=== PATIENT | female | born 1950 | race Hispanic/Latino ===

== ENCOUNTER 2019-05-07 14:29 | Emergency (ER) | payer OTHER ==
--- OUTSIDE RECORDS SUMMARY | 2019-05-07 14:31 | XMS REPORT ---
:1950 Author Organization eClinicalWorks Care Team Providers Name Role Phone Reardon, Na Provider Role Unavailable Allergies, Adverse Reactions, Alerts Substance Reaction Event Type Metformin HCl Info Not Available Drug Allergy Janumet Info Not Available Drug Allergy Bactrim DS Info Not Available Drug Allergy Problems Problem Type Condition Code Onset Dates Condition Status Problem Diabetes mellitus type 2, E11.9 Active uncontrolled, without complications Problem Mixed hyperlipidemia E78.2 Active Problem HTN (hypertension), benign I10 Active Problem Elevated blood pressure reading I10 Active with diagnosis of hypertension Assessment Mixed hyperlipidemia E78.2 Active Problem Right foot pain M79.671 Active Assessment Cervicalgia M54.2 Active Assessment Gastroesophageal reflux disease K21.9 Active without esophagitis Problem Obesity, Class III, BMI 40-49.9 E66.01 Active (morbid obesity) Problem Poison shraddha L23.7 Active Problem Pollen allergies J30.1 Active Problem Adult general medical exam Z00.00 Active Problem Obesity (BMI 30-39.9) E66.9 Active Assessment HTN (hypertension), benign I10 Active Assessment Diabetic neuropathy, painful E11.40 Active Assessment Controlled type 2 diabetes mellitus E11.41 Active with diabetic mononeuropathy, without long-term current use of insulin Problem Diabetic neuropathy, painful E11.40 Active Problem Psoriasis L40.9 Active Problem Controlled type 2 diabetes mellitus E11.41 Active with diabetic mononeuropathy, without long-term current use of insulin Problem GERD (gastroesophageal reflux K21.9 Active disease) Assessment Obesity (BMI 30-39.9) E66.9 Active Problem Gastroesophageal reflux disease K21.9 Active without esophagitis Problem Diarrhea R19.7 Active Medications Medication Code Code Instructions Start End Status Dosage System Date Date Gabapentin NDC 66800960025 100 MG Orally Inactive 1 capsule Three times a day Lisinopril NDC 83796222428 10 MG Orally Oct 21, Active 1 tablet Once a day 2018 Lidex NDC 0 0.05 % Active not defined Externally Claritin NDC 25345944279 10 MG Orally Active 1 tablet Once a day Clobetasol [facility] 05015436224 0.05 % Active 1 application Propionate Externally to affected Twice a day area Tizanidine HCl [facility] 05754214794 2 MG Oct 21Oct Active 1 tab every 2019 26, 12 hours prn 2019 pain muscle spasm Medrol [facility] 53229430465 4 MG Orally Active as directed daily with food Creon [facility] 69378164150 48130 UNIT Active 1 capsule Orally three times a day Nexium [facility] 19105007537 40 MG Orally Active 1 capsule Once a day Pioglitazone [facility] 73924224549 30 MG Orally Active 1 tablet HCl Once a day Zestoretic [facility] 56498901231 20-25 MG Active 1 tablet Orally Once a day Crestor [facility] 64467043390 40 MG Orally Active 1 tablet Once a day GlipiZIDE ER ND 13384527219 5 MG Orally Oct 21, Active 1 tablet Once a day 2018uvia [facility] 39280967313 100 MG Orally Active 1 tablet Once a day Metformin HCl [facility] 48104304285 500 MG Orally Active 1 tablet with Once a day meals Lyrica [facility] 07565283869 50 MG Orally Active 1 capsule Twice a day Crestor [facility] 46802526072 40 MG Orally January Active 1 tablet Once a day 2017 Flonase [facility] 12724770397 50 MCG/ACT Active 2 spray in Nasally Once a each nostril day xiga [facility] 07163877738 10 MG Orally April Active 1 tablet Once a day 2018 Omeprazole [facility] 33682290656 40 MG Orally Active 1 capsule Once a day Cetirizine HCl [facility] 05859898982 10 MG Orally Active 1 tablet Once a day Results No Known Results Summary Purpose eClinicalWorks Submission
--- OUTSIDE RECORDS SUMMARY | 2019-05-07 14:31 | XMS REPORT ---
:1950 Author Organization eClinicalWorks Care Team Providers Name Role Phone Reardon, Na Provider Role Unavailable Allergies, Adverse Reactions, Alerts Substance Reaction Event Type Metformin HCl Info Not Available Drug Allergy Janumet Info Not Available Drug Allergy Bactrim DS Info Not Available Drug Allergy Problems Problem Type Condition Code Onset Dates Condition Status Problem Diarrhea R19.7 Active Problem GERD (gastroesophageal reflux K21.9 Active disease) Problem Psoriasis L40.9 Active Problem Elevated blood pressure reading with I10 Active diagnosis of hypertension Problem Poison shraddha L23.7 Active Problem Obesity, Class III, BMI 40-49.9 E66.01 Active (morbid obesity) Problem HTN (hypertension), benign I10 Active Problem Diabetes mellitus type 2, E11.9 Active uncontrolled, without complications Problem Pollen allergies J30.1 Active Problem Mixed hyperlipidemia E78.2 Active Assessment Obesity, Class III, BMI 40-49.9 E66.01 Active (morbid obesity) Assessment Elevated blood pressure reading with I10 Active diagnosis of hypertension Problem Controlled type 2 diabetes mellitus E11.41 Active with diabetic mononeuropathy, without long-term current use of insulin Assessment Vaginal candidiasis B37.3 Active Problem Gastroesophageal reflux disease K21.9 Active without esophagitis Assessment Acute lower urinary tract infection N39.0 Active Problem Diabetic neuropathy, painful E11.40 Active Medications Medication Code Code Instructions Start End Status Dosage System Date Date Nexium ND 14181677538 40 MG Orally April 15, Active 1 capsule Once a day 2017 Macrobid [facility] 80880893595 100 MG Orally May 20May Active 1 capsule every 12 hrs 2017 17, with food 2017 Creon ND 77804731825 90240 UNIT Active 1 capsule Orally three times a day Pioglitazone ND 45480401663 30 MG Orally Active 1 tablet HCl Once a day Medrol [facility] 77189309563 4 MG Orally Active as directed daily with food Januvia ND 35156700441 100 MG Orally Active 1 tablet Once a day Farxiga ND 10010190077 10 MG Orally Raymond Active 1 tablet Once a day 2018 Claritin [facility] 92370399341 10 MG Orally Active 1 tablet Once a day Metformin HCl ND 39148545376 500 MG Orally Active 1 tablet with Twice a day meals Zestoretic [facility] 47594034149 20-25 MG Orally Active 1 tablet Once a day Crestor [facility] 13725147951 40 MG Orally January Active 1 tablet Once a day 2017 Cetirizine HCl [facility] 40205680267 10 MG Orally Active 1 tablet Once a day Gabapentin [facility] 34336716600 100 MG Orally Active 1 capsule Three times a day Diflucan [facility] 17291781650 150 MG Orally May 20May Active 1 tablet now and repeat 2018 09, other in one 2018 week Flonase [facility] 78334327036 50 MCG/ACT Active 2 spray in Nasally Once a each nostril day Crestor [facility] 55588314139 40 MG Orally April 15, Active 1 tablet Once a day 2017 Lidex NDC 0 0.05 % Active not defined Externally Clobetasol [facility] 11371316797 0.05 % Active 1 application Propionate Externally to affected Twice a day area Omeprazole [facility] 54685924571 40 MG Orally Active 1 capsule Once a day Results No Known Results Summary Purpose eClinicalWorks Submission
--- OUTSIDE RECORDS SUMMARY | 2019-05-07 14:31 | XMS REPORT ---
:1950 Author Organization eClinicalWorks Care Team Providers Name Role Phone Reardon, Na Provider Role Unavailable Allergies, Adverse Reactions, Alerts Substance Reaction Event Type Metformin HCl Info Not Available Drug Allergy Janumet Info Not Available Drug Allergy Bactrim DS Info Not Available Drug Allergy Problems Problem Type Condition Code Onset Dates Condition Status Assessment Obesity (BMI 30-39.9) E66.9 Active Assessment Type 2 diabetes mellitus with E11.22 Active diabetic chronic kidney disease Problem HTN (hypertension), benign I10 Active Assessment Chronic kidney disease, stage III N18.3 Active (moderate) Problem Mixed hyperlipidemia E78.2 Active Assessment Gastroesophageal reflux disease K21.9 Active without esophagitis Problem Poison shraddha L23.7 Active Problem Obesity (BMI 30-39.9) E66.9 Active Problem Pollen allergies J30.1 Active Problem Type 2 diabetes mellitus with E11.22 Active diabetic chronic kidney disease Problem Chronic kidney disease, stage III N18.3 Active (moderate) Assessment Controlled type 2 diabetes mellitus E11.41 Active with diabetic mononeuropathy, without long-term current use of insulin Assessment Diabetic neuropathy, painful E11.40 Active Problem Psoriasis of scalp L40.9 Active Assessment Mixed hyperlipidemia E78.2 Active Problem Adult general medical exam Z00.00 Active Problem Right foot pain M79.671 Active Problem Elevated blood pressure reading I10 Active with diagnosis of hypertension Problem Obesity, Class III, BMI 40-49.9 E66.01 Active (morbid obesity) Problem Controlled type 2 diabetes mellitus E11.41 Active with diabetic mononeuropathy, without long-term current use of insulin Problem GERD (gastroesophageal reflux K21.9 Active disease) Assessment HTN (hypertension), benign I10 Active Problem Diarrhea R19.7 Active Problem Diabetes mellitus type 2, E11.9 Active uncontrolled, without complications Problem Gastroesophageal reflux disease K21.9 Active without esophagitis Problem Diabetic neuropathy, painful E11.40 Active Medications Medication Code Code Instructions Start End Status Dosage System Date Date Metformin HCl [facility] 78363232451 500 MG Orally Active 1 tablet with Once a day meals Gabapentin ND 17765166084 100 MG Orally Inactive 1 capsule Three times a day Pioglitazone ND 50129753486 30 MG Orally Active 1 tablet HCl Once a day Farxiga ND 68693903329 10 MG Orally Active 1 tablet Once a day Flonase ND 28420774252 50 MCG/ACT Active 2 spray in Nasally Once a each nostril day Claritin ND 97682666032 10 MG Orally Active 1 tablet Once a day Lyrica ND 76598292702 50 MG Orally Inactive 1 capsule Twice a day Medrol [facility] 14779090177 4 MG Orally Active as directed daily with food GlipiZIDE ER ND 66976048437 10 MG Orally Active 1 tablet with Once a day breakfast Crestor [facility] 15727886036 40 MG Orally Allegra Active 1 tablet Once a day 2017 Cetirizine HCl ND 07321745051 10 MG Orally Active 1 tablet Once a day Omeprazole ND 47568631253 40 MG Orally Active 1 capsule Once a day Creon [facility] 77699478662 23762 UNIT Active 1 capsule Orally three times a day Lisinopril [facility] 84874246641 20 MG Orally Active 1 tablet Once a day Zestoretic [facility] 22931185764 20-25 MG Active 1 tablet Orally Once a day Clobetasol ND 69617084019 0.05 % Active 1 application Propionate Externally to affected Twice a day area Crestor [facility] 50645395994 40 MG Orally Active 1 tablet Once a day Lidex ND 0 0.05 % Active not defined Externally Januvia ND 98559929944 100 MG Orally Active 1 tablet Once a day Nexium ND 83810420163 40 MG Orally Active 1 capsule Once a day Results No Known Results Summary Purpose eClinicalWorks Submission
--- OUTSIDE RECORDS SUMMARY | 2019-05-07 14:31 | XMS REPORT ---
:1950 Author Organization eClinicalWorks Care Team Providers Name Role Phone Reardon, Na Provider Role Unavailable Allergies, Adverse Reactions, Alerts Substance Reaction Event Type Metformin HCl Info Not Available Drug Allergy Janumet Info Not Available Drug Allergy Bactrim DS Info Not Available Drug Allergy Problems Problem Type Condition Code Onset Dates Condition Status Problem HTN (hypertension), benign I10 Active Problem Poison shraddha L23.7 Active Problem Mixed hyperlipidemia E78.2 Active Problem Elevated blood pressure reading I10 Active with diagnosis of hypertension Assessment Muscle cramps R25.2 Active Problem Obesity, Class III, BMI 40-49.9 E66.01 Active (morbid obesity) Assessment Diabetes mellitus type 2, E11.9 Active uncontrolled, without complications Assessment HTN (hypertension), benign I10 Active Problem Psoriasis of scalp L40.9 Active Problem Right foot pain M79.671 Active Problem Pollen allergies J30.1 Active Problem Adult general medical exam Z00.00 Active Problem Obesity (BMI 30-39.9) E66.9 Active Assessment Encounter for general adult medical Z00.01 Active examination with abnormal findings Assessment Cervicalgia M54.2 Active Assessment Psoriasis of scalp L40.9 Active Problem Gastroesophageal reflux disease K21.9 Active without esophagitis Problem Diabetic neuropathy, painful E11.40 Active Problem Controlled type 2 diabetes mellitus E11.41 Active with diabetic mononeuropathy, without long-term current use of insulin Problem Diarrhea R19.7 Active Assessment Encounter for screening mammogram Z12.31 Active for breast cancer Problem GERD (gastroesophageal reflux K21.9 Active disease) Problem Diabetes mellitus type 2, E11.9 Active uncontrolled, without complications Medications Medication Code Code Instructions Start End Status Dosage System Date Date Clobetasol [facility] 01436804629 0.05 % Active 1 application Propionate Externally to affected Twice a day area Omeprazole ND 80021544171 40 MG Orally Active 1 capsule Once a day Cetirizine HCl ND 14361826325 10 MG Orally Active 1 tablet Once a day Crestor ND 69437603504 40 MG Orally January Active 1 tablet Once a day 2017 Pioglitazone ND 89675663972 30 MG Orally Active 1 tablet HCl Once a day Lisinopril ND 75982431924 10 MG Orally Oct 21, Active 1 tablet Once a day 2018 Claritin ND 44103771858 10 MG Orally Active 1 tablet Once a day GlipiZIDE ER ND 90685417161 5 MG Orally Oct 21, Active 1 tablet Once a day 2018 Medrol ND 59859759286 4 MG Orally Active as directed daily with food Januvia [facility] 69017626565 100 MG Orally Active 1 tablet Once a day Tizanidine HCl ND 81027939403 2 MG Dec 07December Active 1 TAB EVERY 2018 29, 12 HOURS PRN 2019 PAIN / muscle spasm Metformin HCl [facility] 65449423359 500 MG Orally Active 1 tablet with Once a day meals Zestoretic [facility] 47615031551 20-25 MG Orally Active 1 tablet Once a day Creon [facility] 08100387143 75915 UNIT Active 1 capsule Orally three times a day Lidex NDC 0 0.05 % Active not defined Externally Nexium ND 94489875238 40 MG Orally Active 1 capsule Once a day Farxiga [facility] 35301800690 10 MG Orally April Active 1 tablet Once a day 2018 Flonase [facility] 31728609271 50 MCG/ACT Active 2 spray in Nasally Once a each nostril day Lyrica [facility] 45394901762 50 MG Orally Active 1 capsule Twice a day Crestor [facility] 93835852663 40 MG Orally Active 1 tablet Once a day Results No Known Results Summary Purpose eClinicalWorks Submission
--- OUTSIDE RECORDS SUMMARY | 2019-05-07 14:31 | XMS REPORT ---
:1950 Author Organization eClinicalWorks Care Team Providers Name Role Phone Reardon, Na Provider Role Unavailable Allergies No Known Allergies Problems Problem Type Condition Code Onset Dates Condition Status Problem GERD (gastroesophageal reflux K21.9 Active disease) Problem HTN (hypertension), benign I10 Active Problem Diabetes mellitus type 2, E11.9 Active uncontrolled, without complications Problem Elevated blood pressure reading I10 Active with diagnosis of hypertension Problem Adult general medical exam Z00.00 Active Problem Obesity, Class III, BMI 40-49.9 E66.01 Active (morbid obesity) Problem Poison shraddha L23.7 Active Problem Mixed hyperlipidemia E78.2 Active Problem Right foot pain M79.671 Active Problem Pollen allergies J30.1 Active Problem Gastroesophageal reflux disease K21.9 Active without esophagitis Problem Diabetic neuropathy, painful E11.40 Active Problem Diarrhea R19.7 Active Problem Controlled type 2 diabetes mellitus E11.41 Active with diabetic mononeuropathy, without long-term current use of insulin Problem Psoriasis L40.9 Active Medications No Known Medications Results No Known Results Summary Purpose eClinicalWorks Submission
--- OUTSIDE RECORDS SUMMARY | 2019-05-07 14:32 | XMS REPORT ---
:1950 Author Organization eClinicalWorks Care Team Providers Name Role Phone Reardon, Vanda Provider Role Unavailable Allergies, Adverse Reactions, Alerts Substance Reaction Event Type Metformin HCl Info Not Available Drug Allergy Janumet Info Not Available Drug Allergy Janumet Info Not Available Drug Allergy Bactrim DS Info Not Available Drug Allergy Bactrim DS [...] disease, stage III N18.3 Active (moderate) Assessment HTN (hypertension), benign I10 Active Assessment Diabetic neuropathy, painful E11.40 Active Problem [...] GERD (gastroesophageal reflux K21.9 Active disease) Assessment Controlled type 2 diabetes mellitus E11.41 Active with diabetic mononeuropathy, without long-term current use of insulin Problem Diarrhea R19.7 Active Problem Diabetes mellitus type 2, E11.9 Active uncontrolled, without complications Problem Gastroesophageal reflux disease K21.9 Active without esophagitis Problem Diabetic neuropathy, painful E11.40 Active Medications Medication Code Code Instructions Start End Status Dosage System Date Date Creon [facility] 07495059538 99059 UNIT Active 1 capsule Orally three times a day Zestoretic [facility] 90730334243 20-25 MG Active 1 tablet Orally Once a day Claritin ND 19987768312 10 MG Orally Active 1 tablet Once a day Crestor [facility] 98612036267 40 MG Orally Active 1 tablet Once a day Lyrica ND 90240579821 50 MG Orally Inactive 1 capsule Twice a day Metformin HCl ND 25845208790 500 MG Orally Active 1 tablet with Once a day meals Nitrofurantoin ND 87702215080 100 mg Orally February 24, Active 1 capsule Macrocrystal BID 2018 Lidex ND 0 0.05 % Active not defined Externally Crestor ND 51202164574 40 MG Orally Allegra Active 1 tablet Once a day 2017 Pioglitazone HCl ND 30867906942 30 MG Orally Active 1 tablet Once a day Gabapentin ND 98782139958 100 MG Orally Active 1 capsule Once a day at bedtime GlipiZIDE ER ND 80144341043 10 MG Orally Active 1 tablet with Once a day breakfast Januvia ND 34684651844 100 MG Orally Active 1 tablet Once a day Diflucan ND 19595402186 150 MG Orally February 24, Active 1 tablet daily 2018 Nexium ND 66049302213 40 MG Orally Active 1 capsule Once a day Clobetasol ND 90542035195 0.05 % Active 1 application Propionate Externally to affected Twice a day area Omeprazole ND 17847336804 40 MG Orally Active 1 capsule Once a day Cetirizine HCl ND 85344119217 10 MG Orally Active 1 tablet Once a day Farxiga ND 80458336024 10 MG Orally Active 1 tablet Once a day Lisinopril ND 01421382150 20 MG Orally Active 1 tablet Once a day Medrol ND 61902819502 4 MG Orally Active as directed daily with food Flonase ND 44781270178 50 MCG/ACT Active 2 spray in Nasally Once a each nostril day Results No Known Results Summary Purpose eClinicalWorks Submission
--- OUTSIDE RECORDS SUMMARY | 2019-05-07 14:32 | XMS REPORT ---
:1950 Author Organization eClinicalWorks Care Team Providers Name Role Phone Jeri Amador Provider Role Unavailable Allergies No Known Allergies Problems Problem Type Condition Code Onset Dates Condition Status Problem Poison shraddha L23.7 Active Problem Obesity (BMI 30-39.9) E66.9 Active Problem Pollen allergies J30.1 Active Problem Type 2 diabetes mellitus with E11.22 Active diabetic chronic kidney disease Problem Chronic kidney disease, stage III N18.3 Active (moderate) Problem Psoriasis of scalp L40.9 Active Problem Adult general medical exam Z00.00 Active Problem Right foot pain M79.671 Active Problem Elevated blood pressure reading I10 Active with diagnosis of hypertension Problem Obesity, Class III, BMI 40-49.9 E66.01 Active (morbid obesity) Problem Controlled type 2 diabetes mellitus E11.41 Active with diabetic mononeuropathy, without long-term current use of insulin Problem GERD (gastroesophageal reflux K21.9 Active disease) Problem Diarrhea R19.7 Active Problem Diabetes mellitus type 2, E11.9 Active uncontrolled, without complications Problem Gastroesophageal reflux disease K21.9 Active without esophagitis Problem HTN (hypertension), benign I10 Active Problem Diabetic neuropathy, painful E11.40 Active Problem Mixed hyperlipidemia E78.2 Active Medications No Known Medications Results No Known Results Summary Purpose eClinicalWorks Submission
--- OUTSIDE RECORDS SUMMARY | 2019-05-07 14:32 | XMS REPORT ---
:1950 Author Organization eClinicalWorks Care Team Providers Name Role Jeri Jordan Provider Role Unavailable Allergies, Adverse Reactions, Alerts [...] with E11.22 Active diabetic chronic kidney disease Assessment Hematuria, unspecified R31.9 Active Problem Chronic kidney disease, stage III N18.3 Active (moderate) Assessment Vaginal itching N89.8 Active Problem Psoriasis of scalp L40.9 Active [...] GERD (gastroesophageal reflux K21.9 Active disease) Assessment Urinary tract infection, site not N39.0 Active specified Problem Diarrhea R19.7 Active Problem Diabetes mellitus type 2, E11.9 Active uncontrolled, without complications Problem Gastroesophageal reflux disease K21.9 Active without esophagitis Problem HTN (hypertension), benign I10 Active Problem Diabetic neuropathy, painful E11.40 Active Problem Mixed hyperlipidemia E78.2 Active Medications Medication Code Code Instructions Start End Status Dosage System Date Date Nitrofurantoin NDC 61472980877 100 mg Orally February 24, Active 1 capsule Macrocrystal BID 2018 Lidex NDC 0 0.05 % Active not defined Externally Omeprazole NDC 45731035614 40 MG Orally Active 1 capsule Once a day Cetirizine HCl NDC 59541079765 10 MG Orally Active 1 tablet Once a day Januvia ND 37947786060 100 MG Orally Active 1 tablet Once a day Flonase ND 02087378268 50 MCG/ACT Active 2 spray in Nasally Once a each nostril day Diflucan [facility] 04153555474 150 MG Orally February 24, Active 1 tablet daily 2018 Nexium ND 60632679914 40 MG Orally Active 1 capsule Once a day Clobetasol [facility] 49973622120 0.05 % Active 1 application Propionate Externally to affected Twice a day area Pioglitazone HCl [facility] 26492263308 30 MG Orally Active 1 tablet Once a day GlipiZIDE ER [facility] 44471241149 10 MG Orally Active 1 tablet with Once a day breakfast Zestoretic [facility] 97669213223 20-25 MG Active 1 tablet Orally Once a day Crestor [facility] 38336622759 40 MG Orally Active 1 tablet Once a day Creon [facility] 35883436219 79282 UNIT Active 1 capsule Orally three times a day Claritin [facility] 51680574000 10 MG Orally Active 1 tablet Once a day Lisinopril [facility] 13123190618 20 MG Orally Active 1 tablet Once a day Farxiga [facility] 43532456341 10 MG Orally Active 1 tablet Once a day Crestor [facility] 43325995528 40 MG Orally Allegra Active 1 tablet Once a day 2017 Medrol [facility] 10291665312 4 MG Orally Active as directed daily with food Metformin HCl [facility] 84221876586 500 MG Orally Active 1 tablet with Once a day meals Results Name Result Date Reference Range Unit Abnormality Flag URINALYSIS AUTO W/O SCOPE (38640) ----KACI 3+ [id number] ----NIT Negative [id number] ----PROTEIN 1+ [id number] ----pH 7.0 20190224 ----GLUCOSE 2+ [id number] ----KETONES Negative [id number] ----SPECIFIC GRAVITY 1.015 20190224 ----BLO 1+ [id number] Summary Purpose eClinicalWorks Submission
[2019-05-07] MEDS ORDERED: HYDROCODONE/APAP 5/325 MG TAB ONE (15:33)
--- NOTE | 2019-05-07 16:34 | RAD REPORT ---
EXAM DESCRIPTION: RAD - Knee Left 3 View - 05/07/2019 3:16 pm CLINICAL HISTORY: Persistent knee pain following injury 1 week earlier COMPARISON: None. FINDINGS: No fracture, dislocation or periosteal reaction.Minimal joint effusion is seen. Medial com partment is narrowed with prominent medial compartment marginal spurring. Patella femoral joint space narrowing present with mild patella marginal spurring. There is spurring at the quadriceps tendon at tachment and patella tendon origin. No significant soft tissue finding. No pathologic bone process. IMPRESSION: Moderate severity knee joint degenerative change as detailed. No acute finding. Clinical concerns for internal derangement or occult bony injury could be further assessed with MR im aging.
--- NOTE | 2019-05-07 16:35 | RAD REPORT ---
EXAM DESCRIPTION: RAD - Tib Fib Left - 05/07/2019 3:16 pm CLINICAL HISTORY: Persistent leg pain following injury 1 week earlier COMPARISON: None. FINDINGS: No fracture is identified. There is no dislocation or periosteal reaction noted. No acute bone finding. Knee joint degenerative changes are detailed in separate report. Minimal degenerative c hange at the ankle joint. No suspicious soft tissue finding. IMPRESSION: Negative left tibia & fibula examination for acute finding.
--- NOTE | 2019-05-07 16:43 | EDPHYS ---
Physician Documentation [facility] Name: Kelly Cai Age: 68 yrs Sex: Female : 1950 Arrival Date: 05/07/2019 Time: 14:31 Bed 24 Private MD: ED Physician Valerio Momin HPI: 05/07 14:44 This 68 yrs old Female presents to ER via Ambulatory with complaints of Knee jmm Pain. 14:44 The patient presents with an injury, pain, that is acute. Onset: The symptoms/episode jmm began/occurred acutely, 1 week(s) ago. Modifying factors: The symptoms are alleviated by nothing. the symptoms are aggravated by movement, weight bearing. Associated signs and symptoms: Pertinent negatives fever, numbness. This is a 68 year old female with a history of dm, hlp, htn that presents to the ED with complaints of left knee pain after a fall 1 week ago. Patient fell directly on the knee. Patient denies other injury. . Historical: - Allergies: 14:34 Metformin HCl; sv 14:34 sitagliptin phosphate; sv 14:34 Sulfa (Sulfonamide Antibiotics); sv 14:34 sulfamethoxazole-trimethoprim; sv 14:34 TRIMETHOPRIM; sv - PMHx: 14:34 Diabetes - NIDDM; Hyperlipidemia; Hypertension; sv - PSHx: 14:34 None; sv - Immunization history:: Adult Immunizations up to date. - Social history:: Smoking status: Patient/guardian denies using tobacco. - Ebola Screening: : No symptoms or risks identified at this time. ROS: 14:44 Constitutional: Negative for fever, chills, and weight loss, Cardiovascular: Negative jmm for chest pain, palpitations, and edema, Respiratory: Negative for shortness of breath, cough, wheezing, and pleuritic chest pain. 14:44 MS/extremity: Positive for injury or acute deformity, pain. 14:44 All other systems are negative. Exam: 14:44 Head/Face: atraumatic. Eyes: EOMI, no conjunctival erythema appreciated ENT: Moist jmm Mucus Membranes Neck: Trachea midline, Supple Chest/axilla: Normal chest wall appearance and motion. Cardiovascular: Regular rate and rhythm. No edema appreciated Respiratory: Normal respirations, no respiratory distress appreciated Abdomen/GI: Non distended, soft Back: Normal ROM Skin: General appearance color normal 14:44 Constitutional: The patient appears in no acute distress, alert, awake. 14:44 Musculoskeletal/extremity: ROM: intact in all extremities, left anterior knee is TTP, FROM is appreciated, compartments are soft, NVI. 14:44 Skin: Appearance: Color: normal in color. 14:44 Neuro: Orientation: is normal, Mentation: is normal, Memory: is normal. 14:44 Psych: Behavior/mood is pleasant, cooperative. Vital Signs: 14:34 BP 166 / 89; Pulse 76; Resp 16; Temp 97.7; Pulse Ox 98% ; Weight 95.25 kg; Height 5 ft. sv 5 in. (165.10 cm); 14:34 Body Mass Index 34.95 (95.25 kg, 165.10 cm) sv MDM: 14:44 Patient medically screened. [facility] 16:42 Data reviewed: vital signs, nurses notes. Counseling: I had a detailed discussion with beatriz the patient and/or guardian regarding: the historical points, exam findings, and any diagnostic results supporting the discharge/admit diagnosis, radiology results, the need for outpatient follow up, to return to the emergency department if symptoms worsen or persist or if there are any questions or concerns that arise at home. 16:56 ED course: Extremity is NVI, Patient advised to follow up with ortho. Patient beatriz understood and agrees with the plan of care. . 05/07 14:58 Order name: Knee Left 3 View XRAY; Complete Time: 16:42 [facility] 05/07 14:58 Order name: Tib Fib Left XRAY; Complete Time: 16:42 [facility] 05/07 16:24 Order name: Knee Immobilizer; Complete Time: 16:44 [facility] Administered Medications: 15:18 Drug: [place] 5 mg-325 mg 1 tabs Route: PO; la1 16:52 Follow up: Response: No adverse reaction; Pain is decreased la1 Disposition: 05/08 07:18 Co-signature as Attending Physician, Valerio Momin MD I agree with the assessment and [facility] plan of care. Disposition: 05/07/19 16:43 Discharged to Home. Impression: Internal derangement of knee. - Condition is Stable. - Discharge Instructions: Knee Pain. - Prescriptions for Ultracet 37.5- 325 mg Oral Tablet - take 1 tablet by ORAL route every 6 hours - for up to 5 days; do not exceed 8 tablets per day.; 12 tablet. - Medication Reconciliation Form, Thank You Letter, Antibiotic Education, Prescription Opioid Use form. - Follow up: Private Physician; When: 2 - 3 days; Reason: Recheck today's complaints, Continuance of care, Re-evaluation by your physician. Signatures: Dispatcher [employer] Kaci Crawley RN RN sv Anderson, Corey, MD MD cha Mickail, Joel, PA PA jmm Attema, Lee, RN RN la1 Corrections: (The following items were deleted from the chart) 05/07 16:53 16:43 05/07/2019 16:43 Discharged to Home. Impression: Internal derangement of knee. la1 Condition is Stable. Forms are Medication Reconciliation Form, Thank You Letter, Antibiotic Education, Prescription Opioid Use. Follow up: Private Physician; When: 2 - 3 days; Reason: Recheck today's complaints, Continuance of care, Re-evaluation by your physician. beatriz
--- NOTE | 2019-05-07 16:43 | ER ---
Nurse's Notes [facility] Name: Kelly Cai Age: 68 yrs Sex: Female : 1950 Arrival Date: 05/07/2019 Time: 14:31 Bed 24 Private MD: Diagnosis: Internal derangement of knee Presentation: 05/07 14:33 Presenting complaint: Patient states: left knee injury 1 week ago and is having pain. sv Transition of care: patient was not received from another setting of care. Onset of symptoms was April 30, 2019. Risk Assessment: Do you want to hurt yourself or someone else? Patient reports no desire to harm self or others. Initial Sepsis Screen: Does the patient meet any 2 criteria? No. Patient's initial sepsis screen is negative. Does the patient have a suspected source of infection? No. Patient's initial sepsis screen is negative. Care prior to arrival: None. 14:33 Method Of Arrival: Ambulatory sv 14:33 Acuity: BALA 4 sv Historical: - Allergies: 14:34 Metformin HCl; sv 14:34 sitagliptin phosphate; sv 14:34 Sulfa (Sulfonamide Antibiotics); sv 14:34 sulfamethoxazole-trimethoprim; sv 14:34 TRIMETHOPRIM; sv - PMHx: 14:34 Diabetes - NIDDM; Hyperlipidemia; Hypertension; sv - PSHx: 14:34 None; sv - Immunization history:: Adult Immunizations up to date. - Social history:: Smoking status: Patient/guardian denies using tobacco. - Ebola Screening: : No symptoms or risks identified at this time. Screenin:19 Abuse screen: Denies threats or abuse. Nutritional screening: No deficits noted. la1 Tuberculosis screening: No symptoms or risk factors identified. Fall Risk None identified. Assessment: 15:18 General: Appears in no apparent distress. Behavior is calm, cooperative. Pain: la1 Complains of pain in left knee. Neuro: Level of Consciousness is awake, alert, obeys commands. Cardiovascular: Patient's skin is warm and dry. Respiratory: Airway is patent Respiratory effort is even, unlabored. GI: No signs and/or symptoms were reported involving the gastrointestinal system. : No signs and/or symptoms were reported regarding the genitourinary system. Vital Signs: 14:34 BP 166 / 89; Pulse 76; Resp 16; Temp 97.7; Pulse Ox 98% ; Weight 95.25 kg; Height 5 ft. sv 5 in. (165.10 cm); 14:34 Body Mass Index 34.95 (95.25 kg, 165.10 cm) sv ED Course: 14:31 Patient arrived in ED. as 14:34 Triage completed. sv 14:34 Arm band placed on. sv 14:41 Trever Can PA is PHCP. [facility] 14:41 Valerio Momin MD is Attending Physician. [facility] 14:44 Woody Rubio, RN is Primary Nurse. la1 15:18 Knee Left 3 View XRAY In Process Unspecified. EDMS 15:19 Tib Fib Left XRAY In Process Unspecified. EDMS 15:19 Call light in reach. la1 16:44 Knee immobilizer applied on left knee. jp3 16:52 No provider procedures requiring assistance completed. Patient did not have IV access la1 during this emergency room visit. Administered Medications: 15:18 Drug: [place] 5 mg-325 mg 1 tabs Route: PO; la1 16:52 Follow up: Response: No adverse reaction; Pain is decreased la1 Outcome: 16:43 Discharge ordered by MD. [facility] 16:52 Discharged to home ambulatory. la1 16:52 Condition: stable 16:52 Discharge instructions given to patient, Instructed on discharge instructions, follow up and referral plans. medication usage, Demonstrated understanding of instructions, follow-up care, medications, Prescriptions given X 1. 16:53 Patient left the ED. la1 Signatures: Dispatcher [employer] Kaci Crawley RN RN Trever Can PA PA jmm Martinez, Amelia as Woody Rubio RN RN la1 Colt Xiao jp3
== END 2019-05-07 16:53 | disposition home or self-care (01) ==
LOC: ER 14:29
DX: M23.92 Unspecified internal derangement of left knee (principal); W19.XXXA Unspecified fall, initial encounter; I10 Essential (primary) hypertension; E11.9 Type 2 diabetes mellitus without complications; Z88.2 Allergy status to sulfonamides; Z88.8 Allergy status to other drugs, medicaments and biological substances
CPT/HCPCS: 99284

== ENCOUNTER 2019-11-30 16:35 | Emergency (ER) | payer OTHER ==
--- OUTSIDE RECORDS SUMMARY | 2019-11-30 16:42 | XMS REPORT ---
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 Active Problem Type 2 diabetes mellitus with E11.22 Active diabetic chronic kidney disease Problem Other chronic pain G89.29 Active Problem Obesity, Class III, BMI 40-49.9 E66.01 Active (morbid obesity) Problem Adult general medical exam Z00.00 Active Problem Chronic kidney disease, stage III N18.3 Active (moderate) Problem Elevated blood pressure reading I10 Active with diagnosis of hypertension Problem Gastroesophageal reflux disease K21.9 Active without esophagitis Problem Diabetic neuropathy, painful E11.40 Active Problem Controlled type 2 diabetes mellitus E11.41 Active with diabetic mononeuropathy, without long-term current use of insulin Problem Diabetes mellitus type 2, E11.9 Active uncontrolled, without complications Problem HTN (hypertension), benign I10 Active Problem GERD (gastroesophageal reflux K21.9 Active disease) Problem Mixed hyperlipidemia E78.2 Active Problem Diarrhea R19.7 Active Problem Pollen allergies J30.1 Active Medications No Known Medications Results No Known Results Summary Purpose eClinicalWorks Submission
--- OUTSIDE RECORDS SUMMARY | 2019-11-30 16:42 | XMS REPORT ---
[...] Assessment Obesity (BMI 30-39.9) E66.9 Active Assessment Needs flu shot Z23 Active Assessment Abscess of vagina N76.0 Active Assessment Urinary tract infection without N39.0 Active hematuria, site unspecified Assessment Chronic kidney disease, stage III N18.3 Active (moderate) Problem HTN (hypertension), benign I10 Active Assessment Type 2 diabetes mellitus with E11.22 Active diabetic chronic kidney disease Problem Mixed hyperlipidemia E78.2 Active Assessment Gastroesophageal [...] End Status Dosage System Date Date Nitrofurantoin [facility] 51654767756 100 mg Orally February 24, Active 1 capsule Macrocrystal BID 2018 Crestor [facility] 97955791866 40 MG Orally Active 1 tablet Once a day Clindamycin HCl ND 07360219724 300 MG Orally Aug 18Aug Active 1 capsules every 8 hrs 2018 GlipiZIDE ER ND 07295514567 10 MG Orally Active 1 tablet with Once a day breakfast Claritin [facility] 36335219683 10 MG Orally Active 1 tablet Once a day Lyrica ND 28973656762 50 MG Orally Inactive 1 capsule Twice a day Gabapentin ND 47438031581 100 MG Orally Active 1 capsule Once a day at bedtime Diflucan ND 45642747822 150 MG Orally February 24, Active 1 tablet daily 2018 Farxiga [facility] 50870576521 10 MG Orally Active 1 tablet Once a day Cetirizine HCl [facility] 10610858473 10 MG Orally Active 1 tablet Once a day Lidex ND 0 0.05 % Active not defined Externally Lisinopril ND 10914773539 20 MG Orally Active 1 tablet Once a day Medrol [facility] 00424672073 4 MG Orally Active as directed daily with food Clobetasol [facility] 58538211394 0.05 % Active 1 application Propionate Externally to affected Twice a day area Omeprazole ND 87624936491 40 MG Orally Active 1 capsule Once a day Pioglitazone HCl [facility] 78247757013 30 MG Orally Active 1 tablet Once a day Metformin HCl [facility] 32496619487 500 MG Orally Active 1 tablet with Once a day meals Crestor [facility] 26529492933 40 MG Orally Allegra Active 1 tablet Once a day 2017 Flonase [facility] 29530213949 50 MCG/ACT Active 2 spray in Nasally Once a each nostril day Januvia ND 19367680372 100 MG Orally Active 1 tablet Once a day Nexium ND 04615132577 40 MG Orally Active 1 capsule Once a day Creon [facility] 06208388949 42479 UNIT Active 1 capsule Orally three times a day Zestoretic [facility] 37505113342 20-25 MG Active 1 tablet Orally Once a day Results Name Result Date Reference Range Unit Abnormality Flag URINALYSIS AUTO W/O SCOPE (01148) ----KACI 1+ [id number] ----NIT neg [id number] ----PROTEIN neg [id number] ----pH 6.0 [id number] ----GLUCOSE 2+ [id number] ----KETONES neg [id number] ----SPECIFIC GRAVITY 1.010 [id number] ----BLO neg [id number] CULTURE, URINE, ROUTINE ----CULTURE, URINE, ROUTINE SEE NOTE [id number] Immunizations Vaccine Administration Date FluAD Aug 18, 2019 Summary Purpose eClinicalWorks Submission
--- OUTSIDE RECORDS SUMMARY | 2019-11-30 16:42 | XMS REPORT ---
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 chronic kidney disease Assessment Diabetic neuropathy, painful E11.40 Active Problem Chronic kidney disease, stage III N18.3 Active (moderate) Assessment Controlled type 2 diabetes mellitus E11.41 Active with diabetic mononeuropathy, without long-term current use of insulin Assessment HTN (hypertension), benign I10 Active Problem [...] GERD (gastroesophageal reflux K21.9 Active disease) Assessment Mixed hyperlipidemia E78.2 Active Problem Diarrhea R19.7 Active Problem Diabetes mellitus type 2, E11.9 Active uncontrolled, without complications Problem Gastroesophageal reflux disease K21.9 Active without esophagitis Problem HTN (hypertension), benign I10 Active Problem Diabetic neuropathy, painful E11.40 Active Problem Mixed hyperlipidemia E78.2 Active Medications Medication Code Code Instructions Start End Status Dosage System Date Date Metformin HCl [facility] 65576263296 500 MG Orally Active 1 tablet Once a day with meals Zestoretic [facility] 19824015212 20-25 MG Orally Active 1 tablet Once a day Lisinopril ND 67246713687 20 MG Orally Active 1 tablet Once a day Pioglitazone ND 44728986031 30 MG Orally Active 1 tablet HCl Once a day Farxiga ND 94975715876 10 MG Orally Active 1 tablet Once a day Crestor ND 99334987565 40 MG Orally Active 1 tablet Once a day Gabapentin NDC 37270448176 100 MG Orally Active 1 capsule Once a day at bedtime GlipiZIDE ER [facility] 98937374773 10 MG Orally Active 1 tablet Once a day with breakfast Januvia [facility] 61229107281 100 MG Orally Active 1 tablet Once a day Results No Known Results Summary Purpose eClinicalWorks Submission
--- OUTSIDE RECORDS SUMMARY | 2019-11-30 16:42 | XMS REPORT ---
[...] E11.22 Active diabetic chronic kidney disease Assessment HTN (hypertension), benign I10 Active Problem Chronic kidney disease, stage III N18.3 Active (moderate) Assessment Mixed hyperlipidemia E78.2 Active Problem Psoriasis of scalp L40.9 Active [...]
--- OUTSIDE RECORDS SUMMARY | 2019-11-30 16:42 | XMS REPORT ---
[...] E11.22 Active diabetic chronic kidney disease Assessment Bilateral lower extremity edema R60.0 Active Problem Chronic kidney disease, stage III N18.3 Active (moderate) Assessment Hypokalemia E87.6 Active Assessment History of traveler's diarrhea Z86.19 Active Problem Psoriasis of scalp L40.9 Active [...] Start End Status Dosage System Date Date Crestor [facility] 77345279005 40 MG Orally January Active 1 tablet Once a day 2017 Lisinopril ND 12392851465 20 MG Orally Active 1 tablet Once a day Nitrofurantoin ND 97931209987 100 mg Orally February 24, Active 1 capsule Macrocrystal BID [address] [facility] 89161375022 10 MG Orally Active 1 tablet Once a day GlipiZIDE ER ND 41089665063 10 MG Orally Active 1 tablet with Once a day breakfast Cetirizine HCl ND 30927340696 10 MG Orally Active 1 tablet Once a day Medrol ND 44701614947 4 MG Orally Active as directed daily with food Omeprazole ND 38274747345 40 MG Orally Active 1 capsule Once a day Diflucan ND 89510875426 150 MG Orally February 24, Active 1 tablet daily 2018 Clobetasol ND 16718895564 0.05 % Active 1 application Propionate Externally to affected Twice a day area Metformin HCl ND 30262245256 500 MG Orally Active 1 tablet with Once a day meals Creon [facility] 54576155787 94034 UNIT Active 1 capsule Orally three times a day Flonase [facility] 69245013871 50 MCG/ACT Active 2 spray in Nasally Once a each nostril day Claritin [facility] 59492168638 10 MG Orally Active 1 tablet Once a day Crestor [facility] 52835152713 40 MG Orally Active 1 tablet Once a day Gabapentin ND 39252841807 100 MG Orally Active 1 capsule Once a day at bedtime Nexium ND 04149397682 40 MG Orally Active 1 capsule Once a day Klor-Con M20 [facility] [address]-11 20 MEQ orally Active 1 tablet twice a day Lidex ND 0 0.05 % Active not defined Externally Pioglitazone HCl [facility] 18845429309 30 MG Orally Active 1 tablet Once a day Zestoretic [facility] 77127970055 20-25 MG Active 1 tablet Orally Once a day Januvia [facility] 83367753779 100 MG Orally Active 1 tablet Once a day Cipro [facility] 66496214087 500 MG Orally Active 1 tablet every 12 hrs Results No Known Results Summary Purpose eClinicalWorks Submission
--- OUTSIDE RECORDS SUMMARY | 2019-11-30 16:42 | XMS REPORT ---
:1950 [facility] [address] [place] [address] Care Team Providers Name Role Phone Unavailable Unavailable Unavailable Payers Payer Name Policy Type Policy Number Effective Date Expiration Date Problems This patient has no known problems. Allergies, Adverse Reactions, Alerts Allergy Allergy Status Severity Reaction(s) Onset Inactive Treating Comments Name Type Date Date Clinician No Known DA Active U 2019-10 Allergies 00:00:0 0 Medications This patient has no known medications. Results Test Description Test Time Test Comments Text Results Atomic Results Result Comments POTASSIUM 2019-10-15 12:26:00 Test Item Value Reference Range Comments POTASSIUM (test code=K) 3.6 mmol/L 3.5-5.1 COMPREHENSIVE METABOLIC [id number] 06:36:00 Test Item Value Reference Range Comments SODIUM (test code=NA) 143 mmol/L 136-145 POTASSIUM (test code=K) 2.8 mmol/L 3.5-5.1 CHLORIDE (test code=CL) 106 mmol/L 98-107 CARBON DIOXIDE (test code=CO2) 24 mmol/L 21-32 GLUCOSE (test code=GLU) 157 mg/dL 70-100 BLOOD UREA NITROGEN (test 22 mg/dL 7-18 code=BUN) GLOMERULAR FILTRATION RATE 58.87 >=60 Reporting units: (test code=GFR) mL/min/1.73m\S\2 (Modified MDRD formula)REFERENCE RANGE: > or=60 ml/min/1.73M2IF PATIENT IS -CROATIAN, MULTIPLY REPORTED RESULT BY1.21. CREATININE (test code=CREAT) 0.94 mg/dl 0.55-1.02 TOTAL PROTEIN (test code=PROT) 7.5 g/dl 6.4-8.2 ALBUMIN (test code=ALB) 3.6 g/dl 3.4-5.0 CALCIUM (test code=CA) 8.7 mg/dL 8.5-10.1 BILIRUBIN TOTAL (test 0.3 mg/dL 0.2-1.0 code=BILT) SGOT/AST (test code=AST) 16 U/L 15-37 SGPT/ALT (test code=ALT) 19 U/L 12-78 ALKALINE PHOSPHATASE TOTAL 100 U/L 45-117 (test code=ALKP) [id number] 06:36:00 Test Item Value Reference Range Comments LIPASE (test code=LIP) 255 U/L 73-393 [id number] 06:36:00 Test Item Value Reference Range Comments MAGNESIUM (test code=MAG) 1.8 mg/dL 1.8-2.4 - US ABDOMEN [id number] 04:55:00 FAX: Yohannes Martinez MD [place]: St: REG Name: BANSALTONYA Sheridan FSED : 1950 Age/S: 69/F [address] Unit#: [id number] [place]: [place] [address] Phys: Yohannes Martinez MD Acct: [id number] Dis Date: Status: REG ER PHONE #: Exam Date: 10/15/2019 1575 FAX #: Reason: epig pain EXAMS: CPT CODE : [id number] US ABDOMEN LTD 66003 DICTATION LOCATION: H48 HISTORY: Female, 69 years of age with epigastric pain EXAM: ULTRASOUND OF THE RIGHT UPPER QUADRANT COMPARISON: None TECHNIQUE: Real-time grayscale 2-D imaging, Doppler spectral analysis, and Doppler color flow imaging were performed with the variable megahertz curved array transducer transabdominally. STATEMENT: Exam quality is acceptable. FINDINGS: PANCREAS: Head and body within normal limits. Tail obscured by bowel gas. GALLBLADDER: Gallbladder is mildly distended with small stone in the lumen. No gallbladder wall thickening or pericholecystic fluid. COMMON BILE DUCT: 6.0 mm, upper limits normal caliber.No obvious intraluminal filling defect. LIVER: Normal in echogenicity. No focal mass orenlargement. Portal vein is patent with appropriate hepatopedal flow. RIGHT KIDNEY: Right kidney is unremarkable except for a couple of cysts measuring up to 4.9 cm diameter in lower pole. OTHER: There is no ascites. IMPRESSION: 1. Distended gallbladder with cholelithiasis. 2. CBD is upper limits normal caliber. at 0455 Reported and signed by: EDMOND Santos CC: Yohannes Martinez MD Technologist: Sergio Milton RDMS Trnscrd Date/Time/By: 10/15/2019 (0455) : By: Jey Orig Print D/T: S: 10/15/2019 (0458) PAGE 1 Signed ReportCOMPREHENSIVE METABOLIC [id number] 04:53:00 Test Item Value Reference Range Comments SODIUM (test code=NA) 143 mmol/L 136-145 POTASSIUM (test code=K) 2.8 mmol/L 3.5-5.1 CHLORIDE (test code=CL) 106 mmol/L 98-107 CARBON DIOXIDE (test code=CO2) 24 mmol/L 21-32 GLUCOSE (test code=GLU) 157 mg/dL 70-100 BLOOD UREA NITROGEN (test 22 mg/dL 7-18 code=BUN) GLOMERULAR FILTRATION RATE 58.87 >=60 Reporting units: (test code=GFR) mL/min/1.73m\S\2 (Modified MDRD formula)REFERENCE RANGE: > or=60 ml/min/1.73M2IF PATIENT IS -CROATIAN, MULTIPLY REPORTED RESULT BY1.21. CREATININE (test code=CREAT) 0.94 mg/dl 0.55-1.02 TOTAL PROTEIN (test code=PROT) 7.5 g/dl 6.4-8.2 ALBUMIN (test code=ALB) 3.6 g/dl 3.4-5.0 CALCIUM (test code=CA) 8.7 mg/dL 8.5-10.1 BILIRUBIN TOTAL (test 0.3 mg/dL 0.2-1.0 code=BILT) SGOT/AST (test code=AST) 16 U/L 15-37 SGPT/ALT (test code=ALT) 19 U/L 12-78 ALKALINE PHOSPHATASE TOTAL 100 U/L 45-117 (test code=ALKP) [id number] 04:53:00 Test Item Value Reference Range Comments LIPASE (test code=LIP) 255 U/L 73-393 URINALYSIS W REFLEX [id number] 04:46:00 Test Item Value Reference Range Comments UA COLOR (test code=COLU) YELLOW YELLOW UA APPEARANCE (test code=APPU) CLEAR CLEAR UA GLUCOSE DIPSTICK (test code=DGLUU) 500 mg/dl NORMAL UA BILIRUBIN DIPSTICK (test code=BILU) SMALL mg/dl NEGATIVE UA KETONE DIPSTICK (test code=KETU) 15 mg/dl NEGATIVE UA SPECIFIC GRAVITY (test code=SGU) 1.025 1.001-1.035 UA BLOOD DIPSTICK (test code=RAKEL) NEGATIVE /UL NEGATIVE UA PH DIPSTICK (test code=SIVAN) 5.5 4.6-8.0 UA PROTEIN DIPSTICK (test code=PROU) 30 mg/dl NEGATIVE UA UROBILINIOGEN DIPSTICK (test code=URO) 0.2 mg/dl NORMAL UA NITRITE DIPSTICK (test code=LOLY) NEGATIVE NEGATIVE UA LEUKOCYTE ESTERASE DIPSTICK (test NEGATIVE /UL NEGATIVE code=LEUU) UA COMMENT (test code=COMU) CLN CATCH UA MICROSCOPIC NEEDED? (test code=UAMICRO) Y=DO UA MICRO UA ICTOTEST FOR [id number] 04:46:00 Test Item Value Reference Range Comments UA ICTOTEST FOR BILIRUBIN (test code=ICTOU) NEGATIVE NEGATIVE UA [id number] 04:46:00 Test Item Value Reference Range Comments UA WBC (test code=WBCU) 3-5 #/hpf 0-5 UA RBC (test code=RBCU) 0-2 #/hpf 0-5 UA EPITHELIAL CELLS (test code=EPIU) 2+ /hpf NEG,FEW UA BACTERIA (test code=BACU) 2+ /hpf NEGATIVE UA HYALINE CAST (test code=HYALU) 3-5 #/lpf 0-2 UA MUCUS (test code=MUCU) 1+ /hpf NEG,FEW URINALYSIS W REFLEX [id number] 04:42:00 Test Item Value Reference Range Comments UA COLOR (test code=COLU) YELLOW YELLOW UA APPEARANCE (test code=APPU) CLEAR CLEAR UA GLUCOSE DIPSTICK (test code=DGLUU) 500 mg/dl NORMAL UA BILIRUBIN DIPSTICK (test code=BILU) SMALL mg/dl NEGATIVE UA KETONE DIPSTICK (test code=KETU) 15 mg/dl NEGATIVE UA SPECIFIC GRAVITY (test code=SGU) 1.025 1.001-1.035 UA BLOOD DIPSTICK (test code=RAKEL) NEGATIVE /UL NEGATIVE UA PH DIPSTICK (test code=SIVAN) 5.5 4.6-8.0 UA PROTEIN DIPSTICK (test code=PROU) 30 mg/dl NEGATIVE UA UROBILINIOGEN DIPSTICK (test code=URO) 0.2 mg/dl NORMAL UA NITRITE DIPSTICK (test code=LOLY) NEGATIVE NEGATIVE UA LEUKOCYTE ESTERASE DIPSTICK (test NEGATIVE /UL NEGATIVE code=LEUU) UA COMMENT (test code=COMU) CLN CATCH UA MICROSCOPIC NEEDED? (test code=UAMICRO) Y=DO UA MICRO UA ICTOTEST FOR [id number] 04:42:00 Test Item Value Reference Range Comments UA ICTOTEST FOR BILIRUBIN (test code=ICTOU) NEGATIVE NEGATIVE URINALYSIS W REFLEX [id number] 04:42:00 Test Item Value Reference Range Comments UA COLOR (test code=COLU) YELLOW YELLOW UA APPEARANCE (test code=APPU) CLEAR CLEAR UA GLUCOSE DIPSTICK (test code=DGLUU) 500 mg/dl NORMAL UA BILIRUBIN DIPSTICK (test code=BILU) SMALL mg/dl NEGATIVE UA KETONE DIPSTICK (test code=KETU) 15 mg/dl NEGATIVE UA SPECIFIC GRAVITY (test code=SGU) 1.025 1.001-1.035 UA BLOOD DIPSTICK (test code=RAKEL) NEGATIVE /UL NEGATIVE UA PH DIPSTICK (test code=SIVAN) 5.5 4.6-8.0 UA PROTEIN DIPSTICK (test code=PROU) 30 mg/dl NEGATIVE UA UROBILINIOGEN DIPSTICK (test code=URO) 0.2 mg/dl NORMAL UA NITRITE DIPSTICK (test code=LOLY) NEGATIVE NEGATIVE UA LEUKOCYTE ESTERASE DIPSTICK (test NEGATIVE /UL NEGATIVE code=LEUU) UA COMMENT (test code=COMU) CLN CATCH UA MICROSCOPIC NEEDED? (test code=UAMICRO) Y=DO UA MICRO UA ICTOTEST FOR [id number] 04:42:00 Test Item Value Reference Range Comments UA ICTOTEST FOR BILIRUBIN (test code=ICTOU) NEGATIVE NEGATIVE CBC W/AUTO [id number] 04:39:00 Test Item Value Reference Range Comments WHITE BLOOD CELL (test code=WBC) 10.4 X10(3) 4.5-11.0 RED BLOOD CELL (test code=RBC) 4.44 X10(6) 4.2-5.4 HEMOGLOBIN (test code=HGB) 13.1 g/dL 12.5-16.0 HEMATOCRIT (test code=HCT) 39.9 % 37.0-47.0 MEAN CELL VOLUME (test code=MCV) 89.9 fL 78-100 MEAN CELL HGB (test code=MCH) 29.5 pg 26.0-34.0 MEAN CELL HGB CONCETRATION (test code=MCHC) 32.8 g/dl 30.0-37.0 RED CELL DISTRIBUTION WIDTH (test code=RDW) 13.4 % 11.5-14.5 PLATELET COUNT (test code=PLT) 265 X10(3) 150-350 MEAN PLATELET VOLUME (test code=MPV) 9.7 fl 8.7-11.4 NEUTROPHIL % (test code=NT%) 66.4 % 36.0-66.0 IMMATURE GRANULOCYTE % (test code=IG%) 0.2 % 0.0-2.0 LYMPHOCYTE % (test code=LY%) 25.2 % 16-50 MONOCYTE % (test code=MO%) 6.6 % 0.0-13.0 EOSINOPHIL % (test code=EO%) 1.3 % 0.0-4.5 BASOPHIL % (test code=BA%) 0.3 % 0.0-1.5 NEUTROPHIL # (test code=NT#) 6.9 X10(3) 1.7-7.7 IMMATURE GRANULOCYTE # (test code=IG#) 0.02 X10(3)uL 0.00-0.03 LYMPHOCYTE # (test code=LY#) 2.6 X10(3) 1.0-4.8 MONOCYTE # (test code=MO#) 0.7 X10(3) 0.0-0.89 EOSINOPHIL # (test code=EO#) 0.1 X10(3) 0.0-0.6 BASOPHIL # (test code=BA#) 0.0 X10(3) 0.0-0.2 RBC MORPHOLOGY REQUIRED (test code=RBCM) NO NORMAL LACTIC [id number] 04:36:00 Test Item Value Reference Range Comments LACTIC ACID (test code=LACT) 1.4 mmol/l 0.4-2.0
[2019-11-30] MEDS ORDERED: HYDROCODONE/APAP 5/325 MG TAB ONE (17:20)
--- NOTE | 2019-11-30 18:08 | RAD REPORT ---
EXAM DESCRIPTION: US - Extremity Venous Uni Ltd - 11/30/2019 6:03 pm CLINICAL HISTORY: PAIN Leg swelling and edema. COMPARISON: No comparisons FINDINGS: Right lower extremity venous system was interrogated with Doppler technique. Normal flow, compressibility and augmentation was noted. There is no DVT present. IMPRESSION: No evidence of right lower extremity deep venous thrombosis.
--- NOTE | 2019-11-30 18:31 | ER ---
Nurse's Notes [facility] Name: Kelly Cai Age: 69 yrs Sex: Female : 1950 Arrival Date: 11/30/2019 Time: 16:39 Bed 15 Private MD: Vanda Reardon Diagnosis: Pain in right knee Presentation: 11/30 16:51 Presenting complaint: Patient states: i am having pain in my RIGHT knee and it has been tw2 for 2 weeks. Transition of care: patient was not received from another setting of care. Onset of symptoms was November 30, 2019. Risk Assessment: Do you want to hurt yourself or someone else? Patient reports no desire to harm self or others. Initial Sepsis Screen: Does the patient meet any 2 criteria? No. Patient's initial sepsis screen is negative. Does the patient have a suspected source of infection? No. Patient's initial sepsis screen is negative. Care prior to arrival: None. 16:51 Method Of Arrival: Ambulatory tw2 16:51 Acuity: BALA 4 tw2 16:52 Presenting complaint: Patient states: it hurts more when i go to stand up. tw2 Triage Assessment: 16:53 General: Appears in no apparent distress. obese, Behavior is calm, cooperative, tw2 appropriate for age. Pain: Complains of pain in right knee. Historical: - Allergies: 16:54 TRIMETHOPRIM; tw2 16:54 sulfamethoxazole-trimethoprim; tw2 16:54 Sulfa (Sulfonamide Antibiotics); tw2 16:54 sitagliptin phosphate; tw2 16:54 Metformin HCl; tw2 - Home Meds: 16:54 lovastatin 10 mg Oral tab 1 tab 2 times per day [Active]; tw2 lisinopril-hydrochlorothiazide 20-25 mg Oral tab 1 tab once daily for Hypertension [Active]; Crestor 10 mg Oral tab 1 tab once daily [Active]; - PMHx: 16:54 Hypertension; Hyperlipidemia; Diabetes - NIDDM; tw2 - PSHx: 16:54 None; tw2 - Immunization history:: Adult Immunizations. - Coronavirus screen:: The patient has NOT traveled to [place] in the past 14 days. - Social history:: Smoking status: . - Ebola Screening: : Patient denies travel to an Ebola-affected area in the 21 days before illness onset. Screenin:53 Abuse screen: Denies threats or abuse. Denies injuries from another. Nutritional bp screening: No deficits noted. Tuberculosis screening: No symptoms or risk factors identified. Fall Risk None identified. Assessment: 16:53 General: SEE TRIAGE NOTE. bp 17:52 Reassessment: U/S AT B/S. bp 18:45 Reassessment: PT D/C HOME AMBULATORY WITH FAMILY, DX WITH R KNEE PAIN. bp Vital Signs: 16:52 BP 179 / 72; Pulse 68; Resp 17; Temp 97.2(TE); Pulse Ox 100% on R/A; Weight 101.15 kg; tw2 Height 5 ft. 6 in. (167.64 cm); Pain 8/10; 18:25 BP 164 / 64; Pulse 66; Resp 18; Temp 97.5; Pulse Ox 99% ; bp 16:52 Body Mass Index 35.99 (101.15 kg, 167.64 cm) tw2 ED Course: 16:39 Patient arrived in ED. rg4 16:39 Vanda Reardon MD is Private Physician. rg4 16:52 Triage completed. tw2 16:53 Arm band placed on. tw2 16:53 Patient has correct armband on for positive identification. Bed in low position. Call bp light in reach. Side rails up X2. Adult w/ patient. 16:59 [facility] Rud[facility]C [facility] snw 16:59 Neri Felix MD is Attending Physician. snw 17:10 Nick Regalado, MANUEL is Primary Nurse. bp 18:07 US Extremity Venous Unilateral Ltd In Process Unspecified. EDMS 18:10 Charan wrap to right knee. dh3 18:26 Vanda Reardon MD is Referral Physician. snw 18:45 No provider procedures requiring assistance completed. Patient did not have IV access bp during this emergency room visit. Administered Medications: 17:35 Drug: [place] 5 mg-325 mg 1 tabs Route: PO; bp 18:47 Follow up: Response: Pain is decreased bp Outcome: 18:26 Discharge ordered by . snw 18:45 Discharged to home ambulatory, with family. bp 18:45 Condition: stable 18:45 Discharge instructions given to patient, Instructed on discharge instructions, follow up and referral plans. medication usage, Demonstrated understanding of instructions, follow-up care, medications, Prescriptions given X 1. 18:47 Patient left the ED. bp Signatures: Dispatcher [employer] EDMS Robyn Rudolph, TOP ICER-C TOP ICER-Csnw Chloe Agosto, RN RN 2 Claire Beasley 4 Cinda Gillette 3 Nick Regalado RN RN bp
--- NOTE | 2019-11-30 18:31 | EDPHYS ---
Physician Documentation [facility] Name: Kelly Cai Age: 69 yrs Sex: Female : 1950 Arrival Date: 11/30/2019 Time: 16:39 Bed 15 Private MD: Vanda Reardon ED Physician Neri Felix HPI: 11/30 21:13 This 69 yrs old Female presents to ER via Ambulatory with complaints of Knee snw Pain, Leg Pain. 21:13 The patient presents with pain, that is acute. The complaints affect the posterior snw aspect of right knee and right knee. Context: The problem was sustained at an unknown site, resulted from an unknown cause, the patient can partially bear weight, the patient is able to ambulate, Problem is a result from a previous injury: No. Onset: The symptoms/episode began/occurred acutely, and became persistent. Associated signs and symptoms: The patient has no apparent associated signs or symptoms. Severity of symptoms: At their worst the symptoms were moderate. It is unknown whether or not the patient has had similar symptoms in the past. It is unknown whether or not the patient has recently seen a physician. pulses present, no discoloration, no trauma, circumferential tenderness. Historical: - Allergies: 16:54 TRIMETHOPRIM; tw2 16:54 sulfamethoxazole-trimethoprim; tw2 16:54 Sulfa (Sulfonamide Antibiotics); tw2 16:54 sitagliptin phosphate; tw2 16:54 Metformin HCl; tw2 - Home Meds: 16:54 lovastatin 10 mg Oral tab 1 tab 2 times per day [Active]; tw2 lisinopril-hydrochlorothiazide 20-25 mg Oral tab 1 tab once daily for Hypertension [Active]; Crestor 10 mg Oral tab 1 tab once daily [Active]; - PMHx: 16:54 Hypertension; Hyperlipidemia; Diabetes - NIDDM; tw2 - PSHx: 16:54 None; tw2 - Immunization history:: Adult Immunizations. - Coronavirus screen:: The patient has NOT traveled to [place] in the past 14 days. - Social history:: Smoking status: . - Ebola Screening: : Patient denies travel to an Ebola-affected area in the 21 days before illness onset. ROS: 21:12 Constitutional: Negative for fever, chills, and weight loss, Eyes: Negative for injury, snw pain, redness, and discharge, ENT: Negative for injury, pain, and discharge, Neck: Negative for injury, pain, and swelling, Cardiovascular: Negative for chest pain, palpitations, and edema, Respiratory: Negative for shortness of breath, cough, wheezing, and pleuritic chest pain, Abdomen/GI: Negative for abdominal pain, nausea, vomiting, diarrhea, and constipation, Back: Negative for injury and pain, : Negative for injury, bleeding, discharge, and swelling, Skin: Negative for injury, rash, and discoloration, Neuro: Negative for headache, weakness, numbness, tingling, and seizure, Psych: Negative for depression, anxiety, suicide ideation, homicidal ideation, and hallucinations. 21:12 MS/extremity: Positive for pain, of the right knee, denies trauma. Exam: 21:11 Constitutional: This is a well developed, well nourished patient who is awake, alert, snw and in no acute distress. Head/Face: Normocephalic, atraumatic. Eyes: Pupils equal round and reactive to light, extra-ocular motions intact. Lids and lashes normal. Conjunctiva and sclera are non-icteric and not injected. Cornea within normal limits. Periorbital areas with no swelling, redness, or edema. ENT: Nares patent. No nasal discharge, no septal abnormalities noted. Tympanic membranes are normal and external auditory canals are clear. Oropharynx with no redness, swelling, or masses, exudates, or evidence of obstruction, uvula midline. Mucous membranes moist. Neck: Trachea midline, no thyromegaly or masses palpated, and no cervical lymphadenopathy. Supple, full range of motion without nuchal rigidity, or vertebral point tenderness. No Meningismus. Chest/axilla: Normal chest wall appearance and motion. Nontender with no deformity. No lesions are appreciated. Cardiovascular: Regular rate and rhythm with a normal S1 and S2. No gallops, murmurs, or rubs. Normal PMI, no JVD. No pulse deficits. Respiratory: Lungs have equal breath sounds bilaterally, clear to auscultation and percussion. No rales, rhonchi or wheezes noted. No increased work of breathing, no retractions or nasal flaring. Abdomen/GI: Soft, non-tender, with normal bowel sounds. No distension or tympany. No guarding or rebound. No evidence of tenderness throughout. Back: No spinal tenderness. No costovertebral tenderness. Full range of motion. Skin: Warm, dry with normal turgor. Normal color with no rashes, no lesions, and no evidence of cellulitis. Neuro: Awake and alert, GCS 15, oriented to person, place, time, and situation. Cranial nerves II-XII grossly intact. Motor strength 5/5 in all extremities. Sensory grossly intact. Cerebellar exam normal. Normal gait. Psych: Awake, alert, with orientation to person, place and time. Behavior, mood, and affect are within normal limits. 21:11 Musculoskeletal/extremity: Extremities: grossly normal except: noted in the right knee: decreased ROM, tenderness. Vital Signs: 16:52 BP 179 / 72; Pulse 68; Resp 17; Temp 97.2(TE); Pulse Ox 100% on R/A; Weight 101.15 kg; tw2 Height 5 ft. 6 in. (167.64 cm); Pain 8/10; 18:25 BP 164 / 64; Pulse 66; Resp 18; Temp 97.5; Pulse Ox 99% ; bp 16:52 Body Mass Index 35.99 (101.15 kg, 167.64 cm) tw2 MDM: 16:59 Patient medically screened. snw 21:12 Data reviewed: vital signs, nurses notes. Data interpreted: Pulse oximetry: on room air snw is 99 %. Interpretation: normal. Counseling: I had a detailed discussion with the patient and/or guardian regarding: the historical points, exam findings, and any diagnostic results supporting the discharge/admit diagnosis, radiology results, the need for outpatient follow up, to return to the emergency department if symptoms worsen or persist or if there are any questions or concerns that arise at home. Special discussion: I have referred the patient to see his PCP for further evaluation of high blood pressure. Based on the history and exam findings, there is no indication for further emergent testing or inpatient evaluation. I discussed with the patient/guardian the need to see the orthopedic surgeon for further evaluation of the symptoms. I discussed with the patient/guardian the need to see the primary care provider for further evaluation of the symptoms. 11/30 17:05 Order name: US Extremity Venous Unilateral Ltd snw 11/30 18:00 Order name: Charan wrap-joint: Right Knee; Complete Time: 18:11 snw Administered Medications: 17:35 Drug: [place] 5 mg-325 mg 1 tabs Route: PO; bp 18:47 Follow up: Response: Pain is decreased bp Disposition: 12/01 07:08 I agree with the assessment and plan of care. kdr Disposition: 11/30/19 18:26 Discharged to Home. Impression: Pain in right knee. - Condition is Stable. - Discharge Instructions: Joint Pain, How to Use a Knee Brace, Musculoskeletal Pain, Knee Pain, Cryotherapy, Agit-aj-Pben, Heat Therapy. - Prescriptions for orphenadrine citrate 100 mg Oral Tablet Sustained Release - take 1 tablet by ORAL route 2 times per day As needed; 20 tablet. - Medication Reconciliation Form, Thank You Letter, Antibiotic Education, Prescription Opioid Use form. - Follow up: Vanda Reardon MD; When: 2 - 3 days; Reason: Recheck today's complaints, Continuance of care, Re-evaluation by your physician. Follow up: Emergency Department; When: As needed; Reason: Worsening of condition. Signatures: Dispatcher [employer] EDMS Neri Felix MD MD [facility] Robyn Rudolph, PROFESSOR OF PUBLIC ADMINISTRATION-C PROFESSOR OF PUBLIC ADMINISTRATION-Csnw Chloe Agosto, MANUEL RN tw2 Nick Regalado, RN RN bp Corrections: (The following items were deleted from the chart) 11/30 18:47 18:26 11/30/2019 18:26 Discharged to Home. Impression: Pain in right knee. Condition is bp Stable. Forms are Medication Reconciliation Form, Thank You Letter, Antibiotic Education, Prescription Opioid Use. Follow up: Vanda Reardon; When: 2 - 3 days; Reason: Recheck today's complaints, Continuance of care, Re-evaluation by your physician. Follow up: Emergency Department; When: As needed; Reason: Worsening of condition. snw
[2019-11-30 18:58] VITALS: BP 164/64; TEMP 97.5; O2SAT 99
== END 2019-11-30 18:47 | disposition home or self-care (01) ==
LOC: ER 16:35
DX: M25.561 Pain in right knee (principal); I10 Essential (primary) hypertension; E11.9 Type 2 diabetes mellitus without complications; E78.5 Hyperlipidemia, unspecified; Z88.2 Allergy status to sulfonamides; Z88.8 Allergy status to other drugs, medicaments and biological substances
CPT/HCPCS: 93971; 99284

== ENCOUNTER 2020-10-16 17:54 | Emergency (ER) | payer OTHER ==
--- OUTSIDE RECORDS SUMMARY | 2020-10-16 17:57 | XMS REPORT | Continuity of Care Document ---
:1950 Author Organization [facility] t Address [address] [place] [address] Care Team Providers Name Role Phone Unavailable Unavailable Unavailable Payers Payer Name Policy Type Policy Number Effective Date Expiration Date S ource Problems This patient has no known problems. Allergies, Adverse Reactions, Alerts Allergy Allergy Status Severity Reaction(s) Onset Inactive Treating Comm ents Source Name Type Date Date Clinician No Known DA Active U [facility] [place] Adverse Active Info Not [facility] Reaction Available [facility] Metformi Adverse Active Info Not [facility] n HCl Reaction Available [facility] Bactrim Adverse Active Info Not [facility] DS Reaction Available [facility] Trimetho Adverse Active Info Not [facility] prim Reaction Available [facility] [place] Adverse Active Info Not [facility] tin Reaction Available [facility] Phosphat Memoria e [facility] ent Clinics Medications Ordered Filled Start Stop Current Ordering Indication Dosage Frequency Signature Comments Components Source Medication Medication Date Date Medication? Clinician (SIG) Name Name Fluocinonid Fluocinonid 2020- No Behzad [address] [facility] e e 04-03 [facility] applicatio [facility] n [facility] :[facility] Nitrofurant Nitrofurant Yes Behzad [address] [facility] o[facility] oin 5-17 [facility]: [facility] l [facility] l [facility] ent Clinics Diflucan Diflucan Yes Behzad [address] [facility] 5[facility]17 [facility] Crestor Crestor Yes Behzad [address] [facility] 4-06 [facility]ics Raymondnevaedyta Bettencourt Yes Behzad [address] [facility] Pioglitazon Pioglitazon Yes Behzad [address] [facility] e HCl e HCl [facility] Zestoretic Zestoretic Yes Behzad [address] [facility] GlipiZIDE GlipiZIDE Yes Behzad [address] [facility] ER ER [facility] with [facility] breakfast [facility] Lisinopril Lisinopril Yes Behzad [address] [facility] Claritin Claritin Yes Behzad [address] [facility] Cetirizine Cetirizine Yes Behzad [address] [facility] [address] HCl HCl [facility] Lidex Lidex Yes Behzad not [facility] defined [facility] Medrol Medrol Yes Behzad as [facility] directed [facility] with food [facility] ent [facility] Clobetasol Clobetasol Yes Behzad [address] [facility] Propionate Propionate [facility] applicatio [facility] - n to Memoria affected l area Outpati ent Clinics Omeprazole Omeprazole Yes Behzad [address] [facility] Flonase Flonase Yes Behzad [address] [facility] each [facility] nostril [facility] Nexium Nexium Yes Behzad [address] [facility] Creolga Creolga Yes [facility] Klor-Con Klor-Con Yes Behzad [address] [facility] [facility] M20 M20 [facility] Cipro Cipro Yes Behzad [address] [facility] [address] [facility] 2018- No Behzad [address] 04-19 [facility]00 Outpati ent Clinics Immunizations Ordered Filled Immunization Date Status Comments Sour e Immunization Name Name Mary Anne [facility] 2019-08-[address] [facility] Procedures This patient has no known procedures. Encounters Start End Encounter Admission Attending Care Care Encounter Source Date/Time Date/Time Type Type Clinicians Facility Department ID 2020-10-07 2020-10-07 Outpatient [facility] [id number] [facility] 2020-10-02 2020-10-02 Outpatient [facility] [id number] [facility] 2020-10-01 2020-10-01 Outpatient [facility] [id number] [facility] 2020-09-29 2020-09-29 Outpatient [facility] [id number] [facility] 2020-09-27 2020-09-27 Outpatient [facility]MLC [facility] [id number] [facility] 2020-09-27 2020-09-27 Outpatient [facility]MLC [facility] [id number] [facility] 2020-07-04 2020-07-04 Outpatient [facility] [id number] [facility] 2020-05-16 2020-05-16 [facility] [id number] [address] 09[facility]:00 09:00:00 t [facility] Clin[facility] 2020-05-09 2020-05-09 [facility] [id number] 08[facility]00:00 08:00:00 t [facility] ent Clinics 2020-05-01 2020-05-01 [facility] [id number] 09:00:00 09:00:00 t [facility] ent [facility] 2020-04-24 2020-04-24 [facility] [id number] 13:12:00 13:12:00 t [facility] ent [facility] 2020-04-03 2020-04-03 [facility] [id number] 08:20:00 08:20:00 t appiris [facility] 2020-04-03 2020-04-03 [facility] [id number] 08:00:00 08:00:00 t appiris [facility] 2020-03-21 2020-03-21 [facility] [id number] 10:00:00 10:00:00 t [facility] ent [facility] 2020-02-07 2020-02-07 [facility] [id number] 09:30:00 09:30:00 t [facility] ent [facility] 2019-11-24 2019-11-24 [facility] [id number] 11:09:00 11:09:00 t Bone [facility] ent [facility] 2019-11-20 2019-11-20 [facility] [id number] 08:20:00 08:20:00 t appiris [facility] 2019-11-10 2019-11-10 [facility] [id number] 17:00:00 17:00:00 t [place] [employer] [facility] Medicine l Medicine Outpati ent Clinics 2019-11-10 2019-11-10 [facility] [id number] 16:57:00 16:57:00 t [place] [employer] - Drive [facility] Medicine l Medicine Outpati ent Clinics 2019-10-20 2019-10-20 [facility] [id number] 08[facility]20:00 08:20:00 t [place] [employer] - Drive [facility] Medicine l Medicine Outpati ent Clinics 2019-10-16 2019-10-16 [facility] [id number] 13:30:00 13:30:00 t [place] [employer] [facility] l Medicine Outpati ent Clinics 2019-08-18 2019-08-18 [facility] [id number] 09:40:00 09:40:00 t [place] [employer] [facility] l Medicine Outpati ent Clinics 2019-06-14 2019-06-14 [facility] [id number] 10:52:00 10:52:00 t [place] [employer] [facility] Medicine l Medicine Outpati ent Clinics 2019-04-21 2019-04-21 [facility] [id number] 08:40:00 08:40:00 t [employer] [facility] Medicine l Medicine Outpati ent Clinics 2019-02-26 2019-02-26 [facility] [id number] 09:21:00 09:21:00 t [facility] l Outpati ent Clinics 2019-02-24 2019-02-24 [facility] [id number] 09:30:00 09:30:00 t [facility] l Outpati ent Clinics 2019-01-20 2019-01-20 [facility] [id number] 08:00:00 08:00:00 t [place] [employer] [facility] Medicine l Medicine Outpati ent Clinics 2018-12-07 2018-12-07 [facility] [id number] 08:15:00 08:15:00 t [employer] [place] [facility] 2018-10-21 2018-10-21 [facility] [id number] 08:15:00 08:15:00 t [facility] [employer] Kathleen s [facility] 2018-07-26 2018-07-26 [facility] [id number] 17:49:00 17:49:00 [facility] [employer] Kathleen s [facility] 2018-05-20 2018-05-20 [facility] [id number] 08:30:00 08:30:00 [facility] [employer] [facility] ent Clinics 2018-04-15 2018-04-15 [facility] [id number] 08:30:00 08:30:00 [facility] ent Clinics Results Test Description Test Time Test Comments Results Result Comments Source POTASSIUM 2019-10-15 12:26:00 Test Item Value Reference Range Interpretation Comme nts POTASSIUM (test code = K) 3.6 mmol/L 3.5-5.1 COMPREHENSIVE METABOLIC [id number] 06:36:00 Test Item Value Reference Range Interpretation Comments SODIUM (test code = NA) 143 mmol/L 136-145 N POTASSIUM (test code = 2.8 mmol/L 3.5-5.1 L K) CHLORIDE (test code = 106 mmol/L 98-107 N CL) CARBON DIOXIDE (test 24 mmol/L 21-32 N code = CO2) GLUCOSE (test code = 157 mg/dL 70-100 H GLU) BLOOD UREA NITROGEN 22 mg/dL 7-18 H (test code = BUN) GLOMERULAR FILTRATION 58.87 >=60 L Report ing units: RATE (test code = GFR) mL/mi n/1.73m\S\2 (Modified MDRD formula)REFEREN CE RANGE: > or = 6 0 ml/min/1.73M2IF PATIENT IS -LUIS N, MULTIPLY REPORT ED RESULT BY1.21. CREATININE (test code = 0.94 mg/dl 0.55-1.02 N CREAT) TOTAL PROTEIN (test 7.5 g/dl 6.4-8.2 N code = PROT) ALBUMIN (test code = 3.6 g/dl 3.4-5.0 N ALB) CALCIUM (test code = 8.7 mg/dL 8.5-10.1 N CA) BILIRUBIN TOTAL (test 0.3 mg/dL 0.2-1.0 N code = BILT) SGOT/AST (test code = 16 U/L 15-37 N AST) SGPT/ALT (test code = 19 U/L 12-78 N ALT) ALKALINE PHOSPHATASE 100 U/L 45-117 N TOTAL (test code = ALKP) [id number] 06:36:00 Test Item Value Reference Range Interpretation Comments LIPASE (test code = LIP) 255 U/L 73-393 N [id number] 06:36:00 Test Item Value Reference Range Interpretation Comments MAGNESIUM (test code = MAG) 1.8 mg/dL 1.8-2.4 N - US ABDOMEN [id number] 04:55:00 FAX: Yohannes Martinez MD [place]: St: REG Name: MICHELLE BANSAL [place] [facility] : 1950 Age/S: 69/F [address] Unit#: [id number] Loc: [place] [address] Phys: Yohannes Martinez MD Acct: [id number] Dis Date: Status: REG ER PHONE #: Exam Date: 10/15/2019 7379 FAX #: Reason: epig pain EXAMS: CPT CODE: [id number] US ABDOMEN LTD 40087 DICTATION LOCATION: H48 HISTORY: Female, 69 years [...] LIVER: Normal in echogenicity. No focal mass or enlargement. Portal vein is patent with appropriate hepatopedal flow. RIGHT KIDNEY: Right kidney is unremarkable except for a couple of cysts measuring up to 4.9 cm diameter in lower pole. OTHER: There is no ascites. IMPRESSION: 1. Distended gallbladder with cholelithiasis. 2. CBD is upper limits normal caliber. at 0457 Reported and signed by: EDMOND Santos CC: Yohannes Martinez MD Technologist: Sergio Milton RDMS Trnscrd Date/Time/By: 10/15/2019 (0455) : By: Jey Orig Print D/T: S: 10/15/2019 (0458) PAGE 1 Signed ReportCOMPREHENSIVE METABOLIC PANEL 2019-10-15 04:53:00 Test Item Value Reference Range Interpretation Comments SODIUM (test code = NA) 143 mmol/L 136-145 N POTASSIUM (test code = 2.8 mmol/L 3.5-5.1 L K) CHLORIDE (test code = 106 mmol/L 98-107 N CL) CARBON DIOXIDE (test 24 mmol/L 21-32 N code = CO2) GLUCOSE (test code = 157 mg/dL 70-100 H GLU) BLOOD UREA NITROGEN 22 mg/dL 7-18 H (test code = BUN) GLOMERULAR FILTRATION 58.87 >=60 L Report ing units: RATE (test code = GFR) mL/mi n/1.73m\S\2 (Modified MDRD formula)REFEREN CE RANGE: > or = 6 0 ml/min/1.73M2IF PATIENT IS -LUIS N, MULTIPLY REPORT ED RESULT BY1.21. CREATININE (test code = 0.94 mg/dl 0.55-1.02 N CREAT) TOTAL PROTEIN (test 7.5 g/dl 6.4-8.2 N code = PROT) ALBUMIN (test code = 3.6 g/dl 3.4-5.0 N ALB) CALCIUM (test code = 8.7 mg/dL 8.5-10.1 N CA) BILIRUBIN TOTAL (test 0.3 mg/dL 0.2-1.0 N code = BILT) SGOT/AST (test code = 16 U/L 15-37 N AST) SGPT/ALT (test code = 19 U/L 12-78 N ALT) ALKALINE PHOSPHATASE 100 U/L 45-117 N TOTAL (test code = ALKP) [id number] 04:53:00 Test Item Value Reference Range Interpretation Comments LIPASE (test code = LIP) 255 U/L 73-393 N URINALYSIS W REFLEX [id number] 04:46:00 Test Item Value Reference Range Interpretation Comments UA COLOR (test code = COLU) YELLOW YELLOW UA APPEARANCE (test code = CLEAR CLEAR APPU) UA GLUCOSE DIPSTICK (test code 500 mg/dl NORMAL = DGLUU) UA BILIRUBIN DIPSTICK (test SMALL mg/dl NEGATIVE code = BILU) UA KETONE DIPSTICK (test code 15 mg/dl NEGATIVE A = KETU) UA SPECIFIC GRAVITY (test code 1.025 1.001-1.035 N = SGU) UA BLOOD DIPSTICK (test code = NEGATIVE /UL NEGATIVE RAKEL) UA PH DIPSTICK (test code = 5.5 4.6-8.0 SIVAN) UA PROTEIN DIPSTICK (test code 30 mg/dl NEGATIVE A = PROU) UA UROBILINIOGEN DIPSTICK 0.2 mg/dl NORMAL (test code = URO) UA NITRITE DIPSTICK (test code NEGATIVE NEGATIVE = LOLY) UA LEUKOCYTE ESTERASE DIPSTICK NEGATIVE /UL NEGATIVE (test code = LEUU) UA COMMENT (test code = COMU) CLN CATCH UA MICROSCOPIC NEEDED? (test Y= DO UA MICRO code = UAMICRO) UA ICTOTEST FOR [id number] 04:46:00 Test Item Value Reference Range Interpretation Comments UA ICTOTEST FOR BILIRUBIN (test code NEGATIVE NEGATIVE = ICTOU) UA [id number] 04:46:00 Test Item Value Reference Range Interpretation Comments UA WBC (test code = WBCU) 3-5 #/hpf 0-5 UA RBC (test code = RBCU) 0-2 #/hpf 0-5 UA EPITHELIAL CELLS (test code = 2+ /hpf NEG,FEW A EPIU) UA BACTERIA (test code = BACU) 2+ /hpf NEGATIVE A UA HYALINE CAST (test code = HYALU) 3-5 #/lpf 0-2 A UA MUCUS (test code = MUCU) 1+ /hpf NEG,FEW A URINALYSIS W REFLEX [id number] 04:42:00 Test Item Value Reference Range Interpretation Comments UA COLOR (test code = COLU) YELLOW YELLOW UA APPEARANCE (test code = CLEAR CLEAR APPU) UA GLUCOSE DIPSTICK (test code 500 mg/dl NORMAL = DGLUU) UA BILIRUBIN DIPSTICK (test SMALL mg/dl NEGATIVE code = BILU) UA KETONE DIPSTICK (test code 15 mg/dl NEGATIVE A = KETU) UA SPECIFIC GRAVITY (test code 1.025 1.001-1.035 N = SGU) UA BLOOD DIPSTICK (test code = NEGATIVE /UL NEGATIVE RAKEL) UA PH DIPSTICK (test code = 5.5 4.6-8.0 SIVAN) UA PROTEIN DIPSTICK (test code 30 mg/dl NEGATIVE A = PROU) UA UROBILINIOGEN DIPSTICK 0.2 mg/dl NORMAL (test code = URO) UA NITRITE DIPSTICK (test code NEGATIVE NEGATIVE = LOLY) UA LEUKOCYTE ESTERASE DIPSTICK NEGATIVE /UL NEGATIVE (test code = LEUU) UA COMMENT (test code = COMU) CLN CATCH UA MICROSCOPIC NEEDED? (test Y= DO UA MICRO code = UAMICRO) UA ICTOTEST FOR [id number] 04:42:00 Test Item Value Reference Range Interpretation Comments UA ICTOTEST FOR BILIRUBIN (test code NEGATIVE NEGATIVE = ICTOU) URINALYSIS W REFLEX [id number] 04:42:00 Test Item Value Reference Range Interpretation Comments UA COLOR (test code = COLU) YELLOW YELLOW UA APPEARANCE (test code = CLEAR CLEAR APPU) UA GLUCOSE DIPSTICK (test code 500 mg/dl NORMAL = DGLUU) UA BILIRUBIN DIPSTICK (test SMALL mg/dl NEGATIVE code = BILU) UA KETONE DIPSTICK (test code 15 mg/dl NEGATIVE A = KETU) UA SPECIFIC GRAVITY (test code 1.025 1.001-1.035 N = SGU) UA BLOOD DIPSTICK (test code = NEGATIVE /UL NEGATIVE RAKEL) UA PH DIPSTICK (test code = 5.5 4.6-8.0 SIVAN) UA PROTEIN DIPSTICK (test code 30 mg/dl NEGATIVE A = PROU) UA UROBILINIOGEN DIPSTICK 0.2 mg/dl NORMAL (test code = URO) UA NITRITE DIPSTICK (test code NEGATIVE NEGATIVE = LOLY) UA LEUKOCYTE ESTERASE DIPSTICK NEGATIVE /UL NEGATIVE (test code = LEUU) UA COMMENT (test code = COMU) CLN CATCH UA MICROSCOPIC NEEDED? (test Y= DO UA MICRO code = UAMICRO) UA ICTOTEST FOR [id number] 04:42:00 Test Item Value Reference Range Interpretation Comments UA ICTOTEST FOR BILIRUBIN (test code NEGATIVE NEGATIVE = ICTOU) CBC W/AUTO [id number] 04:39:00 Test Item Value Reference Range Interpretation Comments WHITE BLOOD CELL (test code = 10.4 X10(3) 4.5-11.0 N WBC) RED BLOOD CELL (test code = 4.44 X10(6) 4.2-5.4 N RBC) HEMOGLOBIN (test code = HGB) 13.1 g/dL 12.5-16.0 N HEMATOCRIT (test code = HCT) 39.9 % 37.0-47.0 N MEAN CELL VOLUME (test code = 89.9 fL 78-100 N MCV) MEAN CELL HGB (test code = MCH) 29.5 pg 26.0-34.0 N MEAN CELL HGB CONCETRATION 32.8 g/dl 30.0-37.0 N (test code = MCHC) RED CELL DISTRIBUTION WIDTH 13.4 % 11.5-14.5 N (test code = RDW) PLATELET COUNT (test code = 265 X10(3) 150-350 N PLT) MEAN PLATELET VOLUME (test code 9.7 fl 8.7-11.4 N = MPV) NEUTROPHIL % (test code = NT%) 66.4 % 36.0-66.0 H IMMATURE GRANULOCYTE % (test 0.2 % 0.0-2.0 N code = IG%) LYMPHOCYTE % (test code = LY%) 25.2 % 16-50 N MONOCYTE % (test code = MO%) 6.6 % 0.0-13.0 N EOSINOPHIL % (test code = EO%) 1.3 % 0.0-4.5 N BASOPHIL % (test code = BA%) 0.3 % 0.0-1.5 N NEUTROPHIL # (test code = NT#) 6.9 X10(3) 1.7-7.7 N IMMATURE GRANULOCYTE # (test 0.02 X10(3)uL 0.00-0.03 N code = IG#) LYMPHOCYTE # (test code = LY#) 2.6 X10(3) 1.0-4.8 N MONOCYTE # (test code = MO#) 0.7 X10(3) 0.0-0.89 N EOSINOPHIL # (test code = EO#) 0.1 X10(3) 0.0-0.6 N BASOPHIL # (test code = BA#) 0.0 X10(3) 0.0-0.2 N RBC MORPHOLOGY REQUIRED (test NO NORMAL code = RBCM) LACTIC [id number] 04:36:00 Test Item Value Reference Range Interpretation Comments LACTIC ACID (test code = LACT) 1.4 mmol/l 0.4-2.0 N
--- OUTSIDE RECORDS SUMMARY | 2020-10-16 17:57 | XMS REPORT ---
:1950 Author Organization [facility] Address [address] [place] [place] [address] Care Team Providers Name Role Phone Reardon Unavailable [phone] PROBLEMS Type Condition ICD9-CM [id number] Onset Condition SNOMED Code Notes Code Code Dates Status Problem Diarrhea R19.7 Active 03641875 Problem GERD K21.9 Active 797405918 (gastroesophageal reflux disease) Problem HTN I10 Active 31949259 (hypertension), benign Problem Diabetes mellitus E11.9 Active 600522391 type 2, uncontrolled, without complications Problem Pollen allergies J30.1 Active 545972833 Problem Mixed E78.2 Active 481906529 hyperlipidemia Problem Obesity (BMI E66.9 Active 809615141 30-39.9) Problem Poison shraddha L23.7 Active 619911725 Problem Elevated blood I10 Active 38318927 pressure reading with diagnosis of hypertension Problem Obesity, Class E66.01 Active 650174902 III, BMI 40-49.9 (morbid obesity) Problem Chronic kidney N18.3 Active 156688236 disease, stage III (moderate) Problem Primary M17.11 Active 315486893201645 osteoarthritis of right knee Problem Adult general Z00.00 Active 319940241 medical exam Problem Gastroesophageal K21.9 Active 023233941 reflux disease without esophagitis Problem Encounter for Z20.828 Active 854778100 screening laboratory testing for COVID-19 virus in asymptomatic patient Problem Right foot pain M79.671 Active 969323775361096 Problem Controlled type 2 E11.41 Active 20340500 diabetes mellitus with diabetic mononeuropathy, without long-term current use of insulin Problem Diabetic E11.40 Active 1963043926614 neuropathy, painful Problem Type 2 diabetes E11.22 Active 891829882928 mellitus with diabetic chronic kidney disease Problem 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 Unknown Drug Allergy Activ e Code:[address]-25) metformin / sitagliptin Janumet([facility] Unknown Drug Allergy Active Code:[address]-62) sulfamethoxazole / Bactrim DS([facility] Unknown Drug Allergy Active trimethoprim Code:[address]-10) Sitagliptin Unknown Drug Allergy Active Phosphate trimethoprim Trimethoprim([facility] Unknown Drug Allergy Acti ve Code:[address]-75) Sulfa Unknown Drug Allergy Active ENCOUNTERS from 1950 to 2020-09-29 Encounter Location Date Provider Diagnosis [address] Sep, Vanda simeon for screening [facility] [address] [place] [address] [place] [address] COVID-19 virus in asymptomatic pa tient Z20.828 IMMUNIZATIONS Vaccine Route Administration Date Status FluAD IM Intramuscular Jul 04, 2020 Administered FluAD IM Intramuscular Aug 18, 2019 Administered FluAD IM Intramuscular Jul 14, 2018 Administered Bupivicaine [place] Unknown February 07, 2020 Administered Hyalgan 20 mg Unknown May 16, 2020 Administered Hyalgan 20 mg Unknown May 09, 2020 Administered Hyalgan 20 mg Unknown May 01, 2020 Administered Kenalog (Triamcinolone) Unknown February 07, 2020 Administ ered SOCIAL HISTORY Tobacco Use: Social History Observation Description Date Details (start date - stop date) Never Smoker Sex Assigned At : Social History Observation Description Sex Assigned At Unknown PHQ9 Question Answer Notes Little interest or pleasure in doing things Not at all Feeling down, depressed, or hopeless Not at all Trouble falling or staying asleep or sleeping too much Not a t all Feeling tired or having little energy Not at all Poor appetite or overeating Not at all Feeling bad about yourself, or that you are a failure, or vaughan ve let Not at all yourself or your family down Trouble concentrating on things, such as reading the newspap er or Not at all watching television Moving or speaking so slowly that other people could have no ticed; Not at all or the opposite, being so fidgety or restless that you have been moving around a lot more than usual Total Score 0 Thoughts that you would be better off or of hurting you rself in Not at all some way Alcohol Screen Question Answer Notes Did you have a drink containing alcohol in the past year? No Points 0 Interpretation Negative Tobacco Use/Smoking Question Answer Notes Are you a never smoker Are you a never smoker Additional Findings: Tobacco Non-User Current non-smoker REASON FOR REFERRAL No Information VITAL SIGNS No information MEDICATIONS Medication SIG (Take, Route, Notes Start Date End Date Status Frequency, Duration) Lidex 0.05 % Externally Not-Taking Farxiga 10 MG 1 tablet Orally Once A ctive a day for 90 days Medrol 4 MG as directed with Not-Yoni ing food Orally daily for 5 days Crestor 40 MG 1 tablet Orally Once Jan, Not-Taking a day for 90 day(s) Januvia 100 MG 1 tablet Orally Once Active a day for 90 day Zestoretic 20-25 MG 1 tablet Orally Once Active a day for 90 days Crestor 40 MG 1 tablet Orally Once A ctive a day for 90 day(s) Nexium 40 MG 1 capsule Orally Active Once a day for 30 day(s) Diflucan 150 MG 1 tablet Orally February, No t-Taking daily for 1 dose Nitrofurantoin 1 capsule Orally BID February, Not-Taking Macrocrystal 100 mg for 7 days GlipiZIDE ER 10 MG 1 tablet with Act tato breakfast Orally Once a day for 90 day(s) Creon 81851 UNIT 1 capsule Orally No t-Taking three times a day Klor-Con M20 20 MEQ 1 tablet orally Active twice a day Clobetasol Propionate 1 application to Not-Taking 0.05 % affected area Externally Twice a day Pioglitazone HCl 30 MG 1 tablet Orally Once Active a day for 90 days Cipro 500 MG 1 tablet Orally Not-Yoni ing every 12 hrs for 10 day(s) Azithromycin 250 MG 2 tablets on the Sep, Sep, Active first day, then 1 tablet daily for 4 days Orally Once a day for 5 day(s) Cetirizine HCl 10 MG 1 tablet Orally Once Not-Taking a day for 90 day(s) Lisinopril 20 MG 1 tablet Orally Once Active a day for 90 days Claritin 10 MG 1 tablet Orally Once Not-Taking a day Omeprazole 40 MG 1 capsule Orally No t-Taking Once a day for 90 days Flonase 50 MCG/ACT 2 spray in each N ot-Taking nostril Nasally Once a day for 30 day(s) PROCEDURES No Information RESULTS Component Value Reference Range Novel Coronavirus (COVID-19), TATY Reviewed date:09/29/2020 05:42:01 Interpretation: Performing Lab:, [facility], [address] [place] [address] [address], [place], [place] [id number], Phone - [phone], Director - [facility] SARS-CoV-2, TATY Not Detected Not Detected REASON FOR VISIT Covid test LOBBY MEDICAL (GENERAL) HISTORY Type Description Date Medical History Diabetes mellitus type 2, uncontrolled, without complications Medical History HTN (hypertension), benign Medical History Mixed hyperlipidemia Medical History GERD (gastroesophageal reflux disease) Medical History Diarrhea Medical History Psoriasis Surgical History Bilateral Endarterctomy Neck 2000 Surgical History 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, SVG toLCx Surgical History hysterectomy Goals Section No Information Health Concerns No Information MEDICAL EQUIPMENT No Information MENTAL STATUS No Information FUNCTIONAL STATUS No Information ASSESSMENTS Encounter Date Diagnosis Assessment Notes Treatment Notes Treatm ent Clinical Notes Sep, Encounter for screening laboratory testing for COVID-19 virus in asymptomatic patient (ICD-10 - Z20.828) PLAN OF TREATMENT Next Appt Details Provider Name:Vanda Cabrerag, 2020-11-11 08:2 0:00 AM, [address], [place], [address], Insurance Providers Payer Name Payer Payer Insured Patient Coverage Coverage End Address Phone Name Relationship to Start Date Germán e Insured [employer] [phone] Tasia Cai self [id number] [place] [id number] [place] [facility] [place] Replace [id number]
--- OUTSIDE RECORDS SUMMARY | 2020-10-16 17:58 | XMS REPORT ---
:[address] [facility] Address [address] [facility] [address] [place] [address] Care Team Providers Name Role Phone Alexander Unavailable [phone] PROBLEMS Type Condition ICD9-CM PWF60-FA Onset Condition SNOMED Code Notes Code Code Dates Status Problem Diarrhea R19.7 Active 41443057 Problem GERD K21.9 Active 262251265 (gastroesophageal reflux disease) Problem HTN I10 Active 24345074 (hypertension), benign Problem Diabetes mellitus E11.9 Active 658648073 type 2, uncontrolled, without complications Problem Pollen allergies J30.1 Active 531125211 Problem Mixed E78.2 Active 265258615 hyperlipidemia Problem Obesity (BMI E66.9 Active 376359222 30-39.9) Problem Poison shraddha L23.7 Active 381641494 Problem Elevated blood I10 Active 51335504 pressure reading with diagnosis of hypertension Problem Obesity, Class E66.01 Active 159376080 III, BMI 40-49.9 (morbid obesity) Problem Chronic kidney N18.3 Active 566703884 disease, stage III (moderate) Problem Primary M17.11 Active 659388663281271 osteoarthritis of right knee Problem Adult general Z00.00 Active 491733620 medical exam Problem Gastroesophageal K21.9 Active 073241582 reflux disease without esophagitis Problem Encounter for Z20.828 Active 117778755 screening laboratory testing for COVID-19 virus in asymptomatic patient Problem Right foot pain M79.671 Active 867097001180147 Problem Controlled type 2 E11.41 Active 66732753 diabetes mellitus with diabetic mononeuropathy, without long-term current use of insulin Problem Diabetic E11.40 Active 7945668292090 neuropathy, painful Problem Type 2 diabetes E11.22 Active 868080045517 mellitus with diabetic chronic kidney disease Problem Psoriasis of scalp L40.9 Active 070443727 Problem Other chronic pain G89.29 Active 63306960 Problem 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 Unknown Drug Allergy Activ e Code:[address]-03) metformin / sitagliptin Janumet([facility] Unknown Drug Allergy Active Code:[address]-27) sulfamethoxazole / Bactrim DS([facility] Unknown Drug Allergy Active trimethoprim Code:[address]-54) Sitagliptin Unknown Drug Allergy Active Phosphate trimethoprim Trimethoprim([facility] Unknown Drug Allergy Acti ve Code:[address]-95) Sulfa Unknown Drug Allergy Active ENCOUNTERS from 1950 to 2020-10-01 Encounter Location Date Provider Diagnosis [facility] [address] [facility] [address] Sep[facility] [address] IMMUNIZATIONS Vaccine Route Administration Date Status FluAD IM Intramuscular Jul 04, 2020 Administered FluAD IM Intramuscular Aug 18, 2019 Administered FluAD IM Intramuscular Jul 14, 2018 Administered Bupivicaine [place] Unknown February 07, 2020 Administered Hyalgan 20 [...] Once a day for 90 day(s) Creon 29938 UNIT 1 capsule Orally No t-Taking three [...] for 30 day(s) PROCEDURES No Information RESULTS No Results REASON FOR VISIT No Information MEDICAL (GENERAL) HISTORY Type Description Date Medical [...] No Information FUNCTIONAL STATUS No Information ASSESSMENTS No Information PLAN OF TREATMENT Next Appt Details Provider Name:Bianka Ivey, 2020-10-02 0 9:40:00 AM, [address], [place], [address], Provider Name:Vanda Reardon, 2020-11-11 08:2 0:00 AM, [address], [place], [address], Insurance Providers Payer Name Payer Payer Insured Patient Coverage Coverage End Address Phone Name Relationship to Start Date Germán e Insured [employer] [phone] Tasia Cai 2019 [address] [id number] [facility] a [place] Replace [phone]
--- OUTSIDE RECORDS SUMMARY | 2020-10-16 17:58 | XMS REPORT ---
:1950 Author Organization [facility] Address [address] [place] [place] [address] Care Team Providers Name Role Phone Reardon Unavailable [phone] PROBLEMS Type Condition ICD9-CM [id number] Onset Condition SNOMED Code Notes Code Code Dates Status Problem Diarrhea R19.7 Active 10581328 Problem GERD K21.9 Active 995117909 (gastroesophageal reflux disease) Problem HTN I10 Active 73105598 (hypertension), benign Problem Diabetes mellitus E11.9 Active 366399242 type 2, uncontrolled, without complications Problem Pollen allergies J30.1 Active 042311424 Problem Mixed E78.2 Active 310657678 hyperlipidemia Problem Obesity (BMI E66.9 Active 288310863 30-39.9) Problem Poison shraddha L23.7 Active 551142810 Problem Elevated blood I10 Active 30922715 pressure reading with diagnosis of hypertension Problem Obesity, Class E66.01 Active 880213615 III, BMI 40-49.9 (morbid obesity) Problem Chronic kidney N18.3 Active 429073383 disease, stage III (moderate) Problem Primary M17.11 Active 179689700707548 osteoarthritis of right knee Problem Adult general Z00.00 Active 303896769 medical exam Problem Gastroesophageal K21.9 Active 054573049 reflux disease without esophagitis Problem Encounter for Z20.828 Active 500477338 screening laboratory testing for COVID-19 virus in asymptomatic patient Problem Right foot pain M79.671 Active 372727151414236 Problem Controlled type 2 E11.41 Active 92218269 diabetes mellitus with diabetic mononeuropathy, without long-term current use of insulin Problem Diabetic E11.40 Active 2011886558514 neuropathy, painful Problem Type 2 diabetes E11.22 Active 973583395132 mellitus with diabetic chronic kidney disease Problem Psoriasis of scalp L40.9 Active 896024368 Problem Other chronic pain G89.29 Active 04613117 Problem 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 Active 259855675 ALLERGIES Allergen (clinical drug Drug/Non Drug Reaction Allergy Type Onset D ate Status ingredient) Allergy documented on EMR metformin Metformin HCl([facility] Unknown Drug Allergy Activ e Code:[address]-09) metformin / sitagliptin Janumet([facility] Unknown Drug Allergy Active Code:[address]-60) sulfamethoxazole / Bactrim DS([facility] Unknown Drug Allergy Active trimethoprim Code:[address]-69) Sitagliptin Unknown Drug Allergy Active Phosphate trimethoprim Trimethoprim([facility] Unknown Drug Allergy Acti ve Code:[address]-98) Sulfa Unknown Drug Allergy Active ENCOUNTERS from 1950 to 2020-09-29 Encounter Location Date Provider Diagnosis [facility] [address] [address] [facility] Sep, Vanda michel type 2 [facility] [address], [place] [address] diabetic monon europathy, without long-te rm current use of insulin E11.41 ; Type 2 diabetes mellitus with d iabetic chronic kidney disease E11.22 ; HTN (hypertension), benign I10 ; Mixed hyperlipidemia E78.2 ; Diabetic neurop athy, painful E11.40 ; Chronic kidney disease, stage III (moderate) N18.3 ; Upper respirato ry tract infection, unsp ecified type J06.9 ; Gastroesophagea l reflux disease without esophagitis K21 .9 and Obesity (BMI 30 -39.9) E66.9 IMMUNIZATIONS Vaccine Route Administration Date Status FluAD IM Intramuscular Jul 04, 2020 Administered FluAD IM Intramuscular Aug 18, 2019 Administered FluAD IM Intramuscular Jul 14, 2018 Administered Bupivicaine [place] Unknown February 07, 2020 Administered Hyalgan 20 [...] REASON FOR REFERRAL No Information VITAL SIGNS Height 63.00 in Sep, Weight 245.6 lbs Sep, Temperature 97.5 degrees Fahrenheit Sep, BMI 43.50 kg/m2 Sep, Oximetry 97 % Sep, Respiratory Rate 18 /min Sep, Blood pressure systolic 155 mm Hg Sep, Blood pressure diastolic 74 mm Hg Sep, MEDICATIONS Medication SIG (Take, Route, Notes Start [...] Once a day for 90 day(s) Creon 40862 UNIT 1 capsule Orally No t-Taking three [...] Information RESULTS No Results REASON FOR VISIT 3 month follow up with lab/s , diabetes with neuropathy and CKD stage III , htn , hyperlipidemia, gerd, sore throat MEDICAL (GENERAL) HISTORY Type Description Date Medical [...] Treatment Notes Treatm ent Clinical Notes Sep, Controlled type 2 --cont glipizide diabetes mellitus with 10mg ER to help diabetic better control BG mononeuropathy, and advised to without long-term always take with current use of insulin food and all (ICD-10 - E11.41) diabetes meds -- need to maintain low carb 1800 ADA diet. Avoid sodas, juices and remember portion control. Take your medication as prescribed. Monitor your blood sugar at home as directed and keep a log to bring back with you to your next visit for review. Schedule your annual diabetic eye exam with your eye doctor to screen for diabetic retinopathy. Check your feet daily to make sure you have no open wounds. samples of isaeluvia and keriga given as not affordable for patient Sep, Type 2 diabetes blood glucose mellitus with diabetic control adherence chronic kidney disease to medications (ICD-10 - E11.22) Sep, HTN (hypertension), --BP improved but benign (ICD-10 - I10) still elevated-INcrease lisinopril 20mg daily for total daily dose lisinopril 40mg and hctz 25mg daily. --Need to maintian a low salt DASH diet, exercise, weight loss and decrease stress recommended. Keep BP log and will review next visit. If blood pressure consistently above 140/90 return to clinic for adjustment of meds. Try to quit smoking if you currently smoke. Decrease caffeine intake if possible. Sep, Mixed hyperlipidemia continue crestor (ICD-10 - E78.2) as patient tolerating medication, kidney and liver function stable. LDL at goal of <70 with diabetes. - low fat diet, decrease fast food and fried foods. Increase fruit and vegetable intake. exercise as tolerated 30minutes per day at least 3 days a week. May take fish oil 1000mg twice daily to help increase good cholesterol (HDL). Sep, Diabetic neuropathy, diabetes control. painful (ICD-10 - It is important to E11.40) check your feet daily to makes sure you do not have any open cuts or sores in between your toes and soles of you feet because you may not be able to feel sores or wounds due to lack of sensation in feet due to diabetic neuropathy. contact your physician if you notice any. -- Patient has not been taking her zestoretic thougth she has only been taking lisinopri l --stopped gabapentin initially to try lyrica however and stop lyrica 50mg po bid due to negative side effects intolerability -- pain control with tyenol arthritis Sep, Chronic kidney improved GFR 55 to disease, stage III 71 Diabetes with (moderate) (ICD-10 - CKD stage III- on N18.3) EL inhibitor, need to control BP and BG will monitor kidney function. - Avoid NSAIDs ( such as ibuprofen, motrin, aleive) - Hydrate your kidneys by drinking plenty of water. Sep, Upper respiratory -increase fluids, tract infection, vitamin c, unspecified type increase moisture (ICD-10 - J06.9) in air with humidier, and avoid other persons with colds to prevent further spread during the infective period usually first 3-4 days. -a cold is an acute and contagious viral infection of the upper respiratory tract that is most often caused by many different viruses and sometimes bacteria. Take otc meds for any symptoms or fever. If you have high blood pressure get Coricidin BP brand of cold medicine and avoid products with decongestants such as phenylephrine or Get plenty of rest and stay well hydrated with fluids. A cold often lasts 7-14 days and will resolve on its\'s one and treatment is usually with supportive care to help alleviate symptoms. Patient told to call physician or return to clinic if symptoms worsen if fever above 104F or fever of T 100.4F lasting longer than 3 days, increased sore throat or persistent cough with increasing thick or yellow sputum or with any problems. Sep, Gastroesophageal continue on reflux disease without nexium, if no esophagitis (ICD-10 - improvement K21.9) recommend to f/u with gastroenterology Gerd- avoid trigger foods including spicy, oily, carbonated drinks, citrus. Do not lay down immediately after eating-wait at least 2 hours, elevate pillow. Eat smaller meals and weight loss recommended for obese patients. Avoid wearing tight clothing. Sep, Obesity (BMI 30-39.9) - need to lose (ICD-10 - E66.9) weight by maintaining a low fat/cholesterol diet with increase in vegetables& fruits, avoiding sweets and processed snack foods and eating regular smaller portions rather than skipping meals. - incorporate 30-45 minutes of exercise such as brisk walking as tolerated daily beginning with a 15-20 minutes a day and patient may increase time of exercise as you get stronger. Sep, Other -- Medications reviewed and updated. -- Dietary and Lifestyle modifications discussed with patient regarding low fat low salt diet diet, exercise and weight management. -- Treatment options, risks and benefits, side effects reviewed in detail. Patient accepts risk. -- Advised on signs/symptoms to monitor and when to call clinic and/or visit the nearest ER. Patient verbalized understanding and agreed with plan. -- Greater than 30 minutes was spent with patient during this encounter, of which >50% of the time was spent counseling and coordinating care including but not limited to discussion of test results, diagnostic or treatment recommendations, prognosis, risks and benefits of management options, instructions, education, compliance and or risk reduction. Influenza vaccination given no acute reaction while in clinic. advised to massage and move arm to prevent pain and swelling. PLAN OF TREATMENT Treatment Notes Assessment Notes Clinical Notes Controlled type 2 diabetes mellitus --cont glipizide 10mg ER to help with diabetic mononeuropathy, without better control BG and advised to long-term current use of insulin always take with food and a ll diabetes meds-- need to maintain low carb 1800 ADA diet. Avoid sodas, juices and remember portion control. Take your medication as prescribed. Monitor your blood sugar at home as directed and keep a log to bring back with you to your next visit for review. Schedule your annual diabetic eye exam with your eye doctor to screen for diabetic retinopathy. Check your feet daily to make sure you have no open wounds.samples of januvia and farxiga given as not affordable for patient Type 2 diabetes mellitus with blood glucose control adherenc e diabetic chronic kidney disease to medications HTN (hypertension), benign --BP improved but still elevated-INcrease lisinopril 20mg daily for total daily dose lisinopril 40mg and hctz 25mg daily.--Need to maintian a low salt DASH diet, exercise, weight loss and decrease stress recommended. Keep BP log and will review next visit. If blood pressure consistently above 140/90 return to clinic for adjustment of meds. Try to quit smoking if you currently smoke. Decrease caffeine intake if possible. Mixed hyperlipidemia continue crestor as patient tolerating medication, kidney and liver function stable. LDL at goal of <70 with diabetes.- low fat diet, decrease fast food and fried foods. Increase fruit and vegetable intake. exercise as tolerated 30minutes per day at least 3 days a week. May take fish oil 1000mg twice daily to help increase good cholesterol (HDL). Diabetic neuropathy, painful diabetes control. It is importa nt to check your feet daily to makes sure you do not have any open cuts or sores in between your toes and soles of you feet because you may not be able to feel sores or wounds due to lack of sensation in feet due to diabetic neuropathy. contact your physician if you notice any.-- Patient has not been taking her zestoretic thougth she has only been taking lisinopril--stopped gabapentin initially to try lyrica howeverand stop lyrica 50mg po bid due to negative side effects intolerability-- pain control with tyenol arthritis Chronic kidney disease, stage III improved GFR 55 to 71 Diab etes (moderate) with CKD stage III- on EL inhibitor, need to control BP and BG will monitor kidney function. - Avoid NSAIDs ( such as ibuprofen, motrin, aleive) - Hydrate your kidneys by drinking plenty of water. Upper respiratory tract infection, -increase fluids, vitamin c, unspecified type increase moisture in air with humidier, and avoid other persons with colds to prevent further spread during the infective period usually first 3-4 days.-a cold is an acute and contagious viral infection of the upper respiratory tract that is most often caused by many different viruses and sometimes bacteria. Take otc meds for any symptoms or fever. If you have high blood pressure get Coricidin BP brand of cold medicine and avoid products with decongestants such as phenylephrine or Get plenty of rest and stay well hydrated with fluids. A cold often lasts 7-14 days and will resolve on its\'s one and treatment is usually with supportive care to help alleviate symptoms. Patient told to call physician or return to clinic if symptoms worsen if fever above 104F or fever of T 100.4F lasting longer than 3 days, increased sore throat or persistent cough with increasing thick or yellow sputum or with any problems. Gastroesophageal reflux disease continue on nexium, if no without esophagitis improvement recommend to f/u with gastroenterologyGerd- avoid trigger foods including spicy, oily, carbonated drinks, citrus. Do not lay down immediately after eating-wait at least 2 hours, elevate pillow. Eat smaller meals and weight loss recommended for obese patients. Avoid wearing tight clothing. Obesity (BMI 30-39.9) - need to lose weight by maintaining a low fat/cholesterol diet with increase in vegetables& fruits, avoiding sweets and processed snack foods and eating regular smaller portions rather than skipping meals. - incorporate 30-45 minutes of exercise such as brisk walking as tolerated daily beginning with a 15-20 minutes a day and patient may increase time of exercise as you get stronger. Treatment Notes Test Name Order Date COMPREHENSIVE METABOLIC PANEL(CMP) 2020-09-29 LIPID PANEL WITH REFLEX TO DIRECT LDL 2020-09-29 CBC (H/H, RBC, INDICES, WBC, PLT) 2020-09-29 HEMOGLOBIN A1C WITH MPG 2020-09-29 Next Appt Details 1M BP review, 3 Months labs Reason: Provider Name:Vanda Reardon, 2020-11-11 08:2 0:00 AM, [address], [address], [place], [address], Insurance Providers Payer Name Payer Payer Insured Patient Coverage Coverage End Address Phone Name Relationship to Start Date Germán e Insured [employer] [phone] Tasia Cai self [address] [facility] [id number] [place] Replace [id number]
--- OUTSIDE RECORDS SUMMARY | 2020-10-16 17:58 | XMS REPORT ---
:1950 Author Organization [facility] Address [address] [place], [address] [place] [address] Care Team Providers Name Role Phone Loni Unavailable [phone] PROBLEMS Type Condition ICD9-CM [id number] Onset Condition SNOMED Code Notes Code Code Dates Status Problem Diabetes mellitus E11.9 Active 037077866 type 2, uncontrolled, without complications Problem Diarrhea R19.7 Active 77066432 Problem Mixed E78.2 Active 489713721 hyperlipidemia Problem HTN I10 Active 37797900 (hypertension), benign Problem Pollen allergies J30.1 Active 066541159 Problem Poison shraddha L23.7 Active 579232637 Problem Adult general Z00.00 Active 314570512 medical exam Problem Controlled type 2 E11.41 Active 58236765 diabetes mellitus with diabetic mononeuropathy, without long-term current use of insulin Problem Right foot pain M79.671 Active 646734010251087 Problem Elevated blood I10 Active 13433977 pressure reading with diagnosis of hypertension Problem Chronic kidney N18.3 Active 823841956 disease, stage III (moderate) Problem Type 2 diabetes E11.22 Active 153132720673 mellitus with diabetic chronic kidney disease Problem Encounter for Z20.828 Active 820165254 screening laboratory testing for COVID-19 virus in asymptomatic patient Problem Obesity, Class E66.01 Active 292723235 III, BMI 40-49.9 (morbid obesity) Problem Diabetic E11.40 Active 5365839347754 neuropathy, painful Problem Osteoarthritis of M17.0 Active 425039858 knees, bilateral Problem Obesity (BMI E66.9 Active 932691100 30-39.9) Problem Gastroesophageal K21.9 Active 138739338 reflux disease without esophagitis Problem GERD K21.9 Active 134272157 (gastroesophageal reflux disease) Problem Psoriasis of scalp L40.9 Active 690059807 Problem Other chronic pain G89.29 Active 38414750 Problem 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 Active 265010533 Problem Primary M17.11 Active 719281014284732 osteoarthritis of right knee ALLERGIES Allergen (clinical drug Drug/Non Drug Reaction Allergy Type Onset D ate Status ingredient) Allergy documented on EMR metformin Metformin HCl([facility] Unknown Drug Allergy Activ e Code:[address]-93) metformin / sitagliptin Janumet([facility] Unknown Drug Allergy Active Code:[address]-26) sulfamethoxazole / Bactrim DS([facility] Unknown Drug Allergy Active trimethoprim Code:[address]-25) Sitagliptin Unknown Drug Allergy Active Phosphate trimethoprim Trimethoprim([facility] Unknown Drug Allergy Acti ve Code:[address]-83) Sulfa Unknown Drug Allergy Active ENCOUNTERS from 1950 to 2020-10-02 Encounter Location Date Provider Diagnosis [facility] [address] [place], Bianka Loni Left knee pain M25.[address] [place] [address], ; [place] [address] knees, bilater al M17.0 ; HTN (hyperten dany), benign I10 and Anterior rosenthal splints S8 6.899A IMMUNIZATIONS Vaccine Route Administration Date Status FluAD IM Intramuscular Jul 04, 2020 Administered FluAD IM Intramuscular Aug 18, 2019 Administered FluAD IM Intramuscular Jul 14, 2018 Administered Bupivicaine [place] Unknown February 07, 2020 Administered Hyalgan 20 [...] VITAL SIGNS Height 63.00 in Sep, Weight 243.0 lbs Sep, Temperature 98.2 degrees Fahrenheit Sep, BMI 43.04 kg/m2 Sep, Oximetry 97 % Sep, Respiratory Rate 18 /min Sep, Blood pressure systolic 150 mm Hg Sep, Blood pressure diastolic 74 mm Hg Sep, MEDICATIONS Medication SIG (Take, Route, Notes Start Date End Date Status Frequency, Duration) Medrol 4 MG as directed with Not-Yoni ing food Orally daily for 5 days Nitrofurantoin 1 capsule Orally BID February, Not-Taking Macrocrystal 100 mg for 7 days Lisinopril 20 MG 1 tablet Orally Once Active a day Azithromycin 250 MG 2 tablets on the Sep, Sep, Active first day, then 1 tablet daily for 4 days Orally Once a day for 5 day(s) Farxiga 10 MG 1 tablet Orally Once A ctive a day for 90 days Cipro 500 MG 1 tablet Orally Not-Yoni ing every 12 hrs for 10 day(s) Flonase 50 MCG/ACT 2 spray in each N ot-Taking nostril Nasally Once a day for 30 day(s) Diclofenac Sodium 1 % 1 application Active Externally Twice a day for 30 day(s) Amlodipine Besylate 5 1 tablet Orally Once Sep, Active MG a day for 30 day(s) Diflucan 150 MG 1 tablet Orally February, No t-Taking daily for 1 dose Claritin 10 MG 1 tablet Orally Once Not-Taking a day Omeprazole 40 MG 1 capsule Orally No t-Taking Once a day for 90 days Zestoretic 20-25 MG 1 tablet Orally Once Active a day Januvia 100 MG 1 tablet Orally Once Active a day for 90 day Nexium 40 MG 1 capsule Orally Active Once a day for 30 day(s) Acetaminophen 500 MG 1 tablet as needed Active Orally every 12 hrs for 30 days GlipiZIDE ER 10 MG 1 tablet with Act tato breakfast Orally Once a day for 90 day(s) Klor-Con M20 20 MEQ 1 tablet orally Active twice a day Clobetasol Propionate 1 application to Not-Taking 0.05 % affected area Externally Twice a day Cetirizine HCl 10 MG 1 tablet Orally Once Not-Taking a day for 90 day(s) Crestor 40 MG 1 tablet Orally Once Jan, Not-Taking a day for 90 day(s) Lidex 0.05 % Externally Not-Taking Crestor 40 MG 1 tablet Orally Once A ctive a day for 90 day(s) Creon 94356 UNIT 1 capsule Orally No t-Taking three times a day Meloxicam 7.5 MG 1 tablet Orally Once Active a day for 30 day(s) Pioglitazone HCl 30 MG 1 tablet Orally Once Active a day for 90 days PROCEDURES No Information RESULTS No Results REASON FOR VISIT left Knee pain x 1 month MEDICAL (GENERAL) HISTORY Type Description Date Medical [...] Treatment Notes Treatm ent Clinical Notes Sep, Left knee pain most likely (ICD-10 - M25.562) worsening OA and rosenthal splints 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 will recommend to alternate between mobic and APAP every 6 hours with food for the next 2 weeks and then use medications as needed. will also rx voltrean gel to use twice a day to help alleviate pain recommend conservative therapy like ice compresses 3-4 times a day. If no improvement in 4-6 weeks, recommend to f/u with orthopedics and consider referral to PT for further managmen t she agrees and understands plan of care Sep, Osteoarthritis of as mentioned a ritesh knees, bilateral recommend to stay (ICD-10 - M17.0) on mobic to reduce further progression of OA Sep, HTN (hypertension), not controlled per benign (ICD-10 - pt, will rx another I10) med, norvasc, pt without allergies to medication recommend to f/u in 2 weeks for BP check continue to check BP at home with the goal of <140/90s she agrees and understands plan of care Sep, Anterior rosenthal as mentioned above splints (ICD-10 - in Left knee pain S86.899A) section Sep, Other -- Medication(s) reviewed and updated. Dietary and lifestyle modifications discussed with aptient regarding low fat, low carb, low sodium/salt diet, excerise and weight managemen t. -- Treatment options, risks and benefits, side effects reviewed in detail. patient accepts risk. -- Advised on signs/symptoms to monitor and when to call clinic and/or visit the nearest ED. Patient verbalized understanding and agreed with plan of care. -- Greater than 30 mins was spent with the patient during this encounter, of which over 50% of the time was spent counseling and coordinating care including but not limited to discussion of test results, diagnostic or treatment recommendations, prognosis, risks and benefits of management options, instructions, education, compliance and or risk reduction. -- Take med(s) as directed. All risks, benefits and side effects were discussed. All questions and concerns were addressed. PLAN OF TREATMENT Medication Medication Name Sig Start Date Stop Date Acetaminophen 500 MG 1 tablet as needed Orally every 12 hrs for 30 days Meloxicam 7.5 MG 1 tablet Orally Once a day for 30 day(s) Lisinopril 20 MG 1 tablet Orally Once a day Zestoretic 20-25 MG 1 tablet Orally Once a day Diclofenac Sodium 1 % 1 application Externally Twice a day for 30 day(s) Amlodipine Besylate 5 MG 1 tablet Orally Once a day for 30 2019 day(s) Treatment Notes Assessment Notes Clinical Notes Left knee pain most likely worsening OA and rosenthal splintsrecommend pt to start a extermination supervisor nsaid like mobic or celebrex (pt with no nsaid allergies, last gfr of 65 and no hx of heart disease)discussed findings with patient. will recommend to alternate between mobic and APAP every 6 hours with food for the next 2 weeks and then use medications as needed.will also rx voltrean gel to use twice a day to help alleviate painrecommend conservative therapy like ice compresses 3-4 times a day.If no improvement in 4-6 weeks, recommend to f/u with orthopedics and consider referral to PT for further managmentshe agrees and understands plan of care Osteoarthritis of knees, as mentioned aboverecommend to stay bilateral on mobic to reduce further progression of OA HTN (hypertension), benign not controlled per pt, will rx another med, norvasc, pt without allergies to medicationrecommend to f/u in 2 weeks for BP checkcontinue to check BP at home with the goal of <140/90sshe agrees and understands plan of care Anterior rosenthal splints as mentioned above in Left knee pain section Next Appt Details 2 Weeks Reason:f/u bp and left knee pain Provider Name:Vanda Reardon, 2020-11-11 08:2 0:00 AM, [address] [place], [address], [place], [address], Follow Up:2 Weeksf/u bp and left knee pain Insurance Providers Payer Name Payer Payer Insured Patient Coverage Coverage End Address Phone Name Relationship to Start Date Germán e Insured [employer] [phone] [facility] [id number] [place] Replace [phone]
--- OUTSIDE RECORDS SUMMARY | 2020-10-16 17:58 | XMS REPORT ---
:1950 Author Organization [facility] Address [address] [place], [place] [address] [place] [address] Care Team Providers Name Role Phone Reardon Unavailable [phone] PROBLEMS Type Condition ICD9-CM [id number] Onset Condition SNOMED Code Notes Code Code Dates Status Problem Diarrhea R19.7 Active 17183074 Problem GERD K21.9 Active 220142007 (gastroesophageal reflux disease) Problem HTN I10 Active 97653687 (hypertension), benign Problem Diabetes mellitus E11.9 Active 731688615 type 2, uncontrolled, without complications Problem Pollen allergies J30.1 Active 964094821 Problem Mixed E78.2 Active 164422631 hyperlipidemia Problem Obesity (BMI E66.9 Active 748972107 30-39.9) Problem Poison shraddha L23.7 Active 544436614 Problem Elevated blood I10 Active 12838025 pressure reading with diagnosis of hypertension Problem Obesity, Class E66.01 Active 663315116 III, BMI 40-49.9 (morbid obesity) Problem Chronic kidney N18.3 Active 906387696 disease, stage III (moderate) Problem Primary M17.11 Active 291783376084087 osteoarthritis of right knee Problem Adult general Z00.00 Active 744941553 medical exam Problem Gastroesophageal K21.9 Active 441135414 reflux disease without esophagitis Problem Encounter for Z20.828 Active 568759580 screening laboratory testing for COVID-19 virus in asymptomatic patient Problem Right foot pain M79.671 Active 710717479166052 Problem Controlled type 2 E11.41 Active 21112531 diabetes mellitus with diabetic mononeuropathy, without long-term current use of insulin Problem Diabetic E11.40 Active 1245715894018 neuropathy, painful Problem Type 2 diabetes E11.22 Active 536415913081 mellitus with diabetic chronic kidney disease Problem Psoriasis of scalp L40.9 Active 200088241 Problem Other chronic pain G89.29 Active 51773838 Problem 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 Active 685678022 ALLERGIES Allergen (clinical drug Drug/Non Drug Reaction Allergy Type Onset D ate Status ingredient) Allergy documented on EMR metformin Metformin HCl([facility] Unknown Drug Allergy Activ e Code:[address]-30) metformin / sitagliptin Janumet([facility] Unknown Drug Allergy Active Code:[address]-62) sulfamethoxazole / Bactrim DS([facility] Unknown Drug Allergy Active trimethoprim Code:[address]-90) Sitagliptin Unknown Drug Allergy Active Phosphate trimethoprim Trimethoprim([facility] Unknown Drug Allergy Acti ve Code:[address]-49) Sulfa Unknown Drug Allergy Active ENCOUNTERS from 1950 to 2020-10-01 Encounter Location Date Provider Diagnosis [address] [place] [address] Sep, 2020 [place] [address] IMMUNIZATIONS Vaccine Route Administration Date Status FluAD IM Intramuscular Jul 04, 2020 Administered FluAD IM Intramuscular Aug 18, 2019 Administered FluAD IM Intramuscular Jul 14, 2018 Administered Bupivicaine [place] Unknown February 07, 2020 Administered Hyalgan 20 [...] Once a day for 90 day(s) Creon 43759 UNIT 1 capsule Orally No t-Taking three [...] Information RESULTS No Results REASON FOR VISIT sars-cov negative MEDICAL (GENERAL) HISTORY Type Description Date Medical [...] 2020-10-02 0 9:40:00 AM, [address], [address], [place], [address], Provider Name:Vanda Reardon, 2020-11-11 08:2 0:00 AM, [address], [address], [place], [address], Insurance Providers Payer Name Payer Payer Insured Patient Coverage Coverage End Address Phone Name Relationship to Start Date Germán e Insured [employer] [phone]asia [address] [place] [id number] [place] Replace [phone]
--- OUTSIDE RECORDS SUMMARY | 2020-10-16 17:58 | XMS REPORT ---
:1950 Author Organization [facility] Address [address] [place], [address] [place] [address] Care Team Providers Name Role Phone Reardon Unavailable [phone] PROBLEMS Type Condition ICD9-CM [id number] Onset Condition SNOMED Code Notes Code Code Dates Status Problem Diabetes mellitus E11.9 Active 616186752 type 2, uncontrolled, without complications Problem Diarrhea R19.7 Active 02352459 Problem Mixed E78.2 Active 781112211 hyperlipidemia Problem HTN I10 Active 04652678 (hypertension), benign Problem Pollen allergies J30.1 Active 555186448 Problem Poison shraddha L23.7 Active 012689905 Problem Adult general Z00.00 Active 377857153 medical exam Problem Controlled type 2 E11.41 Active 55090987 diabetes mellitus with diabetic mononeuropathy, without long-term current use of insulin Problem Right foot pain M79.671 Active 120978288286244 Problem Elevated blood I10 Active 76463700 pressure reading with diagnosis of hypertension Problem Chronic kidney N18.3 Active 430573414 disease, stage III (moderate) Problem Type 2 diabetes E11.22 Active 033218984867 mellitus with diabetic chronic kidney disease Problem Encounter for Z20.828 Active 442879720 screening laboratory testing for COVID-19 virus in asymptomatic patient Problem Obesity, Class E66.01 Active 382145414 III, BMI 40-49.9 (morbid obesity) Problem Diabetic E11.40 Active 5570455928845 neuropathy, painful Problem Osteoarthritis of M17.0 Active 875043397 knees, bilateral Problem Obesity (BMI E66.9 Active 970979660 30-39.9) Problem Gastroesophageal K21.9 Active 178285033 reflux disease without esophagitis Problem GERD K21.9 Active 114041115 (gastroesophageal reflux disease) Problem Psoriasis of scalp L40.9 Active 572589235 Problem Other chronic pain G89.29 Active 57368167 Problem 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 Active 937305238 Problem Primary M17.11 Active 105054266972913 osteoarthritis of right knee ALLERGIES Allergen (clinical drug Drug/Non Drug Reaction Allergy Type Onset D ate Status ingredient) Allergy documented on EMR metformin Metformin HCl([facility] Unknown Drug Allergy Activ e Code:[address]-99) metformin / sitagliptin Janumet([facility] Unknown Drug Allergy Active Code:[address]-83) sulfamethoxazole / Bactrim DS([facility] Unknown Drug Allergy Active trimethoprim Code:[address]-77) Sitagliptin Unknown Drug Allergy Active Phosphate trimethoprim Trimethoprim([facility] Unknown Drug Allergy Acti ve Code:[address]-52) Sulfa Unknown Drug Allergy Active ENCOUNTERS from 1950 to 2020-10-07 Encounter Location Date Provider Diagnosis [facility] [address], [place] [address] IMMUNIZATIONS Vaccine Route Administration Date Status FluAD IM Intramuscular Jul 04, 2020 Administered FluAD IM Intramuscular Aug 18, 2019 Administered FluAD IM Intramuscular Jul 14, 2018 Administered Bupivicaine [place] Unknown February 07, 2020 Administered Hyalgan 20 [...] Duration) Medrol 4 MG as directed with food No t-Taking Orally daily for 5 days Diclofenac Sodium 1 % 1 application Active Externally Twice a day for 30 day(s) Lisinopril 20 MG 1 tablet Orally Once Active a day Nitrofurantoin 1 capsule Orally BID February, Not-Taking Macrocrystal 100 mg for 7 days Farxiga 10 MG 1 tablet Orally Once A ctive a day for 90 days Flonase 50 MCG/ACT 2 spray in each N ot-Taking nostril Nasally Once a day for 30 day(s) Cipro 500 MG 1 tablet Orally every N ot-Taking 12 hrs for 10 day(s) Amlodipine Besylate 5 MG 1 tablet Orally Once Sep, Active a day for 30 day(s) Diflucan 150 MG 1 tablet Orally daily February, Not-Taking for 1 dose Claritin 10 MG 1 tablet Orally Once Not-Taking a day Omeprazole 40 MG 1 capsule Orally Once Not-Taking a day for 90 days Zestoretic 20-25 MG 1 tablet Orally Once Active a day Januvia 100 MG 1 tablet Orally Once Active a day for 90 day Nexium 40 MG 1 capsule Orally Once A ctive a day for 30 day(s) Acetaminophen 500 MG 1 tablet as needed Active Orally every 12 hrs for 30 days GlipiZIDE ER 10 MG 1 tablet with Act tato breakfast Orally Once a day for 90 day(s) Klor-Con M20 20 MEQ 1 tablet orally twice Active a day Clobetasol Propionate 1 application to [...] ctive a day for 90 day(s) Creon 33607 UNIT 1 capsule Orally No t-Taking three times a day Meloxicam 7.5 MG 1 tablet Orally Once Active a day for 30 day(s) Pioglitazone HCl 30 MG 1 tablet Orally Once Active a day for 90 days PROCEDURES No Information RESULTS No Results REASON FOR VISIT Elevated BP MEDICAL (GENERAL) HISTORY Type Description Date Medical [...] Information ASSESSMENTS No Information PLAN OF TREATMENT Medication Medication Name Sig [...] tablet Orally Once a day for 30 2019(s) Next Appt Details Provider Name:Vanda Reardon, 2020-11-11 08:2 0:00 AM, [address], [address], [place], [address], Insurance Providers Payer Name Payer Payer Insured Patient Coverage Coverage End Address Phone Name Relationship to Start Date Germán e Insured [id number] [phone] Tasia Cai self [address] [employer] [id number] [place] Replace [phone]
--- NOTE | 2020-10-16 18:42 | RAD REPORT ---
EXAM DESCRIPTION: RAD - Chest Single View - 10/16/2020 6:34 pm CLINICAL HISTORY: CHEST PAIN Chest pain. COMPARISON: CHEST SINGLE VIEW dated 02/11/2011 FINDINGS: Portable technique limits examination quality. The lungs are grossly clear. The heart is upper limit of normal in size. No displaced fractures. IMPRESSION: No acute intrathoracic process suspected.
[2020-10-16 18:49] LABS: Absolute Lymphocytes (CBC) 2.3 K/uL (0.7-4.9); Basophils % 0.5 % (0-1.3); Lymphocytes % 21.5 % (15.3-44.8); MPV 7.4 fL (7.6-11.3); RBC Red Blood Cell Count 3.77 M/uL (3.86-4.86)
[2020-10-16 18:50] LABS: Protime INR 0.92
[2020-10-16] MEDS ORDERED: MORPHINE 4 MG/ML SYR ONE (18:52)
[2020-10-16] MEDS ORDERED: ASPIRIN 81 MG CHEWABLE TABLET ONE (18:52)
[2020-10-16] MEDS ORDERED: METOPROLOL TARTRATE 5 MG/5 ML INJ IV ONE (18:53)
[2020-10-16] MEDS ORDERED: ONDANSETRON 4 MG/2 ML VIAL ONE (18:53)
[2020-10-16] MEDS ORDERED: FAMOTIDINE 20 MG/2 ML VIAL IV ONE (18:53)
[2020-10-16 19:09] LABS: ALT/SGPT 20 U/L (12-78); AST/SGOT 16 U/L (15-37); Albumin 3.8 g/dL (3.4-5.0); Alkaline Phosphatase 90 U/L (45-117); BUN Blood Urea Nitrogen 25 mg/dL (7-18); Bicarbonate 24 mmol/L (21-32); Bilirubin Direct < 0.1 mg/dL (0-0.2); Bilirubin Total 0.3 mg/dL (0.2-1.0); Glucose Level 134 mg/dL (74-106); Magnesium 2.1 mg/dL (1.8-2.4); NT PRO-BNP 195 pg/mL (<125); Potassium 3.9 mmol/L (3.5-5.1); Protein, Total 8.1 g/dL (6.4-8.2); Sodium Level 131 mmol/L (136-145); Troponin (Emerg Dept Use Only) < 0.02 ng/mL (0.0-0.045)
--- NOTE | 2020-10-16 19:37 | RAD REPORT ---
EXAM DESCRIPTION: CTAbdomen Pelvis W Contrast - 10/16/2020 7:23 pm CLINICAL HISTORY: Abdominal pain. ABD PAIN COMPARISON: No comparisons TECHNIQUE: Biphasic CT imaging of the abdomen and pelvis was performed with 100 ml non-ionic IV cont rast. All CT scans are performed using dose optimization technique as appropriate and may include automated exposure control or mA/KV adjustment according to patient size. FINDINGS: The lung bases are clear.Cholelithiasis. The liver, spleen, pancreas, adrenal glands and kidneys are within normal limits. Bilateral renal cys ts are present, largest inferiorly on the right measuring 7 cm. No bowel obstruction, free air, free fluid or abscess. The appendix is normal. No evidence of signi ficant lymphadenopathy. Mild lumbosacral degenerative changes. Fibroid uterus is present. IMPRESSION: Cholelithiasis. 7 cm right renal cyst, benign in appearance.
[2020-10-16] MEDS ORDERED: METOPROLOL TAR 50 MG TAB ONE (20:14)
--- NOTE | 2020-10-16 20:15 | ER ---
Nurse's Notes [facility] Name: Kelly Cai Age: 70 yrs Sex: Female : 1950 Arrival Date: 10/16/2020 Time: 17:57 Bed 6 Private MD: Diagnosis: Cholelithiasis;Abdominal tenderness;Chest pain, unspecified;Essential (primary) hypertension;Type 2 diabetes mellitus;Obesity, unspecified Presentation: 10/16 18:10 Chief complaint: Patient states: 1. Mid sternal CP for 1 day, intermittent. Slight SOB, ll1 no cough/fever. 2. Headache began today. 3. Reports R thigh pain for 6 months. Coronavirus screen: Client denies travel out of the [place] in the last 14 days. At this time, the client does not indicate any symptoms associated with coronavirus-19. Ebola Screen: Patient denies travel to an Ebola-affected area in the 21 days before illness onset. Initial Sepsis Screen: Does the patient meet any 2 criteria? No. Patient's initial sepsis screen is negative. Does the patient have a suspected source of infection? No. Patient's initial sepsis screen is negative. Risk Assessment: Do you want to hurt yourself or someone else? Patient reports no desire to harm self or others. Onset of symptoms was October 16, 2020. 18:10 Method Of Arrival: Ambulatory ll1 18:10 Acuity: BALA 2 ll1 Historical: - Allergies: 18:13 Metformin HCl; ll1 18:13 sitagliptin phosphate; ll1 18:13 Sulfa (Sulfonamide Antibiotics); ll1 18:13 sulfamethoxazole-trimethoprim; ll1 18:13 TRIMETHOPRIM; ll1 - PMHx: 18:13 Diabetes - NIDDM; Hyperlipidemia; Hypertension; ll1 - PSHx: 18:13 None; ll1 - Immunization history:: Flu vaccine is not up to date. - Social history:: Smoking status: Patient denies any tobacco usage or history of. - Family history:: not pertinent. Screenin:35 Abuse screen: Denies threats or abuse. Nutritional screening: No deficits noted. tw2 Tuberculosis screening: No symptoms or risk factors identified. Fall Risk None identified. Assessment: 18:40 General: Appears in no apparent distress. obese, well groomed, Behavior is calm, tw2 cooperative, appropriate for age. Pain: Complains of pain in chest and epigastric area Pain does not radiate. Pain began 2-3 days ago. Neuro: Level of Consciousness is awake, alert, obeys commands, Oriented to person, place, time, situation. Cardiovascular: Capillary refill < 3 seconds Patient's skin is warm and dry. Cardiovascular: Reports chest pain. Respiratory: Respiratory: Airway is patent Respiratory effort is even, unlabored, Respiratory pattern is regular, symmetrical. GI: Abdomen is round non-distended, obese, Reports upper abdominal pain. Derm: No signs and/or symptoms reported regarding the dermatologic system. Musculoskeletal: Range of motion: intact in all extremities. 19:23 General: patient in CT now. mg2 19:55 General: Appears in no apparent distress. Behavior is appropriate for age. Pain: Denies ea pain. Neuro: Level of Consciousness is awake, alert, obeys commands, Oriented to person, place, time, situation. Cardiovascular: Patient's skin is warm and dry. Respiratory: Airway is patent Respiratory effort is even, unlabored, Respiratory pattern is regular, symmetrical. Derm: Skin is pink, warm \T\ dry. Vital Signs: 18:10 BP 191 / 74; Pulse 78; Resp 18; Temp 98.4; Pulse Ox 96% ; Pain 8/10; ll1 18:39 BP 157 / 68; Pulse 73; Resp 19; Pulse Ox 98% on R/A; tw2 19:00 BP 148 / 64; Pulse 64; Resp 17; Pulse Ox 97% on R/A; tw2 20:23 BP 140 / 57; Pulse 60; Resp 18; Pulse Ox 98% ; ea ED Course: 17:57 Patient arrived in ED. ds1 18:12 Triage completed. ll1 18:12 Neri Felix MD is Attending Physician. kdr 18:12 Arm band placed on Patient placed in an exam room, on a stretcher. ll1 18:20 Patient maintains SpO2 saturation greater than 95% on room air. tw2 18:28 Placed in gown. Bed in low position. Pulse ox on. NIBP on. tw2 18:35 XRAY Chest (1 view) In Process Unspecified. EDMS 18:40 Initial lab(s) drawn, by me, sent to lab. Inserted saline lock: 20 gauge in right tw2 antecubital area, using aseptic technique. Blood collected. 18:46 Attending Physician role handed off by Neri Felix MD sudarshan 18:46 Valerio Momin MD is Attending Physician. sudarshan 19:00 Report given to MANUEL Goldberg. tw2 19:22 Fransisco Meyers, RN is Primary Nurse. mg2 19:24 CT Abd/Pelvis - IV Contrast Only In Process Unspecified. EDMS 20:03 US Abdomen Limited In Process Unspecified. EDMS 20:14 Marc Becerra MD is Referral Physician. sudarshan 20:14 Javier Negrete MD is Referral Physician. sudarshan 20:18 No provider procedures requiring assistance completed. ea 20:27 IV discontinued, intact, bleeding controlled, No redness/swelling at site. Pressure ea dressing applied. Administered Medications: 18:40 Drug: Aspirin Chewable Tablet 324 mg Route: PO; tw2 19:34 Follow up: Response: No adverse reaction tw2 18:40 Drug: Zofran (Ondansetron) 4 mg Route: IVP; Site: right antecubital; tw2 20:26 Follow up: Response: No adverse reaction ea 18:42 Drug: morphine 4 mg {Note: RASS 0.} Route: IVP; Site: right antecubital; tw2 20:26 Follow up: Response: No adverse reaction ea 18:45 Drug: Pepcid 20 mg Route: IVP; Site: right antecubital; tw2 20:26 Follow up: Response: No adverse reaction ea 18:58 Drug: Lopressor 5 mg {Note: BP 160/62 HR 74.} Route: IVP; Site: right antecubital; tw2 20:26 Follow up: Response: No adverse reaction ea 20:07 Drug: Lopressor (metoprolol TARTRATE) 50 mg Route: PO; ph 20:26 Follow up: Response: No adverse reaction ea Outcome: 20:14 Discharge ordered by . sudarshan 20:27 Discharged to home ambulatory, with family. ea 20:27 Condition: stable 20:27 Discharge instructions given to patient, Instructed on discharge instructions, follow up and referral plans. medication usage, Demonstrated understanding of instructions, follow-up care, medications, Prescriptions given X 1. 20:27 Patient left the ED. ea Signatures: Dispatcher [employer] EDOK Valerio Momin MD MD cha Rittger, Kevin, MD MD kdr Sanford, Demi ds1 Guillermo Becerra em1 Sisi Romero RN RN ph Surendra, Chloe, RN RN tw2 Marivel Conley, RN Fransisco Sibley ea, RN RN [facility] Alistair Torres RN RN ll1 Corrections: (The following items were deleted from the chart) 19:35 19:05 Initial lab(s) drawn, by me, sent to lab. em1 tw2 19:35 19:05 Inserted saline lock: 20 gauge in right antecubital area, using aseptic tw2 technique. Blood collected. em1
--- NOTE | 2020-10-16 20:15 | EDPHYS ---
Physician Documentation [facility] Name: Kelly aCi Age: 70 yrs Sex: Female : 1950 Arrival Date: 10/16/2020 Time: 17:57 Bed 6 Private MD: ED Physician Valerio Momin HPI: 10/16 18:23 This 70 yrs old Female presents to ER via Ambulatory with complaints of Chest kdr Pain, Headache. 18:23 The patient or guardian reports chest pain that is located primarily in the substernal kdr area, diaphragm and xyphoid area. Onset: gradually, 2 day(s) ago. The pain does not radiate. Associated signs and symptoms: The patient has no apparent associated signs or symptoms. The chest pain is described as aching, burning, dull, a pressure. Duration: The patient or guardian reports multiple episodes, that are intermittent, that wax and wane, with no pattern. Modifying factors: The symptoms are alleviated by nothing. the symptoms are aggravated by nothing. Severity of pain: At its worst the pain was moderate in the emergency department the pain has improved moderately. The patient has not experienced similar symptoms in the past. Historical: - Allergies: 18:13 Metformin HCl; ll1 18:13 sitagliptin phosphate; ll1 18:13 Sulfa (Sulfonamide Antibiotics); ll1 18:13 sulfamethoxazole-trimethoprim; ll1 18:13 TRIMETHOPRIM; ll1 - PMHx: 18:13 Diabetes - NIDDM; Hyperlipidemia; Hypertension; ll1 - PSHx: 18:13 None; ll1 - Immunization history:: Flu vaccine is not up to date. - Social history:: Smoking status: Patient denies any tobacco usage or history of. - Family history:: not pertinent. ROS: 18:23 Constitutional: Negative for fever, chills, and weight loss, Eyes: Negative for injury, kdr pain, redness, and discharge, ENT: Negative for injury, pain, and discharge, Neck: Negative for injury, pain, and swelling, Respiratory: Negative for shortness of breath, cough, wheezing, and pleuritic chest pain, Back: Negative for injury and pain, : Negative for injury, bleeding, discharge, and swelling, MS/Extremity: Negative for injury and deformity, Skin: Negative for injury, rash, and discoloration, Neuro: Negative for headache, weakness, numbness, tingling, and seizure activity. Psych: Negative for depression, anxiety, suicide ideation, homicidal ideation, and hallucinations, Allergy/Immunology: Negative for hives, rash, and allergies, Endocrine: Negative for neck swelling, polydipsia, polyuria, polyphagia, and marked weight changes, Hematologic/Lymphatic: Negative for swollen nodes, abnormal bleeding, and unusual bruising. 18:23 Cardiovascular: Positive for chest pain, of the diaphragm and xyphoid area, Negative for edema, orthopnea, palpitations, paroxysmal nocturnal dyspnea. 18:56 Abdomen/GI: Positive for abdominal pain, of the right upper quadrant and left upper sudarshan quadrant. Exam: 18:23 Constitutional: This is a well developed, well nourished patient who is awake, alert, kdr and in no acute distress. Head/Face: Normocephalic, atraumatic. Eyes: Pupils equal round and reactive to light, extra-ocular motions intact. Lids and lashes normal. Conjunctiva and sclera are non-icteric and not injected. Cornea within normal limits. Periorbital areas with no swelling, redness, or edema. Neck: Trachea midline, no thyromegaly or masses palpated, and no cervical lymphadenopathy. Supple, full range of motion without nuchal rigidity, or vertebral point tenderness. No Meningismus. Chest/axilla: Normal chest wall appearance and motion. Nontender with no deformity. No lesions are appreciated. Cardiovascular: Regular rate and rhythm with a normal S1 and S2. No gallops, murmurs, or rubs. Normal PMI, no JVD. No pulse deficits. Respiratory: Lungs have equal breath sounds bilaterally, clear to auscultation and percussion. No rales, rhonchi or wheezes noted. No increased work of breathing, no retractions or nasal flaring. Back: No spinal tenderness. No costovertebral tenderness. Full range of motion. Skin: Warm, dry with normal turgor. Normal color with no rashes, no lesions, and no evidence of cellulitis. MS/ Extremity: Pulses equal, no cyanosis. Neurovascular intact. Full, normal range of motion. Neuro: Awake and alert, GCS 15, oriented to person, place, time, and situation. Cranial nerves II-XII grossly intact. Motor strength 5/5 in all extremities. Sensory grossly intact. Cerebellar exam normal. Normal gait. Psych: Awake, alert, with orientation to person, place and time. Behavior, mood, and affect are within normal limits. 18:23 Abdomen/GI: Inspection: abdomen appears normal, Bowel sounds: diminished, in all quadrants, Palpation: soft, mild abdominal tenderness, in the epigastric area. 18:56 Musculoskeletal/extremity: DVT Exam: No signs of deep vein thrombosis. no pain, no sudarshan swelling, no tenderness, negative Homans' sign noted on exam, no appreciated bluish discoloration, no erythema, no increased warmth. 18:57 ECG was reviewed by the Attending Physician. [facility] 18:58 Neck: ROM/movement: is normal, limited range of motion, is not appreciated, Meningeal sudarshan signs: are not present, Kernig's sign is negative, Brudzinski's sign is negative. Vital Signs: 18:10 BP 191 / 74; Pulse 78; Resp 18; Temp 98.4; Pulse Ox 96% ; Pain 8/10; ll1 18:39 BP 157 / 68; Pulse 73; Resp 19; Pulse Ox 98% on R/A; tw2 19:00 BP 148 / 64; Pulse 64; Resp 17; Pulse Ox 97% on R/A; tw2 20:23 BP 140 / 57; Pulse 60; Resp 18; Pulse Ox 98% ; ea MDM: 18:23 Data reviewed: vital signs, nurses notes, lab test result(s), radiologic studies. kdr Counseling: I had a detailed discussion with the patient and/or guardian regarding: the historical points, exam findings, and any diagnostic results supporting the discharge/admit diagnosis, lab results, radiology results. 18:46 Patient medically screened. [facility] 10/16 18:21 Order name: Basic Metabolic Panel [facility] 10/16 18:21 Order name: CBC with Diff; Complete Time: 18:57 kdr 10/16 18:21 Order name: LFT's; Complete Time: 19:16 kdr 10/16 18:21 Order name: Magnesium; Complete Time: 19:16 kdr 10/16 18:21 Order name: NT PRO-BNP; Complete Time: 19:16 kdr 10/16 18:21 Order name: PT-INR; Complete Time: 18:57 [facility] 10/16 18:21 Order name: Troponin (emerg Dept Use Only); Complete Time: 19:16 [facility] 10/16 18:21 Order name: XRAY Chest (1 view); Complete Time: 18:57 kdr 10/16 18:21 Order name: Basic Metabolic Panel; Complete Time: 19:16 EDMS 10/16 18:22 Order name: CT Abd/Pelvis - IV Contrast Only; Complete Time: 19:57 kdr 10/16 18:55 Order name: Lipase; Complete Time: 19:57 sudarshan 10/16 18:55 Order name: US Abdomen Limited sudarshan 10/16 18:21 Order name: EKG; Complete Time: 18:22 kdr 10/16 18:21 Order name: Cardiac monitoring; Complete Time: 19:13 kdr 10/16 18:21 Order name: EKG - Nurse/Tech; Complete Time: 19:04 kdr 10/16 18:21 Order name: IV Saline Lock; Complete Time: 19:04 kdr 10/16 18:21 Order name: Labs collected and sent; Complete Time: 19:04 kdr 10/16 18:21 Order name: O2 Per Protocol; Complete Time: 18:34 kdr 10/16 18:21 Order name: O2 Sat Monitoring; Complete Time: 18:35 kdr EC:57 Rate is 78 beats/min. Rhythm is regular. QRS [place] is Normal. [place] interval is normal. QRS sudarshan interval is normal. QT interval is normal. No Q waves. T waves are Normal. No ST changes noted. Clinical impression: NSR w/ Non-specific ST/T Changes and No evidence of ischemia. Interpreted by me. Reviewed by me. Administered Medications: 18:40 Drug: Aspirin Chewable Tablet 324 mg Route: PO; tw2 19:34 Follow up: Response: No adverse reaction tw2 18:40 Drug: Zofran (Ondansetron) 4 mg Route: IVP; Site: right antecubital; tw2 20:26 Follow up: Response: No adverse reaction ea 18:42 Drug: morphine 4 mg {Note: RASS 0.} Route: IVP; Site: right antecubital; tw2 20:26 Follow up: Response: No adverse reaction ea 18:45 Drug: Pepcid 20 mg Route: IVP; Site: right antecubital; tw2 20:26 Follow up: Response: No adverse reaction ea 18:58 Drug: Lopressor 5 mg {Note: BP 160/62 HR 74.} Route: IVP; Site: right antecubital; tw2 20:26 Follow up: Response: No adverse reaction ea 20:07 Drug: Lopressor (metoprolol TARTRATE) 50 mg Route: PO; ph 20:26 Follow up: Response: No adverse reaction ea Disposition: 10/16/20 20:14 Discharged to Home. Impression: Cholelithiasis, Abdominal tenderness, Chest pain, unspecified, Essential (primary) hypertension, Type 2 diabetes mellitus, Obesity, unspecified. - Condition is Stable. - Discharge Instructions: Abdominal Pain, Adult, Nonspecific Chest Pain, Type 2 Diabetes Mellitus, Diagnosis, Adult, Hypertension, Obesity, Adult, Cholelithiasis, Cholelithiasis, [id number], Abdominal Pain, Adult, [id number], Nonspecific Chest Pain, [id number], Hypertension, [id number], Aspirin and Your Heart, Type 2 Diabetes Mellitus, Diagnosis, Adult, [id number], Managing Your Hypertension. - Prescriptions for Bentyl 20 mg Oral Tablet - take 1 tablet by ORAL route every 6 hours As needed; 20 tablet. Lopressor 50 mg Oral Tablet - take 1 tablet by ORAL route every 12 hours; 30 tablet. Pepcid 20 mg Oral Tablet - take 1 tablet by ORAL route every 12 hours for 10 days; 20 tablet. - Medication Reconciliation Form, Thank You Letter, Antibiotic Education, Prescription Opioid Use form. - Follow up: Private Physician; When: 2 - 3 days; Reason: Recheck today's complaints, Continuance of care, Re-evaluation by your physician. Follow up: Marc Becerra; When: 2 - 3 days; Reason: Recheck today's complaints, Continuance of care, Re-evaluation by your physician. Follow up: Javier Negrete MD; When: 2 - 3 days; Reason: Recheck today's complaints, Re-evaluation by your physician. - Problem is new. - Symptoms have improved. Signatures: Dispatcher [employer] EDValerio Pike MD MD cha Rittger, Kevin, MD MD kdr Hall, Patricia, RN RN Chloe Mi RN RN tw2 Marivel Conley RN RN ea Lewis, Lynsay RN RN ll1 Corrections: (The following items were deleted from the chart) 20:27 20:14 10/16/2020 20:14 Discharged to Home. Impression: Cholelithiasis; Abdominal ea tenderness; Chest pain, unspecified; Essential (primary) hypertension; Type 2 diabetes mellitus; Obesity, unspecified. Condition is Stable. Discharge Instructions: Abdominal Pain, Adult, Nonspecific Chest Pain, Type 2 Diabetes Mellitus, Diagnosis, Adult, Hypertension, Obesity, Adult, Abdominal Pain, Adult, [id number], Nonspecific Chest Pain, [id number], Hypertension, [id number], Aspirin and Your Heart, Type 2 Diabetes Mellitus, Diagnosis, Adult, Njqq-[id number], Managing Your Hypertension. Prescriptions for Bentyl 20 mg Oral Tablet - take 1 tablet by ORAL route every 6 hours As needed; 20 tablet, Lopressor 50 mg Oral Tablet - take 1 tablet by ORAL route every 12 hours; 30 tablet, Pepcid 20 mg Oral Tablet - take 1 tablet by ORAL route every 12 hours for 10 days; 20 tablet. and Forms are Medication Reconciliation Form, Thank You Letter, Antibiotic Education, Prescription Opioid Use. Follow up: Private Physician; When: 2 - 3 days; Reason: Recheck today's complaints, Continuance of care, Re-evaluation by your physician. Follow up: Marc Becerra; When: 2 - 3 days; Reason: Recheck today's complaints, Continuance of care, Re-evaluation by your physician. Follow up: Javier Negrete; When: 2 - 3 days; Reason: Recheck today's complaints, Re-evaluation by your physician. Problem is new. Symptoms have improved. sudarshan
--- NOTE | 2020-10-16 20:28 | RAD REPORT ---
EXAM DESCRIPTION: US - Abdomen Exam Limited - 10/16/2020 8:03 pm CLINICAL HISTORY: ABD PAIN COMPARISON: No comparisons FINDINGS: The gallbladder demonstrates small gallstone in the gallbladder neck. No pericholecystic f luid or gallbladder wall thickening. The common bile duct is normal measuring 3 mm. The liver demonstrates no findings of intrahepatic biliary dilatation. IMPRESSION: Cholelithiasis.
[2020-10-16 21:13] VITALS: TEMP 98.4
[2020-10-16 21:17] VITALS: BP 140/57; O2SAT 98
== END 2020-10-16 20:27 | disposition home or self-care (01) ==
LOC: ER 17:54
DX: K80.20 Calculus of gallbladder without cholecystitis without obstruction (principal); R10.819 Abdominal tenderness, unspecified site; I10 Essential (primary) hypertension; E11.9 Type 2 diabetes mellitus without complications; E66.9 Obesity, unspecified; Z88.2 Allergy status to sulfonamides; Z88.8 Allergy status to other drugs, medicaments and biological substances
CPT/HCPCS: 93005; 85025; 80048; 36415; 83735; 85610; 80076; 84484; 83690; 83880; 74177; 71045; 76705; 96375; 96374; 99284; Q9967; J2405

== ENCOUNTER 2022-11-22 23:01 | Emergency (ER) | payer OTHER ==
--- OUTSIDE RECORDS SUMMARY | 2022-11-22 23:33 | XMS REPORT | Continuity of Care Document ---
:1950 Author Organization [facility] t Address [address] [place] [address] Care Team Providers Name Role Phone Pcp, Patient Does Not Have A Primary Care Physician [id number] Vanda Reardon Attending Clinician Unavailable Radiology Attending Clinician Unavailable RADIOLOGY Attending Clinician Unavailable Doctor Unassigned, [place] Attending Clinician Unavailable GERRY COX III Attending Clinician Unavailable KNOW, DOES_NOT Admitting Clinician Unavailable Payers Payer Name Policy Type Policy Number Effective Date Expiration Date Eduardo maryanne [facility] [id number] 2018 Common Sp [facility] ing Medicare [facility]:00 - [id number] Medicare 00:00:00 - [facility] [id number] 2018 Common Sp [facility] ing Medicare 00:00:00 - [facility] [id number] 2018 Common Sp [id number] Medicare 00:00:00 - [facility] [employer] C1 [id number] 2018 Common Sp len ing Medicare 00:00:00 [facility] Problems Condition Condition Condition Status Onset Resolution Last Treating Co mments Source Name Details Category Date Date Treatment Clinician Date [id number] Elevated Problem Commo n blood [facility] pressure - [facility] reading with [facility] diagnosis Medical of Center hypertensi on [id number] Adult Problem Common general [facility] medical - [facility] exam [facility] [id number] Type 2 Problem Commo n 05 diabetes Spirit mellitus - [facility] with diabetic [facility] chronic [facility] kidney Center disease [id number] Obesity, Problem Comm on Class III, Spirit BMI - [facility] 40-49.9 (morbid [facility] obesity) [facility] [id number] Other Problem Common chronic Spirit pain - [facility] [id number] Primary Problem Comm on osteoarthr Spirit itis of - CHI right knee [facility] Essential HTN Problem Common hypertensi (hypertens Sp len on ion), - [facility] benign [facility] [id number] Arthritis Problem Co mmon [id number] of knee, [facility] right - [facility] Type II Diabetes Problem Common diabetes mellitus [facility] mellitus type 2, - 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 with edema [facility] [id number] CKD Problem Common (chronic Spirit kidney - CHI disease), stage IV [facility] [id number] Arthritis Problem Co mmon [id number] of left Spirit knee - [facility] [id number] Primary Problem Comm on osteoarthr Spirit itis of - CHI left knee [facility] [id number] Controlled Problem Com mon type 2 Spirit diabetes - CHI mellitus [facility] diabetic Medical mononeurop Center athy, without long-term current use of insulin Diabetic Diabetic Problem Commo n peripheral neuropathy Sp len neuropathy , painful - C HI associated St with type [facility] 2 diabetes Medica l mellitus Center Gastroesop Gastroesop Problem C ommon hageal hageal Spirit reflux reflux - CHI disease disease St without without [facility]ophagiti [facility]iti [facility] Diarrhea Problem Commo n [facility] [id number] Adult BMI Problem Com mon 45.0-49.9 Spirit kg/sq [facility] Chronic Chronic Problem Common kidney kidney [facility] disease disease, - [facility] stage 3A stage 3a St (disorder) [facility] [id number] Chronic Problem Commo n kidney Spirit disease, [facility] stage 3b [facility] Gastroesop GERD Problem Commo n hageal (gastroeso Spirit reflux phageal - [facility] disease reflux St disease) [facility] [id number] Scalp Problem Common psoriasis [facility] [id number] +5th digit Problem Co mmon eff Spirit 07/11/20*Ch - [facility] ronic kidney [facility] disease, Medical stage III Center (moderate) [id number] Poison shraddha Problem Co on [facility] [id number] Pollen Problem Common allergies [facility] [id number] Right foot Problem C ommon 54448 pain [facility] [id number] Obesity Problem Commo n (BMI Spirit 30-39.9) [facility] Allergies, Adverse Reactions, Alerts Allergy Allergy Status Severity Reaction(s) Onset Inactive Treating Comm ents Source Name Type Date Date Clinician No Known DA Active U 2020-0 [facility] No Known DA Active U 2020-0 [facility] All[facility] -05 [facility] 26444 Drug Active Unknown Common allergy [facility] 03800 Drug Active Unknown Common allergy [facility] 0 Drug Active Unknown Common allergy [facility] metformi metformi Active Unknown Commo n n / n / Spirit sitaglip sitaglip - [facility] tin tin [facility] sulfamet sulfamet Active Unknown Commo n hoxazole hoxazole [facility] / / - [facility] trimetho trimetho [facility] trimetho trimetho Active Unknown Commo n prim prim Spirit - CH[facility] NO KNOWN Drug Active Univers ALLERGIE Class ity of [facility] Medical [place] Social History Social Habit Start Date Stop Date Quantity Comments Source History of Tobacco Common Spirit - CHI Use [facility] Sex Assigned At Common Sp len - CHI [facility] Exposure to 2022-06-16 2022-06-26 Not sure [facility] SARS-CoV-2 (event) 00:00:00 11:13:00 Medica l Branch Smoking Status Start Date Stop Date Source Tobacco smoking consumption [facility] Branch Never Smoker Common [facility] - [facility] Medications Ordered Filled Start Stop Current Ordering Indication Dosage Frequency Signature Comments Components Source Medication Medication Date Date Medication? Clinician (SIG) Name Name Fluconazole Fluconazole 2021-10- No 1{table Fluconazol 150 MG 150 MG 0-18 10-19 t} e 150 MG 00:00: 00:00 00 :00 Hyalgan 20 Hyalgan 20 2021-0 No 20mg C ommon mg mg 04-22 Spirit 00:00: - [facility] Hyalgan 20 Hyalgan 20 2021-0 No 20mg C ommon mg mg 04-22 Spirit 00:00: - [facility] Hyalgan 20 Hyalgan 20 2021-0 No 20mg C ommon mg mg 04-22 Spirit 00:00: - [facility] Hyalgan 20 Hyalgan 20 2021-0 No 20mg C ommon mg mg 04-22 Spirit 00:00: - [facility] Hyalgan 20 Hyalgan 20 2021-0 No 20mg C ommon mg mg 04-22 Spirit 00:00: - [facility] Hyalgan 20 Hyalgan 20 2021-0 No 20mg C ommon mg mg 04-22 Spirit 00:00: - [facility] Hyalgan 20 Hyalgan 20 2021-0 No 20mg C ommon mg mg 04-22 Spirit 00:00: - [facility] Hyalgan 20 Hyalgan 20 2021-0 No 20mg C ommon mg mg 04-22 Spirit 00:00: - [facility] Hyalgan 20 Hyalgan 20 2021-0 No 20mg C ommon mg mg 04-22 Spirit 00:00: - CHI 00 [facility] Hyalgan 20 Hyalgan 20 2021-0 No 20mg C ommon mg mg 04-22 Spirit 00:00: - CHI 00 [facility] Hyalgan 20 Hyalgan 20 2021-0 No 20mg C ommon mg mg 04-22 Spirit 00:00: - [facility] Kenalog Kenalog 2021-0 No 40mg Common (Triamcinol (Triamcinol 6-23 S pirit one) one) 00:00: - CHI 00 [facility] Bupivicaine Bupivicaine 2021-0 No 2.5mg Common Magnolia Magnolia 04-02 Spirit 00:00: - CHI 00 [facility] Hyalgan 20 Hyalgan 20 2021-0 No 20mg C ommon mg mg 04-02 Spirit 00:00: - [facility] Hyalgan 20 Hyalgan 20 2021-0 No 20mg C ommon mg mg 04-02 Spirit 00:00: - CHI 00 [facility] Kenalog Kenalog 2021-0 No 40mg Common (Triamcinol (Triamcinol 6-23 S pirit one) one) 00:00: - CHI 00 [facility] Bupivicaine Bupivicaine 2021-0 No 2.5mg Common Magnolia Magnolia 04-02 Spirit 00:00: - [facility] Hyalgan 20 Hyalgan 20 2021-0 No 20mg C ommon mg mg 04-02 Spirit 00:00: - [facility] Hyalgan 20 Hyalgan 20 2021-0 No 20mg C ommon mg mg 04-02 Spirit 00:00: - [facility] Kenalog Kenalog 2021-0 No 40mg Common (Triamcinol (Triamcinol 6-23 S pirit one) one) 00:00: - [facility] Bupivicaine Bupivicaine 2021-0 No 2.5mg Common Magnolia Magnolia - Spirit 00:00: - [facility] Hyalgan 20 Hyalgan 20 2021-0 No 20mg C ommon mg mg 04-02 Spirit 00:00: - CHI 00 [facility] Hyalgan 20 Hyalgan 20 2021-0 No 20mg C ommon mg mg 04-02 Spirit 00:00: - CHI 00 [facility] Kenalog Kenalog 2021-0 No 40mg Common (Triamcinol (Triamcinol 6-23 S pirit one) one) 00:00: - CHI 00 [facility] Bupivicaine Bupivicaine 2021-0 No 2.5mg Common Magnolia Magnolia 04-02 Spirit 00:00: - CHI 00 [facility] Hyalgan 20 Hyalgan 20 2021-0 No 20mg C ommon mg mg 04-02 Spirit 00:00: - CHI 00 [facility] Hyalgan 20 Hyalgan 20 2021-0 No 20mg C ommon mg mg 04-02 Spirit 00:00: - CHI 00 [facility] Kenalog Kenalog 2021-0 No 40mg Common (Triamcinol (Triamcinol 6-23 S pirit one) one) 00:00: - CHI 00 [facility] Bupivicaine Bupivicaine 2021-0 No 2.5mg Common Magnolia Magnolia 04-02 Spirit 00:00: - CHI 00 [facility] Hyalgan 20 Hyalgan 20 2021-0 No 20mg C ommon mg mg 04-02 Spirit 00:00: - CHI 00 [facility] Hyalgan 20 Hyalgan 20 2021-0 No 20mg C ommon mg mg 04-02 Spirit 00:00: - CHI 00 [facility] Kenalog Kenalog 2021-0 No 40mg Common (Triamcinol (Triamcinol 6-23 S pirit one) one) 00:00: - CHI 00 [facility] Bupivicaine Bupivicaine 2021-0 No 2.5mg Common Magnolia Magnolia 04-02 Spirit 00:00: - CHI 00 [facility] Hyalgan 20 Hyalgan 20 2021-0 No 20mg C ommon mg mg 04-02 Spirit 00:00: - CHI 00 [facility] Hyalgan 20 Hyalgan 20 2021-0 No 20mg C ommon mg mg 04-02 Spirit 00:00: - CHI 00 [facility] Kenalog Kenalog 2021-0 No 40mg Common (Triamcinol (Triamcinol 6-23 S pirit one) one) 00:00: - CHI 00 [facility] Bupivicaine Bupivicaine 2021-0 No 2.5mg Common Magnolia Magnolia - Spirit 00:00: - CHI 00 [facility] Hyalgan 20 Hyalgan 20 2021-0 No 20mg C ommon mg mg - Spirit 00:00: - CHI 00 [facility] Hyalgan 20 Hyalgan 20 2021-0 No 20mg C ommon mg mg 04-02 Spirit 00:00: - CHI 00 [facility] Kenalog Kenalog 2021-0 No 40mg Common (Triamcinol (Triamcinol 6-23 S pirit one) one) 00:00: - CHI 00 [facility] Bupivicaine Bupivicaine 2021-0 No 2.5mg Common Magnolia Magnolia - Spirit 00:00: - CHI 00 [facility] Hyalgan 20 Hyalgan 20 2021-0 No 20mg C ommon mg mg 04-02 Spirit 00:00: - CHI 00 [facility] Hyalgan 20 Hyalgan 20 2021-0 No 20mg C ommon mg mg 04-02 Spirit 00:00: - CHI 00 [facility] Kenalog Kenalog 2021-0 No 40mg Common (Triamcinol (Triamcinol 6-23 S pirit one) one) 00:00: - CHI 00 [facility] Bupivicaine Bupivicaine 2021-0 No 2.5mg Common Magnolia Magnolia - Spirit 00:00: - CHI 00 [facility] Hyalgan 20 Hyalgan 20 2021-0 No 20mg C ommon mg mg - Spirit 00:00: - CHI 00 [facility] Hyalgan 20 Hyalgan 20 2021-0 No 20mg C ommon mg mg - Spirit 00:00: - CHI 00 [facility] Kenalog Kenalog 2021-0 No 40mg Common (Triamcinol (Triamcinol 6-23 S pirit one) one) 00:00: - CHI 00 [facility] Bupivicaine Bupivicaine 2021-0 No 2.5mg Common Magnolia Magnolia 04-02 Spirit 00:00: - CHI 00 [facility] Hyalgan 20 Hyalgan 20 2021-0 No 20mg C ommon mg mg 04-02 Spirit 00:00: - CHI 00 [facility] Hyalgan 20 Hyalgan 20 2021-0 No 20mg C ommon mg mg 04-02 Spirit 00:00: - CHI 00 [facility] Kenalog Kenalog 2021-0 No 40mg Common (Triamcinol (Triamcinol -23 S pirit one) one) 00:00: - CHI 00 [facility] Bupivicaine Bupivicaine 2021-0 No 2.5mg Common Magnolia Magnolia 04-02 Spirit 00:00: - CHI 00 [facility] Hyalgan 20 Hyalgan 20 2021-0 No 20mg C ommon mg mg 04-02 Spirit 00:00: - CHI 00 [facility] Hyalgan 20 Hyalgan 20 2021-0 No 20mg C ommon mg mg 04-02 Spirit 00:00: - CHI 00 [facility] Kenalog Kenalog 2021-0 No 40mg Common (Triamcinol (Triamcinol -23 S pirit one) one) 00:00: - CHI 00 [facility] Bupivicaine Bupivicaine 2021-0 No 2.5mg Common Magnolia Magnolia 04-02 Spirit 00:00: - CHI 00 [facility] Hyalgan 20 Hyalgan 20 2021-0 No 20mg C ommon mg mg 04-02 Spirit 00:00: - CHI 00 [facility] Hyalgan 20 Hyalgan 20 2021-0 No 20mg C ommon mg mg 04-02 Spirit 00:00: - CHI 00 [facility] Kenalog Kenalog 2021-0 No 40mg Common (Triamcinol (Triamcinol 6-23 S pirit one) one) 00:00: - CHI 00 [facility] Bupivicaine Bupivicaine 2021-0 No 2.5mg Common Magnolia Magnolia 04-02 Spirit 00:00: - CHI 00 [facility] Hyalgan 20 Hyalgan 20 2021-0 No 20mg C ommon mg mg 04-02 Spirit 00:00: - CHI 00 [facility] Hyalgan 20 Hyalgan 20 2021-0 No 20mg C ommon mg mg 04-02 Spirit 00:00: - [facility] Hyalgan 20 Hyalgan 20 2021-0 No 20mg C ommon mg mg 03-19 Spirit 00:00: - [facility] Hyalgan 20 Hyalgan 20 2021-0 No 20mg C ommon mg mg 03-19 Spirit 00:00: - [facility] Hyalgan 20 Hyalgan 20 2021-0 No 20mg C ommon mg mg 03-19 Spirit 00:00: - [facility] Hyalgan 20 Hyalgan 20 2021-0 No 20mg C ommon mg mg 03-19 Spirit 00:00: - [facility] Hyalgan 20 Hyalgan 20 2021-0 No 20mg C ommon mg mg 03-19 Spirit 00:00: - [facility] Hyalgan 20 Hyalgan 20 2021-0 No 20mg C ommon mg mg 03-19 Spirit 00:00: - [facility] Hyalgan 20 Hyalgan 20 2021-0 No 20mg C ommon mg mg 03-19 Spirit 00:00: - [facility] Hyalgan 20 Hyalgan 20 2021-0 No 20mg C ommon mg mg 03-19 Spirit 00:00: - [facility] Hyalgan 20 Hyalgan 20 2021-0 No 20mg C ommon mg mg 03-19 Spirit 00:00: - [facility] Hyalgan 20 Hyalgan 20 2021-0 No 20mg C ommon mg mg 03-19 Spirit 00:00: - [facility] Hyalgan 20 Hyalgan 20 2-0 No 20mg C ommon mg mg 03-19 Spirit 00:00: - [facility] Hyalgan 20 Hyalgan 20 2-0 No 20mg C ommon mg mg 03-19 Spirit 00:00: - [facility] Hyalgan 20 Hyalgan 20 2-0 No 20mg C ommon mg mg 03-19 Spirit 00:00: - [facility] Hyalgan 20 Hyalgan 20 2-0 No 20mg C ommon mg mg 03-19 Spirit 00:00: - [facility] Hyalgan 20 Hyalgan 20 2021-0 No 20mg C ommon mg mg 03-19 Spirit 00:00: - CHI 00 [facility] Jardiance Jardiance 2021-0 No 1{table QD Jardiance 25 MG 25 MG 5-06 t} 25 MG 00:00: 00 Jardiance Jardiance 2021-0 No 1{table QD Jardiance 25 MG 25 MG 5-06 t} 25 MG 00:00: 00 Jardiance Jardiance 2021-0 No 1{table QD Jardiance 25 MG 25 MG 5-06 t} 25 MG 00:00: 00 Jardiance Jardiance 2021-0 No 1{table QD Jardiance 25 MG 25 MG - t} 25 MG 00:00: 00 Jardiance Jardiance 2021-0 No 1{table QD Jardiance 25 MG 25 MG - t} 25 MG 00:00: 00 Jardiance Jardiance 2022-0 No 1{table QD Jardiance 25 MG 25 MG - t} 25 MG 00:00: 00 Jardiance Jardiance 2021-0 2022- No 1{table QD Jardiance 25 MG 25 MG 02-13 t} 25 MG 00:00: 00:00 00 :00 Jardiance Jardiance 2-0 2022- No 1{table QD Jardiance 25 MG 25 MG 02-13 t} 25 MG 00:00: 00:00 00 :00 Jardiance Jardiance 2022-0 2022- No 1{table QD Jardiance 25 MG 25 MG 02-13 t} 25 MG 00:00: 00:00 00 :00 Jardiance Jardiance 2022-0 2022- No 1{table QD Jardiance 25 MG 25 MG 02-13 t} 25 MG 00:00: 00:00 00 :00 Jardiance Jardiance 2022-0 2022- No 1{table QD Jardiance 25 MG 25 MG 02-13 t} 25 MG 00:00: 00:00 00 :00 Jardiance Jardiance 2022-0 2022- No 1{table QD Jardiance 25 MG 25 MG 02-13 t} 25 MG 00:00: 00:00 00 :00 Jardiance Jardiance 2022-0 2022- No 1{table QD Jardiance 25 MG 25 MG 02-13 t} 25 MG 00:00: 00:00 00 :00 Jardiance Jardiance 2022-0 2022- No 1{table QD Jardiance 25 MG 25 MG 02-13 t} 25 MG 00:00: 00:00 00 :00 Januvia 100 Januvia 100 2022-0 No 1{table QD Januvia MG MG 4-01 t} 100 MG 00:00: 00 Januvia 100 Januvia 100 2022-0 No 1{table QD Januvia MG MG 4-01 t} 100 MG 00:00: 00 Januvia 100 Januvia 100 2022-0 No 1{table QD Januvia MG MG 4-01 t} 100 MG 00:00: 00 Januvia 100 Januvia 100 2022-0 No 1{table QD Januvia MG MG 4-01 t} 100 MG 00:00: 00 Januvia 100 Januvia 100 2022-0 No 1{table QD Januvia MG MG 4-01 t} 100 MG 00:00: 00 Januvia 100 Januvia 100 2022-0 No 1{table QD Januvia MG MG 4-01 t} 100 MG 00:00: 00 Januvia 100 Januvia 100 2022-0 No 1{table QD Januvia MG MG 4-01 t} 100 MG 00:00: 00 Januvia 100 Januvia 100 2022-0 No 1{table QD Januvia MG MG 4-01 t} 100 MG 00:00: 00 Januvia 100 Januvia 100 2022-0 No 1{table QD Januvia MG MG 4-01 t} 100 MG 00:00: 00 Januvia 100 Januvia 100 2022-0 No 1{table QD Januvia MG MG 4-01 t} 100 MG 00:00: 00 Januvia 100 Januvia 100 2022-0 No 1{table QD Januvia MG MG 4-01 t} 100 MG 00:00: 00 Januvia 100 Januvia 100 2022-0 No 1{table QD Januvia MG MG 4-01 t} 100 MG 00:00: 00 Januvia 100 Januvia 100 2-0 No 1{table QD Januvia MG MG 4- t} 100 MG 00:00: 00 Januvia 100 Januvia 100 2-0 No 1{table QD Januvia MG MG 4- t} 100 MG 00:00: 00 Januvia 100 Januvia 100 2022-0 No 1{table QD Januvia MG MG 4- t} 100 MG 00:00: 00 Januvia 100 Januvia 100 2-0 No 1{table QD Januvia MG MG 4- t} 100 MG 00:00: 00 Farxiga 10 Farxiga 10 2021-0 2022- No 1{table QD Farxiga 10 MG MG -07-08 t} MG 00:00: 00:00 00 :00 Farxiga 10 Farxiga 10 2021-0 2022- No 1{table QD Farxiga 10 MG MG 01-09 t} MG 00:00: 00:00 00 :00 Bupivicaine Bupivicaine 2021-0 No 2.5mg Common Magnolia Magnolia 2-28 Spirit 00:00: - CHI 00 [facility] Kenalog Kenalog 2021-0 No 40mg Common (Triamcinol (Triamcinol 2-28 S pirit one) one) 00:00: - CHI 00 [facility] Bupivicaine Bupivicaine 2-0 No 2.5mg Common Magnolia Magnolia 2-28 Spirit 00:00: - CHI 00 [facility] Kenalog Kenalog 2-0 No 40mg Common (Triamcinol (Triamcinol 2-28 S pirit one) one) 00:00: - CHI 00 [facility] Bupivicaine Bupivicaine 2-0 No 2.5mg Common Magnolia Magnolia 2-28 Spirit 00:00: - CHI 00 [facility] Kenalog Kenalog 2-0 No 40mg Common (Triamcinol (Triamcinol 2-28 S pirit one) one) 00:00: - CHI 00 [facility] Bupivicaine Bupivicaine 2-0 No 2.5mg Common Magnolia Magnolia 2-28 Spirit 00:00: - CHI 00 [facility] Kenalog Kenalog 2021-0 No 40mg Common (Triamcinol (Triamcinol 2-28 S pirit one) one) 00:00: - CHI 00 [facility] Bupivicaine Bupivicaine 2-0 No 2.5mg Common Magnolia Magnolia 2-28 Spirit 00:00: - CHI 00 [facility] Kenalog Kenalog 2021-0 No 40mg Common (Triamcinol (Triamcinol 2-28 S pirit one) one) 00:00: - CHI 00 [facility] Bupivicaine Bupivicaine 2021-0 No 2.5mg Common Magnolia Magnolia 2-28 Spirit 00:00: - CHI 00 [facility] Kenalog Kenalog 2021-0 No 40mg Common (Triamcinol (Triamcinol 2-28 S pirit one) one) 00:00: - CHI 00 [facility] Bupivicaine Bupivicaine 2021-0 No 2.5mg Common Magnolia Magnolia 2-28 Spirit 00:00: - CHI 00 [facility] Kenalog Kenalog 2021-0 No 40mg Common (Triamcinol (Triamcinol 2-28 S pirit one) one) 00:00: - CHI 00 [facility] Bupivicaine Bupivicaine 2021-0 No 2.5mg Common Magnolia Magnolia 2-28 Spirit 00:00: - CHI 00 [facility] Kenalog Kenalog 2021-0 No 40mg Common (Triamcinol (Triamcinol 2-28 S pirit one) one) 00:00: - CHI 00 [facility] Bupivicaine Bupivicaine 2021-0 No 2.5mg Common Magnolia Magnolia 2-28 Spirit 00:00: - CHI 00 [facility] Kenalog Kenalog 2021-0 No 40mg Common (Triamcinol (Triamcinol 2-28 S pirit one) one) 00:00: - CHI 00 [facility] Bupivicaine Bupivicaine 2-0 No Common Magnolia Magnolia 2-28 Spirit 00:00: - CHI 00 [facility] Kenalog Kenalog 2021-0 No 40mg Common (Triamcinol (Triamcinol 2-28 S pirit one) one) 00:00: - CHI 00 [facility] Bupivicaine Bupivicaine 2021-0 No Common Magnolia Magnolia 2-28 Spirit 00:00: - CHI 00 [facility] Kenalog Kenalog 2021-0 No 40mg Common (Triamcinol (Triamcinol 2-28 S pirit one) one) 00:00: - CHI 00 [facility] Bupivicaine Bupivicaine 2021-0 No 2.5mg Common Magnolia Magnolia 2-28 Spirit 00:00: - CHI 00 [facility] Kenalog Kenalog 2021-0 No 40mg Common (Triamcinol (Triamcinol 2-28 S pirit one) one) 00:00: - CHI 00 [facility] Bupivicaine Bupivicaine 2021-0 No 2.5mg Common Magnolia Magnolia 2-28 Spirit 00:00: - CHI 00 [facility] Kenalog Kenalog 2021-0 No 40mg Common (Triamcinol (Triamcinol 2-28 S pirit one) one) 00:00: - CHI 00 [facility] Bupivicaine Bupivicaine 2021-0 No 2.5mg Common Magnolia Magnolia 2-28 Spirit 00:00: - CHI 00 [facility] Kenalog Kenalog 2021-0 No 40mg Common (Triamcinol (Triamcinol 2-28 S pirit one) one) 00:00: - CHI 00 [facility] Bupivicaine Bupivicaine 2021-0 No 2.5mg Common Magnolia Magnolia 2-28 Spirit 00:00: - CHI 00 [facility] Kenalog Kenalog 2021-0 No 40mg Common (Triamcinol (Triamcinol 2-28 S pirit one) one) 00:00: - CHI 00 [facility] Bupivicaine Bupivicaine 2-0 No 2.5mg Common Magnolia Magnolia 2-28 Spirit 00:00: - CHI 00 [facility] Kenalog Kenalog 2-0 No 40mg Common (Triamcinol (Triamcinol 2-28 S pirit one) one) 00:00: - CHI 00 [facility] Bupivicaine Bupivicaine 2-0 No 2.5mg Common Magnolia Magnolia 2-28 Spirit 00:00: - CHI 00 [facility] Kenalog Kenalog 2021-0 No 40mg Common (Triamcinol (Triamcinol 2-28 S pirit one) one) 00:00: - CHI 00 [facility] Bupivicaine Bupivicaine 2-0 No 2.5mg Common Magnolia Magnolia 2-28 Spirit 00:00: - CHI 00 [facility] Kenalog Kenalog 2021-0 No 40mg Common (Triamcinol (Triamcinol 2-28 S pirit one) one) 00:00: - CHI 00 [facility] Bupivicaine Bupivicaine 2-0 No 2.5mg Common Magnolia Magnolia 2-28 Spirit 00:00: - CHI 00 [facility] Rosario Kenalog 2021-0 No 40mg Common (Triamcinol (Triamcinol 2-28 S pirit one) one) 00:00: - CHI 00 [facility] Bupivicaine Bupivicaine 2-0 No 2.5mg Common Magnolia Magnolia 2-28 Spirit 00:00: - CHI 00 [facility] Rosario Kenalog 2021-0 No 40mg Common (Triamcinol (Triamcinol 2-28 S pirit one) one) 00:00: - CHI 00 [facility] Bupivicaine Bupivicaine 2-0 No 2.5mg Common Magnolia Magnolia 2-28 Spirit 00:00: - CHI 00 [facility] Kenalog Kenalog 2-0 No 40mg Common (Triamcinol (Triamcinol 2-28 S pirit one) one) 00:00: - [facility]I 00 [facility] Famotidine Famotidine 2020-10 No 1{table BID Famotidine 20 MG 20 MG 2-17 t} 20 MG 00:00: 00 Ferrous Ferrous 2020-10 No 1{table QD Ferrous Sulfate 325 Sulfate 325 2-17 t} Sulfate (65 Fe) mg (65 Fe) mg 00:00: 325 (65 00 Fe) mg Ferrous Ferrous 2020-10 No 1{table QD Ferrous Sulfate 325 Sulfate 325 2-17 t} Sulfate (65 Fe) mg (65 Fe) mg 00:00: 325 (65 00 Fe) mg Famotidine Famotidine 2020-10 No 1{table BID Famotidine 20 MG 20 MG 2-17 t} 20 MG 00:00: 00 Ferrous Ferrous 2020-10 No 1{table QD Sulfate 325 Sulfate 325 2-17 t} (65 Fe) mg (65 Fe) mg 00:00: 00 Famotidine Famotidine 2020-10 No 1{table BID 20 MG 20 MG 2-17 t} 00:00: 00 Ferrous Ferrous 2020-10 No 1{table QD Ferrous Sulfate 325 Sulfate 325 2-17 t} Sulfate (65 Fe) mg (65 Fe) mg 00:00: 325 (65 00 Fe) mg Famotidine Famotidine 2020-10 No 1{table BID Famotidine 20 MG 20 MG 2-17 t} 20 MG 00:00: 00 Famotidine Famotidine 2020-10 No 1{table BID Famotidine 20 MG 20 MG 2-17 t} 20 MG 00:00: 00 Ferrous Ferrous 2020-10 No 1{table QD Ferrous Sulfate 325 Sulfate 325 2-17 t} Sulfate (65 Fe) mg (65 Fe) mg 00:00: 325 (65 00 Fe) mg Rosario Dyealog 2020-10 No 40mg Common (Triamcinol (Triamcinol 1-15 S pirit one) one) 00:00: - [facility] Bupivicaine Bupivicaine 2020-10 No 2.5mg Common Magnolia Magnolia 1-15 Spirit 00:00: - [facility] 00 [facility] Kenalog Kenalog 2020-10 No 40mg Common (Triamcinol (Triamcinol 1-15 S pirit one) one) 00:00: - [facility] Bupivicaine Bupivicaine 2020-10 No 2.5mg Common Magnolia Magnolia 1-15 Spirit 00:00: - [facility] Kenalog Kenalog 2020-10 No 40mg Common (Triamcinol (Triamcinol 1-15 S pirit one) one) 00:00: - [facility] Bupivicaine Bupivicaine 2020-10 No 2.5mg Common Magnolia Magnolia 1-15 Spirit 00:00: - [facility] 00 [facility] Hardikalog Kenalog 2020-10 No 40mg Common (Triamcinol (Triamcinol 1-15 S pirit one) one) 00:00: - [facility] Bupivicaine Bupivicaine 2020-10 No 2.5mg Common Magnolia Magnolia 1-15 Spirit 00:00: - [facility] Rosario Kenalog 2020-10 No 40mg Common (Triamcinol (Triamcinol 1-15 S pirit one) one) 00:00: - [facility] Bupivicaine Bupivicaine 2020-10 No 2.5mg Common Magnolia Magnolia 1-15 Spirit 00:00: - [facility] Rosario Dyealog 2020-10 No 40mg Common (Triamcinol (Triamcinol 1-15 S pirit one) one) 00:00: - [facility] Bupivicaine Bupivicaine 2020-10 No 2.5mg Common Magnolia Magnolia 1-15 [facility] 00:00: - [facility] Rosario Dyealog 2020-10 No 40mg Common (Triamcinol (Triamcinol 1-15 S pirit one) one) 00:00: - [facility] Bupivicaine Bupivicaine 2020-10 No 2.5mg Common Magnolia Magnolia 1-15 [facility] 00:00: - [facility] Rosario Kenalog 2020-10 No 40mg Common (Triamcinol (Triamcinol 1-15 S pirit one) one) 00:00: - [facility] Bupivicaine Bupivicaine 2020-10 No 2.5mg Common Magnolia Magnolia 1-15 Spirit 00:00: - [facility] Rosario Kenalog 2020-10 No 40mg Common (Triamcinol (Triamcinol 1-15 S pirit one) one) 00:00: - [facility] Bupivicaine Bupivicaine 2020-10 No 2.5mg Common Magnolia Magnolia 1-15 Spirit 00:00: - [facility] Bupivicaine Bupivicaine 2020-10 No Common Magnolia Magnolia 1-15 [facility] 00:00: - [facility] Rosario Kenalog 2020-10 No 40mg Common (Triamcinol (Triamcinol 1-15 S pirit one) one) 00:00: - [facility] Bupivicaine Bupivicaine 2020-10 No Common Magnolia Magnolia 1-15 Spirit 00:00: - [facility] 00 [facility] Kenjaden Kenalog 2020-10 No 40mg Common (Triamcinol (Triamcinol 1-15 S pirit one) one) 00:00: - [facility] Bupivicaine Bupivicaine 2020-10 No 2.5mg Common Magnolia Magnolia 1-15 [facility] 00:00: - [facility] Rosario Kenalog 2020-10 No 40mg Common (Triamcinol (Triamcinol 1-15 S pirit one) one) 00:00: - [facility] Bupivicaine Bupivicaine 2020-10 No 2.5mg Common Magnolia Magnolia 1-15 [facility] 00:00: - [facility] 00 [facility] Rosario Kenalog 2020-10 No 40mg Common (Triamcinol (Triamcinol 1-15 S pirit one) one) 00:00: - [facility] Bupivicaine Bupivicaine 2020-10 No 2.5mg Common Magnolia Magnolia 1-15 [facility] 00:00: - [facility] 00 [facility] Kenjaden Kenalog 2020-10 No 40mg Common (Triamcinol (Triamcinol 1-15 S pirit one) one) 00:00: - [facility] Bupivicaine Bupivicaine 2020-10 No 2.5mg Common Magnolia Magnolia 1-15 [facility] 00:00: - [facility] 00 [facility] Kenjaden Kenalog 2020-10 No 40mg Common (Triamcinol (Triamcinol 1-15 S pirit one) one) 00:00: - [facility] Bupivicaine Bupivicaine 2020-10 No 2.5mg Common Magnolia Magnolia 1-15 [facility] 00:00: - [facility] 00 [facility] Rosario Dyealog 2020-10 No 40mg Common (Triamcinol (Triamcinol 1-15 S pirit one) one) 00:00: - [facility] Bupivicaine Bupivicaine 2020-10 No 2.5mg Common Magnolia Magnolia 1-15 [facility] 00:00: - [facility] 00 [facility] Rosario Dyealog 2020-10 No 40mg Common (Triamcinol (Triamcinol 1-15 S pirit one) one) 00:00: - [facility] 00 [facility] Rosario Dyealog 2020-10 No 40mg Common (Triamcinol (Triamcinol 1-15 S pirit one) one) 00:00: - [facility] Bupivicaine Bupivicaine 2020-10 No 2.5mg Common Magnolia Magnolia 1-15 [facility] 00:00: - [facility] 00 [facility] Rosario Ponce 2020-10 No 40mg Common (Triamcinol (Triamcinol 1-15 S pirit one) one) 00:00: - [facility] Bupivicaine Bupivicaine 2020-10 No 2.5mg Common Magnolia Magnolia 1-15 [facility] 00:00: - [facility] 00 [facility] Rosario Ponce 2020-10 No 40mg Common (Triamcinol (Triamcinol 1-15 S pirit one) one) 00:00: - [facility] 00 [facility] Bupivicaine Bupivicaine 2020-10 No 2.5mg Common Magnolia Magnolia 1-15 [facility] 00:00: - [facility] 00 [facility] Rosario Ponce 2020-10 No 40mg Common (Triamcinol (Triamcinol 1-15 S pirit one) one) 00:00: - [facility] Bupivicaine Bupivicaine 2020-10 No 2.5mg Common Magnolia Magnolia 1-15 Spirit 00:00: - [facility] 00 [facility] Azithromyci Azithromyci 2020-101- No QD Azithromyc n 250 MG n 250 MG 0-14 10-19 in 250 MG 00:00: 00:00 00 :00 Se-Wilkins PLUS Se-Wilkins PLUS No QD Se-Wilkins 162-115.2-1 162-115.2-1 9-10 PLUS MG MG 00:00: 162-115.2- 00 1 MG Se-Wilkins PLUS Se-Wilkins PLUS No QD Se-Wilkins 162-115.2-1 162-115.2-1 9-10 PLUS MG MG 00:00: 162-115.2- 00 1 MG Furosemide Furosemide No 1{table Furosemide 40 MG 40 MG 9-10 t} 40 MG 00:00: 00 Se-Wilkins PLUS Se-Wilkins PLUS No QD Se-Wilkins 162-115.2-1 162-115.2-1 9-10 PLUS MG MG 00:00: 162-115.2- 00 1 MG Se-Wilkins PLUS Se-Wilkins PLUS No QD Se-Wilkins 162-115.2-1 162-115.2-1 9-10 PLUS MG MG 00:00: 162-115.2- 00 1 MG Furosemide Furosemide No 1{table Furosemide 40 MG 40 MG 9-10 t} 40 MG 00:00: 00 Furosemide Furosemide No 1{table Furosemide 40 MG 40 MG 9-10 t} 40 MG 00:00: 00 Se-Wilkins PLUS Se-Wilkins PLUS No QD Se-Wilkins 162-115.2-1 162-115.2-1 9-10 PLUS MG MG 00:00: 162-115.2- 00 1 MG Se-Wilkins PLUS Se-Wilkins PLUS No QD Se-Wilkins 162-115.2-1 162-115.2-1 9-10 PLUS MG MG 00:00: 162-115.2- 00 1 MG Furosemide Furosemide No 1{table Furosemide 40 MG 40 MG 9-10 t} 40 MG 00:00: 00 Se-Wilkins PLUS Se-Wilkins PLUS No QD Se-Wilkins 162-115.2-1 162-115.2-1 9-10 PLUS MG MG 00:00: 162-115.2- 00 1 MG Se-Wilkins PLUS Se-Wilkins PLUS No QD Se-Wilkins 162-115.2-1 162-115.2-1 9-10 PLUS MG MG 00:00: 162-115.2- 00 1 MG Se-Wilkins PLUS Se-Wilkins PLUS 2020-0 No QD 162-115.2-1 162-115.2-1 9-10 MG MG 00:00: 00 Se-Wilkins PLUS Se-Wilkins PLUS 2020-0 No QD Se-Wilkins 162-115.2-1 162-115.2-1 9-10 PLUS MG MG 00:00: 162-115.2- 00 1 MG Se-Wilkins PLUS Se-Wilkins PLUS 2020-0 No QD Se-Wilkins 162-115.2-1 162-115.2-1 9-10 PLUS MG MG 00:00: 162-115.2- 00 1 MG Se-Wilkins PLUS Se-Wilkins PLUS 2020-0 No QD Se-Wilkins 162-115.2-1 162-115.2-1 9-10 PLUS MG MG 00:00: 162-115.2- 00 1 MG Se-Wilkins PLUS Se-Wilkins PLUS 2020-0 No QD Se-Wilkins 162-115.2-1 162-115.2-1 9-10 PLUS MG MG 00:00: 162-115.2- 00 1 MG Se-Wilkins PLUS Se-Wilkins PLUS 2020-0 No QD Se-Wilkins 162-115.2-1 162-115.2-1 9-10 PLUS MG MG 00:00: 162-115.2- 00 1 MG Se-Wilkins PLUS Se-Wilkins PLUS 2020-0 No QD Se-Wilkins 162-115.2-1 162-115.2-1 9-10 PLUS MG MG 00:00: 162-115.2- 00 1 MG Se-Wilkins PLUS Se-Wilkins PLUS 2020-0 No QD Se-Wilkins 162-115.2-1 162-115.2-1 9-10 PLUS MG MG 00:00: 162-115.2- 00 1 MG Se-Wilkins PLUS Se-Wilkins PLUS 2020-0 No QD Se-Wilkins 162-115.2-1 162-115.2-1 9-10 PLUS MG MG 00:00: 162-115.2- 00 1 MG Se-Wilkins PLUS Se-Wilkins PLUS 2020-0 No QD Se-Wilkins 162-115.2-1 162-115.2-1 9-10 PLUS MG MG 00:00: 162-115.2- 00 1 MG Se-Wilkins PLUS Se-Wilkins PLUS 2021-0 No QD Se-Wilkins 162-115.2-1 162-115.2-1 9-10 PLUS MG MG 00:00: 162-115.2- 00 1 MG Se-Wilkins PLUS Se-Wilkins PLUS 2020-0 No QD Se-Wilkins 162-115.2-1 162-115.2-1 9-10 PLUS MG MG 00:00: 162-115.2- 00 1 MG Se-Wilkins PLUS Se-Wilkins PLUS 2020-0 No QD Se-Wilkins 162-115.2-1 162-115.2-1 9-10 PLUS MG MG 00:00: 162-115.2- 00 1 MG Se-Wilkins PLUS Se-Wilkins PLUS 2020-0 No QD Se-Wilkins 162-115.2-1 162-115.2-1 9-10 PLUS MG MG 00:00: 162-115.2- 00 1 MG tiZANidine tiZANidine 2020-0 2020- No QD tiZANidine HCl 2 MG HCl 2 MG 9-10 10-10 HCl 2 MG 00:00: 00:00 00 :00 Kenalog Kenalog 2020-0 No 40mg Common (Triamcinol (Triamcinol 7-22 S pirit one) one) 00:00: - [facility] Bupivicaine Bupivicaine 2020-0 No 2.5mg Common Magnolia Magnolia 7-22 [facility] 00:00: - [facility] Kenalog Kenalog 2020-0 No 40mg Common (Triamcinol (Triamcinol 7-22 S pirit one) one) 00:00: - [facility] Bupivicaine Bupivicaine 2020-0 No 2.5mg Common Magnolia Magnolia 7-22 [facility] 00:00: - [facility] 00 [facility] Kenalog Kenalog 2020-0 No 40mg Common (Triamcinol (Triamcinol 7-22 S pirit one) one) 00:00: - [facility] Bupivicaine Bupivicaine 2020-0 No 2.5mg Common Magnolia Magnolia 7-22 [facility] 00:00: - [facility] Kenalog Kenalog 2020-0 No 40mg Common (Triamcinol (Triamcinol 7-22 S pirit one) one) 00:00: - [facility] 00 [facility] Bupivicaine Bupivicaine 2020-0 No 2.5mg Common Magnolia Magnolia 7-22 [facility] 00:00: - [facility] 00 [facility] Kenalog Kenalog 2020-0 No 40mg Common (Triamcinol (Triamcinol 7-22 S pirit one) one) 00:00: - [facility] 00 [facility] Bupivicaine Bupivicaine 2020-0 No 2.5mg Common Magnolia Magnolia 7-22 [facility] 00:00: - [facility] 00 [facility] Kenalog Kenalog 2020-0 No 40mg Common (Triamcinol (Triamcinol 7-22 S pirit one) one) 00:00: - [facility] 00 [facility] Bupivicaine Bupivicaine 2020-0 No 2.5mg Common Magnolia Magnolia 7-22 [facility] 00:00: - [facility] 00 [facility] Kenalog Kenalog 2020-0 No 40mg Common (Triamcinol (Triamcinol 7-22 S pirit one) one) 00:00: - [facility] 00 [facility] Bupivicaine Bupivicaine 2020-0 No 2.5mg Common Magnolia Magnolia 7-22 [facility] 00:00: - [facility] 00 [facility] Kenalog Kenalog 2020-0 No 40mg Common (Triamcinol (Triamcinol 7-22 S pirit one) one) 00:00: - [facility] 00 [facility] Bupivicaine Bupivicaine 2020-0 No 2.5mg Common Magnolia Magnolia 7-22 [facility] 00:00: - [facility] 00 [facility] Kenalog Kenalog 2020-0 No 40mg Common (Triamcinol (Triamcinol 7-22 S pirit one) one) 00:00: - [facility] 00 [facility] Bupivicaine Bupivicaine 2020-0 No 2.5mg Common Magnolia Magnolia 7-22 [facility] 00:00: - [facility] 00 [facility] Bupivicaine Bupivicaine 2020-0 No Common Magnolia Magnolia 7-22 [facility] 00:00: - [facility] 00 [facility] Kenalog Kenalog 2020-0 No 40mg Common (Triamcinol (Triamcinol 7-22 S pirit one) one) 00:00: - [facility] 00 [facility] Bupivicaine Bupivicaine 2020-0 No Common Magnolia Magnolia 7-22 [facility] 00:00: - [facility] 00 [facility] Kenalog Kenalog 2020-0 No 40mg Common (Triamcinol (Triamcinol 7-22 S pirit one) one) 00:00: - [facility] 00 [facility] Bupivicaine Bupivicaine 2020-0 No 2.5mg Common Magnolia Magnolia 7-22 [facility] 00:00: - [facility] 00 [facility] Kenalog Kenalog 2020-0 No 40mg Common (Triamcinol (Triamcinol 7-22 S pirit one) one) 00:00: - [facility] 00 [facility] Bupivicaine Bupivicaine 2020-0 No 2.5mg Common Magnolia Magnolia 7-22 [facility] 00:00: - [facility] 00 [facility] Kenalog Kenalog 2020-0 No 40mg Common (Triamcinol (Triamcinol 7-22 S pirit one) one) 00:00: - [facility] 00 [facility] Bupivicaine Bupivicaine 2020-0 No 2.5mg Common Magnolia Magnolia 7-22 [facility] 00:00: - [facility] 00 [facility] Kenalog Kenalog 2020-0 No 40mg Common (Triamcinol (Triamcinol 7-22 S pirit one) one) 00:00: - [facility] 00 [facility] Bupivicaine Bupivicaine 2020-0 No 2.5mg Common Magnolia Magnolia 7-22 [facility] 00:00: - [facility] 00 [facility] Kenalog Kenalog 2020-0 No 40mg Common (Triamcinol (Triamcinol 7-22 S pirit one) one) 00:00: - [facility] 00 [facility] Bupivicaine Bupivicaine 1-0 No 2.5mg Common Magnolia Magnolia 7-22 [facility] 00:00: - [facility] 00 [facility] Kenalog Kenalog 2020-0 No 40mg Common (Triamcinol (Triamcinol 7-22 S pirit one) one) 00:00: - [facility] 00 [facility] Bupivicaine Bupivicaine 2020-0 No 2.5mg Common Magnolia Magnolia 7-22 [facility] 00:00: - [facility] 00 [facility] Kenalog Kenalog 2020-0 No 40mg Common (Triamcinol (Triamcinol 7-22 S pirit one) one) 00:00: - [facility] 00 [facility] Kenalog Kenalog 2020-0 No 40mg Common (Triamcinol (Triamcinol 7-22 S pirit one) one) 00:00: - [facility] 00 [facility] Bupivicaine Bupivicaine 2020-0 No 2.5mg Common Magnolia Magnolia 7-22 [facility] 00:00: - [facility] 00 [facility] Kenalog Kenalog 2020-0 No 40mg Common (Triamcinol (Triamcinol 7-22 S pirit one) one) 00:00: - [facility] 00 [facility] Bupivicaine Bupivicaine 2020-0 No 2.5mg Common Magnolia Magnolia 7-22 [facility] 00:00: - [facility] 00 [facility] Kenalog Kenalog 2020-0 No 40mg Common (Triamcinol (Triamcinol 7-22 S pirit one) one) 00:00: - [facility] 00 [facility] Bupivicaine Bupivicaine 2020-0 No 2.5mg Common Magnolia Magnolia 7-22 [facility] 00:00: - [facility] 00 [facility] Kenalog Kenalog 2020-0 No 40mg Common (Triamcinol (Triamcinol 7-22 S pirit one) one) 00:00: - [facility] 00 [facility] Bupivicaine Bupivicaine 2020-0 No 2.5mg Common Magnolia Magnolia 7-22 [facility] 00:00: - [facility] 00 [facility] Albuterol Albuterol 2020-0 No 2{puffs Albuterol Sulfate HFA Sulfate HFA 3-10 } Sulfate 108 (90 108 (90 00:00: HFA 108 Base) Base) 00 (90 Base) MCG/ACT MCG/ACT MCG/ACT Famotidine Famotidine 0 No 1{table BID Famotidine 20 MG 20 MG 3-10 t} 20 MG 00:00: 00 Albuterol Albuterol 2020-0 No 2{puffs Albuterol Sulfate HFA Sulfate HFA 3-10 } Sulfate 108 (90 108 (90 00:00: HFA 108 Base) Base) 00 (90 Base) MCG/ACT MCG/ACT MCG/ACT Famotidine Famotidine 0 No 1{table BID Famotidine 20 MG 20 MG 3-10 t} 20 MG 00:00: 00 Hyalgan 20 Hyalgan 20 2020-0 No 2mL C ommon mg mg 05-16 [facility] 00:00: - [facility] Hyalgan 20 Hyalgan 20 2020-0 No 2mL C ommon mg mg 05-16 [facility] 00:00: - [facility] Hyalgan 20 Hyalgan 20 2020-0 No 2mL C ommon mg mg 05-16 [facility] 00:00: - [facility] Hyalgan 20 Hyalgan 20 2020-0 No 2mL C ommon mg mg 05-16 [facility] 00:00: - [facility] Hyalgan 20 Hyalgan 20 2020-0 No 2mL C ommon mg mg 05-16 [facility] 00:00: - [facility] Hyalgan 20 Hyalgan 20 2020-0 No 2mL C ommon mg mg 05-16 [facility] 00:00: - [facility] Hyalgan 20 Hyalgan 20 2020-0 No 2mL C ommon mg mg 05-16 [facility] 00:00: - [facility] Hyalgan 20 Hyalgan 20 2020-0 No 2mL C ommon mg mg 05-16 [facility] 00:00: - [facility] Hyalgan 20 Hyalgan 20 2020-0 No 2mL C ommon mg mg 05-16 [facility] 00:00: - [facility] Hyalgan 20 Hyalgan 20 2020-0 No 2mL C ommon mg mg 05-16 [facility] 00:00: - [facility] Hyalgan 20 Hyalgan 20 2020-0 No 2mL C ommon mg mg 05-16 [facility] 00:00: - [facility] Hyalgan 20 Hyalgan 20 2020-0 No 2mL C ommon mg mg 05-16 [facility] 00:00: - [facility] Hyalgan 20 Hyalgan 20 2020-0 No 2mL C ommon mg mg 05-16 [facility] 00:00: - [facility] Hyalgan 20 Hyalgan 20 2020-0 No 2mL C ommon mg mg 05-16 [facility] 00:00: - [facility] Hyalgan 20 Hyalgan 20 2020-0 No 2mL C ommon mg mg 05-16 [facility] 00:00: - [facility] Hyalgan 20 Hyalgan 20 2020-0 No 2mL C ommon mg mg 05-16 [facility] 00:00: - [facility] Hyalgan 20 Hyalgan 20 2020-0 No 2mL C ommon mg mg 05-16 [facility] 00:00: - [facility] Hyalgan 20 Hyalgan 20 2020-0 No 2mL C ommon mg mg 05-16 [facility] 00:00: - [facility] Hyalgan 20 Hyalgan 20 2020-0 No 2mL C ommon mg mg 05-16 [facility] 00:00: - [facility] Hyalgan 20 Hyalgan 20 2020-0 No 2mL C ommon mg mg 05-16 [facility] 00:00: - [facility] Hyalgan 20 Hyalgan 20 2020-0 No 2mL C ommon mg mg 05-16 [facility] 00:00: - [facility] Hyalgan 20 Hyalgan 20 2020-0 No 20mg C ommon mg mg 05-09 [facility] 00:00: - [facility] Hyalgan 20 Hyalgan 20 2020-0 No 20mg C ommon mg mg 05-09 [facility] 00:00: - [facility] Hyalgan 20 Hyalgan 20 2020-0 No 20mg C ommon mg mg 05-09 [facility] 00:00: - [facility] Hyalgan 20 Hyalgan 20 2020-0 No 20mg C ommon mg mg 05-09 [facility] 00:00: - [facility] Hyalgan 20 Hyalgan 20 2020-0 No 20mg C ommon mg mg 05-09 [facility] 00:00: - [facility] Hyalgan 20 Hyalgan 20 2020-0 No 20mg C ommon mg mg 05-09 [facility] 00:00: - [facility] Hyalgan 20 Hyalgan 20 2020-0 No 20mg C ommon mg mg 05-09 [facility] 00:00: - [facility] Hyalgan 20 Hyalgan 20 2020-0 No 20mg C ommon mg mg 05-09 [facility] 00:00: - [facility] Hyalgan 20 Hyalgan 20 2020-0 No 20mg C ommon mg mg 05-09 [facility] 00:00: - [facility] Hyalgan 20 Hyalgan 20 2020-0 No 20mg C ommon mg mg 05-09 [facility] 00:00: - [facility] Hyalgan 20 Hyalgan 20 2020-0 No 20mg C ommon mg mg 05-09 [facility] 00:00: - [facility] Hyalgan 20 Hyalgan 20 2020-0 No 20mg C ommon mg mg 05-09 [facility] 00:00: - [facility] Hyalgan 20 Hyalgan 20 2020-0 No 20mg C ommon mg mg 05-09 [facility] 00:00: - [facility] Hyalgan 20 Hyalgan 20 2020-0 No 20mg C ommon mg mg 05-09 [facility] 00:00: - [facility] Hyalgan 20 Hyalgan 20 2020-0 No 20mg C ommon mg mg 05-09 [facility] 00:00: - [facility] Hyalgan 20 Hyalgan 20 2020-0 No 20mg C ommon mg mg 05-09 [facility] 00:00: - [facility] Hyalgan 20 Hyalgan 20 2020-0 No 20mg C ommon mg mg 05-09 [facility] 00:00: - [facility] Hyalgan 20 Hyalgan 20 2020-0 No 20mg C ommon mg mg 05-09 [facility] 00:00: - [facility] Hyalgan 20 Hyalgan 20 2020-0 No 20mg C ommon mg mg 05-09 [facility] 00:00: - [facility] Hyalgan 20 Hyalgan 20 2020-0 No 20mg C ommon mg mg 05-09 [facility] 00:00: - [facility] Hyalgan 20 Hyalgan 20 2020-0 No 20mg C ommon mg mg 05-09 [facility] 00:00: - [facility] Hyalgan 20 Hyalgan 20 2020-0 No 2mL C ommon mg mg 05-01 [facility] 00:00: - [facility] Hyalgan 20 Hyalgan 20 2020-0 No 2mL C ommon mg mg 05-01 [facility] 00:00: - [facility] Hyalgan 20 Hyalgan 20 2020-0 No 2mL C ommon mg mg 05-01 [facility] 00:00: - [facility] Hyalgan 20 Hyalgan 20 2020-0 No 2mL C ommon mg mg 05-01 [facility] 00:00: - [facility] Hyalgan 20 Hyalgan 20 2020-0 No 2mL C ommon mg mg 05-01 [facility] 00:00: - [facility] Hyalgan 20 Hyalgan 20 2020-0 No 2mL C ommon mg mg 05-01 [facility] 00:00: - [facility] Hyalgan 20 Hyalgan 20 2020-0 No 2mL C ommon mg mg 05-01 [facility] 00:00: - [facility] Hyalgan 20 Hyalgan 20 2020-0 No 2mL C ommon mg mg 05-01 [facility] 00:00: - [facility] Hyalgan 20 Hyalgan 20 2020-0 No 2mL C ommon mg mg 05-01 [facility] 00:00: - [facility] Hyalgan 20 Hyalgan 20 2020-0 No 2mL C ommon mg mg 05-01 [facility] 00:00: - [facility] Hyalgan 20 Hyalgan 20 2020-0 No 2mL C ommon mg mg 05-01 [facility] 00:00: - [facility] Hyalgan 20 Hyalgan 20 2020-0 No 2mL C ommon mg mg 05-01 [facility] 00:00: - [facility] Hyalgan 20 Hyalgan 20 2020-0 No 2mL C ommon mg mg 05-01 [facility] 00:00: - [facility] Hyalgan 20 Hyalgan 20 2020-0 No 2mL C ommon mg mg 05-01 [facility] 00:00: - [facility] Hyalgan 20 Hyalgan 20 2020-0 No 2mL C ommon mg mg 05-01 [facility] 00:00: - [facility] Hyalgan 20 Hyalgan 20 2020-0 No 2mL C ommon mg mg 05-01 [facility] 00:00: - [facility] Hyalgan 20 Hyalgan 20 2020-0 No 2mL C ommon mg mg 05-01 [facility] 00:00: - [facility] Hyalgan 20 Hyalgan 20 2020-0 No 2mL C ommon mg mg 05-01 [facility] 00:00: - [facility] Hyalgan 20 Hyalgan 20 2020-0 No 2mL C ommon mg mg 05-01 [facility] 00:00: - [facility] Hyalgan 20 Hyalgan 20 2020-0 No 2mL C ommon mg mg 05-01 [facility] 00:00: - [facility] Hyalgan 20 Hyalgan 20 2020-0 No 2mL C ommon mg mg 05-01 [facility] 00:00: - [facility] 00 [facility] Fluocinonid Fluocinonid 2020-0 2020- No Behzad 1 Common e e 04-03 Munoz applicatio [facility] 00:00: 00:00 n - [facility] 00 :00 [facility] Bupivicaine Bupivicaine 2020-0 No 4mL Common Magnolia Magnolia 4-29 [facility] 00:00: - [facility] 00 [facility] Kenalog Kenalog 2020-0 No 40mg Common (Triamcinol (Triamcinol 4-29 S pirit one) one) 00:00: - [facility] 00 [facility] Bupivicaine Bupivicaine 2020-0 No 4mL Common Magnolia Magnolia 4-29 [facility] 00:00: - [facility] 00 [facility] Kenalog Kenalog 2020-0 No 40mg Common (Triamcinol (Triamcinol 4-29 S pirit one) one) 00:00: - [facility] Bupivicaine Bupivicaine 2020-0 No 4mL Common Magnolia Magnolia 4-29 [facility] 00:00: - [facility] 00 [facility] Kenalog Kenalog 2020-0 No 40mg Common (Triamcinol (Triamcinol 4-29 S pirit one) one) 00:00: - [facility] Bupivicaine Bupivicaine 2020-0 No 4mL Common Magnolia Magnolia 4-29 [facility] 00:00: - [facility] 00 [facility] Kenalog Kenalog 2020-0 No 40mg Common (Triamcinol (Triamcinol 4-29 S pirit one) one) 00:00: - [facility] Bupivicaine Bupivicaine 2020-0 No 4mL Common Magnolia Magnolia 4-29 [facility] 00:00: - [facility] 00 [facility] Kenalog Kenalog 2020-0 No 40mg Common (Triamcinol (Triamcinol 4-29 S pirit one) one) 00:00: - [facility] Bupivicaine Bupivicaine 2020-0 No 4mL Common Magnolia Magnolia 4-29 Spirit 00:00: - [facility] 00 [facility] Kenalog Kenalog 2020-0 No 40mg Common (Triamcinol (Triamcinol 4-29 S pirit one) one) 00:00: - [facility] 00 [facility] Bupivicaine Bupivicaine 2020-0 No 4mL Common Magnolia Magnolia 4-29 Spirit 00:00: - [facility] 00 [facility] Kenalog Kenalog 2020-0 No 40mg Common (Triamcinol (Triamcinol 4-29 S pirit one) one) 00:00: - [facility] 00 [facility] Bupivicaine Bupivicaine 2020-0 No 4mL Common Magnolia Magnolia 4-29 Spirit 00:00: - [facility] 00 [facility] Kenalog Kenalog 2020-0 No 40mg Common (Triamcinol (Triamcinol 4-29 S pirit one) one) 00:00: - [facility] 00 [facility] Bupivicaine Bupivicaine 2020-0 No 4mL Common Magnolia Magnolia 4-29 Spirit 00:00: - [facility] 00 [facility] Kenalog Kenalog 2020-0 No 40mg Common (Triamcinol (Triamcinol 4-29 S pirit one) one) 00:00: - [facility] 00 [facility] Bupivicaine Bupivicaine 2020-0 No 4mL Common Magnolia Magnolia 4-29 Spirit 00:00: - [facility] 00 [facility] Kenalog Kenalog 2020-0 No 40mg Common (Triamcinol (Triamcinol 4-29 S pirit one) one) 00:00: - [facility] 00 [facility] Bupivicaine Bupivicaine 2020-0 No 4mL Common Magnolia Magnolia 4-29 Spirit 00:00: - [facility] 00 [facility] Kenalog Kenalog 2020-0 No 40mg Common (Triamcinol (Triamcinol 4-29 S pirit one) one) 00:00: - [facility] 00 [facility] Bupivicaine Bupivicaine 2020-0 No 4mL Common Magnolia Magnolia 4-29 [facility] 00:[facility]: - [facility] 00 [facility] Kenalog Kenalog 2020-0 No 40mg Common (Triamcinol (Triamcinol 4-29 S pirit one) one) 00:00: - [facility] 00 [facility] Bupivicaine Bupivicaine 2020-0 No 4mL Common Magnolia Magnolia 4-29 Spirit 00:00: - [facility] 00 [facility] Kenalog Kenalog 2020-0 No 40mg Common (Triamcinol (Triamcinol 4-29 S pirit one) one) 00:00: - [facility] 00 [facility] Bupivicaine Bupivicaine 2020-0 No 4mL Common Magnolia Magnolia 4-29 Spirit 00:00: - [facility] 00 [facility] Kenalog Kenalog 2020-0 No 40mg Common (Triamcinol (Triamcinol 4-29 S pirit one) one) 00:00: - [facility] 00 [facility] Bupivicaine Bupivicaine 2020-0 No 4mL Common Magnolia Magnolia 4-29 Spirit 00:00: - [facility] 00 [facility] Kenalog Kenalog 2020-0 No 40mg Common (Triamcinol (Triamcinol 4-29 S pirit one) one) 00:00: - [facility] Bupivicaine Bupivicaine 2020-0 No 4mL Common Magnolia Magnolia 4-29 Spirit 00:00: - [facility] 00 [facility] Kenalog Kenalog 2020-0 No 40mg Common (Triamcinol (Triamcinol 4-29 S pirit one) one) 00:00: - [facility] 00 [facility] Bupivicaine Bupivicaine 2020-0 No 4mL Common Magnolia Magnolia 4-29 Spirit 00:00: - [facility] 00 [facility] Kenalog Kenalog 2020-0 No 40mg Common (Triamcinol (Triamcinol 4-29 S pirit one) one) 00:00: - [facility] 00 [facility] Bupivicaine Bupivicaine 2020-0 No 4mL Common Magnolia Magnolia 4-29 Spirit 00:00: - [facility] 00 [facility] Kenalog Kenalog 2020-0 No 40mg Common (Triamcinol (Triamcinol 4-29 S pirit one) one) 00:00: - [facility] 00 [facility] Bupivicaine Bupivicaine 2020-0 No 4mL Common Magnolia Magnolia 4-29 Spirit 00:00: - [facility] 00 [facility] Kenalog Kenalog 2020-0 No 40mg Common (Triamcinol (Triamcinol 4-29 S pirit one) one) 00:00: - [facility] 00 [facility] Bupivicaine Bupivicaine 2020-0 No 4mL Common Magnolia Magnolia 4-29 [facility] 00:00: - [facility] 00 [facility] Kenalog Kenalog 2020-0 No 40mg Common (Triamcinol (Triamcinol 4-29 S pirit one) one) 00:00: - [facility] 00 [facility] Bupivicaine Bupivicaine 2020-0 No 4mL Common Magnolia Magnolia 4-29 [facility] 00:00: - [facility] 00 [facility] Kenalog Kenalog 2020-0 No 40mg Common (Triamcinol (Triamcinol 4-29 S pirit one) one) 00:00: - [facility] 00 [facility] Nitrofurant Nitrofurant 2019-0 Yes Behzad 1 capsule Common oin oin 5-17 [facility] Macrocrysta Macrocrysta 00:00: - CHI l l 00 [facility] Diflucan Diflucan 2019-0 Yes Behzad 1 tablet Common 5-17 [facility] 00:00: - [facility] 00 [facility] Diflucan Diflucan 2019-0 No 1{table QD Diflucan 150 MG 150 MG 5-17 t} 150 MG 00:00: 00 Nitrofurant Nitrofurant 2019-0 No 1{capsu BID Nitrofuran oin oin 5-17 le} toin Macrocrysta Macrocrysta 00:00: Macrocryst l 100 mg l 100 mg 00 al 100 mg Nitrofurant Nitrofurant 2019-0 No 1{capsu BID Nitrofuran oin oin 5-17 le} toin Macrocrysta Macrocrysta 00:00: Macrocryst l 100 mg l 100 mg 00 al 100 mg Diflucan Diflucan No 1{table QD Diflucan 150 MG 150 MG 5-17 t} 150 MG 00:00: 00 Crestor Crestor 0 Yes Behzad 1 tablet Common 4-06 [facility] 00:00: - [facility] 00 [facility] Crestor 40 Crestor 40 No 1{table QD Crestor 40 MG MG 4-06 t} MG 00:00: 00 Crestor 40 Crestor 40 No 1{table QD Crestor 40 MG MG 4-06 t} MG 00:00: 00 erythromyci Yes .5[in_u Place 0.5 [facility] n 5 mg/gram 2-17 s] Inches in ity of (0.5 %) 00:00: both eyes [place] ophthal[facility] 00 2 (two) Medica l ointment times Branch daily. Continue until you follow up with eye doctor. traMADOL Yes 50mg Take 1 [facility] (ULTRAM) 50 2-17 tablet by ity of mg tablet 00:00: mouth [place] 00 every 6 Medical (six) Branch hours as needed for Pain (scale 4-6). erythromyci Yes .5[in_u Place 0.5 [facility] n 5 mg/gram 2-17 s] Inches in ity of (0.5 %) 00:00: both eyes [place] ophthalmic 00 2 (two) Medica l ointment times Branch daily. Continue until you follow up with eye doctor. traMADOL Yes 50mg Take 1 [facility] (ULTRAM) 50 2-17 tablet by ity of mg tablet 00:00: mouth [place] 00 every 6 Medical (six) Branch hours as needed for Pain (scale 4-6). erythromyci Yes .5[in_u Place 0.5 [facility] n 5 mg/gram 2-17 s] Inches in ity of (0.5 %) 00:00: both eyes [place] ophthal[facility] 00 2 (two) Medica l ointment times Branch daily. Continue until you follow up with eye doctor. traMADOL Yes 50mg Take 1 [facility] (ULTRAM) 50 2-17 tablet by ity of mg tablet 00:00: mouth [place] 00 every 6 Medical (six) Branch hours as needed for Pain (scale 4-6). Pioglitazon Pioglitazon No 1{table QD Pioglitazo e HCl 30 MG e HCl 30 MG t} ne HCl 30 MG Lidex 0.05 Lidex 0.05 No Lidex 0.05 % % % Metoprolol Metoprolol No 1{table BID Metoprolol Tartrate Tartrate t_with_ Tartrate 100 MG 100 MG food} 100 MG glipiZIDE glipiZIDE No 1{table QD glipiZIDE ER 10 MG ER 10 MG t_with_ ER [address]} Potassium Potassium No 1{capsu Potassium Chloride 20 Chloride 20 le} Chloride MEQ MEQ 20 MEQ Ferrous Ferrous No 1{table QD Ferrous Sulfate 325 Sulfate 325 t} Sulfate (65 Fe) mg (65 Fe) mg 325 (65 Fe) mg Diclofenac Diclofenac No 1{appli BID Diclofenac Sodium 1 % Sodium 1 % cation} Sodium 1 % Crestor 40 Crestor 40 No 1{table QD Crestor 40 MG MG t} MG Famotidine Famotidine No 1{table BID Famotidine 20 MG 20 MG t} 20 MG Furosemide Furosemide No 1{table Furosemide 40 MG 40 MG t} 40 MG amLODIPine amLODIPine No 1{table QD amLODIPine Besylate 5 Besylate 5 t} Besylate 5 MG MG MG Zestoretic Zestoretic No 1{table QD Zestoretic 20-12.5 MG 20-12.5 MG t} 20-12.5 MG Medrol 4 MG Medrol 4 MG No QD Medrol 4 MG Januvia 100 Januvia 100 No 1{table QD Januvia MG MG t} 100 MG Rosuvastati Rosuvastati No 1{table QD Rosuvastat n Calcium n Calcium t} in Calcium 40 MG 40 MG 40 MG Creon [id number] Creon [id number] No 1{capsu TID Creon UNIT UNIT le} 04487 UNIT Acetaminoph Acetaminoph No 1{table BID Acetaminop en 500 MG en 500 MG t_as_ne hen 500 MG eded} Diclofenac Diclofenac No 1{appli BID Diclofenac Sodium 1 % Sodium 1 % cation} Sodium 1 % Fluocinonid Fluocinonid No 1{appli BID Fluocinoni e 0.05 % e 0.05 % cation} de 0.05 % NexIUM 40 NexIUM 40 No 1{capsu QD NexIUM 40 MG MG le} MG Pioglitazon Pioglitazon No 1{table QD Pioglitazo e HCl 30 MG e HCl 30 MG t} ne HCl 30 MG Farxiga 10 Farxiga 10 No 1{table QD Farxiga 10 MG MG t} MG glipiZIDE glipiZIDE No 1{table QD glipiZIDE ER 10 MG ER 10 MG t_with_ ER [address]} Januvia 100 Januvia 100 No 1{table QD Januvia MG MG t} 100 MG Claritin 10 Claritin 10 No 1{table QD Claritin MG MG t} 10 MG Fluocinonid Fluocinonid No 1{appli BID Fluocinoni e 0.05 % e 0.05 % cation} de 0.05 % Rosuvastati Rosuvastati No Rosuvastat n Calcium n Calcium in Calcium Metoprolol Metoprolol No 1{table BID Metoprolol Tartrate 50 Tartrate 50 t_with_ Tartrate MG MG food} 50 MG glipiZIDE glipiZIDE No 1{table QD glipiZIDE ER 10 MG ER 10 MG t_with_ ER [address]} Potassium Potassium No 1{capsu Potassium Chloride 20 Chloride 20 le} Chloride MEQ MEQ 20 MEQ Medrol 4 MG Medrol 4 MG No QD Medrol 4 MG Clobetasol Clobetasol No 1{appli BID Clobetasol Propionate Propionate cation_ Propionate 0.05 % 0.05 % to_affe 0.05 % cted_ar ea} Crestor 40 Crestor 40 No 1{table QD Crestor 40 MG MG t} MG amLODIPine amLODIPine No 1{table QD amLODIPine Besylate 5 Besylate 5 t} Besylate 5 MG MG MG NexIUM 40 NexIUM 40 No 1{capsu QD NexIUM 40 MG MG le} MG Metoprolol Metoprolol No 1{table BID Metoprolol Tartrate Tartrate t_with_ Tartrate 100 MG 100 MG food} 100 MG Omeprazole Omeprazole No 1{capsu QD Omeprazole 40 MG 40 MG le} 40 MG Farxiga 10 Farxiga 10 No 1{table QD Farxiga 10 MG MG t} MG Lisinopril Lisinopril No 1{table Lisinopril 20 MG 20 MG t} 20 MG Pioglitazon Pioglitazon No 1{table QD Pioglitazo e HCl 30 MG e HCl 30 MG t} ne HCl 30 MG Furosemide Furosemide No 1{table Furosemide 40 MG 40 MG t} 40 MG Meloxicam Meloxicam No 1{table QD Meloxicam 7.5 MG 7.5 MG t} 7.5 MG Cipro 500 Cipro 500 No 1{table BID Cipro 500 MG MG t} MG Zestoretic Zestoretic No 1{table Zestoretic 20-25 MG 20-25 MG t} 20-25 MG Diclofenac Diclofenac No 1{appli BID Diclofenac Sodium 1 % Sodium 1 % cation} Sodium 1 % Creon [id number] Creon [id number] No 1{capsu TID Creon UNIT UNIT le} 44364 UNIT predniSONE predniSONE No QD predniSONE 20 MG 20 MG 20 MG Cetirizine Cetirizine No 1{table QD Cetirizine HCl 10 MG HCl 10 MG t} HCl 10 MG Januvia 100 Januvia 100 No 1{table QD Januvia MG MG t} 100 MG Azithromyci Azithromyci No QD Azithromyc n 250 MG n 250 MG in 250 MG Acetaminoph Acetaminoph No 1{table BID Acetaminop en 500 MG en 500 MG t_as_ne hen 500 MG eded} Furosemide Furosemide No 1{table BID Furosemide 40 MG 40 MG t} 40 MG Klor-Con Klor-Con No Klor-Con M20 20 MEQ M20 20 MEQ M20 20 MEQ Lidex 0.05 Lidex 0.05 No Lidex 0.05 % % % Flonase 50 Flonase 50 No 2{spray QD Flonase 50 MCG/ACT MCG/ACT _in_eac MCG/ACT h_nostr il} Potassium Potassium No 1{capsu Potassium Chloride 20 Chloride 20 le} Chloride MEQ MEQ 20 MEQ Metoprolol Metoprolol No 1{table BID Metoprolol Tartrate Tartrate t_with_ Tartrate 100 MG 100 MG food} 100 MG Lisinopril Lisinopril No 1{table Lisinopril 20 MG 20 MG t} 20 MG Metoprolol Metoprolol No 1{table BID Metoprolol Tartrate 50 Tartrate 50 t_with_ Tartrate MG MG food} 50 MG Omeprazole Omeprazole No 1{capsu QD Omeprazole 40 MG 40 MG le} 40 MG Rosuvastati Rosuvastati No Rosuvastat n Calcium n Calcium in Calcium 40 MG 40 MG 40 MG Diclofenac Diclofenac No 1{appli BID Diclofenac Sodium 1 % Sodium 1 % cation} Sodium 1 % Glyxambi Glyxambi No Glyxambi 25mg/5mg 25mg/5mg 25mg/5mg Fluocinonid Fluocinonid No 1{appli BID Fluocinoni e 0.05 % e 0.05 % cation} de 0.05 % Crestor 40 Crestor 40 No 1{table QD Crestor 40 MG MG t} MG Zestoretic Zestoretic No 1{table Zestoretic 20-25 MG 20-25 MG t} 20-25 MG Pioglitazon Pioglitazon No 1{table QD Pioglitazo e HCl 30 MG e HCl 30 MG t} ne HCl 30 MG amLODIPine amLODIPine No 1{table QD amLODIPine Besylate 5 Besylate 5 t} Besylate 5 MG MG MG glipiZIDE glipiZIDE No 1{table QD glipiZIDE ER 10 MG ER 10 MG t_with_ ER [address]} Lisinopril Lisinopril No 1{table Lisinopril 20 MG 20 MG t} 20 MG Potassium Potassium No 1{capsu Potassium Chloride 20 Chloride 20 le} Chloride MEQ MEQ 20 MEQ Diclofenac Diclofenac No 1{appli BID Diclofenac Sodium 1 % Sodium 1 % cation} Sodium 1 % Glyxambi Glyxambi No Glyxambi 25mg/5mg 25mg/5mg 25mg/5mg Rosuvastati Rosuvastati No Rosuvastat n Calcium n Calcium in Calcium 40 MG 40 MG 40 MG Metoprolol Metoprolol No 1{table BID Metoprolol Tartrate 50 Tartrate 50 t_with_ Tartrate MG MG food} 50 MG Omeprazole Omeprazole No 1{capsu QD Omeprazole 40 MG 40 MG le} 40 MG Zestoretic Zestoretic No 1{table Zestoretic 20-25 MG 20-25 MG t} 20-25 MG amLODIPine amLODIPine No 1{table QD amLODIPine Besylate 5 Besylate 5 t} Besylate 5 MG MG MG glipiZIDE glipiZIDE No 1{table QD glipiZIDE ER 10 MG ER 10 MG t_with_ ER [address]} Fluocinonid Fluocinonid No 1{appli BID Fluocinoni e 0.05 % e 0.05 % cation} de 0.05 % Pioglitazon Pioglitazon No 1{table QD Pioglitazo e HCl 30 MG e HCl 30 MG t} ne HCl 30 MG Crestor 40 Crestor 40 No 1{table QD Crestor 40 MG MG t} MG Metoprolol Metoprolol No 1{table BID Metoprolol Tartrate Tartrate t_with_ Tartrate 100 MG 100 MG food} 100 MG amLODIPine amLODIPine No 1{table QD amLODIPine Besylate 5 Besylate 5 t} Besylate 5 MG MG MG glipiZIDE glipiZIDE No 1{table QD glipiZIDE ER 10 MG ER 10 MG t_with_ ER [address]} Fluocinonid Fluocinonid No 1{appli BID Fluocinoni e 0.05 % e 0.05 % cation} de 0.05 % Zestoretic Zestoretic No 1{table Zestoretic 20-25 MG 20-25 MG t} 20-25 MG Diclofenac Diclofenac No 1{appli BID Diclofenac Sodium 1 % Sodium 1 % cation} Sodium 1 % Metoprolol Metoprolol No 1{table BID Metoprolol Tartrate 50 Tartrate 50 t_with_ Tartrate MG MG food} 50 MG Crestor 40 Crestor 40 No 1{table QD Crestor 40 MG MG t} MG Metoprolol Metoprolol No 1{table BID Metoprolol Tartrate Tartrate t_with_ Tartrate 100 MG 100 MG food} 100 MG Rosuvastati Rosuvastati No Rosuvastat n Calcium n Calcium in Calcium 40 MG 40 MG 40 MG Omeprazole Omeprazole No 1{capsu QD Omeprazole 40 MG 40 MG le} 40 MG Lisinopril Lisinopril No 1{table Lisinopril 20 MG 20 MG t} 20 MG Pioglitazon Pioglitazon No 1{table QD Pioglitazo e HCl 30 MG e HCl 30 MG t} ne HCl 30 MG Glyxambi Glyxambi No Glyxambi 25mg/5mg 25mg/5mg 25mg/5mg Potassium Potassium No 1{capsu Potassium Chloride 20 Chloride 20 le} Chloride MEQ MEQ 20 MEQ Metoprolol Metoprolol No 1{table BID Metoprolol Tartrate Tartrate t_with_ Tartrate 100 MG 100 MG food} 100 MG Crestor 40 Crestor 40 No 1{table QD Crestor 40 MG MG t} MG Glyxambi Glyxambi No Glyxambi 25mg/5mg 25mg/5mg 25mg/5mg Zestoretic Zestoretic No 1{table Zestoretic 20-25 MG 20-25 MG t} 20-25 MG Diclofenac Diclofenac No 1{appli BID Diclofenac Sodium 1 % Sodium 1 % cation} Sodium 1 % Lisinopril Lisinopril No 1{table Lisinopril 20 MG 20 MG t} 20 MG Fluocinonid Fluocinonid No 1{appli BID Fluocinoni e 0.05 % e 0.05 % cation} de 0.05 % amLODIPine amLODIPine No 1{table QD amLODIPine Besylate 5 Besylate 5 t} Besylate 5 MG MG MG Omeprazole Omeprazole No 1{capsu QD Omeprazole 40 MG 40 MG le} 40 MG Metoprolol Metoprolol No 1{table BID Metoprolol Tartrate 50 Tartrate 50 t_with_ Tartrate MG MG food} 50 MG Rosuvastati Rosuvastati No Rosuvastat n Calcium n Calcium in Calcium 40 MG 40 MG 40 MG glipiZIDE glipiZIDE No 1{table QD glipiZIDE ER 10 MG ER 10 MG t_with_ ER [address]} Potassium Potassium No 1{capsu Potassium Chloride 20 Chloride 20 le} Chloride MEQ MEQ 20 MEQ Pioglitazon Pioglitazon No 1{table QD Pioglitazo e HCl 30 MG e HCl 30 MG t} ne HCl 30 MG Zestoretic Zestoretic No 1{table QD Zestoretic 20-12.5 MG 20-12.5 MG t} 20-12.5 MG Lisinopril Lisinopril No 1{table Lisinopril 20 MG 20 MG t} 20 MG Diclofenac Diclofenac No 1{appli BID Diclofenac Sodium 1 % Sodium 1 % cation} Sodium 1 % glipiZIDE glipiZIDE No 1{table QD glipiZIDE ER 10 MG ER 10 MG t_with_ ER [address]} Pioglitazon Pioglitazon No 1{table QD Pioglitazo e HCl 30 MG e HCl 30 MG t} ne HCl 30 MG Famotidine Famotidine No 1{table BID Famotidine 20 MG 20 MG t_as_ne 20 MG eded} Crestor 40 Crestor 40 No 1{table QD Crestor 40 MG MG t} MG Glyxambi Glyxambi No Glyxambi 25mg/5mg 25mg/5mg 25mg/5mg Furosemide Furosemide No 1{table Furosemide 40 MG 40 MG t} 40 MG Potassium Potassium No 1{capsu Potassium Chloride 20 Chloride 20 le} Chloride MEQ MEQ 20 MEQ Metoprolol Metoprolol No 1{table BID Metoprolol Tartrate Tartrate t_with_ Tartrate 100 MG 100 MG food} 100 MG amLODIPine amLODIPine No 1{table QD amLODIPine Besylate 5 Besylate 5 t} Besylate 5 MG MG MG Rosuvastati Rosuvastati No Rosuvastat n Calcium n Calcium in Calcium 40 MG 40 MG 40 MG Diclofenac Diclofenac No 1{appli BID Diclofenac Sodium 1 % Sodium 1 % cation} Sodium 1 % Furosemide Furosemide No 1{table Furosemide 40 MG 40 MG t} 40 MG Famotidine Famotidine No 1{table BID Famotidine 20 MG 20 MG t_as_ne 20 MG eded} Metoprolol Metoprolol No 1{table BID Metoprolol Tartrate Tartrate t_with_ Tartrate 100 MG 100 MG food} 100 MG Zestoretic Zestoretic No 1{table QD Zestoretic 20-12.5 MG 20-12.5 MG t} 20-12.5 MG Lisinopril Lisinopril No 1{table Lisinopril 20 MG 20 MG t} 20 MG glipiZIDE glipiZIDE No 1{table QD glipiZIDE ER 10 MG ER 10 MG t_with_ ER [address]} Glyxambi Glyxambi No Glyxambi 25mg/5mg 25mg/5mg 25mg/5mg Potassium Potassium No 1{capsu Potassium Chloride 20 Chloride 20 le} Chloride MEQ MEQ 20 MEQ Crestor 40 Crestor 40 No 1{table QD Crestor 40 MG MG t} MG Rosuvastati Rosuvastati No Rosuvastat n Calcium n Calcium in Calcium 40 MG 40 MG 40 MG Pioglitazon Pioglitazon No 1{table QD Pioglitazo e HCl 30 MG e HCl 30 MG t} ne HCl 30 MG amLODIPine amLODIPine No 1{table QD amLODIPine Besylate 5 Besylate 5 t} Besylate 5 MG MG MG Diclofenac Diclofenac No 1{appli BID Sodium 1 % Sodium 1 % cation} Furosemide Furosemide No 1{table 40 MG 40 MG t} Famotidine Famotidine No 1{table BID 20 MG 20 MG t_as_ne eded} Metoprolol Metoprolol No 1{table BID Tartrate Tartrate t_with_ 100 MG 100 MG food} Zestoretic Zestoretic No 1{table QD 20-12.5 MG 20-12.5 MG t} Lisinopril Lisinopril No 1{table 20 MG 20 MG t} glipiZIDE glipiZIDE No 1{table QD ER 10 MG ER 10 MG t_with_ breakfa st} Glyxambi Glyxambi No 25mg/5mg 25mg/5mg Potassium Potassium No 1{capsu Chloride 20 Chloride 20 le} MEQ MEQ Crestor 40 Crestor 40 No 1{table QD MG MG t} Rosuvastati Rosuvastati No n Calcium n Calcium 40 MG 40 MG Pioglitazon Pioglitazon No 1{table QD e HCl 30 MG e HCl 30 MG t} amLODIPine amLODIPine No 1{table QD Besylate 5 Besylate 5 t} MG MG Furosemide Furosemide No 1{table Furosemide 40 MG 40 MG t} 40 MG amLODIPine amLODIPine No 1{table QD amLODIPine Besylate 5 Besylate 5 t} Besylate 5 MG MG MG Famotidine Famotidine No 1{table BID Famotidine 20 MG 20 MG t_as_ne 20 MG eded} Diclofenac Diclofenac No 1{appli BID Diclofenac Sodium 1 % Sodium 1 % cation} Sodium 1 % Metoprolol Metoprolol No 1{table BID Metoprolol Tartrate Tartrate t_with_ Tartrate 100 MG 100 MG food} 100 MG Zestoretic Zestoretic No 1{table QD Zestoretic 20-12.5 MG 20-12.5 MG t} 20-12.5 MG Lisinopril Lisinopril No 1{table Lisinopril 20 MG 20 MG t} 20 MG glipiZIDE glipiZIDE No 1{table QD glipiZIDE ER 10 MG ER 10 MG t_with_ ER [address]} Glyxambi Glyxambi No Glyxambi 25mg/5mg 25mg/5mg 25mg/5mg Potassium Potassium No 1{capsu Potassium Chloride 20 Chloride 20 le} Chloride MEQ MEQ 20 MEQ Crestor 40 Crestor 40 No 1{table QD Crestor 40 MG MG t} MG Rosuvastati Rosuvastati No Rosuvastat n Calcium n Calcium in Calcium 40 MG 40 MG 40 MG Pioglitazon Pioglitazon No 1{table QD Pioglitazo e HCl 30 MG e HCl 30 MG t} ne HCl 30 MG Januvia 100 Januvia 100 No Januvia MG MG 100 MG Crestor 40 Crestor 40 No 1{table QD Crestor 40 MG MG t} MG Furosemide Furosemide No 1{table Furosemide 40 MG 40 MG t} 40 MG Pioglitazon Pioglitazon No 1{table QD Pioglitazo e HCl 30 MG e HCl 30 MG t} ne HCl 30 MG Diclofenac Diclofenac No 1{appli BID Diclofenac Sodium 1 % Sodium 1 % cation} Sodium 1 % Rosuvastati Rosuvastati No Rosuvastat n Calcium n Calcium in Calcium 40 MG 40 MG 40 MG Metoprolol Metoprolol No 1{table BID Metoprolol Tartrate Tartrate t_with_ Tartrate 100 MG 100 MG food} 100 MG Potassium Potassium No 1{capsu Potassium Chloride 20 Chloride 20 le} Chloride MEQ MEQ 20 MEQ Famotidine Famotidine No 1{table BID Famotidine 20 MG 20 MG t_as_ne 20 MG eded} Januvia 100 Januvia 100 No Januvia MG MG 100 MG amLODIPine amLODIPine No 1{table QD amLODIPine Besylate 5 Besylate 5 t} Besylate 5 MG MG MG Zestoretic Zestoretic No 1{table QD Zestoretic 20-12.5 MG 20-12.5 MG t} 20-12.5 MG glipiZIDE glipiZIDE No 1{table QD glipiZIDE ER 10 MG ER 10 MG t_with_ ER [address]} Glyxambi Glyxambi No Glyxambi 25mg/5mg 25mg/5mg 25mg/5mg Lisinopril Lisinopril No 1{table Lisinopril 20 MG 20 MG t} 20 MG Zestoretic Zestoretic No 1{table QD Zestoretic 20-12.5 MG 20-12.5 MG t} 20-12.5 MG Furosemide Furosemide No 1{table Furosemide 40 MG 40 MG t} 40 MG Lisinopril Lisinopril No 1{table Lisinopril 20 MG 20 MG t} 20 MG Pioglitazon Pioglitazon No 1{table QD Pioglitazo e HCl 30 MG e HCl 30 MG t} ne HCl 30 MG Famotidine Famotidine No 1{table BID Famotidine 20 MG 20 MG t} 20 MG Diclofenac Diclofenac No 1{appli BID Diclofenac Sodium 1 % Sodium 1 % cation} Sodium 1 % Januvia 100 Januvia 100 No Januvia MG MG 100 MG Crestor 40 Crestor 40 No 1{table QD Crestor 40 MG MG t} MG Rosuvastati Rosuvastati No Rosuvastat n Calcium n Calcium in Calcium 40 MG 40 MG 40 MG Metoprolol Metoprolol No 1{table BID Metoprolol Tartrate Tartrate t_with_ Tartrate 100 MG 100 MG food} 100 MG glipiZIDE glipiZIDE No 1{table QD glipiZIDE ER 10 MG ER 10 MG t_with_ ER [address]} Potassium Potassium No 1{capsu Potassium Chloride 20 Chloride 20 le} Chloride MEQ MEQ 20 MEQ amLODIPine amLODIPine No 1{table QD amLODIPine Besylate 5 Besylate 5 t} Besylate 5 MG MG MG Famotidine Famotidine No 1{table BID Famotidine 20 MG 20 MG t_as_ne 20 MG eded} Ferrous Ferrous No 1{table QD Ferrous Sulfate 325 Sulfate 325 t} Sulfate (65 Fe) mg (65 Fe) mg 325 (65 Fe) mg Zestoretic Zestoretic No 1{table QD Zestoretic 20-12.5 MG 20-12.5 MG t} 20-12.5 MG Furosemide Furosemide No 1{table Furosemide 40 MG 40 MG t} 40 MG Lisinopril Lisinopril No 1{table Lisinopril 20 MG 20 MG t} 20 MG Pioglitazon Pioglitazon No 1{table QD Pioglitazo e HCl 30 MG e HCl 30 MG t} ne HCl 30 MG Famotidine Famotidine No 1{table BID Famotidine 20 MG 20 MG t} 20 MG Diclofenac Diclofenac No 1{appli BID Diclofenac Sodium 1 % Sodium 1 % cation} Sodium 1 % Januvia 100 Januvia 100 No Januvia MG MG 100 MG Crestor 40 Crestor 40 No 1{table QD Crestor 40 MG MG t} MG Rosuvastati Rosuvastati No Rosuvastat n Calcium n Calcium in Calcium 40 MG 40 MG 40 MG Metoprolol Metoprolol No 1{table BID Metoprolol Tartrate Tartrate t_with_ Tartrate 100 MG 100 MG food} 100 MG glipiZIDE glipiZIDE No 1{table QD glipiZIDE ER 10 MG ER 10 MG t_with_ ER [address]} Potassium Potassium No 1{capsu Potassium Chloride 20 Chloride 20 le} Chloride MEQ MEQ 20 MEQ amLODIPine amLODIPine No 1{table QD amLODIPine Besylate 5 Besylate 5 t} Besylate 5 MG MG MG Famotidine Famotidine No 1{table BID Famotidine 20 MG 20 MG t_as_ne 20 MG eded} Ferrous Ferrous No 1{table QD Ferrous Sulfate 325 Sulfate 325 t} Sulfate (65 Fe) mg (65 Fe) mg 325 (65 Fe) mg Zestoretic Zestoretic No 1{table QD Zestoretic 20-12.5 MG 20-12.5 MG t} 20-12.5 MG Furosemide Furosemide No 1{table Furosemide 40 MG 40 MG t} 40 MG Lisinopril Lisinopril No 1{table Lisinopril 20 MG 20 MG t} 20 MG Rosuvastati Rosuvastati No Rosuvastat n Calcium n Calcium in Calcium 40 MG 40 MG 40 MG Famotidine Famotidine No 1{table BID Famotidine 20 MG 20 MG t} 20 MG Metoprolol Metoprolol No 1{table BID Metoprolol Tartrate Tartrate t_with_ Tartrate 100 MG 100 MG food} 100 MG Januvia 100 Januvia 100 No Januvia MG MG 100 MG Diclofenac Diclofenac No 1{appli BID Diclofenac Sodium 1 % Sodium 1 % cation} Sodium 1 % amLODIPine amLODIPine No 1{table QD amLODIPine Besylate 5 Besylate 5 t} Besylate 5 MG MG MG Crestor 40 Crestor 40 No 1{table QD Crestor 40 MG MG t} MG Famotidine Famotidine No 1{table BID Famotidine 20 MG 20 MG t_as_ne 20 MG eded} glipiZIDE glipiZIDE No 1{table QD glipiZIDE ER 10 MG ER 10 MG t_with_ ER [address]} Pioglitazon Pioglitazon No 1{table QD Pioglitazo e HCl 30 MG e HCl 30 MG t} ne HCl 30 MG Potassium Potassium No 1{capsu Potassium Chloride 20 Chloride 20 le} Chloride MEQ MEQ 20 MEQ Ferrous Ferrous No 1{table QD Ferrous Sulfate 325 Sulfate 325 t} Sulfate (65 Fe) mg (65 Fe) mg 325 (65 Fe) mg Zestoretic Zestoretic No 1{table QD Zestoretic 20-12.5 MG 20-12.5 MG t} 20-12.5 MG Furosemide Furosemide No 1{table Furosemide 40 MG 40 MG t} 40 MG Lisinopril Lisinopril No 1{table Lisinopril 20 MG 20 MG t} 20 MG Rosuvastati Rosuvastati No Rosuvastat n Calcium n Calcium in Calcium 40 MG 40 MG 40 MG Famotidine Famotidine No 1{table BID Famotidine 20 MG 20 MG t} 20 MG Metoprolol Metoprolol No 1{table BID Metoprolol Tartrate Tartrate t_with_ Tartrate 100 MG 100 MG food} 100 MG Januvia 100 Januvia 100 No Januvia MG MG 100 MG Diclofenac Diclofenac No 1{appli BID Diclofenac Sodium 1 % Sodium 1 % cation} Sodium 1 % amLODIPine amLODIPine No 1{table QD amLODIPine Besylate 5 Besylate 5 t} Besylate 5 MG MG MG Crestor 40 Crestor 40 No 1{table QD Crestor 40 MG MG t} MG Famotidine Famotidine No 1{table BID Famotidine 20 MG 20 MG t_as_ne 20 MG eded} glipiZIDE glipiZIDE No 1{table QD glipiZIDE ER 10 MG ER 10 MG t_with_ ER [address]} Pioglitazon Pioglitazon No 1{table QD Pioglitazo e HCl 30 MG e HCl 30 MG t} ne HCl 30 MG Potassium Potassium No 1{capsu Potassium Chloride 20 Chloride 20 le} Chloride MEQ MEQ 20 MEQ Ferrous Ferrous No 1{table QD Ferrous Sulfate 325 Sulfate 325 t} Sulfate (65 Fe) mg (65 Fe) mg 325 (65 Fe) mg Furosemide Furosemide No 1{table Furosemide 40 MG 40 MG t} 40 MG glipiZIDE glipiZIDE No 1{table QD glipiZIDE ER 10 MG ER 10 MG t_with_ ER [address]} Lisinopril Lisinopril No 1{table Lisinopril 20 MG 20 MG t} 20 MG Potassium Potassium No 1{capsu Potassium Chloride 20 Chloride 20 le} Chloride MEQ MEQ 20 MEQ Famotidine Famotidine No 1{table BID Famotidine 20 MG 20 MG t} 20 MG Metoprolol Metoprolol No 1{table BID Metoprolol Tartrate Tartrate t_with_ Tartrate 100 MG 100 MG food} 100 MG Januvia 100 Januvia 100 No Januvia MG MG 100 MG Diclofenac Diclofenac No 1{appli BID Diclofenac Sodium 1 % Sodium 1 % cation} Sodium 1 % Rosuvastati Rosuvastati No Rosuvastat n Calcium n Calcium in Calcium 40 MG 40 MG 40 MG Pioglitazon Pioglitazon No 1{table QD Pioglitazo e HCl 30 MG e HCl 30 MG t} ne HCl 30 MG Ferrous Ferrous No 1{table QD Ferrous Sulfate 325 Sulfate 325 t} Sulfate (65 Fe) mg (65 Fe) mg 325 (65 Fe) mg amLODIPine amLODIPine No 1{table QD amLODIPine Besylate 5 Besylate 5 t} Besylate 5 MG MG MG Famotidine Famotidine No 1{table BID Famotidine 20 MG 20 MG t_as_ne 20 MG eded} Crestor 40 Crestor 40 No 1{table QD Crestor 40 MG MG t} MG Lisinopril- Lisinopril- No Lisinopril hydroCHLORO hydroCHLORO -hydroCHLO thiazide thiazide ROthiazide 20-12.5 MG 20-12.5 MG 20-12.5 MG Ferrous Ferrous No 1{table QD Ferrous Sulfate 325 Sulfate 325 t} Sulfate (65 Fe) mg (65 Fe) mg 325 (65 Fe) mg Pioglitazon Pioglitazon No 1{table QD Pioglitazo e HCl 30 MG e HCl 30 MG t} ne HCl 30 MG Crestor 40 Crestor 40 No 1{table QD Crestor 40 MG MG t} MG Diclofenac Diclofenac No 1{appli BID Diclofenac Sodium 1 % Sodium 1 % cation} Sodium 1 % glipiZIDE glipiZIDE No 1{table QD glipiZIDE ER 10 MG ER 10 MG t_with_ ER [address]} Furosemide Furosemide No 1{table Furosemide 40 MG 40 MG t} 40 MG Famotidine Famotidine No 1{table BID Famotidine 20 MG 20 MG t} 20 MG Metoprolol Metoprolol No 1{table BID Metoprolol Tartrate Tartrate t_with_ Tartrate 100 MG 100 MG food} 100 MG Rosuvastati Rosuvastati No Rosuvastat n Calcium n Calcium in Calcium 40 MG 40 MG 40 MG amLODIPine amLODIPine No 1{table QD amLODIPine Besylate 5 Besylate 5 t} Besylate 5 MG MG MG Potassium Potassium No 1{capsu Potassium Chloride 20 Chloride 20 le} Chloride MEQ MEQ 20 MEQ Lisinopril Lisinopril No 1{table Lisinopril 20 MG 20 MG t} 20 MG Lisinopril- Lisinopril- No Lisinopril hydroCHLORO hydroCHLORO -hydroCHLO thiazide thiazide ROthiazide 20-12.5 MG 20-12.5 MG 20-12.5 MG Famotidine Famotidine No 1{table BID Famotidine 20 MG 20 MG t_as_ne 20 MG eded} Januvia 100 Januvia 100 No Januvia MG MG 100 MG Ferrous Ferrous No 1{table QD Ferrous Sulfate 325 Sulfate 325 t} Sulfate (65 Fe) mg (65 Fe) mg 325 (65 Fe) mg Pioglitazon Pioglitazon No 1{table QD Pioglitazo e HCl 30 MG e HCl 30 MG t} ne HCl 30 MG Crestor 40 Crestor 40 No 1{table QD Crestor 40 MG MG t} MG Diclofenac Diclofenac No 1{appli BID Diclofenac Sodium 1 % Sodium 1 % cation} Sodium 1 % glipiZIDE glipiZIDE No 1{table QD glipiZIDE ER 10 MG ER 10 MG t_with_ ER [address]} Furosemide Furosemide No 1{table Furosemide 40 MG 40 MG t} 40 MG Famotidine Famotidine No 1{table BID Famotidine 20 MG 20 MG t} 20 MG Metoprolol Metoprolol No 1{table BID Metoprolol Tartrate Tartrate t_with_ Tartrate 100 MG 100 MG food} 100 MG Rosuvastati Rosuvastati No Rosuvastat n Calcium n Calcium in Calcium 40 MG 40 MG 40 MG amLODIPine amLODIPine No 1{table QD amLODIPine Besylate 5 Besylate 5 t} Besylate 5 MG MG MG Potassium Potassium No 1{capsu Potassium Chloride 20 Chloride 20 le} Chloride MEQ MEQ 20 MEQ Lisinopril Lisinopril No 1{table Lisinopril 20 MG 20 MG t} 20 MG Lisinopril- Lisinopril- No Lisinopril hydroCHLORO hydroCHLORO -hydroCHLO thiazide thiazide ROthiazide 20-12.5 MG 20-12.5 MG 20-12.5 MG Famotidine Famotidine No 1{table BID Famotidine 20 MG 20 MG t_as_ne 20 MG eded} Januvia 100 Januvia 100 No Januvia MG MG 100 MG Pioglitazon Pioglitazon No 1{table QD Pioglitazo e HCl 30 MG e HCl 30 MG t} ne HCl 30 MG Famotidine Famotidine No 1{table BID Famotidine 20 MG 20 MG t} 20 MG Lisinopril- Lisinopril- No Lisinopril hydroCHLORO hydroCHLORO -hydroCHLO thiazide thiazide ROthiazide 20-12.5 MG 20-12.5 MG 20-12.5 MG Furosemide Furosemide No 1{table Furosemide 40 MG 40 MG t} 40 MG Crestor 40 Crestor 40 No 1{table QD Crestor 40 MG MG t} MG Ferrous Ferrous No 1{table QD Ferrous Sulfate 325 Sulfate 325 t} Sulfate (65 Fe) mg (65 Fe) mg 325 (65 Fe) mg Januvia 100 Januvia 100 No Januvia MG MG 100 MG Metoprolol Metoprolol No 1{table BID Metoprolol Tartrate Tartrate t_with_ Tartrate 100 MG 100 MG food} 100 MG Rosuvastati Rosuvastati No Rosuvastat n Calcium n Calcium in Calcium 40 MG 40 MG 40 MG glipiZIDE glipiZIDE No 1{table QD glipiZIDE ER 10 MG ER 10 MG t_with_ ER [address]} Famotidine Famotidine No 1{table BID Famotidine 20 MG 20 MG t_as_ne 20 MG eded} amLODIPine amLODIPine No 1{table QD amLODIPine Besylate 5 Besylate 5 t} Besylate 5 MG MG MG Lisinopril Lisinopril No 1{table Lisinopril 20 MG 20 MG t} 20 MG Potassium Potassium No 1{capsu Potassium Chloride 20 Chloride 20 le} Chloride MEQ MEQ 20 MEQ Diclofenac Diclofenac No 1{appli BID Diclofenac Sodium 1 % Sodium 1 % cation} Sodium 1 % Januvia 100 Januvia 100 No Januvia MG MG 100 MG Ferrous Ferrous No 1{table QD Ferrous Sulfate 325 Sulfate 325 t} Sulfate (65 Fe) mg (65 Fe) mg 325 (65 Fe) mg Lisinopril- Lisinopril- No Lisinopril hydroCHLORO hydroCHLORO -hydroCHLO thiazide thiazide ROthiazide 20-12.5 MG 20-12.5 MG 20-12.5 MG Lisinopril Lisinopril No 1{table Lisinopril 20 MG 20 MG t} 20 MG Diclofenac Diclofenac No 1{appli BID Diclofenac Sodium 1 % Sodium 1 % cation} Sodium 1 % amLODIPine amLODIPine No 1{table QD amLODIPine Besylate 5 Besylate 5 t} Besylate 5 MG MG MG glipiZIDE glipiZIDE No 1{table QD glipiZIDE ER 10 MG ER 10 MG t_with_ ER [address]} Famotidine Famotidine No 1{table BID Famotidine 20 MG 20 MG t_as_ne 20 MG eded} Famotidine Famotidine No 1{table BID Famotidine 20 MG 20 MG t} 20 MG Pioglitazon Pioglitazon No 1{table QD Pioglitazo e HCl 30 MG e HCl 30 MG t} ne HCl 30 MG Furosemide Furosemide No 1{table Furosemide 40 MG 40 MG t} 40 MG Potassium Potassium No 1{capsu Potassium Chloride 20 Chloride 20 le} Chloride MEQ MEQ 20 MEQ Crestor 40 Crestor 40 No 1{table QD Crestor 40 MG MG t} MG Rosuvastati Rosuvastati No Rosuvastat n Calcium n Calcium in Calcium 40 MG 40 MG 40 MG Metoprolol Metoprolol No 1{table BID Metoprolol Tartrate Tartrate t_with_ Tartrate 100 MG 100 MG food} 100 MG Lisinopril Lisinopril No 1{table Lisinopril 20 MG 20 MG t} 20 MG Rosuvastati Rosuvastati No Rosuvastat n Calcium n Calcium in Calcium 40 MG 40 MG 40 MG Famotidine Famotidine No 1{table BID Famotidine 20 MG 20 MG t} 20 MG amLODIPine amLODIPine No 1{table QD amLODIPine Besylate 5 Besylate 5 t} Besylate 5 MG MG MG Famotidine Famotidine No 1{table BID Famotidine 20 MG 20 MG t_as_ne 20 MG eded} Furosemide Furosemide No 1{table Furosemide 40 MG 40 MG t} 40 MG Diclofenac Diclofenac No 1{appli BID Diclofenac Sodium 1 % Sodium 1 % cation} Sodium 1 % Potassium Potassium No 1{capsu Potassium Chloride 20 Chloride 20 le} Chloride MEQ MEQ 20 MEQ Crestor 40 Crestor 40 No 1{table QD Crestor 40 MG MG t} MG Ferrous Ferrous No 1{table QD Ferrous Sulfate 325 Sulfate 325 t} Sulfate (65 Fe) mg (65 Fe) mg 325 (65 Fe) mg Pioglitazon Pioglitazon No 1{table QD Pioglitazo e HCl 30 MG e HCl 30 MG t} ne HCl 30 MG Metoprolol Metoprolol No 1{table BID Metoprolol Tartrate Tartrate t_with_ Tartrate 100 MG 100 MG food} 100 MG glipiZIDE glipiZIDE No 1{table QD glipiZIDE ER 10 MG ER 10 MG t_with_ ER [address]} Lisinopril- Lisinopril- No Lisinopril hydroCHLORO hydroCHLORO -hydroCHLO thiazide thiazide ROthiazide 20-12.5 MG 20-12.5 MG 20-12.5 MG Januvia 100 Januvia 100 No Januvia MG MG 100 MG Famotidine Famotidine No 1{table BID Famotidine 20 MG 20 MG t} 20 MG Ferrous Ferrous No 1{table QD Ferrous Sulfate 325 Sulfate 325 t} Sulfate (65 Fe) mg (65 Fe) mg 325 (65 Fe) mg Pioglitazon Pioglitazon No 1{table QD Pioglitazo e HCl 30 MG e HCl 30 MG t} ne HCl 30 MG Lisinopril- Lisinopril- No Lisinopril hydroCHLORO hydroCHLORO -hydroCHLO thiazide thiazide ROthiazide 20-12.5 MG 20-12.5 MG 20-12.5 MG Lisinopril Lisinopril No 1{table Lisinopril 20 MG 20 MG t} 20 MG Rosuvastati Rosuvastati No Rosuvastat n Calcium n Calcium in Calcium 40 MG 40 MG 40 MG Metoprolol Metoprolol No 1{table BID Metoprolol Tartrate Tartrate t_with_ Tartrate 100 MG 100 MG food} 100 MG Crestor 40 Crestor 40 No 1{table QD Crestor 40 MG MG t} MG Ferrous Ferrous No 1{table QD Ferrous Sulfate 325 Sulfate 325 t} Sulfate (65 Fe) mg (65 Fe) mg 325 (65 Fe) mg glipiZIDE glipiZIDE No 1{table QD glipiZIDE ER 10 MG ER 10 MG t_with_ ER [address]} Januvia 100 Januvia 100 No Januvia MG MG 100 MG Fluocinolon Fluocinolon No BID Fluocinolo e Acetonide e Acetonide ne 0.01 % 0.01 % Acetonide 0.01 % amLODIPine amLODIPine No 1{table QD amLODIPine Besylate 5 Besylate 5 t} Besylate 5 MG MG MG Potassium Potassium No 1{capsu Potassium Chloride 20 Chloride 20 le} Chloride MEQ MEQ 20 MEQ Zestoretic Zestoretic No 1{table QD Zestoretic 20-12.5 MG 20-12.5 MG t} 20-12.5 MG Famotidine Famotidine No 1{table BID Famotidine 20 MG 20 MG t_as_ne 20 MG eded} Furosemide Furosemide No 1{table Furosemide 40 MG 40 MG t} 40 MG Diclofenac Diclofenac No 1{appli BID Diclofenac Sodium 1 % Sodium 1 % cation} Sodium 1 % Famotidine Famotidine No 1{table BID Famotidine 20 MG 20 MG t} 20 MG Ferrous Ferrous No 1{table QD Ferrous Sulfate 325 Sulfate 325 t} Sulfate (65 Fe) mg (65 Fe) mg 325 (65 Fe) mg Pioglitazon Pioglitazon No 1{table QD Pioglitazo e HCl 30 MG e HCl 30 MG t} ne HCl 30 MG Lisinopril- Lisinopril- No Lisinopril hydroCHLORO hydroCHLORO -hydroCHLO thiazide thiazide ROthiazide 20-12.5 MG 20-12.5 MG 20-12.5 MG Lisinopril Lisinopril No 1{table Lisinopril 20 MG 20 MG t} 20 MG Rosuvastati Rosuvastati No Rosuvastat n Calcium n Calcium in Calcium 40 MG 40 MG 40 MG Metoprolol Metoprolol No 1{table BID Metoprolol Tartrate Tartrate t_with_ Tartrate 100 MG 100 MG food} 100 MG Crestor 40 Crestor 40 No 1{table QD Crestor 40 MG MG t} MG Ferrous Ferrous No 1{table QD Ferrous Sulfate 325 Sulfate 325 t} Sulfate (65 Fe) mg (65 Fe) mg 325 (65 Fe) mg glipiZIDE glipiZIDE No 1{table QD glipiZIDE ER 10 MG ER 10 MG t_with_ ER [address]} Januvia 100 Januvia 100 No Januvia MG MG 100 MG Fluocinolon Fluocinolon No BID Fluocinolo e Acetonide e Acetonide ne 0.01 % 0.01 % Acetonide 0.01 % amLODIPine amLODIPine No 1{table QD amLODIPine Besylate 5 Besylate 5 t} Besylate 5 MG MG MG Potassium Potassium No 1{capsu Potassium Chloride 20 Chloride 20 le} Chloride MEQ MEQ 20 MEQ Zestoretic Zestoretic No 1{table QD Zestoretic 20-12.5 MG 20-12.5 MG t} 20-12.5 MG Famotidine Famotidine No 1{table BID Famotidine 20 MG 20 MG t_as_ne 20 MG eded} Januvia Januvia Yes Behzad 1 tablet Co mmon [facility] Pioglitazon Pioglitazon Yes Behzad 1 tablet Common e HCl e HCl [facility] Zestoretic Zestoretic Yes Behzad 1 tablet Common [facility] GlipiZIDE GlipiZIDE Yes Behzad 1 tablet Common ER ER [place] with [facility] breakfast [facility] Lisinopril Lisinopril Yes Behzad 1 tablet Common [facility] Claritin Claritin Yes Behzad 1 tablet Common [facility] Cetirizine Cetirizine Yes Behzad 1 tablet Common HCl HCl [facility] Lidex Lidex Yes Behzad not Common [place] defined [facility] Medrol Medrol Yes Behzad as Common [place] directed Spirit with food - [facility] Clobetasol Clobetasol Yes Behzad 1 Common Propionate Propionate [place] applicatio Spirit n to - [facility] affected [facility] Omeprazole Omeprazole Yes Behzad 1 capsule Common [facility] Flonase Flonase Yes Behzad 2 spray in Common [place] each Spirit nostril [facility] Nexium Nexium Yes Behzad 1 capsule Com mon [facility] Creon Creon Yes Behzad 1 capsule Commo n [facility] Klor-Con Klor-Con Yes Behzad 1 tablet Common M[facility] M[facility] Cipro Cipro Yes Behzad 1 tablet Common [facility] Furosemide Furosemide No 1{table Furosemide 40 MG 40 MG t} 40 MG Diclofenac Diclofenac No 1{appli BID Diclofenac Sodium 1 % Sodium 1 % cation} Sodium 1 % Famotidine Famotidine No 1{table BID Famotidine 20 MG 20 MG t} 20 MG Ferrous Ferrous No 1{table QD Ferrous Sulfate 325 Sulfate 325 t} Sulfate (65 Fe) mg (65 Fe) mg 325 (65 Fe) mg Pioglitazon Pioglitazon No 1{table QD Pioglitazo e HCl 30 MG e HCl 30 MG t} ne HCl 30 MG Lisinopril- Lisinopril- No Lisinopril hydroCHLORO hydroCHLORO -hydroCHLO thiazide thiazide ROthiazide 20-12.5 MG 20-12.5 MG 20-12.5 MG Lisinopril Lisinopril No 1{table Lisinopril 20 MG 20 MG t} 20 MG Rosuvastati Rosuvastati No Rosuvastat n Calcium n Calcium in Calcium 40 MG 40 MG 40 MG Metoprolol Metoprolol No 1{table BID Metoprolol Tartrate Tartrate t_with_ Tartrate 100 MG 100 MG food} 100 MG Crestor 40 Crestor 40 No 1{table QD Crestor 40 MG MG t} MG Ferrous Ferrous No 1{table QD Ferrous Sulfate 325 Sulfate 325 t} Sulfate (65 Fe) mg (65 Fe) mg 325 (65 Fe) mg glipiZIDE glipiZIDE No 1{table QD glipiZIDE ER 10 MG ER 10 MG t_with_ ER [address]} Januvia 100 Januvia 100 No Januvia MG MG 100 MG Fluocinolon Fluocinolon No BID Fluocinolo e Acetonide e Acetonide ne 0.01 % 0.01 % Acetonide 0.01 % amLODIPine amLODIPine No 1{table QD amLODIPine Besylate 5 Besylate 5 t} Besylate 5 MG MG MG Potassium Potassium No 1{capsu Potassium Chloride 20 Chloride 20 le} Chloride MEQ MEQ 20 MEQ Zestoretic Zestoretic No 1{table QD Zestoretic 20-12.5 MG 20-12.5 MG t} 20-12.5 MG Famotidine Famotidine No 1{table BID Famotidine 20 MG 20 MG t_as_ne 20 MG eded} Furosemide Furosemide No 1{table Furosemide 40 MG 40 MG t} 40 MG Diclofenac Diclofenac No 1{appli BID Diclofenac Sodium 1 % Sodium 1 % cation} Sodium 1 % Famotidine Famotidine No 1{table BID Famotidine 20 MG 20 MG t_as_ne 20 MG eded} Pioglitazon Pioglitazon No 1{table QD Pioglitazo e HCl 30 MG e HCl 30 MG t} ne HCl 30 MG Potassium Potassium No 1{capsu Potassium Chloride 20 Chloride 20 le} Chloride MEQ MEQ 20 MEQ Ferrous Ferrous No 1{table QD Ferrous Sulfate 325 Sulfate 325 t} Sulfate (65 Fe) mg (65 Fe) mg 325 (65 Fe) mg Fluocinolon Fluocinolon No BID Fluocinolo e Acetonide e Acetonide ne 0.01 % 0.01 % Acetonide 0.01 % Diclofenac Diclofenac No 1{appli BID Diclofenac Sodium 1 % Sodium 1 % cation} Sodium 1 % Furosemide Furosemide No 1{table Furosemide 40 MG 40 MG t} 40 MG Rosuvastati Rosuvastati No 1{table QD Rosuvastat n Calcium n Calcium t} in Calcium 40 MG 40 MG 40 MG Januvia 100 Januvia 100 No 1{table QD Januvia MG MG t} 100 MG Metoprolol Metoprolol No 1{table BID Metoprolol Tartrate Tartrate t_with_ Tartrate 100 MG 100 MG food} 100 MG Lisinopril- Lisinopril- No 1{table QD Lisinopril hydroCHLORO hydroCHLORO t} -hydroCHLO thiazide thiazide ROthiazide 20-12.5 MG 20-12.5 MG 20-12.5 MG Famotidine Famotidine No 1{table BID Famotidine 20 MG 20 MG t_as_ne 20 MG eded} glipiZIDE glipiZIDE No 1{table QD glipiZIDE ER 10 MG ER 10 MG t_with_ ER [address]} Ferrous Ferrous No 1{table QD Ferrous Sulfate 325 Sulfate 325 t} Sulfate (65 Fe) mg (65 Fe) mg 325 (65 Fe) mg amLODIPine amLODIPine No 1{table QD amLODIPine Besylate 5 Besylate 5 t} Besylate 5 MG MG MG Claritin 10 Claritin 10 No 1{table QD Claritin MG MG t} 10 MG Potassium Potassium No 1{capsu Potassium Chloride 20 Chloride 20 le} Chloride MEQ MEQ 20 MEQ Famotidine Famotidine No 1{table BID Famotidine 20 MG 20 MG t_as_ne 20 MG eded} Cetirizine Cetirizine No 1{table QD Cetirizine HCl 10 MG HCl 10 MG t} HCl 10 MG Lisinopril- Lisinopril- No 1{table QD Lisinopril hydroCHLORO hydroCHLORO t} -hydroCHLO thiazide thiazide ROthiazide 20-12.5 MG 20-12.5 MG 20-12.5 MG Furosemide Furosemide No 1{table Furosemide 40 MG 40 MG t} 40 MG Januvia 100 Januvia 100 No 1{table QD Januvia MG MG t} 100 MG Rosuvastati Rosuvastati No 1{table QD Rosuvastat n Calcium n Calcium t} in Calcium 40 MG 40 MG 40 MG Ferrous Ferrous No 1{table QD Ferrous Sulfate 325 Sulfate 325 t} Sulfate (65 Fe) mg (65 Fe) mg 325 (65 Fe) mg Pioglitazon Pioglitazon No 1{table QD Pioglitazo e HCl 30 MG e HCl 30 MG t} ne HCl 30 MG glipiZIDE glipiZIDE No 1{table QD glipiZIDE ER 10 MG ER 10 MG t_with_ ER [address]} Diclofenac Diclofenac No 1{appli BID Diclofenac Sodium 1 % Sodium 1 % cation} Sodium 1 % Clobetasol Clobetasol No 1{appli BID Clobetasol Propionate Propionate cation_ Propionate 0.05 % 0.05 % to_affe 0.05 % cted_ar ea} Ferrous Ferrous No 1{table QD Ferrous Sulfate 325 Sulfate 325 t} Sulfate (65 Fe) mg (65 Fe) mg 325 (65 Fe) mg Famotidine Famotidine No 1{table BID Famotidine 20 MG 20 MG t_as_ne 20 MG eded} amLODIPine amLODIPine No 1{table QD amLODIPine Besylate 5 Besylate 5 t} Besylate 5 MG MG MG Fluocinolon Fluocinolon No BID Fluocinolo e Acetonide e Acetonide ne 0.01 % 0.01 % Acetonide 0.01 % Metoprolol Metoprolol No 1{table BID Metoprolol Tartrate Tartrate t_with_ Tartrate 100 MG 100 MG food} 100 MG Zestoretic Zestoretic No 1{table Zestoretic 20-25 MG 20-25 MG t} 20-25 MG Potassium Potassium No 1{capsu Potassium Chloride 20 Chloride 20 le} Chloride MEQ MEQ 20 MEQ Famotidine Famotidine No 1{table BID Famotidine 20 MG 20 MG t_as_ne 20 MG eded} Furosemide Furosemide No 1{table Furosemide 40 MG 40 MG t} 40 MG Lisinopril- Lisinopril- No 1{table QD Lisinopril hydroCHLORO hydroCHLORO t} -hydroCHLO thiazide thiazide ROthiazide 20-12.5 MG 20-12.5 MG 20-12.5 MG Januvia 100 Januvia 100 No 1{table QD Januvia MG MG t} 100 MG Rosuvastati Rosuvastati No 1{table QD Rosuvastat n Calcium n Calcium t} in Calcium 40 MG 40 MG 40 MG Ferrous Ferrous No 1{table QD Ferrous Sulfate 325 Sulfate 325 t} Sulfate (65 Fe) mg (65 Fe) mg 325 (65 Fe) mg Pioglitazon Pioglitazon No 1{table QD Pioglitazo e HCl 30 MG e HCl 30 MG t} ne HCl 30 MG glipiZIDE glipiZIDE No 1{table QD glipiZIDE ER 10 MG ER 10 MG t_with_ ER [address]} Flonase 50 Flonase 50 No 2{spray QD Flonase 50 MCG/ACT MCG/ACT _in_eac MCG/ACT h_nostr il} Diclofenac Diclofenac No 1{appli BID Diclofenac Sodium 1 % Sodium 1 % cation} Sodium 1 % Ferrous Ferrous No 1{table QD Ferrous Sulfate 325 Sulfate 325 t} Sulfate (65 Fe) mg (65 Fe) mg 325 (65 Fe) mg Famotidine Famotidine No 1{table BID Famotidine 20 MG 20 MG t_as_ne 20 MG eded} amLODIPine amLODIPine No 1{table QD amLODIPine Besylate 5 Besylate 5 t} Besylate 5 MG MG MG Fluocinolon Fluocinolon No BID Fluocinolo e Acetonide e Acetonide ne 0.01 % 0.01 % Acetonide 0.01 % Metoprolol Metoprolol No 1{table BID Metoprolol Tartrate Tartrate t_with_ Tartrate 100 MG 100 MG food} 100 MG Omeprazole Omeprazole No 1{capsu QD Omeprazole 40 MG 40 MG le} 40 MG Metoprolol Metoprolol No 1{table BID Metoprolol Tartrate Tartrate t_with_ Tartrate 100 MG 100 MG food} 100 MG amLODIPine amLODIPine No 1{table QD amLODIPine Besylate 5 Besylate 5 t} Besylate 5 MG MG MG Famotidine Famotidine No 1{table BID Famotidine 20 MG 20 MG t} 20 MG Crestor 40 Crestor 40 No 1{table QD Crestor 40 MG MG t} MG Fluocinolon Fluocinolon No BID Fluocinolo e Acetonide e Acetonide ne 0.01 % 0.01 % Acetonide 0.01 % Jardiance Jardiance No 1{table QD Jardiance 25 MG 25 MG t} 25 MG Lisinopril Lisinopril No 1{table Lisinopril 20 MG 20 MG t} 20 MG Potassium Potassium No 1{capsu Potassium Chloride 20 Chloride 20 le} Chloride MEQ MEQ 20 MEQ Metoprolol Metoprolol No 1{table BID Metoprolol Tartrate Tartrate t_with_ Tartrate 100 MG 100 MG food} 100 MG Lisinopril Lisinopril No 1{table Lisinopril 20 MG 20 MG t} 20 MG Lisinopril- Lisinopril- No 1{table QD Lisinopril hydroCHLORO hydroCHLORO t} -hydroCHLO thiazide thiazide ROthiazide 20-12.5 MG 20-12.5 MG 20-12.5 MG Furosemide Furosemide No 1{table Furosemide 40 MG 40 MG t} 40 MG Januvia 100 Januvia 100 No Januvia MG MG 100 MG Ferrous Ferrous No 1{table QD Ferrous Sulfate 325 Sulfate 325 t} Sulfate (65 Fe) mg (65 Fe) mg 325 (65 Fe) mg Pioglitazon Pioglitazon No 1{table QD Pioglitazo e HCl 30 MG e HCl 30 MG t} ne HCl 30 MG Diclofenac Diclofenac No 1{appli BID Diclofenac Sodium 1 % Sodium 1 % cation} Sodium 1 % Zestoretic Zestoretic No 1{table QD Zestoretic 20-12.5 MG 20-12.5 MG t} 20-12.5 MG Potassium Potassium No 1{capsu Potassium Chloride 20 Chloride 20 le} Chloride MEQ MEQ 20 MEQ glipiZIDE glipiZIDE No 1{table QD glipiZIDE ER 10 MG ER 10 MG t_with_ ER [address]} Rosuvastati Rosuvastati No 1{table QD Rosuvastat n Calcium n Calcium t} in Calcium 40 MG 40 MG 40 MG Rosuvastati Rosuvastati No Rosuvastat n Calcium n Calcium in Calcium Klor-Con Klor-Con No Klor-Con M20 20 MEQ M20 20 MEQ M20 20 MEQ Fluocinolon Fluocinolon No BID Fluocinolo e Acetonide e Acetonide ne 0.01 % 0.01 % Acetonide 0.01 % amLODIPine amLODIPine No 1{table QD amLODIPine Besylate 5 Besylate 5 t} Besylate 5 MG MG MG Furosemide Furosemide No 1{table Furosemide 40 MG 40 MG t} 40 MG Furosemide Furosemide No 1{table Furosemide 40 MG 40 MG t} 40 MG Lisinopril Lisinopril No Lisinopril 20 MG 20 MG 20 MG Januvia 100 Januvia 100 No Januvia MG MG 100 MG Metoprolol Metoprolol No 1{table BID Metoprolol Tartrate Tartrate t_with_ Tartrate 100 MG 100 MG food} 100 MG Jardiance Jardiance No 1{table QD Jardiance 25 MG 25 MG t} 25 MG Potassium Potassium No 1{capsu Potassium Chloride 20 Chloride 20 le} Chloride MEQ MEQ 20 MEQ Diclofenac Diclofenac No 1{appli BID Diclofenac Sodium 1 % Sodium 1 % cation} Sodium 1 % Lisinopril- Lisinopril- No 1{table QD Lisinopril hydroCHLORO hydroCHLORO t} -hydroCHLO thiazide thiazide ROthiazide 20-12.5 MG 20-12.5 MG 20-12.5 MG glipiZIDE glipiZIDE No 1{table QD glipiZIDE ER 10 MG ER 10 MG t_with_ ER [address]} Rosuvastati Rosuvastati No 1{table QD Rosuvastat n Calcium n Calcium t} in Calcium 40 MG 40 MG 40 MG Crestor 40 Crestor 40 No 1{table QD Crestor 40 MG MG t} MG Crestor 40 Crestor 40 No 1{table QD Crestor 40 MG MG t} MG Ferrous Ferrous No 1{table QD Ferrous Sulfate 325 Sulfate 325 t} Sulfate (65 Fe) mg (65 Fe) mg 325 (65 Fe) mg Zestoretic Zestoretic No 1{table QD Zestoretic 20-12.5 MG 20-12.5 MG t} 20-12.5 MG Pioglitazon Pioglitazon No 1{table QD Pioglitazo e HCl 30 MG e HCl 30 MG t} ne HCl 30 MG Famotidine Famotidine No 1{table BID Famotidine 20 MG 20 MG t} 20 MG Furosemide Furosemide No 1{table BID Furosemide 40 MG 40 MG t} 40 MG Metoprolol Metoprolol No 1{table BID Metoprolol Tartrate 50 Tartrate 50 t_with_ Tartrate MG MG food} 50 MG Azithromyci Azithromyci No QD Azithromyc n 250 MG n 250 MG in 250 MG predniSONE predniSONE No QD predniSONE 20 MG 20 MG 20 MG Fluocinolon Fluocinolon No BID Fluocinolo e Acetonide e Acetonide ne 0.01 % 0.01 % Acetonide 0.01 % Lisinopril- Lisinopril- No 1{table QD Lisinopril hydroCHLORO hydroCHLORO t} -hydroCHLO thiazide thiazide ROthiazide 20-12.5 MG 20-12.5 MG 20-12.5 MG Lisinopril Lisinopril No Lisinopril 20 MG 20 MG 20 MG Pioglitazon Pioglitazon No 1{table QD Pioglitazo e HCl 30 MG e HCl 30 MG t} ne HCl 30 MG Metoprolol Metoprolol No 1{table BID Metoprolol Tartrate Tartrate t_with_ Tartrate 100 MG 100 MG food} 100 MG glipiZIDE glipiZIDE No 1{table QD glipiZIDE ER 10 MG ER 10 MG t_with_ ER [address]} Potassium Potassium No 1{capsu Potassium Chloride 20 Chloride 20 le} Chloride MEQ MEQ 20 MEQ Ferrous Ferrous No 1{table QD Ferrous Sulfate 325 Sulfate 325 t} Sulfate (65 Fe) mg (65 Fe) mg 325 (65 Fe) mg Diclofenac Diclofenac No 1{appli BID Diclofenac Sodium 1 % Sodium 1 % cation} Sodium 1 % Crestor 40 Crestor 40 No 1{table QD Crestor 40 MG MG t} MG Famotidine Famotidine No 1{table BID Famotidine 20 MG 20 MG t} 20 MG Furosemide Furosemide No 1{table Furosemide 40 MG 40 MG t} 40 MG amLODIPine amLODIPine No 1{table QD amLODIPine Besylate 5 Besylate 5 t} Besylate 5 MG MG MG Zestoretic Zestoretic No 1{table QD Zestoretic 20-12.5 MG 20-12.5 MG t} 20-12.5 MG Januvia 100 Januvia 100 No 1{table QD Januvia MG MG t} 100 MG Rosuvastati Rosuvastati No 1{table QD Rosuvastat n Calcium n Calcium t} in Calcium 40 MG 40 MG 40 MG amLODIPine amLODIPine No 1{table QD amLODIPine Besylate 5 Besylate 5 t} Besylate 5 MG MG MG Cipro 500 Cipro 500 No 1{table BID Cipro 500 MG MG t} MG Meloxicam Meloxicam No 1{table QD Meloxicam 7.5 MG 7.5 MG t} 7.5 MG Fluocinolon Fluocinolon No BID Fluocinolo e Acetonide e Acetonide ne 0.01 % 0.01 % Acetonide 0.01 % Lisinopril- Lisinopril- No 1{table QD Lisinopril hydroCHLORO hydroCHLORO t} -hydroCHLO thiazide thiazide ROthiazide 20-12.5 MG 20-12.5 MG 20-12.5 MG Lisinopril Lisinopril No Lisinopril 20 MG 20 MG 20 MG Jardiance Jardiance 2022- No 1{table QD Jardiance 25 MG 25 MG 0410 t} 25 MG 00:00 :00 Jardiance Jardiance 2022- No 1{table QD Jardiance 25 MG 25 MG 10 t} 25 MG 00:00 :00 Farxiga Farleslyega 2019- No Behzad 1 tablet C ommon 04-19 [facility] 00:00 - : [facility] Immunizations Ordered Immunization Filled Immunization Date Status Commen ts Source Name Name FLUZONE HIGH DOSE FLUZONE HIGH DOSE 2022-08-25 Completed [facility] OVER 65 OVER 65 16:25:00 [facility] FLUZONE HIGH DOSE FLUZONE HIGH DOSE 2022-08-25 Completed [facility] OVER 65 OVER 65 16:25:00 [facility] FLUZONE HIGH DOSE FLUZONE HIGH DOSE 2022-08-25 Completed [facility] OVER 65 OVER 65 16:25:00 [facility] FLUZONE HIGH DOSE FLUZONE HIGH DOSE 2022-08-25 Completed [facility] OVER 65 OVER 65 16:25:00 [facility] Bupivicaine Magnolia Bupivicaine Magnolia 2021-05-01 Completed [facility] 11:07:00 [facility] Kenalog Kenalog 2021-05-01 Completed [facility] (Triamcinolone) (Triamcinolone) 11:07:00 [facility] Bupivicaine Magnolia Bupivicaine Magnolia 2021-05-01 Completed [facility] 11:07:00 [facility] Kenalog Kenalog 2021-05-01 Completed [facility] (Triamcinolone) (Triamcinolone) 11:07:00 [facility] Bupivicaine Magnolia Bupivicaine Magnolia 2021-05-01 Completed [facility] 11:07:00 [facility] Kenalog Kenalog 2021-05-01 Completed [facility] (Triamcinolone) (Triamcinolone) 11:07:00 [facility] Bupivicaine Magnolia Bupivicaine Magnolia 2021-05-01 Completed [facility] 11:07:00 - [facility] Kenalog Kenalog 2021-05-01 Completed [facility] (Triamcinolone) (Triamcinolone) 11:07:00 - [facility] Bupivicaine Magnolia Bupivicaine Magnolia 2021-05-01 Completed [facility] 11:07:00 - [facility] Kenalog Kenalog 2021-05-01 Completed [facility] (Triamcinolone) (Triamcinolone) 11:07:00 - [facility] Moderna COVID-19 Moderna COVID-19 2021-01-25 [facility] Vaccine Vaccine 12:30:00 - [facility] Moderna COVID-19 Moderna COVID-19 2021-01-25 Completed [facility] Vaccine Vaccine 12:30:00 - [facility] Moderna COVID-19 Moderna COVID-19 2021-01-25 Completed [facility] Vaccine Vaccine 12:30:00 - [facility] Moderna COVID-19 Moderna COVID-19 2021-01-25 Completed [facility] Vaccine Vaccine 12:30:00 - [facility] Moderna COVID-19 Moderna COVID-19 2021-01-25 Completed [facility] Vaccine Vaccine 12:30:00 - [facility] Moderna COVID-19 Moderna COVID-19 2021-01-25 Completed [facility] Vaccine Vaccine 12:30:00 - [facility] Moderna COVID-19 Moderna COVID-19 2021-01-25 Completed [facility] Vaccine Vaccine 12:30:00 - [facility] Moderna COVID-19 Moderna COVID-19 2021-01-25 Completed [facility] Vaccine Vaccine 12:30:00 - [facility] Moderna COVID-19 Moderna COVID-19 2021-01-25 Completed [facility] Vaccine Vaccine 12:30:00 - [facility] Moderna COVID-19 Moderna COVID-19 2021-01-25 Completed [facility] Vaccine Vaccine 12:30:00 - [facility] Moderna COVID-19 Moderna COVID-19 2021-01-25 Completed [facility] Vaccine Vaccine 12:30:00 - [facility] Moderna COVID-19 Moderna COVID-19 2021-01-25 Completed [facility] Vaccine Vaccine 12:30:00 - [facility] Moderna COVID-19 Moderna COVID-19 2021-01-25 Completed [facility] Vaccine Vaccine 12:30:00 - [facility] Moderna COVID-19 Moderna COVID-19 2021-01-25 Completed [facility] Vaccine Vaccine 12:30:00 - [facility] Moderna COVID-19 Moderna COVID-19 2021-01-25 Completed [facility] Vaccine Vaccine 12:30:00 - [facility] Moderna COVID-19 Moderna COVID-19 2021-01-25 Completed [facility] Vaccine Vaccine 12:30:00 - [facility] Moderna COVID-19 Moderna COVID-19 2021-01-25 Completed [facility] Vaccine Vaccine 12:30:00 - [facility] Moderna COVID-19 Moderna COVID-19 2021-01-25 Completed [facility] Vaccine Vaccine 12:30:00 - [facility] Moderna COVID-19 Moderna COVID-19 2021-01-25 Completed [facility] Vaccine Vaccine 12:30:00 - [facility] Moderna COVID-19 Moderna COVID-19 2021-01-25 Completed [facility] Vaccine Vaccine 12:30:00 - [facility] Moderna COVID-19 Moderna COVID-19 2021-01-25 Completed [facility] Vaccine Vaccine 12:30:00 - [facility] Moderna COVID-19 Moderna COVID-19 2021-01-25 Completed [facility] Vaccine Vaccine 12:30:00 - [facility] Moderna COVID-19 Moderna COVID-19 2021-01-25 Completed [facility] Vaccine Vaccine 12:30:00 - [facility] Moderna COVID-19 Moderna COVID-19 2021-01-25 Completed [facility] Vaccine Vaccine 12:30:00 - [facility] Moderna COVID-19 Moderna COVID-19 2021-01-25 Completed [facility] Vaccine Vaccine 12:30:00 - [facility] Moderna COVID-19 Moderna COVID-19 2021-01-25 Completed [facility] Vaccine Vaccine 12:30:00 - [facility] Moderna COVID-19 Moderna COVID-19 2021-01-25 Completed [facility] Vaccine Vaccine 12:30:00 - [facility] Moderna COVID-19 Moderna COVID-19 2021-01-25 Completed [facility] Vaccine Vaccine 12:30:00 - [facility] Moderna COVID-19 Moderna COVID-19 2021-01-25 Completed [facility] Vaccine Vaccine 12:30:00 - [facility] Moderna COVID-19 Moderna COVID-19 2020-12-14 Completed [facility] Vaccine Vaccine 12:29:00 - [facility] Moderna COVID-19 Moderna COVID-19 2020-12-14 Completed [facility] Vaccine Vaccine 12:29:00 - [facility] Moderna COVID-19 Moderna COVID-19 2020-12-14 Completed [facility] Vaccine Vaccine 12:29:00 - [facility] Moderna COVID-19 Moderna COVID-19 2020-12-14 Completed [facility] Vaccine Vaccine 12:29:00 [facility] Moderna COVID-19 Moderna COVID-19 2020-12-14 Completed [facility] Vaccine Vaccine 12:29:00 - [facility] Moderna COVID-19 Moderna COVID-19 2020-12-14 Completed [facility] Vaccine Vaccine 12:29:00 - [facility] Moderna COVID-19 Moderna COVID-19 2020-12-14 Completed [facility] Vaccine Vaccine 12:29:00 [facility] Moderna COVID-19 Moderna COVID-19 2020-12-14 Completed [facility] Vaccine Vaccine 12:29:00 - [facility] Moderna COVID-19 Moderna COVID-19 2020-12-14 Completed [facility] Vaccine Vaccine 12:29:00 - [facility] Moderna COVID-19 Moderna COVID-19 2020-12-14 Completed [facility] Vaccine Vaccine 12:29:00 - [facility] Moderna COVID-19 Moderna COVID-19 2020-12-14 Completed [facility] Vaccine Vaccine 12:29:00 - [facility] Moderna COVID-19 Moderna COVID-19 2020-12-14 Completed [facility] Vaccine Vaccine 12:29:00 - [facility] Moderna COVID-19 Moderna COVID-19 2020-12-14 Completed [facility] Vaccine Vaccine 12:29:00 - [facility] Moderna COVID-19 Moderna COVID-19 2020-12-14 Completed [facility] Vaccine Vaccine 12:29:00 - [facility] Moderna COVID-19 Moderna COVID-19 2020-12-14 Completed [facility] Vaccine Vaccine 12:29:00 - [facility] Moderna COVID-19 Moderna COVID-19 2020-12-14 Completed [facility] Vaccine Vaccine 12:29:00 - [facility] Moderna COVID-19 Moderna COVID-19 2020-12-14 Completed [facility] Vaccine Vaccine 12:29:00 - [facility] Moderna COVID-19 Moderna COVID-19 2020-12-14 Completed [facility] Vaccine Vaccine 12:29:00 - [facility] Moderna COVID-19 Moderna COVID-19 2020-12-14 Completed [facility] Vaccine Vaccine 12:29:00 - [facility] Moderna COVID-19 Moderna COVID-19 2020-12-14 Completed [facility] Vaccine Vaccine 12:29:00 - [facility] Moderna COVID-19 Moderna COVID-19 2020-12-14 Completed [facility] Vaccine Vaccine 12:29:00 - [facility] Moderna COVID-19 Moderna COVID-19 2020-12-14 Completed [facility] Vaccine Vaccine 12:29:00 - [facility] Moderna COVID-19 Moderna COVID-19 2020-12-14 Completed [facility] Vaccine Vaccine 12:29:00 - [facility] Moderna COVID-19 Moderna COVID-19 2020-12-14 Completed [facility] Vaccine Vaccine 12:29:00 - [facility] Moderna COVID-19 Moderna COVID-19 2020-12-14 Completed [facility] Vaccine Vaccine 12:29:00 - [facility] Moderna COVID-19 Moderna COVID-19 2020-12-14 Completed [facility] Vaccine Vaccine 12:29:00 - [facility] Moderna COVID-19 Moderna COVID-19 2020-12-14 Completed [facility] Vaccine Vaccine 12:29:00 - [facility] Moderna COVID-19 Moderna COVID-19 2020-12-14 Completed [facility] Vaccine Vaccine 12:29:00 - [facility] Moderna COVID-19 Moderna COVID-19 2020-12-14 Completed [facility] Vaccine Vaccine 12:29:00 - [facility] FluAD FluAD 2020-07-04 Completed [facility] 09:08:00 - [facility] FluAD FluAD 2020-07-04 Completed [facility] 09:08:00 - [facility] FluAD FluAD 2020-07-04 Completed [facility] 09:08:00 - [facility] FluAD FluAD 2020-07-04 Completed [facility] 09:08:00 - [facility] FluAD FluAD 2020-07-04 Completed [facility] 09:08:00 - [facility] FluAD FluAD 2020-07-04 Completed [facility] 09:08:00 - [facility] FluAD FluAD 2020-07-04 Completed [facility] 09:08:00 - [facility] FluAD FluAD 2020-07-04 Completed [facility] 09:08:00 - [facility] FluAD FluAD 2020-07-04 Completed [facility] 09:08:00 - [facility] FluAD FluAD 2020-07-04 Completed [facility] 09:08:00 - [facility] FluAD FluAD 2020-07-04 Completed [facility] 09:08:00 - [facility] FluAD FluAD 2020-07-04 Completed [facility] 09:08:00 - [facility] FluAD FluAD 2020-07-04 Completed [facility] 09:08:00 - [facility] FluAD FluAD 2020-07-04 Completed [facility] 09:08:00 - [facility] FluAD FluAD 2020-07-04 Completed [facility] 09:08:00 - [facility] FluAD FluAD 2020-07-04 Completed [facility] 09:08:00 - [facility] FluAD FluAD 2020-07-04 Completed [facility] 09:08:00 - [facility] FluAD FluAD 2020-07-04 Completed [facility] 09:08:00 - [facility] FluAD FluAD 2020-07-04 Completed [facility] 09:08:00 - [facility] FluAD FluAD 2020-07-04 Completed [facility] 09:08:00 - [facility] FluAD FluAD 2020-07-04 Completed [facility] 09:08:00 - [facility] FluAD FluAD 2020-07-04 Completed [facility] 09:08:00 - [facility] FluAD FluAD 2020-07-04 Completed [facility] 09:08:00 - [facility] FluAD FluAD 2020-07-04 Completed [facility] 09:08:00 - [facility] FluAD FluAD 2020-07-04 Completed [facility] 09:08:00 - [facility] FluAD FluAD 2020-07-04 Completed [facility] 09:08:00 - [facility] FluAD FluAD 2020-07-04 Completed [facility] 09:08:00 - [facility] FluAD FluAD 2020-07-04 Completed [facility] 09:08:00 - [facility] FluAD FluAD 2020-07-04 Completed [facility] 09:08:00 - [facility] FluAD FluAD 2020-07-04 Completed [facility] 09:08:00 - [facility] FluAD FluAD 2020-07-04 Completed [facility] 09:08:00 - [facility] Hyalgan 20 mg Hyalgan 20 mg 2020-05-16 Completed [facility] 09:02:[facility] - [facility] Hyalgan 20 mg Hyalgan 20 mg 2020-05-16 [facility] 09:02:00 - [facility] Hyalgan 20 mg Hyalgan 20 mg 2020-05-16 Completed [facility] 09:02:00 - [facility] Hyalgan 20 mg Hyalgan 20 mg 2020-05-16 Completed [facility] 09:02:00 - [facility] Hyalgan 20 mg Hyalgan 20 mg 2020-05-16 Completed [facility] 09:02:00 - [facility] Hyalgan 20 mg Hyalgan 20 mg 2020-05-09 Completed [facility] 07:54:00 - [facility] Hyalgan 20 mg Hyalgan 20 mg 2020-05-09 Completed [facility] 07:54:00 - [facility] Hyalgan 20 mg Hyalgan 20 mg 2020-05-09 Completed [facility] 07:54:00 - [facility] Hyalgan 20 mg Hyalgan 20 mg 2020-05-09 Completed [facility] 07:54:00 - [facility] Hyalgan 20 mg Hyalgan 20 mg 2020-05-09 Completed [facility] 07:54:00 - [facility] Hyalgan 20 mg Hyalgan 20 mg 2020-05-01 Completed [facility] 11:21:00 [facility] Hyalgan 20 mg Hyalgan 20 mg 2020-05-01 Completed [facility] 11:21:00 - [facility] Hyalgan 20 mg Hyalgan 20 mg 2020-05-01 Completed [facility] 11:21:00 - [facility] Hyalgan 20 mg Hyalgan 20 mg 2020-05-01 Com[facility] 11:21:00 - [facility] Hyalgan 20 mg Hyalgan 20 mg 2020-05-01 [facility] 11:21:00 [facility] Bupivicaine Magnolia Bupivicaine Magnolia 2020-02-07 Completed [facility] 10:18:00 - [facility] Kenalog Kenalog 2020-02-07 Completed [facility] (Triamcinolone) (Triamcinolone) 10:18:00 - [facility] Bupivicaine Magn[place] Bupivicaine Magnolia 2020-02-07 Completed [facility] 10:18:00 - [facility] Kenalog Kenalog 2020-02-07 Completed [facility] (Triamcinolone) (Triamcinolone) 10:18:00 - [facility] Bupivicaine Magn[place] Bupivicaine Magn[place] 2020-02-07 Completed [facility] 10:18:00 - [facility] Kenalog Kenalog 2020-02-07 Completed [facility] (Triamcinolone) (Triamcinolone) 10:18:00 - [facility] Bupivicaine Magn[place] Bupivicaine Magnolia 2020-02-07 Completed [facility] 10:18:00 - [facility] Kenalog Kenalog 2020-02-07 Completed [facility] (Triamcinolone) (Triamcinolone) 10:18:00 - [facility] Bupivicaine Magn[place] Bupivicaine Magn[place] 2020-02-07 Completed [facility] 10:18:00 - [facility] Kenalog Kenalog 2020-02-07 Completed [facility] (Triamcinolone) (Triamcinolone) 10:18:00 - [facility] FluAD FluAD 2019-08-18 Completed [facility] 12:41:00 - [facility] FluAD FluAD 2019-08-18 Completed [facility] 12:41:00 - [facility] FluAD FluAD 2019-08-18 Completed [facility] 12:41:00 - [facility] FluAD FluAD 2019-08-18 Completed [facility] 12:41:00 - [facility] FluAD FluAD 2019-08-18 Completed [facility] 12:41:00 - [facility] FluAD FluAD 2019-08-18 Completed [facility] 12:41:00 - [facility] FluAD FluAD 2019-08-18 Completed [facility] 12:41:00 - [facility] FluAD FluAD 2019-08-18 Completed [facility] 12:41:00 - [facility] FluAD FluAD 2019-08-18 Completed [facility] 12:41:00 - [facility] FluAD FluAD 2019-08-18 Completed [facility] 12:41:00 - [facility] FluAD FluAD 2019-08-18 Completed [facility] 12:41:00 - [facility] FluAD FluAD 2019-08-18 Completed [facility] 12:41:00 - [facility] FluAD FluAD 2019-08-18 Completed [facility] 12:41:00 - [facility] FluAD FluAD 2019-08-18 Completed [facility] 12:41:00 - [facility] FluAD FluAD 2019-08-18 Completed [facility] 12:41:00 - [facility] FluAD FluAD 2019-08-18 Completed [facility] 12:41:00 - [facility] FluAD FluAD 2019-08-18 Completed [facility] 12:41:00 - [facility] FluAD FluAD 2019-08-18 Completed [facility] 12:41:00 - [facility] FluAD FluAD 2019-08-18 Completed [facility] 12:41:00 - [facility] FluAD FluAD 2019-08-18 Completed [facility] 12:41:00 - [facility] FluAD FluAD 2019-08-18 Completed [facility] 12:41:00 - [facility] FluAD FluAD 2019-08-18 Completed [facility] 12:41:00 - [facility] FluAD FluAD 2019-08-18 Completed [facility] 12:41:00 - [facility] FluAD FluAD 2019-08-18 Completed [facility] 12:41:00 - [facility] FluAD FluAD 2019-08-18 Completed [facility] 12:41:00 - [facility] FluAD FluAD 2019-08-18 Completed [facility] 12:41:00 - [facility] FluAD FluAD 2019-08-18 Completed [facility] 12:41:00 - [facility] FluAD FluAD 2019-08-18 Completed [facility] 12:41:00 - [facility] FluAD FluAD 2019-08-18 Completed [facility] 12:41:00 - [facility] FluAD FluAD 2019-08-18 Completed [facility] 12:41:00 - [facility] FluAD FluAD 2019-08-18 Completed [facility] 12:41:00 - [facility] FluAD FluAD 2019-08-18 Completed [facility] 00:00:00 - [facility] FluAD FluAD 2018-07-14 Completed [facility] 14:28:00 - [facility] FluAD FluAD 2018-07-14 Completed [facility] 14:28:00 - [facility] FluAD FluAD 2018-07-14 Completed [facility] 14:28:00 - [facility] FluAD FluAD 2018-07-14 Completed [facility] 14:28:00 - [facility] FluAD FluAD 2018-07-14 Completed [facility] 14:28:00 - [facility] FluAD FluAD 2018-07-14 Completed [facility] 14:28:00 - [facility] FluAD FluAD 2018-07-14 Completed [facility] 14:28:00 - [facility] FluAD FluAD 2018-07-14 Completed [facility] 14:28:00 - [facility] FluAD FluAD 2018-07-14 Completed [facility] 14:28:00 - [facility] FluAD FluAD 2018-07-14 Completed [facility] 14:28:00 - [facility] FluAD FluAD 2018-07-14 Completed [facility] 14:28:00 - [facility] FluAD FluAD 2018-07-14 Completed [facility] 14:28:00 - [facility] FluAD FluAD 2018-07-14 Completed [facility] 14:28:00 - [facility] FluAD FluAD 2018-07-14 Completed [facility] 14:28:00 - [facility] FluAD FluAD 2018-07-14 Completed [facility] 14:28:00 - [facility] FluAD FluAD 2018-07-14 Completed [facility] 14::00 - [facility] FluAD FluAD 2018-07-14 Completed [facility] 14:28:00 - [facility] FluAD FluAD 2018-07-14 Completed [facility] 14:28:00 - [facility] FluAD FluAD 2018-07-14 Completed [facility] 14:28:00 - [facility] FluAD FluAD 2018-07-14 Completed [facility] 14:28: - [facility] FluAD FluAD 2018-07-14 Completed [facility] 14:: - [facility] FluAD FluAD 2018-07-14 Completed [facility] 14:28:00 - [facility] FluAD FluAD 2018-07-14 Completed [facility] 14:28:00 - [facility] FluAD FluAD 2018-07-14 Completed [facility] 14:28: - [facility] FluAD FluAD 2018-07-14 Completed [facility] 14:: - [facility] FluAD FluAD 2018-07-14 Completed [facility] 14:: - [facility] FluAD FluAD 2018-07-14 Completed [facility] 14:: - [facility] FluAD FluAD 2018-07-14 Completed [facility] 14:: - [facility] FluAD FluAD 2018-07-14 Completed [facility] 14:: - [facility] FluAD FluAD 2018-07-14 Completed [facility] 14::00 - [facility] FluAD FluAD 2018-07-14 Completed [facility] 14:: [facility] Vital Signs Vital Name Observation Time Observation Value Comments Source height 2022-08-25 15:00:00 63 [in_i] [facility] weight 2022-08-25 15:00:00 254.4 [lb_av] [facility] temperature 2022-08-25 15:00:00 97.3 [degF] [facility] bmi 2022-08-25 15:00:00 45.06 kg/m2 [facility] oximetry 2022-08-25 15:00:00 98 % [facility] respiratory rate 2022-08-25 15:00:00 16 /min Comm on [facility] blood pressure 2022-08-25 15:00:00 138 mm[Hg] [facility] - systolic [facility] blood pressure 2022-08-25 15:00:00 63 mm[Hg] [facility] - diastolic [facility] height 2022-05-14 08:40:00 63 [in_i] [facility] weight 2022-05-14 08:40:00 259.0 [lb_av] [facility] temperature 2022-05-14 08:40:00 98.6 [degF] [facility] bmi 2022-05-14 08:40:00 45.87 kg/m2 [facility] oximetry 2022-05-14 08:40:00 98 % [facility] respiratory rate 2022-05-14 08:40:00 17 /min Comm on [facility] blood pressure 2022-05-14 08:40:00 126 mm[Hg] [facility] - systolic [facility] blood pressure 2022-05-14 08:40:00 84 mm[Hg] [facility] - diastolic [facility] height 2022-05-14 08:00:00 63 [in_i] [facility] weight 2022-05-14 08:00:00 259.0 [lb_av] [facility] temperature 2022-05-14 08:00:00 98.6 [degF] [facility] bmi 2022-05-14 08:00:00 45.87 [facility]-14 08:00:00 98 % [facility] respiratory rate 2022-05-14 08:00:00 17 /min Comm on [facility] blood pressure 2022-05-14 08:00:00 126 mm[Hg] [facility] - systolic [facility] blood pressure 2022-05-14 08:00:00 84 mm[Hg] [facility] - diastolic [facility] height 2022-04-22 09:15:00 63 [in_i] [facility] weight 2022-04-22 09:15:00 259.5 [lb_av] [facility] temperature 2022-04-22 09:15:00 98.2 [degF] [facility] - [facility] bmi 2022-04-22 09:15:00 45.96 kg/m2 [facility] - [facility] blood pressure 2022-04-22 09:15:00 111 mm[Hg] [facility] - systolic [facility] blood pressure 2022-04-22 09:15:00 69 mm[Hg] [facility] - diastolic [facility] height 2022-04-09 14:00:00 63 [in_i] [facility] weight 2022-04-09 14:00:00 264 [lb_av] [facility] - [facility] temperature 2022-04-09 14:00:00 97.6 [degF] [facility] - [facility] bmi 2022-04-09 14:00:00 46.76 kg/m2 [facility] - [facility] blood pressure 2022-04-09 14:00:00 144 mm[Hg] [facility] - systolic [facility] blood pressure 2022-04-09 14:00:00 92 mm[Hg] [facility] - diastolic [facility] height 2022-04-02 09:30:00 63 [in_i] [facility] weight 2022-04-02 09:30:00 264 [lb_av] [facility] - [facility] temperature 2022-04-02 09:30:00 98.5 [degF] [facility] - [facility] bmi 2022-04-02 09:30:00 46.76 kg/m2 [facility] - [facility] blood pressure 2022-04-02 09:30:00 146 mm[Hg] [facility] - systolic [facility] blood pressure 2022-04-02 09:30:00 92 mm[Hg] [facility] - diastolic [facility] height 2022-03-19 09:45:00 63 [in_i] [facility] weight 2022-03-19 09:45:00 264 [lb_av] [facility] - [facility] bmi 2022-03-19 09:45:00 46.76 kg/m2 [facility] - [facility] blood pressure 2022-03-19 09:45:00 148 mm[Hg] [facility] - systolic [facility] blood pressure 2022-03-19 09:45:00 65 mm[Hg] [facility] - diastolic [facility] height 2022-01-09 08:00:00 63 [in_i] [facility] weight 2022-01-09 08:00:00 264.2 [lb_av] [facility] [facility] temperature 2022-01-09 08:00:00 97.6 [degF] [facility] bmi 2022-01-09 08:00:00 46.8 kg/m2 [facility] oximetry 2022-01-09 08:00:00 97 % [facility] respiratory rate 2022-01-09 08:00:00 17 /min Comm on [facility] blood pressure 2022-01-09 08:00:00 130 mm[Hg] [facility] - systolic [facility] blood pressure 2022-01-09 08:00:00 81 mm[Hg] [facility] - diastolic [facility] height 2021-12-08 11:00:00 63 [in_i] Common S [facility] weight 2021-12-08 11:00:00 262 [lb_av] [facility] temperature 2021-12-08 11:00:00 97.9 [degF] Common S pirit [facility] bmi 2021-12-08 11:00:00 46.41 kg/m2 Common S pirit - [facility] blood pressure 2021-12-08 11:00:00 130 mm[Hg] [facility] - systolic [facility] blood pressure 2021-12-08 11:00:00 84 mm[Hg] [facility] - diastolic [facility] height 2021-10-21 15:30:00 63 [in_i] Common S pirit - [facility] weight 2021-10-21 15:30:00 261.8 [lb_av] [facility] - [facility] bmi 2021-10-21 15:30:00 46.37 kg/m2 Common S pirit - [facility] blood pressure 2021-10-21 15:30:00 128 mm[Hg] [facility] - systolic [facility] blood pressure 2021-10-21 15:30:00 76 mm[Hg] [facility] - diastolic [facility] height 2021-09-26 08:00:00 63 [in_i] Common S pirit - [facility] weight 2021-09-26 08:00:00 257 [lb_av] Common S pirit - [facility] temperature 2021-09-26 08:00:00 97.3 [degF] Common S pirit [facility] bmi 2021-09-26 08:00:00 45.52 kg/m2 Common S pirit [facility] oximetry 2021-09-26 08:00:00 100 % Common S pirit - [facility] blood pressure 2021-09-26 08:00:00 130 mm[Hg] [facility] - systolic [facility] blood pressure 2021-09-26 08:00:00 74 mm[Hg] [facility] - diastolic [facility] height 2021-08-25 10:00:00 63 [in_i] Common S pirit [facility] weight 2021-08-25 10:00:00 259 [lb_av] Common S pirit [facility] temperature 2021-08-25 10:00:00 97.5 [degF] Common S pirit - [facility] bmi 2021-08-25 10:00:00 45.87 kg/m2 [facility] S pirit [facility] blood pressure 2021-08-25 10:00:00 152 mm[Hg] [facility] - systolic [facility] blood pressure 2021-08-25 10:00:00 86 mm[Hg] [facility] - diastolic [facility] height 2021-07-24 16:40:00 63 [in_i] [facility] weight 2021-07-24 16:40:00 230 [lb_av] Common S pirit [facility] bmi 2021-07-24 16:40:00 40.74 kg/m2 [facility] height 2021-06-20 08:40:00 63.00 [in_i] [facility] weight 2021-06-20 08:40:00 253 [lb_av] [facility] temperature 2021-06-20 08:40:00 97.2 [degF] [facility] bmi 2021-06-20 08:40:00 44.81 kg/m2 [facility] oximetry 2021-06-20 08:40:00 96 % [facility] respiratory rate 2021-06-20 08:40:00 19 /min Comm on [facility] blood pressure 2021-06-20 08:40:00 138 mm[Hg] [facility] - systolic [facility] blood pressure 2021-06-20 08:40:00 78 mm[Hg] [facility] - diastolic [facility] height 2021-05-26 13:30:00 63.00 [in_i] [facility] weight 2021-05-26 13:30:00 254.5 [lb_av] Common [facility] bmi 2021-05-26 13:30:00 45.08 kg/m2 [facility] S pirit [facility] blood pressure 2021-05-26 13:30:00 156 mm[Hg] [facility] - systolic [facility] blood pressure 2021-05-26 13:30:00 88 mm[Hg] Common [facility] - diastolic [facility] Procedures Procedure Date / Time Performed Performing Clinician Sour e DEXA AXIAL (HIP AND 2022-06-26 16:35:44 Requisition, Paper [facility] SPINE) Medical Branch ASSIGNMENT OF BENEFITS 2022-06-26 16:12:00 Doctor Unassigned, No [facility] Name Medical Branch Encounters Start End Encounter Admission Attending Care Care Encounter Source Date/Time Date/Time Type Type Clinicians Facility Department ID 2022-11-04 Outpatient STLMLC STLMLC [id number] Common 14:33:00 [id number] [facility] 2022-08-25 Outpatient Reardon, Na STLMLC STLMLC [id number] Common 13:55:00 [id number] [facility] 2022-08-24 Outpatient Reardon, Na STLMLC STLMLC [id number] Common 08:43:00 [id number] [facility] 2022-05-12 Outpatient Reardon, Na STLMLC STLMLC [id number] Common 13:59:01 [facility] 2022-03-20 Outpatient Reardon, Na STLMLC STLMLC [id number] Common 10:33:01 [facility] 2022-01-08 Outpatient Reardon, Na STLMLC STLMLC [id number] 2 Common 08:45:01 [id number] [facility] 2021-11-05 Outpatient Reardon, Na STLMLC STLMLC [id number] Common 13:47:55 [id number] [facility] 2021-11-05 Outpatient Reardon, Na STLMLC STLMLC [id number] Common 13:29:10 [id number] [facility] 2021-11-05 Outpatient Reardon, Na STLMLC STLMLC [id number] Common 12:58:10 [id number] [facility] 2021-11-05 Outpatient Reardon, Na STLMLC STLMLC [id number] 2 Common 12:28:35 [id number] [facility] 2021-11-05 Outpatient Reardon, Na STLMLC STLMLC [id number] 2 Common 12:24:11 [id number] [facility] 2021-11-05 Outpatient Reardon, Na STLMLC STLMLC [id number] 2 Common 12:22:44 [id number] [facility] 2021-11-05 Outpatient Reardon, Na STLMLC STLMLC [id number] Common 12:14:03 [id number] [facility] 2021-11-05 Outpatient Reardon, Na STLMLC STLMLC [id number] 2 Common 12:09:40 [id number] [facility] 2021-11-05 Outpatient Reardon, Na STLMLC STLMLC [id number] 2 Common 11:48:05 [id number] [facility] 2021-11-05 Outpatient Reardon, Na STLMLC STLMLC [id number] 2 Common 11:27:38 [id number] [facility] 2021-11-05 Outpatient Reardon, Na STLMLC STLMLC [id number] 2 Common 11:19:45 [id number] [facility] 2021-11-05 Outpatient Reardon, Na STLMLC STLMLC [id number] 2 Common 11:17:25 [id number] [facility] 2019-10-15 Inpatient [facility] [id number] [facility] 03:39:[address] [place] [address] Hospita l 2022-10-29 2022-10-29 (TEL) STLMLC STLMLC [id number] Co mmon 00:00:00 00:00:00 [facility] 2022-10-20 2022-10-20 (TEL) STLMLC STLMLC [id number] Co mmon 00:00:00 00:00:00 [facility] 2022-09-07 2022-09-07 (TEL) STLMLC STLMLC [id number] Co mmon 00:00:00 00:00:00 [facility] 2022-08-25 2022-08-25 OFFICE STLMLC STLMLC [id number] Co mmon 00:00:00 00:00:00 VISIT [facility] LEVEL 4 [facility] 2022-08-03 2022-08-03 (TEL) STLMLC STLMLC [id number] Co mmon 00:00:00 00:00:00 [facility] 2022-07-28 2022-07-28 (TEL) STLMLC STLMLC [id number] Co mmon 00:00:00 00:00:00 [facility] 2022-07-15 2022-07-15 (TEL) STLMLC STLMLC [id number] Co mmon 00:00:00 00:00:00 [facility] 2022-06-26 2022-06-26 Hospital Radiology [facility] [id number] Univers 11:20:00 23:59:00 Encounter [place] [id number] ity of [place] [id number] [facility] [id number] [facility] [address] Branch 2022-06-26 2022-06-26 Outpatient R RADIOLOGY [facility] [id number] Univers 11:15:20 11:19:00 ity of [facility] 2022-06-26 2022-06-26 Hospital Radiology [facility] [id number] Univers 10:50:00 11:19:00 Encounter [place] [id number] ity of [place] [id number] [facility] [id number] [facility] [address] Branch 2022-06-26 2022-06-26 Orders Doctor NADINE [id number] Univers 00:00:00 00:00:00 Only Unassigned, DALI [id number] ity of [place] [facility] [id number] [facility] [id number] [facility] 009 Branch 2022-05-14 2022-05-14 (TEL) STLMLC STLMLC [id number] Co mmon 00:00:00 00:00:00 [facility] 2022-05-14 2022-05-14 OFFICE STLMLC STLMLC [id number] Co mmon 00:00:00 00:00:00 VISIT EST Spir it PT LEVEL 3 - [facility] 2022-05-14 2022-05-14 SUB ANNUAL STLMLC STLMLC [id number] Common 00:00:00 00:00:00 MCR Spirit WELLNESS - CHI VISIT [facility] 2022-04-22 2022-04-22 (IN/ASP) STLMLC STLMLC [id number] C ommon 00:00:00 00:00:00 INJ ASP [facility] - [facility] 2022-04-09 2022-04-09 (IN/ASP) STLMLC STLMLC [id number] C ommon 00:00:00 00:00:00 INJ ASP [facility] - [facility] 2022-04-02 2022-04-02 (IN/ASP) STLMLC STLMLC [id number] C ommon 00:00:00 00:00:00 INJ ASP Spirit [facility] 2022-03-25 2022-03-25 (TEL) STLMLC STLMLC [id number] Co mmon 00:00:00 00:00:00 [facility] 2022-03-19 2022-03-19 (IN/ASP) STLMLC STLMLC [id number] C ommon 00:00:00 00:00:00 INJ ASP Spirit [facility] 2022-02-16 2022-02-16 (TEL) STLMLC STLMLC [id number] Co mmon 00:00:00 00:00:00 [facility] 2022-02-13 2022-02-13 (TEL) STLMLC STLMLC [id number] Co mmon 00:00:00 00:00:00 [facility] 2022-01-16 2022-01-16 (TEL) STLMLC STLMLC [id number] Co mmon 00:00:00 00:00:00 Spirit [facility] 2022-01-09 2022-01-09 OFFICE STLMLC STLMLC [id number] Co mmon 00:00:00 00:00:00 VISIT Spirit ESTAB PT - CHI LEVEL [facility] 2021-12-30 2021-12-30 (TEL) STLMLC STLMLC [id number] Co mmon 00:00:00 00:00:00 Spirit - [facility] 2021-12-08 2021-12-08 OFFICE STLMLC STLMLC [id number] Co mmon 00:00:00 00:00:00 VISIT Spirit ESTAB PT - CHI LEVEL 4 [facility] 2021-11-26 2021-11-26 (TEL) STLMLC STLMLC [id number] Co mmon 00:00:00 00:00:00 Spirit - [facility] 2021-10-22 2021-10-22 (TEL) STLMLC STLMLC [id number] Co mmon 00:00:00 00:00:00 Spirit - [facility] 2021-10-21 2021-10-21 OFFICE STLMLC STLMLC [id number] Co mmon 00:00:00 00:00:00 VISIT Spirit ESTAB PT - CHI LEVEL 4 [facility] 2021-09-26 2021-09-26 OFFICE STLMLC STLMLC [id number] Co mmon 00:00:00 00:00:00 VISIT Spirit ESTAB PT - CHI LEVEL 4 [facility] 2021-08-25 2021-08-25 OFFICE STLMLC STLMLC [id number] Co mmon 00:00:00 00:00:00 VISIT Spirit ESTAB PT - CHI LEVEL 4 [facility] 2021-07-24 2021-07-24 OFFICE STLMLC STLMLC [id number] Co mmon 00:00:00 00:00:00 VISIT EST Spir it PT LEVEL 3 - [facility] 2021-07-23 2021-07-23 (TEL) STLMLC STLMLC [id number] Co mmon 00:00:00 00:00:00 Spirit - [facility] 2021-06-20 2021-06-20 OFFICE STLMLC STLMLC [id number] Co mmon 00:00:00 00:00:00 VISIT Spirit ESTAB PT - CHI LEVEL 4 [facility] 2021-05-26 2021-05-26 OFFICE STLMLC STLMLC [id number] Co mmon 00:00:00 00:00:00 VISIT [facility] LEVEL 4 [facility] 2021-05-19 2021-05-19 (TEL) STLMLC STLMLC [id number] Co mmon 00:00:00 00:00:00 [facility] 2021-05-01 2021-05-01 Outpatient STLMLC STLMLC [id number] Common 00:00:00 00:00:00 [facility] 2021-04-02 2021-04-02 Outpatient STLMLC STLMLC [id number] Common 00:00:00 00:00:00 [facility] 2021-02-18 2021-02-18 Outpatient STLMLC STLMLC [id number] Common 00:00:00 00:00:00 [facility] 2020-12-18 2020-12-18 Outpatient STLMLC STLMLC [id number] Common 00:00:00 00:00:00 [facility] 2020-12-17 2020-12-17 Outpatient STLMLC STLMLC [id number] Common 00:00:00 00:00:00 [facility] 2020-11-21 2020-11-21 Outpatient STLMLC STLMLC [id number] Common 00:00:00 00:00:00 [facility] 2020-11-21 2020-11-21 Outpatient STLMLC STLMLC [id number] Common 00:00:00 00:00:00 [facility] 2020-11-18 2020-11-18 Outpatient STLMLC STLMLC [id number] Common 00:00:00 00:00:00 [facility] 2020-11-18 2020-11-18 Outpatient STLMLC STLMLC [id number] Common 00:00:00 00:00:00 [facility] 2020-11-04 2020-11-04 Outpatient STLMLC STLMLC [id number] Common 00:00:00 00:00:00 [facility] 2020-10-28 2020-10-28 Outpatient STLMLC STLMLC [id number] Common 00:00:00 00:00:00 [facility] 2020-10-07 2020-10-07 Outpatient STLMLC STLMLC [id number] Common 00:00:00 00:00:00 [facility] 2020-10-02 2020-10-02 Outpatient STLMLC STLMLC [id number] Common 00:00:00 00:00:00 [facility] 2020-10-01 2020-10-01 Outpatient STLMLC STLMLC [id number] Common 00:00:00 00:00:00 [facility] 2020-09-29 2020-09-29 Outpatient STLMLC STLMLC [id number] Common 00:00:00 00:00:00 [facility] 2020-09-27 2020-09-27 Outpatient STLMLC STLMLC [id number] Common 00:00:00 00:00:00 [facility] 2020-09-27 2020-09-27 Outpatient STLMLC STLMLC [id number] Common 00:00:00 00:00:00 [facility] 2020-07-04 2020-07-04 Outpatient STLMLC STLMLC [id number] Common 00:00:00 00:00:00 [facility] 2020-05-16 2020-05-16 [facility] [id number] Common 09:00:00 09:00:00 t [facility] - [facility] 2020-05-09 2020-05-09 [facility] [id number] Common 08:00:00 08:00:00 t Bone Bone and Spiri t and Joint Joint - [facility] 2020-05-01 2020-05-01 [facility] [id number] Common 09:00:00 09:00:00 t Bone Bone and Spiri t and Joint Joint - [facility] 2020-04-24 2020-04-24 [facility] [id number] Common 13:12:00 13:12:00 t Bone Bone and Spiri t and Joint Joint - [facility] 2020-04-03 2020-04-03 [facility] [id number] Common 08:20:00 08:20:00 [place] [address] [facility] 2020-04-03 2020-04-03 [facility] [id number] Common 08:00:00 08:00:00 [place] [address] [facility] 2020-03-21 2020-03-21 [facility] [id number] Common 10:00:00 10:00:00 t Bone Bone and Spiri t and Joint Joint - [facility] 2020-02-07 2020-02-07 [facility] [id number] Common 09:30:00 09:30:00 t Bone Bone and Spiri t and Joint Joint - [facility] 2019-11-24 2019-11-24 [facility] [id number] Common 11:09:00 11:09:00 t Bone Bone and Spiri t and Joint Joint - [facility] 2019-11-20 2019-11-20 [facility] [id number] Common 08:20:00 08:20:00 [place] [address] [facility] 2019-11-10 2019-11-10 [facility] [id number] Common 17:00:00 17:00:00 [place] [address] [facility] 2019-11-10 2019-11-10 [facility] [id number] Common 16:57:00 16:57:00 [place] [address] [facility] 2019-10-20 2019-10-20 [facility] [id number] Common 08:20:00 08:20:00 [place] [address] [facility] 2019-10-16 2019-10-16 [facility] [id number] Common 13:30:00 13:30:00 [place] [address] [facility] 2019-08-18 2019-08-18 [facility] [id number] Common 09:40:00 09:40:00 [place] [address] [facility] 2019-06-14 2019-06-14 [facility] [id number] Common 10:52:00 10:52:00 [place] [address] [facility] 2019-04-21 2019-04-21 [facility] [id number] Common 08:40:00 08:40:00 [place] [address] [facility] 2019-02-26 2019-02-26 [facility] [id number] Common 09:21:00 09:21:00 t Urgent Urgent Care S pirit Care [facility] 2019-02-24 2019-02-24 [facility] [id number] Common 09:30:00 09:30:00 t Urgent Urgent Care S [facility] 2019-01-20 2019-01-20 [facility] [id number] Common 08:00:00 08:00:00 [place] [address] [facility] 2018-12-07 2018-12-07 [facility] [id number] Common 08:15:00 08:15:00 [place] [address] [facility] 2018-10-21 2018-10-21 [facility] [id number] Common 08:15:00 08:15:00 [place] [address] [facility] 2018-07-26 2018-07-26 [facility] [id number] Common 17:49:00 17:49:00 [place] [address] [facility] 2018-05-20 2018-05-20 [facility] [id number] Common 08:30:00 08:30:00 [place] [address] [facility] 2018-04-15 2018-04-15 Outpatient Antonio Sanchez [id number] Common 08:30:00 08:30:[address] [employer] [address] [facility] 2017-11-27 2017-11-27 Emergency X KENNY III, [facility] ERT [id number] Univers 15:46:14 16:21:00 GERRY garza [facility] Results Test Description Test Time Test Comments Results Result Comments Source POTASSIUM 2019-10-15 12:26:00 Test Item Value Reference Range Interpretation Comme nts POTASSIUM (test code = K) 3.6 mmol/L 3.5-5.1 COMPREHENSIVE METABOLIC [id number] 06:36:00 Test Item Value Reference Range Interpretation [...] 45-117 N TOTAL (test code = ALKP) [id number] 06:36:00 Test Item Value Reference Range Interpretation Comments LIPASE (test code = LIP) 255 U/L 73-393 N [id number] 06:36:00 Test Item Value Reference Range Interpretation Comments MAGNESIUM (test code = MAG) 1.8 mg/dL 1.8-2.4 N - US ABDOMEN [id number] 04:55:00 FAX: Yohannes Martinez MD [place]: St: REG Name: MICHELLE CAI Linda FS : 1950 Age/S: 69/F [address] Unit #: [id number] Loc: [place] [address] Phys: Yohannes Martinez MD Acct: [id number] Dis Date: Status: REG ER PHONE #: Exam Date: 10/15/2019 8054 FAX #: Reason: epig pain EXAMS: CPT CODE: [id number] ABDOMEN [facility] [address]803 DICTATION LOCATION: 8 HISTORY: Female, 69 years of age with epigastric pain EXAM: ULTRASOUND OF THE RIGHT UPPER QUADRANT COMPARISON: None TECHNIQUE: Real-time grayscale 2-Dimaging, Doppler spectral analysis, and Doppler color flow imaging were performed with the variable megahertz curved array transducer transabdominally. STATEMENT: Exam quality is acceptable. FINDINGS: PANCREAS: Head and body within normal limits. Tail obscured by bowel gas. GALLBLADDER: Gallbladder ismildly distended with small stone in the lumen. No gallbladder wall thickening or pericholecystic fluid. COMMON BILE DUCT: 6.0 mm, upper limits normal caliber. No obvious intraluminal filling defect. LIVER: Normal in [...] caliber. at 0455 Reported and signed by: FAISAL TAVERA M.D. CC: Yohannes Martinez MD Technologist: Sergio Milton RDMS Trnscrd Date/Time/By: 10/15/2019 (0455) : By: RupaliCLW Orig Print D/T: S: 10/15/2019 (0451) PAGE 1 Signed ReportCOMPREHENSIVE METABOLIC [id number] 04:53:00 Test Item Value Reference Range Interpretation [...] 45-117 N TOTAL (test code = ALKP) [id number] 04:53:00 Test Item Value Reference Range Interpretation Comments LIPASE (test code = LIP) 255 U/L 73-393 N URINALYSIS W REFLEX [id number] 04:46:00 Test Item Value Reference Range Interpretation [...] MICRO code = UAMICRO) UA ICTOTEST FOR [id number] 04:46:00 Test Item Value Reference Range Interpretation Comments UA ICTOTEST FOR BILIRUBIN (test code NEGATIVE NEGATIVE = ICTOU) UA [id number] 04:46:00 Test Item Value Reference Range Interpretation [...] 1+ /hpf NEG,FEW A URINALYSIS W REFLEX [id number] 04:42:00 Test Item Value Reference Range Interpretation [...] MICRO code = UAMICRO) UA ICTOTEST FOR [id number] 04:42:00 Test Item Value Reference Range Interpretation Comments UA ICTOTEST FOR BILIRUBIN (test code NEGATIVE NEGATIVE = ICTOU) URINALYSIS W REFLEX [id number] 04:42:00 Test Item Value Reference Range Interpretation [...] MICRO code = UAMICRO) UA ICTOTEST FOR [id number] 04:42:00 Test Item Value Reference Range Interpretation Comments UA ICTOTEST FOR BILIRUBIN (test code NEGATIVE NEGATIVE = ICTOU) CBC W/AUTO [id number] 04:39:00 Test Item Value Reference Range Interpretation [...] (test NO NORMAL code = RBCM) LACTIC [id number] 04:36:00 Test Item Value Reference Range Interpretation Comments LACTIC ACID (test code = LACT) 1.4 mmol/l 0.4-2.0 N
[2022-11-22 23:46] LABS: Absolute Lymphocytes (CBC) 1.5 K/uL (0.7-4.9); Hematocrit 29.5 % (36.0-45.0); Lymphocytes % 14.3 % (15.3-44.8); MCV 93.9 fL (80-100); MPV 8.1 fL (7.6-11.3); RBC Red Blood Cell Count 3.14 M/uL (3.86-4.86)
[2022-11-23 00:11] LABS: ALT/SGPT 16 U/L (13-56); AST/SGOT 19 U/L (15-37); Albumin 3.8 g/dL (3.4-5.0); Alkaline Phosphatase 64 U/L (45-117); BUN Blood Urea Nitrogen 64 mg/dL (7-18); Bicarbonate 23 mmol/L (21-32); Bilirubin Total 0.2 mg/dL (0.2-1.0); Glomerular Filtration Rate 26 ml/min (=/>90); Glucose Level 61 mg/dL (74-106); Magnesium 2.5 mg/dL (1.6-2.4); Potassium 5.1 mmol/L (3.5-5.1); Protein, Total 7.7 g/dL (6.4-8.2); Sodium Level 134 mmol/L (136-145); Troponin High Sensitivity 8.4 pg/mL (<58.9)
[2022-11-23 00:13] LABS: Bilirubin Direct < 0.1 mg/dL (0-0.2)
[2022-11-23 00:23] LABS: SARS-COV-2 RT PCR NEGATIVE (NEGATIVE)
[2022-11-23 02:04] LABS: Urine Blood Trace-intact (Negative); Urine Glucose Trace (Negative); Urine Protein 1+ (Negative); Urine pH 5.5 (5.0-7.0)
--- NOTE | 2022-11-23 02:04 | ER ---
Nurse's Notes [facility] Name: Kelly Cai Age: 72 yrs Sex: Female : 1950 Arrival Date: 11/22/2022 Time: 23:05 Bed 6 Private MD: Diagnosis: Renal insufficiency;Hypoglycemia, unspecified Presentation: 11/22 23:18 Chief complaint: Patient states: C/o fever, dizziness, and H/A since 6 PM. Coronavirus ll3 screen: Vaccine status: Patient reports receiving the 2nd dose of the covid vaccine. fever, headache. Ebola Screen: No symptoms or risks identified at this time. Initial Sepsis Screen: Does the patient meet any 2 criteria? No. Patient's initial sepsis screen is negative. Does the patient have a suspected source of infection? No. Patient's initial sepsis screen is negative. Risk Assessment: Do you want to hurt yourself or someone else? Patient reports no desire to harm self or others. Onset of symptoms was November 22, 2022 at 18:00. Care prior to arrival: Medication(s) given: Tylenol, 1000 mg, AT 8 PM. 23:18 Method Of Arrival: Wheelchair ll3 23:18 Acuity: BALA 3 ll3 Historical: - Allergies: 23:20 Metformin HCl; ll3 23:20 sitagliptin phosphate; ll3 23:20 Sulfa (Sulfonamide Antibiotics); ll3 23:20 sulfamethoxazole-trimethoprim; ll3 23:20 TRIMETHOPRIM; ll3 - Home Meds: 23:20 pioglitazone oral [Active]; Januvia oral [Active]; Glipizide Oral [Active]; Jardiance ll3 oral [Active]; Lisinopril Oral [Active]; Metoprolol Tartrate Oral [Active]; rosuvastatin oral [Active]; lisinopril-hydrochlorothiazide 20-25 mg Oral tab 1 tab once daily for Hypertension [Active]; - PMHx: 23:20 Diabetes - NIDDM; Hyperlipidemia; Hypertension; ll3 - PSHx: 23:20 None; ll3 - Immunization history:: Client reports receiving the 2nd dose of the Covid vaccine. - Social history:: Smoking status: Patient denies any tobacco usage or history of. Screenin/13 02:30 [facility] ED Fall Risk Assessment (Adult) History of falling in the last 3 months, jb4 including since admission No falls in past 3 months (0 pts) Confusion or Disorientation No (0 pts) Score/Fall Risk Level 0 - 2 = Low Risk Oriented to surroundings, Maintained a safe environment. Abuse screen: Denies threats or abuse. Nutritional screening: No deficits noted. Tuberculosis screening: No symptoms or risk factors identified. Assessment: 11/22 23:15 General: Appears in no apparent distress. comfortable, Behavior is calm, cooperative, jb4 appropriate for age. Pain: Complains of pain in headache Pain does not radiate. Pain currently is 8 out of 10 on a pain scale. Neuro: Level of Consciousness is awake, alert, obeys commands, Oriented to person, place, time, situation. Cardiovascular: Patient's skin is warm and dry. Respiratory: Airway is patent Respiratory effort is even, unlabored, Respiratory pattern is regular, symmetrical. GI: No signs and/or symptoms were reported involving the gastrointestinal system. : No signs and/or symptoms were reported regarding the genitourinary system. EENT: No signs and/or symptoms were reported regarding the EENT system. Derm: Skin is intact, Skin is pink, warm \T\ dry. Musculoskeletal: Circulation, motion, and sensation intact. Range of motion: intact in all extremities. 11/23 00:43 Reassessment: Patient appears in no apparent distress at this time. Patient and/or jb4 family updated on plan of care and expected duration. Pain level reassessed. Patient is alert, oriented x 3, equal unlabored respirations, skin warm/dry/pink. 02:00 Reassessment: Patient appears in no apparent distress at this time. Patient and/or jb4 family updated on plan of care and expected duration. Pain level reassessed. Patient is alert, oriented x 3, equal unlabored respirations, skin warm/dry/pink. Vital Signs: 11/22 23:18 BP 136 / 53; Pulse 54; Resp 17; Temp 97.5(O); Pulse Ox 100% on R/A; Weight 120.2 kg ll3 (R); Height 5 ft. 4 in. (162.56 cm) (R); Pain 8/10; 11/23 02:30 BP 127 / 50; Pulse 57; Resp 16; Pulse Ox 100% on R/A; jb4 11/22 23:18 Body Mass Index 45.49 (120.20 kg, 162.56 cm) ll3 ED Course: 11/22 23:05 Patient arrived in ED. ja2 23:05 [facility]ce[facility] F[facility]-C [facility]. snw 23:05 Ang García DO is Attending Physician. snw 23:19 Triage completed. ll3 23:20 Arm band placed on Patient placed in an exam room, on a stretcher, on pulse oximetry. ll3 23:26 Umesh Zapata, RN is Primary Nurse. jb4 23:45 Patient has correct armband on for positive identification. Placed in gown. Bed in low jb4 position. Call light in reach. Side rails up X 1. Client placed on continuous cardiac and pulse oximetry monitoring. NIBP monitoring applied. 23:45 No provider procedures requiring assistance completed. IV discontinued, intact, jb4 bleeding controlled, No redness/swelling at site. Pressure dressing applied. Administered Medications: 11/23 01:47 Drug: D5W 500 ml Route: IV; Rate: 500 ml/hr; Site: right antecubital; jb4 02:47 Follow up: Response: No adverse reaction; IV Status: Completed infusion; IV Intake: jb4 500ml Medication: 02:30 VIS not applicable for this client. jb4 Intake: 02:47 IV: 500ml; Total: 500ml. jb4 Outcome: 02:04 Discharge ordered by . snw 03:06 Discharged to home ambulatory, with family. jb4 03:06 Condition: stable 03:06 Discharge instructions given to patient, Instructed on discharge instructions, follow up and referral plans. Demonstrated understanding of instructions, follow-up care. 03:07 Patient left the ED. jb4 Signatures: Robyn Arceo FNP-C AUTO DRIVER-Csnw Umesh Zapata, RN RN jb4 Ghazala Velez2 Beth Gleason RN RN ll3 Corrections: (The following items were deleted from the chart) 11/22 23:24 23:20 Home Meds: lisinopril-hydrochlorothiazide oral; ll3 ll3
--- NOTE | 2022-11-23 02:04 | EDPHYS ---
Physician Documentation [facility] Name: Kelly Cai Age: 72 yrs Sex: Female : 1950 Arrival Date: 11/22/2022 Time: 23:05 Bed 6 Private MD: ED Physician Ang García HPI: 11/23 01:57 This 72 yrs old Female presents to ER via Wheelchair with complaints of Fever, snw Headache, Dizziness. 01:57 The patient reports fever, not measured (subjective). Onset: The symptoms/episode snw began/occurred acutely. Associated signs and symptoms: Pertinent positives: headache, dizziness. Severity of symptoms: At their worst the symptoms were mild. Sees Dr. Reardon. Historical: - Allergies: 11/22 23:20 Metformin HCl; ll3 23:20 sitagliptin phosphate; ll3 23:20 Sulfa (Sulfonamide Antibiotics); ll3 23:20 sulfamethoxazole-trimethoprim; ll3 23:20 TRIMETHOPRIM; ll3 - Home Meds: 23:20 pioglitazone oral [Active]; Januvia oral [Active]; Glipizide Oral [Active]; Jardiance ll3 oral [Active]; Lisinopril Oral [Active]; Metoprolol Tartrate Oral [Active]; rosuvastatin oral [Active]; lisinopril-hydrochlorothiazide 20-25 mg Oral tab 1 tab once daily for Hypertension [Active]; - PMHx: 23:20 Diabetes - NIDDM; Hyperlipidemia; Hypertension; ll3 - PSHx: 23:20 None; ll3 - Immunization history:: Client reports receiving the 2nd dose of the Covid vaccine. - Social history:: Smoking status: Patient denies any tobacco usage or history of. ROS: 11/23 01:56 Eyes: Negative for injury, pain, redness, and discharge, ENT: Negative for injury, snw pain, and discharge, Neck: Negative for injury, pain, and swelling, Cardiovascular: Negative for chest pain, palpitations, and edema, Respiratory: Negative for shortness of breath, cough, wheezing, and pleuritic chest pain, Abdomen/GI: Negative for abdominal pain, nausea, vomiting, diarrhea, and constipation, Back: Negative for injury and pain, : Negative for injury, bleeding, discharge, and swelling, MS/Extremity: Negative for injury and deformity, Skin: Negative for injury, rash, and discoloration, Neuro: Negative for headache, weakness, numbness, tingling, and seizure, Psych: Negative for depression, anxiety, suicide ideation, homicidal ideation, and hallucinations. Constitutional: Positive for body aches, malaise, poor PO intake. Exam: 11/22 23:40 Constitutional: This is a well developed, well nourished patient who is awake, alert, snw and in no acute distress. Head/Face: Normocephalic, atraumatic. Eyes: Pupils equal round and reactive to light, extra-ocular motions intact. Lids and lashes normal. Conjunctiva and sclera are non-icteric and not injected. Cornea within normal limits. Periorbital areas with no swelling, redness, or edema. ENT: Nares patent. No nasal discharge, no septal abnormalities noted. Tympanic membranes are normal and external auditory canals are clear. Oropharynx with no redness, swelling, or masses, exudates, or evidence of obstruction, uvula midline. Mucous membranes moist. Neck: Trachea midline, no thyromegaly or masses palpated, and no cervical lymphadenopathy. Supple, full range of motion without nuchal rigidity, or vertebral point tenderness. No Meningismus. Chest/axilla: Normal chest wall appearance and motion. Nontender with no deformity. No lesions are appreciated. Cardiovascular: Regular rate and rhythm with a normal S1 and S2. No gallops, murmurs, or rubs. Normal PMI, no JVD. No pulse deficits. Respiratory: Lungs have equal breath sounds bilaterally, clear to auscultation and percussion. No rales, rhonchi or wheezes noted. No increased work of breathing, no retractions or nasal flaring. Abdomen/GI: Soft, non-tender, with normal bowel sounds. No distension or tympany. No guarding or rebound. No evidence of tenderness throughout. Back: No spinal tenderness. No costovertebral tenderness. Full range of motion. Skin: Warm, dry with normal turgor. Normal color with no rashes, no lesions, and no evidence of cellulitis. MS/ Extremity: Pulses equal, no cyanosis. Neurovascular intact. Full, normal range of motion. Neuro: Awake and alert, GCS 15, oriented to person, place, time, and situation. Cranial nerves II-XII grossly intact. Motor strength 5/5 in all extremities. Sensory grossly intact. Cerebellar exam normal. Normal gait. Psych: Awake, alert, with orientation to person, place and time. Behavior, mood, and affect are within normal limits. Vital Signs: 23:18 BP 136 / 53; Pulse 54; Resp 17; Temp 97.5(O); Pulse Ox 100% on R/A; Weight 120.2 kg ll3 (R); Height 5 ft. 4 in. (162.56 cm) (R); Pain 8/10; 11/23 02:30 BP 127 / 50; Pulse 57; Resp 16; Pulse Ox 100% on R/A; jb4 11/22 23:18 Body Mass Index 45.49 (120.20 kg, 162.56 cm) ll3 MDM: 11/22 23:20 Patient medically screened. snw 11/23 01:59 Differential diagnosis: URI, UTI. Data reviewed: vital signs, nurses notes, lab test snw result(s), EKG, radiologic studies. Counseling: I had a detailed discussion with the patient and/or guardian regarding: the historical points, exam findings, and any diagnostic results supporting the discharge/admit diagnosis, the presence of at least one elevated blood pressure reading (>120/80) during this emergency department visit, lab results, radiology results, the need for outpatient follow up, for definitive care, to return to the emergency department if symptoms worsen or persist or if there are any questions or concerns that arise at home. Special discussion: Based on the history and exam findings, there is no indication for further emergent testing or inpatient evaluation. I discussed with the patient/guardian the need to see the primary care provider for further evaluation of the symptoms. 11/22 23:19 Order name: Basic Metabolic Panel snw 11/22 23:19 Order name: CBC with Diff snw 11/22 23:19 Order name: LFT's snw 11/22 23:19 Order name: Magnesium snw 11/22 23:19 Order name: Troponin HS snw 11/22 23:19 Order name: COVID-19/FLU A+B snw 11/22 23:56 Order name: CBC with Automated Diff; Complete Time: 00:00 EDMS 11/23 00:13 Order name: Basic Metabolic Panel; Complete Time: 00:15 EDMS 11/23 00:13 Order name: Liver (Hepatic) Function; Complete Time: 00:15 EDMS 11/23 00:13 Order name: Troponin High Sensitivity; Complete Time: 00:15 EDMS 11/23 00:13 Order name: Magnesium; Complete Time: 00:15 EDMS 11/23 00:23 Order name: COVID-19/FLU A+B; Complete Time: 00:26 EDMS 11/23 00:56 Order name: Urine Culture snw 11/23 00:56 Order name: Urine Microscopic Only snw 11/22 23:19 Order name: XRAY Chest (1 view) snw 11/22 23:19 Order name: EKG; Complete Time: 23:20 snw 11/22 23:19 Order name: Cardiac monitoring; Complete Time: 23:43 snw 11/22 23:19 Order name: EKG - Nurse/Tech; Complete Time: 23:43 snw 11/22 23:19 Order name: IV Saline Lock; Complete Time: 23:43 snw 11/22 23:19 Order name: Labs collected and sent; Complete Time: 23:43 snw 11/22 23:19 Order name: O2 Per Protocol; Complete Time: 23:43 snw 11/22 23:19 Order name: O2 Sat Monitoring; Complete Time: 23:43 snw 11/22 23:19 Order name: CT Head C Spine snw 11/23 00:56 Order name: Urine Dipstick-Ancillary (obtain specimen); Complete Time: 02:04 snw 11/23 02:04 Order name: Urine Dipstick-Ancillary; Complete Time: 02:07 EDMS 11/23 02:45 Order name: Glucose, Ancillary Testing EDMS 11/23 03:00 Order name: Urine Microscopic Only EDMS EC/12 23:40 Rate is 55 beats/min. Rhythm is regular. T waves are Inverted in lead III. Clinical snw impression: 1st degree heart block and Sinus bradycardia. Administered Medications: 11/23 01:47 Drug: D5W 500 ml Route: IV; Rate: 500 ml/hr; Site: right antecubital; jb4 02:47 Follow up: Response: No adverse reaction; IV Status: Completed infusion; IV Intake: jb4 500ml Disposition: 07:43 Co-signature as Attending Physician, Ang KOHLER was immediately available on-site ms3 in the Emergency Department for consultation in the care of the patient. Disposition Summary: 11/23/22 02:04 Discharge Ordered Location: Home snw Condition: Stable snw Diagnosis - Renal insufficiency snw - Hypoglycemia, unspecified snw Followup: snw - With: Private Physician - When: 1 - 2 days - Reason: Recheck today's complaints, Continuance of care, Re-evaluation by your physician Followup: snw - With: Emergency Department - When: As needed - Reason: Worsening of condition Discharge Instructions: - Discharge Summary Sheet snw - Hypoglycemia snw - Food Basics for Chronic Kidney Disease snw - Blood Glucose Monitoring, Adult snw - Chronic Kidney Disease, Adult snw Forms: - Medication Reconciliation Form snw - Thank You Letter snw - Antibiotic Education snw - Prescription Opioid Use snw - School release form jb4 Signatures: Dispatcher [employer] EDMS Robyn Arceo, EDGE GLUER-C EDGE GLUER-Csnw Umesh Zapata RN RN jb4 Ang García DO DO ms3 Beth Gleason, RN RN ll3 Corrections: (The following items were deleted from the chart) 11/22 23:24 23:20 Home Meds: lisinopril-hydrochlorothiazide oral; ll3 ll3
[2022-11-23 03:00] LABS: Urine Bacteria <20 /HPF (<20); Urine RBC None Seen /HPF (None Seen)
[2022-11-23 03:15] VITALS: TEMP 97.5; O2SAT 100
[2022-11-23 03:16] VITALS: BP 127/50
--- NOTE | 2022-11-23 11:07 | RAD REPORT ---
EXAM DESCRIPTION: XR Chest, 1 View CLINICAL HISTORY: The patient is 72 years old and is Female; dizzy TECHNIQUE: Frontal view of the chest. COMPARISON: No relevant prior studies available. FINDINGS: Lungs: Prominent interstitial markings which may indicate mild interstitial edema. Hazy bibasilar opacification which may be due to overlying soft tissue, atelectasis, or airs pace disease. Pleural space: Unremarkable. No pneumothorax. Heart: Unremarkable. Mediastinum: Unremarkable. Bones/joints: Unremarkable. IMPRESSION: 1. Prominent interstitial markings which may indicate mild interstitial edema. 2. Hazy bibasilar opacification which may be due to overlying soft tissue, atelectasis, or airspace disease. Electronically signed by: Be Garcia MD 11/22/2022 11:40 PM HEAVY TRUCK TECHNICIAN Due to temporary technical issues with the PACS/Fluency reporting system, reports are being signed by the in house radiologists without review as a courtesy to insure prompt reporting. The interpreting radiologist is fully responsible for the content of the report.
--- NOTE | 2022-11-23 12:27 | RAD REPORT ---
EXAM DESCRIPTION: CT Head and Cervical Spine Without Intravenous Contrast CLINICAL HISTORY: The patient is 72 years old and is Female; DIZZINESS TECHNIQUE: Axial computed tomography images of the head/brain and cervical spine without intravenous contrast. Sagittal and coronal reformatted images were created and reviewed. This CT exam was pe rformed using one or more of the following dose reduction techniques: automated exposure control, a djustment of the mA and/or kV according to patient size, and/or use of iterative reconstruction techn ique. COMPARISON: No relevant prior studies available. FINDINGS: Brain: Mild nonspecific white matter changes likely related to chronic microvascular isc hemic disease. No hemorrhage. Ventricles: Unremarkable. No ventriculomegaly. Skull: No acute fracture. Sinuses: Left maxillary sinus mucosal thickening. Mastoid air cells: Unremarkable as visualized. No mastoid effusion. Sella: Prominent pituitary gland for age. Vertebrae: Unremarkable. No acute fracture. Normal alignment. Discs/spinal canal/neural foramina: Moderate left neural foraminal narrowing at C5-6. Soft tissues: Unremarkable. Thyroid: Mildly heterogeneous and possibly enlarged left thyroid. IMPRESSION: No acute intracranial abnormality. No acute findings in the cervical spine. Electronically signed by: Be Garcia MD 11/23/2022 12:49 AM FLAT OPTICAL ELEMENT MAKER Due to temporary technical issues with the PACS/Fluency reporting system, reports are being signed by the in house radiologists without review as a courtesy to insure prompt reporting. The interpreting radiologist is fully responsible for the content of the report.
--- NOTE | 2022-11-24 17:17 | EKG ---
Test Date: 2022-11-22 Test Time: 23:37:15 Plumbing Engineering Draftsperson: LL MEASUREMENT RESULTS: Intervals: Rate: 55 DE: 232 QRSD: 92 QT: 452 QTc: 432 [place]: P: 51 DE: 232 QRS: -12 T: 13 INTERPRETIVE STATEMENTS: Sinus bradycardia with 1st degree AV block Low voltage QRS Borderline ECG Compared to ECG 10/16/2020 18:52:41 First degree AV block now present Low QRS voltage now present Sinus rhythm no longer present Electronically Signed On 11-24-22 17:11:01 DATA PROGRAMMER by Jah Carmichael
== END 2022-11-23 03:07 | disposition home or self-care (01) ==
LOC: ER 23:01
DX: E11.649 Type 2 diabetes mellitus with hypoglycemia without coma (principal); N28.9 Disorder of kidney and ureter, unspecified; I10 Essential (primary) hypertension; Z20.822 Contact with and (suspected) exposure to COVID-19; Z88.2 Allergy status to sulfonamides; Z88.8 Allergy status to other drugs, medicaments and biological substances
CPT/HCPCS: 87088; 85025; 87086; 80048; 36415; 83735; 82947; 80076; 84484; 0240U; 70450; 72125; 71045; J7060; 81003; 81015; 93005

== ENCOUNTER 2023-03-31 10:40 | Day surgery (SDC) | payer OTHER ==
[2023-03-29 15:47] LABS: Absolute Lymphocytes (CBC) 1.7 K/uL (0.7-4.9); Hematocrit 35.4 % (36.0-45.0); Lymphocytes % 19.9 % (15.3-44.8); MCV 92.9 fL (80-100); MPV 8.2 fL (7.6-11.3); RBC Red Blood Cell Count 3.81 M/uL (3.86-4.86)
[2023-03-29 15:51] LABS: Protime INR 0.97
[2023-03-29 16:04] LABS: Potassium 3.8 mEq/L (3.5-5.1)
[~2023-03-31 10:40] MED LIST: ATROPINE SULF 1 MG/10 ML SYR IV ONE; FENTANYL CITR 100 MCG/2 ML ONE; HEPA 1000U/500MLS 2,000 UNIT/1,000 ML BAG IV ONE; HEPARIN 10,000 UNIT/10 ML VIAL IV ONE; HEPARIN 5000 UNIT/ML 1 ML VIAL ONE; LIDOCAINE 1% 20 ML MDV ONE; MIDAZOLAM HCL 2 MG/2 ML INJ ONE; NITROGLYCERIN 100 MCG/ML SYR (for cath lab use only) IV ONE; VERAPAMIL HCL 10 MG/4 ML VIAL IV ONE
[2023-03-31] MEDS ORDERED: NA CHLORIDE 0.9% 500 ML ONE (11:06)
[2023-03-31 13:47] VITALS: TEMP 97.1
[2023-03-31 14:16] VITALS: O2SAT 98
[2023-03-31 14:19] VITALS: BP 137/53
--- NOTE | 2023-03-31 19:15 | EKG ---
Test Date: 2023-03-29 Test Time: 15:22:50 Manager Account Management: JASON MEASUREMENT RESULTS: Intervals: Rate: 57 MS: 236 QRSD: 92 QT: 446 QTc: 434 [place]: P: 53 MS: 236 QRS: 28 T: 21 INTERPRETIVE STATEMENTS: Sinus bradycardia with 1st degree AV block Low voltage QRS Septal infarct, age undetermined Abnormal ECG Compared to ECG 11/22/2022 23:37:15 Myocardial infarct finding now present Electronically Signed On 03-31-23 19:11:10 CDT by Jah Carmichael
== END 2023-03-31 14:29 | disposition home or self-care (01) ==
LOC: CCL 10:40
PROVIDERS: ATTEND Internal Medicine
DX: I25.10 Atherosclerotic heart disease of native coronary artery without angina pectoris (principal); I73.9 Peripheral vascular disease, unspecified; I10 Essential (primary) hypertension; E78.5 Hyperlipidemia, unspecified; E11.9 Type 2 diabetes mellitus without complications; Z88.2 Allergy status to sulfonamides; Z88.3 Allergy status to other anti-infective agents; Z88.8 Allergy status to other drugs, medicaments and biological substances
CPT/HCPCS: 36415; 76937; 80048; 82947; 85025; 85610; 85730; 93005; 93458; C1893; J0461; J1644; J2001; J2250; J3010; J7040; Q9966

== ENCOUNTER → 2023-06-07 | Day surgery (SDC) | payer OTHER ==
--- NOTE | 2023-06-07 11:22 | RAD REPORT ---
EXAM DESCRIPTION: Ultrasound-guided vacuum assisted right breast core biopsy CLINICAL HISTORY: R92.8 COMPARISON: No comparisons FINDINGS: Informed consent was obtained, following explanation of the risks and benefits involved wi th the procedure, and time-out was performed. The patient's right breast was prepped and draped in the usual sterile fashion. 1% lidocaine was used for local anesthetic purposes. Utilizing aseptic technique and ultrasound guidance, and following localization of the hypoechoic abn ormality present at 3 o'clock position, a 12 gauge vacuum assisted core biopsy device was used to obt ain 3 core specimens through the mass of interest. A post biopsy clip was then placed. All collected material was sent for pathology, in formalin. Patient tolerated procedure well. IMPRESSION: Successful ultrasound guided vacuum assisted right breast mass biopsy.
== END ==
LOC: DS 07:50
PROVIDERS: ATTEND Family Medicine
DX: C50.911 Malignant neoplasm of unspecified site of right female breast (principal); Z17.0 Estrogen receptor positive status [ER+]
CPT/HCPCS: 19083; 88305

== ENCOUNTER 2024-11-06 04:10 | Emergency (ER) | payer OTHER ==
--- NOTE | 2024-11-06 05:01 | EDPHYS ---
Physician Documentation [facility] Name: Kelly Cai Age: 74 yrs Sex: Female : 1950 Arrival Date: 11/06/2024 Time: 04:10 Bed 8 Private MD: ED Physician Ang García HPI: 11/06 04:17 This 74 yrs old Female presents to ER via Unassigned with complaints of Fall ms3 Injury. 04:17 74 year old female who presents to the Emergency Department after experiencing a fall. ms3 She reports feeling dizzy prior to the fall, which appears to be the cause. She reports feeling no abnormalities with her heart. The patient mentions having pain, rated 8 out of 10, localized to her right hip area. Additionally, she denies nausea, vomiting, and diarrhea. She has a known medical history of diabetes and high blood pressure. The patient indicates allergies to metformin. . Historical: - Allergies: 04:39 Metformin HCl; al5 04:39 sitagliptin phosphate; al5 04:39 Sulfa (Sulfonamide Antibiotics); al5 04:39 sulfamethoxazole-trimethoprim; al5 04:39 TRIMETHOPRIM; al5 - Home Meds: 04:39 Crestor 10 mg Oral tab 1 tab once daily [Active]; Glipizide Oral [Active]; Januvia Oral al5 [Active]; Jardiance Oral [Active]; lisinopril Oral [Active]; lisinopril-hydrochlorothiazide 20-25 mg Oral tab 1 tab once daily for Hypertension [Active]; lovastatin 10 mg Oral tab 1 tab 2 times per day [Active]; Metoprolol Tartrate Oral [Active]; pioglitazone Oral [Active]; rosuvastatin Oral [Active]; - PMHx: 04:39 Diabetes - NIDDM; Hyperlipidemia; Hypertension; al5 - Immunization history: Last tetanus immunization: unknown. - Infectious Disease History:: Denies. - Social history:: Smoking status: unknown. ROS: 04:17 Constitutional: Negative for fever, and chills. Cardiovascular: Negative for chest ms3 pain, and palpitations. Respiratory: Negative for shortness of breath, cough, wheezing, and pleuritic chest pain, Abdomen/GI: Negative for abdominal pain, nausea, vomiting, diarrhea, and constipation, 04:17 MS/extremity: Positive for right hip pain, Exam: 04:17 Constitutional: This is a well developed, well nourished patient who is awake, alert, ms3 and in no acute distress. Cardiovascular: Regular rate and rhythm with a normal S1 and S2. No gallops, murmurs, or rubs. Normal PMI, no JVD. No pulse deficits. Respiratory: Lungs have equal breath sounds bilaterally, clear to auscultation and percussion. No rales, rhonchi or wheezes noted. No increased work of breathing, no retractions or nasal flaring. Abdomen/GI: Soft, non-tender, with normal bowel sounds. No distension or tympany. No guarding or rebound. No evidence of tenderness throughout. 04:17 Musculoskeletal/extremity: Extremities: noted in the right hip: pain, tenderness, DP 2+, 06:58 ECG was reviewed by the Attending Physician. ms3 Vital Signs: 04:37 BP 166 / 67; Pulse 66; Resp 16; Temp 98.3; Pulse Ox 97% on R/A; Weight 100.7 kg; Height al5 5 ft. 7 in. ; 04:53 BP 161 / 87; Pulse 75; Resp 18; Pulse Ox 100% on R/A; al5 05:00 BP 160 / 66; Pulse 65; Resp 18; Pulse Ox 97% on R/A; al5 05:30 BP 141 / 59; Pulse 56; Resp 15; Pulse Ox 96% on R/A; al5 06:30 BP 157 / 63; Pulse 63; Resp 16; Pulse Ox 99% on R/A; al5 04:37 Body Mass Index 34.77 (100.70 kg, 170.18 cm) al5 Hilaria Coma Score: 04:37 Eye Response: spontaneous(4). Motor Response: obeys commands(6). Verbal Response: al5 oriented(5). Total: 15. Trauma Score (Adult): 04:37 Eye Response: spontaneous(1); Verbal Response: oriented(1); Motor Response: obeys al5 commands(2); Systolic BP: > 89 mm Hg(4); Respiratory Rate: 10 to 29 per min(4); [place] Score: 15; Trauma Score: 12 MDM: 04:14 Medical Screening Exam initiated ms3 04:17 Differential diagnosis: closed head injury, contusion, fracture, sprain, strain. ms3 06:09 Data reviewed: vital signs, nurses notes, lab test result(s), and as a result, I will ms3 transfer patient. Consideration of Admission/Observation Patient transferred. I considered the following discharge prescriptions or medication management in the emergency department Medications were administered in the Emergency Department. See MAR. Independent interpretation of the following test(s) in the Emergency Department X-Ray: My interpretation is Right hip x-ray reveals proximal femoral shaft fracture. Counseling: I had a detailed discussion with the patient and/or guardian regarding the historical points, exam findings, and any diagnostic results supporting the discharge/admit diagnosis, lab results, radiology results, the need to transfer to another facility, [facility] does not immediately have the required specialist. Special discussion: I discussed with the patient/guardian in detail that at this point there is no indication for admission to the hospital. It is understood, however, that if the symptoms persist or worsen the patient needs to return immediately for re-evaluation. ED course: Discussed necessity for transfer with patient and her family. All questions answered.. 11/06 04:15 Order name: Basic Metabolic Panel; Complete Time: 06:20 11/06 04:15 Order name: CBC with Diff; Complete Time: 05:36 11/06 04:15 Order name: Hepatic Function; Complete Time: 06:20 11/06 04:15 Order name: Magnesium; Complete Time: 06:20 11/06 04:15 Order name: Protime (+inr); Complete Time: 05:36 11/06 04:15 Order name: Ptt, Activated; Complete Time: 05:36 11/06 04:15 Order name: Troponin High Sensitivity; Complete Time: 06:20 11/06 04:15 Order name: CT Head Brain wo Cont 11/06 04:15 Order name: Chest Single View XRAY 11/06 04:15 Order name: Hip Right 2 View XRAY 11/06 04:15 Order name: Pelvis Wo Cont CT 11/06 04:15 Order name: Cardiac monitoring; Complete Time: 04:45 11/06 04:15 Order name: EKG - Nurse/Tech; Complete Time: 05:08 11/06 04:15 Order name: IV Saline Lock; Complete Time: 04:45 ms3 11/06 04:15 Order name: Labs collected and sent; Complete Time: 05:08 ms3 11/06 04:15 Order name: NPO; Complete Time: 05:08 ms3 11/06 04:15 Order name: O2 Per Protocol; Complete Time: 04:45 ms3 11/06 04:15 Order name: O2 Sat Monitoring; Complete Time: 04:45 ms3 EC:58 Rate is 65 beats/min. Rhythm is regular. QRS Streeter is Normal. OH interval is normal. QRS ms3 interval is normal. Clinical impression: NSR w/ Non-specific ST/T Changes. Interpreted by me. Reviewed by me. Administered Medications: 05:20 Drug: morphine IVP or IV 4 mg IVP once over 4 mins Route: IVP; Infused Over: 4 mins; al5 Site: left antecubital; 06:09 Follow up: Response: No adverse reaction; Pain is decreased al5 05:20 Drug: Ondansetron IVP 4 mg IVP once; over 2 minutes Route: IVP; Site: left antecubital; al5 06:09 Follow up: Response: No adverse reaction al5 06:42 Drug: morphine IVP or IV 4 mg IVP once over 4 mins Route: IVP; Infused Over: 4 mins; al5 Site: left antecubital; 07:04 Follow up: Response: No adverse reaction; Medication Administered at Departure al5 Disposition Summary: 11/06/24 05:00 Transfer Ordered Notes: Transfer Location: [facility] ms3 Reason: Higher level of care ms3 Condition: Stable ms3 Problem: new ms3 Symptoms: are unchanged ms3 Accepting Physician: (11/06/24 07:04) al5 Diagnosis - Fracture of shaft of femur ms3 - Sinus Bradycardia ms3 Forms: - Medication Reconciliation Form ms3 - SBAR form ms3 Signatures: Dispatcher [employer] EDMS Ang García DO DO ms3 Tonja Guthrie RN RN al5 Corrections: (The following items were deleted from the chart) 04:15 04:15 Head Brain Wo Cont+CT.RAD.BRZ ordered. EDMS EDMS 04:15 04:15 Chest Single View+RAD.RAD.BRZ ordered. EDMS EDMS 04:16 04:16 Hip Right 2 View+RAD.RAD.BRZ ordered. EDMS EDMS 04:16 04:16 Pelvis Wo Cont+CT.RAD.BRZ ordered. EDMS EDMS 07:04 05:00 ms3 al5
--- NOTE | 2024-11-06 05:01 | ER ---
Nurse's Notes [facility] Name: Kelly Cai Age: 74 yrs Sex: Female : 1950 Arrival Date: 11/06/2024 Time: 04:10 Bed 8 Private MD: Diagnosis: Fracture of shaft of femur;Sinus Bradycardia Presentation: 11/06 04:29 Chief complaint: EMS states: patient was attempting to go to the bathroom, got dizzy al5 and fell backwards, hitting head on the tile. patient denies any loss of consciousness or being on blood thinners. patient admits that it is not the first time this week she has had dizzy spells and has fallen. en route, ems states that patient HR would have little burst of drop in HR down into the 30's. Care prior to arrival: Medication(s) given: 100 mcg fentanyl given IV initiated. 20 GA, in the left antecubital area. Mechanism of Injury: Fall from standing position. Trauma event details: Injury occurred in the [facility], Injury occurred: at home. Injury occurred: November 06, 2024. 04:29 Acuity: BALA 3 al5 04:29 Method Of Arrival: EMS: [facility] al5 04:41 Coronavirus screen: At this time, the client does not indicate any symptoms associated al5 with coronavirus-19. Ebola Screen: No symptoms or risks identified at this time. Initial Sepsis Screen: Does the patient meet any 2 criteria? No. Patient's initial sepsis screen is negative. Does the patient have a suspected source of infection? No. Patient's initial sepsis screen is negative. Risk Assessment: Do you want to hurt yourself or someone else? Patient reports no desire to harm self or others. Onset of symptoms was November 06, 2024. Triage Assessment: 04:38 General: see trauma assessment. al5 Trauma Activation: Physician: ED Physician; Name: ; Notified At: ; Arrived At: Physician: General Surgeon; Name: ; Notified At: ; Arrived At: Physician: Radiology; Name: ; Notified At: ; Arrived At: Physician: Respiratory; Name: ; Notified At: ; Arrived At: Physician: Lab; Name: ; Notified At: ; Arrived At: 04:29 n/a al5 Historical: - Allergies: 04:39 Metformin HCl; al5 04:39 sitagliptin phosphate; al5 04:39 Sulfa (Sulfonamide Antibiotics); al5 04:39 sulfamethoxazole-trimethoprim; al5 04:39 TRIMETHOPRIM; al5 - Home Meds: 04:39 Crestor 10 mg Oral tab 1 tab once daily [Active]; Glipizide Oral [Active]; Januvia Oral al5 [Active]; Jardiance Oral [Active]; lisinopril Oral [Active]; lisinopril-hydrochlorothiazide 20-25 mg Oral tab 1 tab once daily for Hypertension [Active]; lovastatin 10 mg Oral tab 1 tab 2 times per day [Active]; Metoprolol Tartrate Oral [Active]; pioglitazone Oral [Active]; rosuvastatin Oral [Active]; - PMHx: 04:39 Diabetes - NIDDM; Hyperlipidemia; Hypertension; al5 - Immunization history: Last tetanus immunization: unknown. - Infectious Disease History:: Denies. - Social history:: Smoking status: unknown. Screenin:38 Abuse screen: Denies threats or abuse. Denies injuries from another. Nutritional al5 screening: No deficits noted. Tuberculosis screening: No symptoms or risk factors identified. 04:40 [facility] ED Fall Risk Assessment (Adult) History of falling in the last 3 months, al5 including since admission Yes- physiologic fall (2 pts) Confusion or Disorientation No (0 pts) Intoxicated or Sedated No (0 pts) Impaired Gait Yes (1 pt) Mobility Assist Device Used No (0 pt) Altered Elimination No (0 pt) Score/Fall Risk Level 3 or more points = High Risk Oriented to surroundings, Maintained a safe environment, Hourly rounding (assess needs \T\ fall precautionary measures) done, Utilized family, sitter, or virtual parts counter associate as indicated. Primary Survey: 04:36 NO uncontrolled hemorrhage observed. A: The client is awake and alert. The airway is al5 patent. Breathing/Chest: Spontaneous respiratory effort, equal unlabored respirations, breath sounds clear bilaterally, regular pattern, symmetrical chest rise and fall. Circulation: No external hemorrhage present. Regular and strong central pulse, skin warm/dry/normal color. Disability Pupils are equal, round, reactive to light and accommodation. Client is alert. Exposure/Environment: Obvious injury(ies) are noted at this time: shortening of the R leg A warming method has been applied: A warm blanket has been provided to the patient. 06:59 Reassessment Alertness and Airway: Awake and alert. The airway is patent. Breathing: al5 Spontaneous respiratory effort, equal unlabored respirations, breath sounds clear bilaterally, regular pattern with symmetrical chest rise and fall. Circulation: No external hemorrhage noted. Regular and strong central pulse, skin warm/dry/normal color. Disability: Pupils Pupils are equal, round, reactive to light and accomodation. Alert. Secondary Survey: 04:36 Musculoskeletal: shortening of the R leg Swelling present in right leg. al5 Assessment: 04:33 General: Appears in no apparent distress. uncomfortable, obese, well groomed, Behavior al5 is calm, cooperative. Pain: Complains of pain in right hip and right leg. Neuro: Level of Consciousness is awake, alert, obeys commands, Oriented to person, place, time, situation. EENT: No signs and/or symptoms were reported regarding the EENT system. Cardiovascular: Reports dizziness Capillary refill < 3 seconds Patient's skin is warm and dry. Respiratory: Airway is patent Respiratory effort is even, unlabored, Respiratory pattern is regular, symmetrical. GI: Abdomen is non-distended, obese. : No signs and/or symptoms were reported regarding the genitourinary system. Derm: Skin is intact, is healthy with good turgor, Skin is pink, warm \T\ dry. normal. Musculoskeletal: shortnening of the R leg Swelling present in right leg Reports pain in right hip and right leg. 05:48 Reassessment: Patient appears in no apparent distress at this time. No changes from al5 previously documented assessment. Patient and/or family updated on plan of care and expected duration. Pain level reassessed. Patient is alert, oriented x 3, equal unlabored respirations, skin warm/dry/pink. 06:04 Reassessment: gave report to adin JACKSON at [facility] ER. al5 Vital Signs: 04:37 BP 166 / 67; Pulse 66; Resp 16; Temp 98.3; Pulse Ox 97% on R/A; Weight 100.7 kg; Height al5 5 ft. 7 in. ; 04:53 BP 161 / 87; Pulse 75; Resp 18; Pulse Ox 100% on R/A; al5 05:00 BP 160 / 66; Pulse 65; Resp 18; Pulse Ox 97% on R/A; al5 05:30 BP 141 / 59; Pulse 56; Resp 15; Pulse Ox 96% on R/A; al5 06:30 BP 157 / 63; Pulse 63; Resp 16; Pulse Ox 99% on R/A; al5 04:37 Body Mass Index 34.77 (100.70 kg, 170.18 cm) al5 Hilaria Coma Score: 04:37 Eye Response: spontaneous(4). Motor Response: obeys commands(6). Verbal Response: al5 oriented(5). Total: 15. Trauma Score (Adult): 04:37 Eye Response: spontaneous(1); Verbal Response: oriented(1); Motor Response: obeys al5 commands(2); Systolic BP: > 89 mm Hg(4); Respiratory Rate: 10 to 29 per min(4); Hilaria Score: 15; Trauma Score: 12 ED Course: 04:11 Patient arrived in ED. rv1 04:14 nAg García DO is Attending Physician. ms3 04:29 Tonja Guthrie RN is Primary Nurse. al5 04:33 Triage completed. al5 04:38 Patient has correct armband on for positive identification. Bed in low position. Call al5 light in reach. Side rails up X2. family at bedside. Patient maintains SpO2 saturation greater than 95% on room air. 04:38 No provider procedures requiring assistance completed. Maintain EMS IV. Dressing al5 intact. Good blood return noted. Site clean \T\ dry. Gauge \T\ site: 20G LAC. Flushed with 10 mL NS. 04:41 CT Head Brain wo Cont In Process Unspecified. EDMS 04:[address] In Process Unspecified. EDMS 04:41 Provided Education on: plan of care. al5 04:41 Thermoregulation: warm blanket given to patient. al5 04:42 Arm band placed on right wrist. Patient placed in the treatment room, on a stretcher, al5 on bombsight specialist, on pulse oximetry. 05:08 Chest Single View XRAY In Process Unspecified. EDMS 05:08 Hip Right 2 View XRAY In Process Unspecified. EDMS 07:03 Patient transferred, IV remains in place. al5 Administered Medications: 05:20 Drug: morphine IVP or IV 4 mg IVP once over 4 mins Route: IVP; Infused Over: 4 mins; al5 Site: left antecubital; 06:09 Follow up: Response: No adverse reaction; Pain is decreased al5 05:20 Drug: Ondansetron IVP 4 mg IVP once; over 2 minutes Route: IVP; Site: left antecubital; al5 06:09 Follow up: Response: No adverse reaction al5 06:42 Drug: morphine IVP or IV 4 mg IVP once over 4 mins Route: IVP; Infused Over: 4 mins; al5 Site: left antecubital; 07:04 Follow up: Response: No adverse reaction; Medication Administered at Departure al5 Medication: 04:41 VIS not applicable for this client. al5 Intake: 04:37 n/a al5 Outcome: 05:00 ER care complete, transfer ordered by . ms3 07:00 Transferred by ground EMS [facility] to [facility], al5 07:00 Condition: stable 07:00 Instructed on the need for transfer, 07:00 Patient's length of stay in the Emergency Department was greater than 2 hours. transferPatient's length of stay extended due to 07:04 Patient left the ED. al5 Signatures: Dispatcher [employer] EDMS Ang García DO DO ms3 Sharlene Livingston rv1 Tonja Guthrie RN RN al5 Corrections: (The following items were deleted from the chart) 04:36 04:29 Chief complaint: EMS states: patient was attempting to go to the bathroom, got al5 dizzy and fell backwards, hitting head on the tile. patient denies any loss of consciousness or being on blood thinners. patient admits that it is not the first time this week she has had dizzy spells and has fallen al5 04:37 04:33 Musculoskeletal: shortnening of the R leg Reports pain in right hip and right leg al5 al5
[2024-11-06] MEDS ORDERED: MORPHINE 4 MG/ML SYR ONE ×2 (05:10→06:35)
[2024-11-06] MEDS ORDERED: ONDANSETRON 4 MG/2 ML VIAL ONE (05:10)
[2024-11-06 05:19] LABS: Absolute Eosinophils 0.1 K/uL (0-0.5); Absolute Lymphocytes (CBC) 2.1 K/uL (0.7-4.9); Absolute Monocytes 0.8 K/uL (0.1-1.3); Absolute Neutrophil 9.6 K/uL (1.8-8.0); Basophils % 0.4 % (0-1.3); Eosinophils % 0.6 % (0-4.4); Hematocrit 26.9 % (36.0-45.0); Hemoglobin 9.2 g/dL (12.0-15.0); Lymphocytes % 16.6 % (15.3-44.8); MCH 31.7 pg (27.0-35.0); MCHC 34.1 g/dL (32.0-36.0); MCV 93.2 fL (80-100); MPV 8.2 fL (7.6-11.3); Monocytes % 6.1 % (3.3-12.3); Neutrophils % 76.3 % (41.7-73.7); Platelets 224 thou/uL (152-406); RBC Red Blood Cell Count 2.89 M/uL (3.86-4.86); Red Cell Distribution Width 13.8 % (12.1-15.2)
[2024-11-06 05:36] LABS: PT Prothrombin Time 10.9 SECONDS (9.4-12.5); PTT, Activated Partial Thromb 30.2 SECONDS (24.3-36.9); Protime INR 1.04
--- NOTE | 2024-11-06 05:45 | RAD REPORT ---
EXAM: CT Head Without Intravenous Contrast CLINICAL HISTORY: The patient is 74 years old and is Female; fall TECHNIQUE: Axial computed tomography images of the head/brain without intravenous contrast. Sagit yehuda and coronal reformatted images were created and reviewed. This CT exam was performed using one or more of the following dose reduction techniques: automated exposure control, adjustment of t he mA and/or kV according to patient size, and/or use of iterative reconstruction technique. COMPARISON: No relevant prior studies available. FINDINGS: Brain: Unremarkable. No hemorrhage. No significant white matter disease. No edema. Ventricles: Unremarkable. No ventriculomegaly. Bones/joints: Unremarkable. No acute fracture. Soft tissues: Unremarkable. Sinuses: Partial opacification of the left ethmoid air cells. Mucosal thickening in the left frontal sinus. Complete opacification of the left maxillary sinus. Mastoid air cells: Unremarkable as visualized. No mastoid effusion. * A single impression for all exams can be found at the end of this report EXAM: XR Chest, 1 View CLINICAL HISTORY: The patient is 74 years old and is Female; fall TECHNIQUE: Frontal view of the chest. COMPARISON: No relevant prior studies available. FINDINGS: Lungs: Unremarkable. No consolidation. Pleural space: Unremarkable. No pneumothorax. Heart: Unremarkable. Mediastinum: Unremarkable. Normal mediastinal contour. Bones/joints: No acute findings. * A single impression for all exams can be found at the end of this report IMPRESSION: CT Head Without Intravenous Contrast: No acute intracranial abnormality. XR Chest, 1 View: No acute findings in the chest. Electronically signed by: Be Garcia MD 11/06/2024 05:37 AM [facility] 8 Due to temporary technical issues with the PACS/[employer] reporting system, reports are being leonela d by the in-house radiologist without review as a courtesy to ensure prompt reporting the interpreting radiologist is fully responsible for the content of the report. Transcribed Date/Time: 11/06/2024 5:45 AM
[2024-11-06 05:46] LABS: ALT/SGPT 21 U/L (13-56); AST/SGOT 25 U/L (15-37); Albumin 3.2 g/dL (3.4-5.0); Albumin/Globulin Ratio 0.9 (1.1-1.8); Alkaline Phosphatase 55 U/L (45-117); Anion Gap 13.1 mEq/L (5.0-15.0); BUN Blood Urea Nitrogen 32 mg/dL (7-18); Bicarbonate 22 mEq/L (21-32); Bilirubin Total 0.3 mg/dL (0.2-1.0); Globulin 3.5 g/dL (2.3-3.5); Glomerular Filtration Rate 43 ml/min (=/>90); Glucose Level 177 mg/dL (74-106); Magnesium 2.2 mg/dL (1.6-2.4); Potassium 4.1 mEq/L (3.5-5.1); Protein, Total 6.7 g/dL (6.4-8.2); Sodium Level 136 mEq/L (136-145); Troponin High Sensitivity 45.5 pg/mL (<58.9)
--- NOTE | 2024-11-06 05:50 | RAD REPORT ---
EXAM: CT Pelvis Without Intravenous Contrast CLINICAL HISTORY: The patient is 74 years old and is Female; right hip pain TECHNIQUE: Axial computed tomography images of the pelvis without intravenous contrast. Sagittal and coronal reformatted images were created and reviewed. This CT exam was performed using one or more of the following dose reduction techniques: automated exposure control, adjustment of the mA a nd/or kV according to patient size, and/or use of iterative reconstruction technique. COMPARISON: No relevant prior studies available. FINDINGS: Kidneys and ureters: Partially visualized 8 cm cystic lesion in the right lower abdomen which may represent a renal cyst. Bowel: Scattered colonic diverticula. No obstruction. No mucosal thickening. Appendix: No findings to suggest acute appendicitis. Intraperitoneal space: Unremarkable. No free air. No significant fluid collection. Bladder: Bladder is markedly distended. No stones. Reproductive: Fibroid uterus. Bones/joints: Displaced overriding fracture involving the proximal right femoral diaphysis. Fract ure extends into the greater trochanter and intertrochanteric region. Disc space narrowing with degenerative endplate changes in the spine. No dislocation. Soft tissues: Unremarkable. Vasculature: Scattered atherosclerotic vascular calcifications. No lower abdominal aortic aneurysm. Lymph nodes: Unremarkable. No enlarged lymph nodes. IMPRESSION: Displaced overriding fracture involving the proximal right femoral diaphysis. Fracture extends into the greater trochanter and intertrochanteric region. Electronically signed by: Be Garcia MD 11/06/2024 05:46 AM [facility] 8 Due to temporary technical issues with the PACS/[employer] reporting system, reports are being leonela d by the in-house radiologist without review as a courtesy to ensure prompt reporting the interpreting radiologist is fully responsible for the content of the report. Transcribed Date/Time: 11/06/2024 5:50 AM
[2024-11-06 06:01] LABS: Bilirubin Direct < 0.2 mg/dL (0-0.2); Bilirubin Indirect, Calculated 0.1 mg/dL (0.2-0.8)
--- NOTE | 2024-11-06 06:36 | RAD REPORT ---
EXAM: XR Right Hip With Pelvis When Performed, 2 or 3 Views CLINICAL HISTORY: The patient is 74 years old and is Female; PAIN TECHNIQUE: Two or three views of the right hip with pelvis when performed. COMPARISON: No relevant prior studies available. FINDINGS: Bones/joints: Displaced overriding fracture of the proximal right femoral diaphysis. Degenerative changes in the right hip. No dislocation. Soft tissues: Unremarkable. IMPRESSION: Displaced overriding fracture of the proximal right femoral diaphysis. Electronically signed by: Be Garcia MD 11/06/2024 05:49 AM [facility] 8 Due to temporary technical issues with the PACS/[employer] reporting system, reports are being leonela d by the in-house radiologist without review as a courtesy to ensure prompt reporting the interpreting radiologist is fully responsible for the content of the report. Transcribed Date/Time: 11/06/2024 6:35 AM
--- NOTE | 2024-11-06 06:37 | RAD REPORT ---
EXAM: CT Head Without Intravenous Contrast CLINICAL HISTORY: The patient is 74 years old and is Female; fall TECHNIQUE: Axial computed tomography images of the head/brain without intravenous contrast. Sagit yehuda and coronal reformatted images were created and reviewed. This CT exam was performed using one or more of the following dose reduction techniques: automated exposure control, adjustment of t he mA and/or kV according to patient size, and/or use of iterative reconstruction technique. COMPARISON: No relevant prior studies available. FINDINGS: Brain: Unremarkable. No hemorrhage. No significant white matter disease. No edema. Ventricles: Unremarkable. No ventriculomegaly. Bones/joints: Unremarkable. No acute fracture. Soft tissues: Unremarkable. Sinuses: Partial opacification of the left ethmoid air cells. Mucosal thickening in the left frontal sinus. Complete opacification of the left maxillary sinus. Mastoid air cells: Unremarkable as visualized. No mastoid effusion. * A single impression for all exams can be found at the end of this report EXAM: XR Chest, 1 View CLINICAL HISTORY: The patient is 74 years old and is Female; fall TECHNIQUE: Frontal view of the chest. COMPARISON: No relevant prior studies available. FINDINGS: Lungs: Unremarkable. No consolidation. Pleural space: Unremarkable. No pneumothorax. Heart: Unremarkable. Mediastinum: Unremarkable. Normal mediastinal contour. Bones/joints: No acute findings. * A single impression for all exams can be found at the end of this report IMPRESSION: CT Head Without Intravenous Contrast: No acute intracranial abnormality. XR Chest, 1 View: No acute findings in the chest. Electronically signed by: Be Garcia MD 11/06/2024 05:37 AM [facility] 8 Due to temporary technical issues with the [email or web address] reporting system, reports are being leonela d by the in-house radiologist without review as a courtesy to ensure prompt reporting the interpreting radiologist is fully responsible for the content of the report. Transcribed Date/Time: 11/06/2024 6:36 AM
[2024-11-06 10:49] VITALS: TEMP 98.3
[2024-11-06 10:54] VITALS: BP 157/63; O2SAT 99
--- NOTE | 2024-11-08 12:36 | EKG ---
Test Date: 2024-11-06 Test Time: 05:12:43 Petroleum Engineering Professor: VADIM MEASUREMENT RESULTS: Intervals: Rate: 65 [place]: 212 QRSD: 90 QT: 422 QTc: 438 [place]: P: 90 [place]: 212 QRS: 25 T: 32 INTERPRETIVE STATEMENTS: Normal sinus rhythm Low voltage QRS Septal infarct, age undetermined Abnormal ECG Compared to ECG 03/29/2023 15:22:50 Sinus bradycardia no longer present First degree AV block no longer present Myocardial infarct finding still present Electronically Signed On 11-08-24 12:32:31 MARKETING TECHNOLOGY COORDINATOR by Gato Ortiz
== END 2024-11-06 07:04 | disposition short-term general hospital (02) ==
LOC: ER 04:10
DX: S72.301A Unspecified fracture of shaft of right femur, initial encounter for closed fracture (principal); R00.1 Bradycardia, unspecified; W18.30XA Fall on same level, unspecified, initial encounter; E11.9 Type 2 diabetes mellitus without complications; I10 Essential (primary) hypertension
CPT/HCPCS: 85025; 80048; 36415; 83735; 85610; 80076; 85730; 84484; 70450; 72192; 71045; 73502; J2405; 93005; 96374; 96375; 99285

== ENCOUNTER 2025-01-20 21:31 | Inpatient (IN) | payer OTHER ==
[2025-01-20] MEDS ORDERED: MORPHINE 4 MG/ML SYR ONE (22:14)
[2025-01-20] MEDS ORDERED: ONDANSETRON 4 MG/2 ML VIAL ONE (22:14)
[2025-01-20 22:21] LABS: Absolute Basophils 0.1 K/uL (0-0.5); Absolute Eosinophils 0.1 K/uL (0-0.5); Absolute Lymphocytes (CBC) 1.2 K/uL (0.7-4.9); Absolute Monocytes 0.6 K/uL (0.1-1.3); Absolute Neutrophil 9.6 K/uL (1.8-8.0); Basophils % 0.7 % (0-1.3); Eosinophils % 0.7 % (0-4.4); Hematocrit 32.9 % (36.0-45.0); Lymphocytes % 10.5 % (15.3-44.8); MCH 31.1 pg (27.0-35.0); MCHC 33.5 g/dL (32.0-36.0); MCV 92.8 fL (80-100); MPV 8.7 fL (7.6-11.3); Monocytes % 5.2 % (3.3-12.3); Neutrophils % 82.9 % (41.7-73.7); Platelets 234 thou/uL (152-406); RBC Red Blood Cell Count 3.54 M/uL (3.86-4.86); Red Cell Distribution Width 14.7 % (12.1-15.2)
[2025-01-20 22:40] LABS: ALT/SGPT 21 U/L (13-56); AST/SGOT 24 U/L (15-37); Albumin 2.9 g/dL (3.4-5.0); Albumin/Globulin Ratio 0.7 (1.1-1.8); Alkaline Phosphatase 169 U/L (45-117); Anion Gap 10.2 mEq/L (5.0-15.0); BUN Blood Urea Nitrogen 24 mg/dL (7-18); Bicarbonate 28 mEq/L (21-32); Bilirubin Total 0.3 mg/dL (0.2-1.0); Glomerular Filtration Rate 45 ml/min (=/>90); Glucose Level 194 mg/dL (74-106); Lipase 73 U/L (13-75); Magnesium 1.8 mg/dL (1.6-2.4); PT Prothrombin Time 14.9 SECONDS (10-13.0); Potassium 3.2 mEq/L (3.5-5.1); Protein, Total 6.9 g/dL (6.4-8.2); Protime INR 1.32; Sodium Level 143 mEq/L (136-145)
[2025-01-20 22:46] LABS: Bilirubin Direct < 0.2 mg/dL (0-0.2); Bilirubin Indirect, Calculated 0.1 mg/dL (0.2-0.8)
[2025-01-20 22:52] LABS: Troponin High Sensitivity 83.2 pg/mL (<58.9)
--- NOTE | 2025-01-21 00:11 | ER ---
Nurse's Notes [facility] Name: Kelly Cai Age: 74 yrs Sex: Female : 1950 Arrival Date: 01/20/2025 Time: 21:31 Bed 7 Private MD: Diagnosis: NSTEMI, abdominal pain Presentation: 01/20 21:49 Chief complaint: Patient states: c/o epigastric pain that radiates to her back 05/20 me1 started today w/associated nausea. Coronavirus screen: Vaccine status: Patient reports receiving the 2nd dose of the covid vaccine. Ebola Screen: No symptoms or risks identified at this time. Initial Sepsis Screen: Does the patient meet any 2 criteria? No. Patient's initial sepsis screen is negative. Does the patient have a suspected source of infection? No. Patient's initial sepsis screen is negative. Risk Assessment: Do you want to hurt yourself or someone else? Patient reports no desire to harm self or others. Onset of symptoms was January 20, 2025 at 10:00. 21:49 Method Of Arrival: Ambulatory me1 21:49 Acuity: BALA 3 me1 Historical: - Allergies: 21:50 Metformin HCl; me1 21:50 sitagliptin phosphate; me1 21:50 Sulfa (Sulfonamide Antibiotics); me1 21:50 sulfamethoxazole-trimethoprim; me1 21:50 TRIMETHOPRIM; me1 - PMHx: 21:50 Diabetes - NIDDM; Hyperlipidemia; Hypertension; me1 - PSHx: 21:50 right hip (Unknown); me1 - Immunization history:: Adult Immunizations up to date. - Infectious Disease History:: Denies. - Social history:: Smoking status: Patient denies any tobacco usage or history of. Screenin:14 [facility] ED Fall Risk Assessment (Adult) History of falling in the last 3 months, cp4 including since admission No falls in past 3 months (0 pts) Confusion or Disorientation No (0 pts) Intoxicated or Sedated No (0 pts) Impaired Gait No (0 pts) Mobility Assist Device Used No (0 pt) Altered Elimination No (0 pt) Score/Fall Risk Level 0 - 2 = Low Risk Oriented to surroundings, Maintained a safe environment, Assessed \T\ reinforced patient's understanding of fall precautions, Hourly rounding (assess needs \T\ fall precautionary measures) done. Abuse screen: Denies threats or abuse. Denies injuries from another. Nutritional screening: No deficits noted. Tuberculosis screening: No symptoms or risk factors identified. Assessment: 22:14 General: Appears in no apparent distress. uncomfortable, Behavior is calm, cooperative, cp4 appropriate for age. Pain: Complains of pain in abdomen Pain does not radiate. Pain currently is 8 out of 10 on a pain scale. Neuro: Level of Consciousness is awake, alert, obeys commands, Oriented to person, place, time, situation. Cardiovascular: Patient's skin is warm and dry. Rhythm is sinus rhythm. Respiratory: Airway is patent Respiratory effort is even, unlabored. GI: Bowel sounds present X 4 quads. Abd is soft and non tender X 4 quads. Reports epigastric pain, nausea. : No signs and/or symptoms were reported regarding the genitourinary system. EENT: No signs and/or symptoms were reported regarding the EENT system. Derm: No signs and/or symptoms reported regarding the dermatologic system. Musculoskeletal: No signs and/or symptoms reported regarding the musculoskeletal system. Vital Signs: 21:49 BP 149 / 60; Pulse 64; Resp 20; Temp 98.3; Pulse Ox 100% ; Weight 99.79 kg; Height 5 me1 ft. 4 in. ; Pain 8/10; 23:00 BP 124 / 58; Pulse 52; Resp 18; Pulse Ox 97% ; cp4 01/21 00:00 BP 121 / 58; Pulse 58; Resp 18; Pulse Ox 97% ; cp4 01:00 BP 109 / 65; Pulse 57; Resp 18; Pulse Ox 97% ; cp4 02:00 BP 139 / 63; Pulse 65; Resp 18; Pulse Ox 95% ; cp4 01/20 21:49 Body Mass Index 37.76 (99.79 kg, 162.56 cm) me1 04 21:49 Pain Scale: Adult la1 ED Course: 01/20 21:38 Patient arrived in ED. jj6 21:45 Sally Schofield MD is Attending Physician. sp3 21:50 Triage completed. me1 21:50 Arm band placed on Patient placed in an exam room. me1 22:10 Inserted saline lock: 20 gauge in right antecubital area, using aseptic technique. af3 Blood collected. Flushed with 10 mL NS. 22:14 Bed in low position. Call light in reach. Side rails up X 1. cp4 22:14 No provider procedures requiring assistance completed. cp4 23:44 US Abdomen Limited In Process Unspecified. EDMS 23:53 CT Abd/Pelvis - IV Contrast Only In Process Unspecified. EDMS 01/21 00:11 Ayaan Mcgarry MD is Hospitalizing Provider. sp3 00:56 Laurie Freeman is Primary Nurse. cp4 01:59 Patient admitted, IV remains in place. cp4 02:00 Provided Education on: admission. cp4 Administered Medications: 01/20 22:18 Drug: morphine IVP or IV 4 mg IVP once over 4 mins Route: IVP; Infused Over: 4 mins; jj7 Site: right antecubital; 22:18 Drug: Ondansetron IVP 4 mg IVP once; over 2 minutes Route: IVP; Site: right antecubital;jj7 Medication: 22:14 VIS not applicable for this client. cp4 Outcome: 01/21 00:11 Decision to Hospitalize by Provider. sp3 01:59 Admitted to Med/surg accompanied by tech, via wheelchair, with chart, cp4 01:59 Condition: stable 01:59 Instructed on the need for admit, 02:03 Patient left the ED. cp4 Signatures: Dispatcher [employer] Sally Pat MD MD sp3 Polina Chapman jj6 Peter Rodriguez RN RN jj7 Ashlyn Trevizo RN RN me1 Laurie Freeman cp4 Delmi Avila 3
--- NOTE | 2025-01-21 00:12 | EDPHYS ---
Physician Documentation [facility] Name: Kelly Cai Age: 74 yrs Sex: Female : 1950 Arrival Date: 01/20/2025 Time: 21:31 Bed 7 Private MD: ED Physician Sally Schofield HPI: 01/20 22:08 This 74 yrs old Female presents to ER via Ambulatory with complaints of sp3 Abdominal Pain. 22:08 74-year-old female with history of diabetes, hypertension, recent left femur fracture sp3 who just left rehab about 2 weeks ago now presents with epigastric pain rating to the right upper quadrant around to her back. She has nauseated but has not had any vomiting, diarrhea, chest pain, shortness of breath, or any other signs or symptoms on ROS at this time. She denies fever and URI symptoms as well. No known sick contacts, travel history or prolonged immobilization.. Historical: - Allergies: 21:50 Metformin HCl; me1 21:50 sitagliptin phosphate; me1 21:50 Sulfa (Sulfonamide Antibiotics); me1 21:50 sulfamethoxazole-trimethoprim; me1 21:50 TRIMETHOPRIM; me1 - PMHx: 21:50 Diabetes - NIDDM; Hyperlipidemia; Hypertension; me1 - PSHx: 21:50 right hip (Unknown); me1 - Immunization history:: Adult Immunizations up to date. - Infectious Disease History:: Denies. - Social history:: Smoking status: Patient denies any tobacco usage or history of. ROS: 22:09 Constitutional: Negative for fever, chills, and weight loss, Eyes: Negative for injury, sp3 pain, redness, and discharge, ENT: Negative for injury, pain, and discharge, Neck: Negative for injury, pain, and swelling, Cardiovascular: Negative for chest pain, palpitations, and edema, Respiratory: Negative for shortness of breath, cough, wheezing, and pleuritic chest pain, Back: Negative for injury and pain, MS/Extremity: Negative for injury and deformity, Skin: Negative for injury, rash, and discoloration, Neuro: Negative for headache, weakness, numbness, tingling, and seizure, Psych: Negative for depression, anxiety, suicide ideation, homicidal ideation, and hallucinations, Allergy/Immunology: Negative for hives, rash, and allergies, Endocrine: Negative for neck swelling, polydipsia, polyuria, polyphagia, and marked weight changes, Hematologic/Lymphatic: Negative for swollen nodes, abnormal bleeding, and unusual bruising, 22:09 All other systems are negative, Exam: 22:09 Constitutional: This is a well developed, well nourished patient who is awake, alert, sp3 and in no acute distress. Head/Face: Normocephalic, atraumatic. Eyes: Pupils equal round and reactive to light, extra-ocular motions intact. Lids and lashes normal. Conjunctiva and sclera are non-icteric and not injected. Cornea within normal limits. Periorbital areas with no swelling, redness, or edema. Neck: Trachea midline, no thyromegaly or masses palpated, and no cervical lymphadenopathy. Supple, full range of motion without nuchal rigidity, or vertebral point tenderness. No Meningismus. Chest/axilla: Normal chest wall appearance and motion. Nontender with no deformity. No lesions are appreciated. Cardiovascular: Regular rate and rhythm with a normal S1 and S2. No gallops, murmurs, or rubs. Normal PMI, no JVD. No pulse deficits. Respiratory: Lungs have equal breath sounds bilaterally, clear to auscultation and percussion. No rales, rhonchi or wheezes noted. No increased work of breathing, no retractions or nasal flaring. Back: No spinal tenderness. No costovertebral tenderness. Full range of motion. Skin: Warm, dry with normal turgor. Normal color with no rashes, no lesions, and no evidence of cellulitis. MS/ Extremity: Pulses equal, no cyanosis. Neurovascular intact. Full, normal range of motion. Neuro: Awake and alert, GCS 15, oriented to person, place, time, and situation. Cranial nerves II-XII grossly intact. Motor strength 5/5 in all extremities. Sensory grossly intact. Cerebellar exam normal. Normal gait. Psych: Awake, alert, with orientation to person, place and time. Behavior, mood, and affect are within normal limits. 22:09 Abdomen/GI: Pain epigastrically radiating to the right upper quadrant painful on palpation. No peritoneal signs, rebound or guarding noted., 22:50 ECG was reviewed by the Attending Physician. EKG demonstrates sinus bradycardia 54 bpm sp3 with normal intervals, normal QRS, nonspecific ST/T-segment's without evidence of acute ischemia. Vital Signs: 21:49 BP 149 / 60; Pulse 64; Resp 20; Temp 98.3; Pulse Ox 100% ; Weight 99.79 kg; Height 5 me1 ft. 4 in. ; Pain 8/10; 23:00 BP 124 / 58; Pulse 52; Resp 18; Pulse Ox 97% ; cp4 01/21 00:00 BP 121 / 58; Pulse 58; Resp 18; Pulse Ox 97% ; cp4 01:00 BP 109 / 65; Pulse 57; Resp 18; Pulse Ox 97% ; cp4 02:00 BP 139 / 63; Pulse 65; Resp 18; Pulse Ox 95% ; cp4 01/20 21:49 Body Mass Index 37.76 (99.79 kg, 162.56 cm) al1 01/20 21:49 Pain Scale: Adult me MDM: 01/20 21:47 Medical Screening Exam initiated sp3 22:09 Data reviewed: vital signs, nurses notes, old medical records, lab test result(s), EKG, sp3 radiologic studies. ED course: 74-year-old female with PMH above now with right upper quadrant abdominal pain as well as epigastric pain. Differential diagnosis includes cholecystitis, cholelithiasis, biliary colic, other hepatobiliary pathology, pancreatitis, gastritis, colitis and to a lesser degree acute coronary syndrome, aortic pathology, pulmonary pathology or musculoskeletal. Workup include CT scan of the abdomen pelvis with IV contrast, general labs, UA, EKG and general supportive care. Disposition pending workup and patient course. Morphine and ondansetron IV as needed.. 01/21 00:06 ED course: Right upper quadrant ultrasound negative for gallbladder pathology or sp3 biliary pathology. Lipase normal. Troponin at 83 with 1.2 creatinine. No significant other findings on lab work. Will need to trend troponin given epigastric pain and nausea as potential acute coronary syndrome. Patient will be diagnosed as NSTEMI and admitted with cardiology consultation and serial markers.. 01/20 22:01 Order name: Basic Metabolic Panel; Complete Time: 22:53 sp3 01/20 22:01 Order name: CBC with Diff; Complete Time: 22:53 sp3 01/20 22:01 Order name: LFT's; Complete Time: 22:53 sp3 01/20 22:01 Order name: Magnesium; Complete Time: 22:53 sp3 01/20 22:01 Order name: PT-INR; Complete Time: 22:53 sp3 01/20 22:01 Order name: Troponin HS; Complete Time: 22:53 sp3 01/20 22:01 Order name: Lipase; Complete Time: 22:53 sp3 01/21 00:46 Order name: CBC with Automated Diff EDMS 01/21 00:46 Order name: Lactate w/ 2H reflex if indic. EDMS 01/21 00:46 Order name: Urinalysis w/ reflexes EDMS 01/21 00:46 Order name: Comprehensive Metabolic Panel EDMS 01/21 00:46 Order name: Comprehensive Metabolic Panel EDMS 01/21 00:46 Order name: Lipid Profile EDMS 01/21 00:46 Order name: Lipid Profile EDMS 01/21 00:46 Order name: Troponin High Sensitivity EDMS 01/21 00:46 Order name: Troponin High Sensitivity EDMS 01/21 00:46 Order name: Troponin High Sensitivity EDMS 01/21 00:46 Order name: Troponin High Sensitivity EDMS 01/21 00:46 Order name: Troponin High Sensitivity EDMS 01/21 00:54 Order name: Gamma Glutamyl Transpeptidase EDMS 01/20 22:01 Order name: CT Abd/Pelvis - IV Contrast Only sp3 01/20 22:01 Order name: US Abdomen Limited sp3 01/21 00:46 Order name: Echo with Doppler EDMS 01/21 00:49 Order name: Hepatobiliary System W/ Ph EDMS 01/20 22:01 Order name: EKG; Complete Time: 22:02 3 01/20 22:01 Order name: Cardiac monitoring; Complete Time: 22:11 sp3 01/20 22:01 Order name: EKG - Nurse/Tech; Complete Time: 22:11 sp3 01/20 22:01 Order name: IV Saline Lock; Complete Time: 22:10 sp3 01/20 22:01 Order name: Labs collected and sent; Complete Time: 22:10 3 01/20 22:01 Order name: O2 Per Protocol; Complete Time: 22:10 sp3 01/20 22:01 Order name: O2 Sat Monitoring; Complete Time: 22:10 3 01/20 22:01 Order name: NPO; Complete Time: 22: sp3 Administered Medications: 04/12 22:18 Drug: morphine IVP or IV 4 mg IVP once over 4 mins Route: IVP; Infused Over: 4 mins; jj7 Site: right antecubital; 22:18 Drug: Ondansetron IVP 4 mg IVP once; over 2 minutes Route: IVP; Site: right antecubital;jj7 Disposition Summary: 01/21/25 00:11 Hospitalization Ordered Notes: Hospitalization Status: Inpatient Admission sp3 Provider: Ayaan Mcgarry sp3 [facility] ([facility]patient) sp3 Condition: Stable sp3 Problem: new sp3 Symptoms: are unchanged sp3 Bed/Room Type: Standard sp3 Room Assignment: 218(01/21/25 00:51) cg Diagnosis - NSTEMI, abdominal pain sp3 Forms: - Medication Reconciliation Form sp3 - SBAR form sp3 - Leadership Thank You Letter sp3 Signatures: Dispatcher [employer] Gretchen Culp RN RN cg Sally Schofield MD MD sp3 Peter Rodriguez RN RN jj7 Ashlyn Trevizo RN RN me1 Corrections: (The following items were deleted from the chart) 01/21 00:51 00:11 sp3 cg
--- NOTE | 2025-01-21 00:14 | RAD REPORT ---
Clinical Indication: Bed Name: 7; RUQ pain;Abd pain Comparison: None Findings: Grayscale and color Doppler ultrasound was performed on the right upper quadrant for the purposes of evaluating the gallbladder. The gallbladder is mildly distended. Shadowing echogenic foci are noted within the dependent neck, co nsistent with small stones. The gallbladder wall measures 2.7 mm in thickness. No pericholecystic fluid is noted. Evaluation for sonographic Lion sign is limited due to patient medication. IMPRESSION: Cholelithiasis without sonographic evidence of acute cholecystitis. Electronically signed by: Scout Leigh MD 01/21/2025 12:04 AM CDT RP Due to temporary technical issues with the PACS/[employer] reporting system, reports are being sign ed by the in-house radiologist without review as a courtesy to ensure prompt reporting the interpreting rad iologist is fully responsible for the content of the report. Transcribed Date/Time: 01/21/2025 12:14 AM
[2025-01-21] MEDS ORDERED: ALPRAZOLAM 0.25 MG TABLET PO PRN (00:35)
[2025-01-21] MEDS ORDERED: MORPHINE 4 MG/ML SYR IV PRN (00:35)
[2025-01-21] MEDS ORDERED: ONDANSETRON 4 MG/2 ML VIAL IV PRN (00:35)
[2025-01-21] MEDS ORDERED: NITROGLYCERIN 0.4 MG/TAB SL PRN (00:35)
[2025-01-21] MEDS ORDERED: ZOLPIDEM TARTRATE 5 MG TABLET PO PRN (00:35)
--- NOTE | 2025-01-21 00:51 | P.HP ---
Patient History Date of Service: 01/21/25 Reason for admission: Abdominal pain History of Present Illness: This is a pleasant 74-year-old Malian-speaking female with a past medical history of hypertension, type 2 diabetes, hyperlipidemia presenting with abdominal pain that began yesterday. Associated symptoms include nausea and vomiting. She states the pain radiates to the back. She rates the discomfort as an 8 out of 10. Allergies sitagliptin phosphate [From Janumet] Allergy (Verified 03/29/23 15:11) Itching Sulfa (Sulfonamide Antibiotics) Allergy (Verified 03/29/23 15:11) Itching sulfamethoxazole [From Bactrim] Allergy (Verified 03/29/23 15:11) Itching trimethoprim [From Bactrim] Allergy (Verified 03/29/23 15:11) Itching metformin HCl [From Janumet] Adverse Reaction (Verified 03/29/23 15:11) Diarrhea Home Medications: Ascorbic Acid [Vitamin C] 1 tab PO DAILY 01/02/15 Cholecalciferol (Vitamin D3) [Vitamin D] 1 tab PO DAILY 01/02/15 Cyanocobalamin (Vitamin B-12) [Vitamin B-12] 1 tab PO DAILY 01/02/15 Linagliptin/Metformin HCl [Jentadueto 2.5 mg-1000 mg Tab] 2 tab PO DAILY 01/02/15 Lisinopril/Hydrochlorothiazide [Zestoretic 20-25 mg Tablet] 25 mg PO DAILY 01/02/15 Pantoprazole [Protonix Tab*] 1 tab PO DAILY 01/02/15 Rosuvastatin [Crestor*] 1 tab PO DAILY 01/02/15 Review of Systems General: Unremarkable Eyes: Unremarkable ENT: Unremarkable Respiratory: Unremarkable Cardiovascular: Unremarkable Gastrointestinal: Nausea, Abdominal Pain, Unremarkable Genitourinary: Unremarkable Musculoskeletal: Unremarkable Integumentary: Unremarkable Neurological: Unremarkable Physical Examination - Physical Exam General: Alert HEENT: Normocephalic Neck: Supple Respiratory: Clear to auscultation bilaterally Cardiovascular: Normal pulses, Edema Capillary refill: <2 Seconds Gastrointestinal: Normal bowel sounds Musculoskeletal: No clubbing Integumentary: No rashes Neurological: Normal gait, Normal speech Lymphatics: No axilla or inguinal lymphadenopathy - Studies Laboratory Data (last 24 hrs) 01/20/25 01/20/25 01/20/25 22:08 22:08 22:08 WBC 11.60 H Hgb 11.0 L Hct 32.9 L Plt Count 234 PT 14.9 H INR 1.32 Sodium 143 Potassium 3.2 L BUN 24 H Creatinine 1.24 H Glucose 194 H Magnesium 1.8 Total Bilirubin 0.3 AST 24 ALT 21 Alkaline Phosphatase 169 H Lipase 73 Assessment and Plan - Plan Abdominal pain Elevated troponin Leukocytosis Hypokalemia Type 2 diabetes mellitus Hypertension Hyperlipidemia CAD Hypokalemia Elevated creatinine Anemia admit to floor consult cardiology echo pending Start aspirin, continue statin, start heparin drip blood cultures pending, start zosyn, HIDA scan and GGT pending abdominal US reviewed, CT abdomen reviewed (1 single gallstone) trend troponin, EKG reviewed IV morphine for pain Replace potassium Lipid panel reviewed continue IV fluids replace electrolytes per protocol - Advance Directives Does patient have a Living Will: No Does patient have a Durable POA for Healthcare: No
[2025-01-21] MEDS: NA CHLORIDE 0.9% 1,000 ML IV SCH ×3 (01:00→17:00)
--- NOTE | 2025-01-21 02:05 | RAD REPORT ---
CLINICAL HISTORY: Epigastric and RUQ pain radiating to back. COMPARISON: US Abdomen Limited 01/20/2025. TECHNIQUE: CT ABDOMEN PELVIS WITH IV CONTRAST on 01/20/2025 10:01 PM CDT This exam was performed according to our departmental dose-optimization program, which includes autom ated exposure control, adjustment of the mA and/or kV according to patient size and/or use of iterative reconstruction technique. FINDINGS: Lower lungs are clear. Abdomen: Upper aspect of the liver is not included and the scope of this study. There is no biliary d ilatation. Gallbladder contains a single tiny gallstone. The pancreas and spleen are normal in appearance. Adrenal glands are normal. Mid pole right renal cyst measures 2.8 cm. Lower pole left josie al cyst measures 2.0 cm. Exophytic cyst in the lower pole of the right kidney measures 8 cm. There is no hydronephrosis. Abdominal aorta is heavily calcified without aneurysm. There is no free air. There is no retroperiton eal adenopathy. Pelvis: There is no bowel obstruction. Urinary bladder is unremarkable. There is no free fluid. Uteru s is normal in size containing several partially calcified small fibroids. Appendix is normal. Skeleton: There are postoperative changes of the proximal right femur from a possibly recent proximal femur fracture repair. IMPRESSION: No definite acute inflammatory process. Cholelithiasis. Electronically signed by: Kendell Plata MD 01/21/2025 01:05 AM CDT Due to temporary technical issues with the PACS/[employer] reporting system, reports are being leonela d by the in-house radiologist without review as a courtesy to ensure prompt reporting the interpreting radiologist is fully responsible for the content of the report. Transcribed Date/Time: 01/21/2025 2:04 AM
[2025-01-21 02:31] VITALS: BMI 36.6
[2025-01-21 02:56] LABS: Troponin High Sensitivity 504.5 pg/mL (<58.9)
[2025-01-21] MEDS: POTASSIUM CL SA 10 MEQ TAB PO ONE (03:32)
[2025-01-21] MEDS: HEPARIN/D5W 25,000 UNIT/500 ML BAG IV SCH (04:36)
[2025-01-21 07:15] LABS: Absolute Basophils 0.1 K/uL (0-0.5); Absolute Eosinophils 0.1 K/uL (0-0.5); Absolute Lymphocytes (CBC) 2.2 K/uL (0.7-4.9); Absolute Monocytes 0.9 K/uL (0.1-1.3); Basophils % 0.7 % (0-1.3); Hematocrit 31.5 % (36.0-45.0); Hemoglobin 10.6 g/dL (12.0-15.0); Lymphocytes % 19.3 % (15.3-44.8); MCH 31.1 pg (27.0-35.0); MCHC 33.5 g/dL (32.0-36.0); MCV 92.7 fL (80-100); MPV 8.7 fL (7.6-11.3); Monocytes % 8.1 % (3.3-12.3); Neutrophils % 70.9 % (41.7-73.7); Platelets 212 thou/uL (152-406); Red Cell Distribution Width 14.7 % (12.1-15.2)
[2025-01-21 07:30] LABS: Anion Gap 5.8 mEq/L (5.0-15.0); Potassium 2.8 mEq/L (3.5-5.1)
[2025-01-21] MEDS: ROSUVASTATIN 10 MG TAB PO SCH (08:39)
[2025-01-21] MEDS: ASPIRIN EC 325 MG TABLET PO SCH (08:39)
[2025-01-21] MEDS ORDERED: hydroCHLOROthiazide 25 MG TAB PO SCH (09:00)
[2025-01-21] MEDS ORDERED: lisinopriL 20 MG TAB PO SCH (09:00)
--- NOTE | 2025-01-21 10:18 | P.PN ---
Subjective Date of Service: 01/21/25 Chief Complaint: Abdominal pain Subjective: No new changes Review of Systems 10-point ROS is otherwise unremarkable Physical Examination - Vital Signs Temperature: 97.8 F Blood Pressure: 147/65 Pulse: 60 Respirations: 14 Pulse Ox (%): 97 - Physical Exam General: Alert, Oriented x3 HEENT: Atraumatic Neck: Supple Cardiovascular: No edema, Normal pulses Gastrointestinal: Normal bowel sounds, Soft and benign, Non-distended Neurological: Normal gait, Normal strength at 5/5 x4 extr - Studies Laboratory Data (last 24 hrs) 01/20/25 01/20/25 01/20/25 22:08 22:08 22:08 WBC 11.60 H Hgb 11.0 L Hct 32.9 L Plt Count 234 PT 14.9 H INR 1.32 Sodium 143 Potassium 3.2 L BUN 24 H Creatinine 1.24 H Glucose 194 H Magnesium 1.8 Total Bilirubin 0.3 AST 24 ALT 21 Alkaline Phosphatase 169 H Lipase 73 Assessment And Plan - Plan 1. NSTEMI -Presented with abdominal discomfort - Troponins trending up, most recent troponin of 83 -EKG shows sinus bradycardia in the 50s - On heparin drip, aspirin and statin -No beta-merary due to underlying bradycardia in the 50s to 60s - 2D echo ordered - Cardiology consulted 2. Type 2 diabetes - Sliding scale insulin 3. Essential hypertension - Controlled 4. DVT prophylaxis - heparin gtt
[2025-01-21] MEDS: KCL 20 MEQ/100 mL IVPB 20 MEQ/100 ML BAG IV SCH (12:13)
--- NOTE | 2025-01-21 12:40 | P.CNS ---
Date of Consult: 01/21/25 Chief Complaint: Abdominal pain History of Present Illness: Patient with PMH of HTN, HLD, moderate CAD presented with abdominal and back pain for the last 2 days, associated with nausea, denies chest pain, no breathing problems. no syncope. Allergies sitagliptin phosphate [From Janumet] Allergy (Verified 03/29/23 15:11) Itching Sulfa (Sulfonamide Antibiotics) Allergy (Verified 03/29/23 15:11) Itching sulfamethoxazole [From Bactrim] Allergy (Verified 03/29/23 15:11) Itching trimethoprim [From Bactrim] Allergy (Verified 03/29/23 15:11) Itching metformin HCl [From Janumet] Adverse Reaction (Verified 03/29/23 15:11) Diarrhea Home medications list reviewed: Yes Home Medications: Ascorbic Acid [Vitamin C] 1 tab PO DAILY 01/02/15 Cholecalciferol (Vitamin D3) [Vitamin D] 1 tab PO DAILY 01/02/15 Cyanocobalamin (Vitamin B-12) [Vitamin B-12] 1 tab PO DAILY 01/02/15 Linagliptin/Metformin HCl [Jentadueto 2.5 mg-1000 mg Tab] 2 tab PO DAILY 01/02/15 Lisinopril/Hydrochlorothiazide [Zestoretic 20-25 mg Tablet] 25 mg PO DAILY 01/02/15 Pantoprazole [Protonix Tab*] 1 tab PO DAILY 01/02/15 Rosuvastatin [Crestor*] 1 tab PO DAILY 01/02/15 - Past Medical/Surgical History Diabetic: Yes -: HTN -: HLD -: Diabetes -: fall -: right hip surgery-2 months ago - Social History Smoking Status: Unknown if ever smoked Alcohol use: No CD- Drugs: No Caffeine use: No Place of Residence: Home Review of Systems 10-point ROS is otherwise unremarkable Physical Examination Temp Pulse Resp BP Pulse Ox 98.1 F 55 16 103/51 L 97 01/21/25 12:00 01/21/25 12:00 01/21/25 12:00 01/21/25 12:00 01/21/25 12:00 General: Alert, In no apparent distress HEENT: Atraumatic, PERRLA, Mucous membr. moist/pink, EOMI, Sclerae nonicteric Neck: Supple, 2+ carotid pulse no bruit, No LAD, Without JVD or thyroid abnormality Respiratory: Clear to auscultation bilaterally, Normal air movement Cardiovascular: Regular rate/rhythm, Normal S1 S2 Gastrointestinal: Normal bowel sounds, No tenderness Musculoskeletal: No tenderness Integumentary: No rashes Neurological: Normal gait, Normal speech, Normal tone, Normal affect Lymphatics: No axilla or inguinal lymphadenopathy Laboratory Data (last 24 hrs) 01/20/25 01/20/25 01/20/25 22:08 22:08 22:08 WBC 11.60 H Hgb 11.0 L Hct 32.9 L Plt Count 234 PT 14.9 H INR 1.32 Sodium 143 Potassium 3.2 L BUN 24 H Creatinine 1.24 H Glucose 194 H Magnesium 1.8 Total Bilirubin 0.3 AST 24 ALT 21 Alkaline Phosphatase 169 H Lipase 73 - Problems (1) NSTEMI (non-ST elevated myocardial infarction) Current Visit: Yes Status: Acute Plan: Paitent with known moderate LAD/LCX and RCA disease back in 2022, with troponin leak NPO after midnight for coronary angiogram in am ASA 81 mg daily Crestor 20 mg daily (2) HTN (hypertension) Current Visit: Yes Status: Acute Plan: BP is normal off medications. continue to monitor (3) HLD (hyperlipidemia) Current Visit: Yes Status: Acute Plan: increase Crestor to 20 mg daily
[2025-01-21] MEDS: ENOXAPARIN 100 MG/ML SYR SQ SCH (20:37)
[2025-01-22 05:04] LABS: Albumin 2.6 g/dL (3.4-5.0); Albumin/Globulin Ratio 0.8 (1.1-1.8); Anion Gap 5.6 mEq/L (5.0-15.0); Bilirubin Total 0.3 mg/dL (0.2-1.0); Globulin 3.4 g/dL (2.3-3.5); Potassium 3.6 mEq/L (3.5-5.1)
--- NOTE | 2025-01-22 07:04 | P.PN ---
Date of Service: 01/22/25
[2025-01-22] MEDS ORDERED: POTASSIUM CL SA 10 MEQ TAB PO ONE (07:44)
--- NOTE | 2025-01-22 08:39 | RAD REPORT ---
EXAMINATION: NUCLEAR MEDICINE HIDA SCAN WITH GALLBLADDER EJECTION FRACTION CLINICAL INDICATION: Female, 74 years old. concern for cholecystitis TECHNIQUE: Hepatobiliary imaging was acquired over the abdomen for 60 minutes following intravenous a dministration of radiotracer. Gallbladder ejection fraction determination was then performed utilizing synthetic 1.9 mgm CCK over a slow 30 minute infusion. RADIOPHARMACEUTICAL: 6.6 mCi Technetium 99m Mebrofenin. COMPARISON: No prior exams. FINDINGS: Normal hepatic uptake and excretion with appropriate clearance of background blood pool activity. Normal visualization of biliary and small bowel activity. Gallbladder visualizes within normal time limits. The calculated ejection fraction is 3% (normal greater than 35%). Subjective pain reported by the patient: Pre-procedure - none During or subsequent to synthetic CCK infusion - none IMPRESSION: Patient cystic duct and patent sphincter of Oddi. No delay in visualization of the gallbladder, biliary tree, or duodenum. Ejection fraction is 3% (normal greater than 35%). Subjective patient pain assessment as detailed above.
[2025-01-22] MEDS: HYDRALAZINE HCL 20 MG/ML VIAL IV PRN (09:01)
--- NOTE | 2025-01-22 10:51 | EKG ---
Test Date: 2025-01-20 Test Time: 22:11:30 Cross Tie Cutter: JOSE ALFREDO MEASUREMENT RESULTS: Intervals: Rate: 54 MI: 198 QRSD: 100 QT: 472 QTc: 447 [place]: P: 80 MI: 198 QRS: -6 T: -26 INTERPRETIVE STATEMENTS: Sinus bradycardia Minimal voltage criteria for LVH, may be normal variant Septal infarct, age undetermined Abnormal ECG Compared to ECG 11/06/2024 05:12:43 Left ventricular hypertrophy now present Sinus rhythm no longer present Myocardial infarct finding still present Electronically Signed On 01-22-25 10:48:14 CDT by Gato Ortiz
[2025-01-22] MEDS ORDERED: CLOPIDOGREL 75 MG TABLET ONE (11:39)
[2025-01-22] MEDS ORDERED: HEPARIN 10,000 UNIT/10 ML VIAL IV ONE (11:39)
[2025-01-22] MEDS ORDERED: ATROPINE SULF 1 MG/10 ML SYR IV ONE (11:39)
[2025-01-22] MEDS ORDERED: HEPA 1000U/500MLS 2,000 UNIT/1,000 ML BAG IV ONE (11:39)
[2025-01-22] MEDS ORDERED: TICAGRELOR 90 MG TABLET PO ONE (11:40)
[2025-01-22] MEDS ORDERED: ASPIRIN 325 MG TAB ONE (11:40)
[2025-01-22] MEDS ORDERED: FENTANYL CITR 100 MCG/2 ML ONE (12:18)
[2025-01-22] MEDS ORDERED: MIDAZOLAM HCL 2 MG/2 ML INJ ONE (12:18)
[2025-01-22] MEDS ORDERED: LIDOCAINE 1% 20 ML MDV ONE (12:23)
[2025-01-22] MEDS ORDERED: HEPARIN 5000 UNIT/ML 1 ML VIAL ONE (12:25)
--- NOTE | 2025-01-22 13:03 | P.PN ---
Subjective Date of Service: 01/22/25 Chief Complaint: Abdominal pain Subjective: No new changes, No C/O voiced, Tolerating diet, Ambulating, Improving Review of Systems 10-point ROS is otherwise unremarkable Physical Examination - Vital Signs Temperature: 98.2 F Blood Pressure: 152/69 Pulse: 83 Respirations: 15 Pulse Ox (%): 98 - Physical Exam General: Alert, In no apparent distress HEENT: Atraumatic, PERRLA, EOMI Neck: Supple, JVD not distended Respiratory: Clear to auscultation bilaterally, Normal air movement Cardiovascular: Regular rate/rhythm, Normal S1 S2 Gastrointestinal: Normal bowel sounds, No tenderness Musculoskeletal: No tenderness Integumentary: No rashes Neurological: Normal speech, Normal tone, Normal affect Lymphatics: No axilla or inguinal lymphadenopathy - Studies Medications List Reviewed: Yes Assessment And Plan - Current Problems (Diagnosis) (1) NSTEMI (non-ST elevated myocardial infarction) Current Visit: Yes Status: Acute Plan: Maria Elena had coronary angiogram done today that shows significant calcified mid LAD, Diagonal and RCA disease. ASA 81 mg daily start Plavix 75 mg daily Crestor 20 mg daily Patient will need outpatient evaluation for CABG, if surgery is not an option then PCI LAD can be done as outpatient (2) HTN (hypertension) Current Visit: Yes Status: Acute Plan: BP is normal off medications. continue to monitor (3) HLD (hyperlipidemia) Current Visit: Yes Status: Acute Plan: increase Crestor to 20 mg daily
--- NOTE | 2025-01-22 13:34 | ECHO ---
HEIGHT: 5 ft 4 in WEIGHT: 213 lb 0 oz DATE OF STUDY: 01/22/[address]: Ayaan Mcgarry MD 2-DIMENSIONAL: YES M.MODE: YES DOPPLER: YES COLOR FLOW: YES TDS: YES PORTABLE: YES DEFINITY: BUBBLE STUDY: DIAGNOSIS: ELEVATED TROPONIN CARDIAC HISTORY: CATHERIZATION: NO SURGERY: NO PROSTHETIC VALVE: NO PACEMAKER: NO MEASUREMENTS (cm) DIASTOLIC (NORMALS) SYSTOLIC (NORMALS) IVSd 1.3 (0.6-1.2) LA Diam 3.0 (1.9-4.0) LVEF 60-65% LVIDd 4.6 (3.5-5.7) LVIDs 2.9 (2.0-3.5) %FS 35% LVPWd 1.3 (0.6-1.2) Ao Diam 3.0 (2.0-3.7) 2 DIMENSIONAL ASSESSMENT: RIGHT ATRIUM: NORMAL LEFT ATRIUM: NORMAL RIGHT VENTRICLE: NORMAL LEFT VENTRICLE: NORMAL TRICUSPID VALVE: INSUFFICIENT TRICUSPID REGURGITTION MITRAL VALVE: NORMAL PULMONIC VALVE: NORMAL AORTIC VALVE: NORMAL PERICARDIAL EFFUSION: NONE AORTIC ROOT: NORMAL LEFT VENTRICULAR WALL MOTION: NORMAL DOPPLER/COLOR FLOW: DIASTOLIC DYSFUNCTION COMMENTS: 1. NORMAL LEFT VENTRICULAR SYSTOLIC FUNCTION, EJECTION FRACTION 60-65%, NORMAL WALL MOTION 2. DIASTOLIC DYSFUNCTION 3. INFERIOR VENA CAVA NOT WELL VISUALIZED TECHNOLOGIST: SANDRA VAZ
--- NOTE | 2025-01-22 14:41 | OP ---
Date of Procedure: 01/22/2025 Surgeon: Gato Ortiz Procedure Performed: Selective coronary angiogram. Indication For Procedure: [id number] IN. Complications: None. Estimated Blood Loss: Less than 50 cc. Access: Right radial, closed by TR band. Sedation Time: 20 minutes with 1 of Versed and 50 of fentanyl. Description Of Procedure: After risks, and benefits, and alternatives were explained to the patient, patient agreed to proceed with procedure and signed informed consent. The patient was brought back to the laborer shell[employer] processing, prepped and draped in sterile fashion. Time-out was performed. Sedation was admini stered. Next, right radial access was obtained using ultrasound-guided micropuncture technique. Tig er 4.0 catheter was advanced over the J-wire to the aortic root. Selective angiogram was done. The catheter was removed at the end of procedure. Sheath was removed. TR band was applied. Hemostasis was achieved, and the patient was moved back to recovery in stable condition. Findings: 1. Left main; ostial 20% to 30% disease and mild luminal irregularities. 2. LAD; diffuse heavily calcified artery with proximal 50% disease followed by heavy calcified mid 80 % disease segment, then mid to distal large mild luminal irregularities. 3. Diagonal 1 small. 4. Diagonal 2 with proximal 80% disease and mild luminal irregularities. 5. Left circ; heavily calcified with mid 30% to 40% disease, with mild luminal irregularities. 6. RCA; large dominant with proximal to mid 60% disease, then mild luminal irregularities. Assessment And Plan: Significant LAD, diagonal 2, RCA disease. Plan is to consult CT Surgery as an outpatient to evaluate for CABG, if CABG is not an option, then P CI of the LAD can be done with FFR of the RCA. Aspirin 81 mg daily for life. Plavix 75 mg daily. Continue aggressive medical treatment for CAD. MARTINEZ/MODL Voice ID: [id number] Report ID: [id number]
--- NOTE | 2025-01-22 14:49 | P.DS ---
Admission Date: 01/21/25 Discharge Date: 01/22/25 Disposition: ROUTINE DISCHARGE Discharge Condition: GOOD Reason for Admission: Abdominal pain Brief History of Present Illness: 74-year-old [place]-speaking female with a past medical history of hypertension, type 2 diabetes, hyperlipidemia presenting with abdominal pain that began yesterday. Associated symptoms include nausea and vomiting. She states the pain radiates to the back. She rates the discomfort as an 8 out of 10. Admitted for evaluation for chest pain, admit for cardiology to [facility] - Physical Exam General: Alert HEENT: Normocephalic Neck: Supple Respiratory: Clear to auscultation bilaterally Cardiovascular: Normal pulses, Edema Capillary refill: <2 Seconds Gastrointestinal: Normal bowel sounds Musculoskeletal: No clubbing Integumentary: No rashes Neurological: Normal gait, Normal speech Lymphatics: No axilla or inguinal lymphadenopathy Hospital Course: 74-year-old [place]-speaking female with a past medical history of hypertension, type 2 diabetes, hyperlipidemia presenting with abdominal pain that began yes terday. Associated symptoms include nausea and vomiting. She states the pain radiates to the back. She rates the discomfort as an 8 out of 10. She was noted to have elevated troponins, NSTEMI, was seen by cardiology. Status post cardiac cath, she needs to follow-up for outpatient CABG evaluation. Discharge medication Plavix 75 mg daily Crestor 20 mg daily Aspirin 81 mg daily Will need outpatient testing for CABG evaluation, if CABG is not a option will need PCI with LAD outpatient Discussed ultrasound results with Dr. Ivey, patient stable to discharge home follow-up with cardiology for CABG evalulation at this time, patient is too unstable for cholecystectomy, patient does not have acute cholecystitis Diabetes type 2 resume home meds after discharge Hypertension, resume home meds Hyperlipidemia started on Crestor CAD Cholelithiasis without cholecystitis HIDA scan Patient cystic duct and patent sphincter of Oddi. No delay in visualization of the gallbladder, biliary tree, or duodenum. Ejection fraction is 3% (normal greater than 35%). Abdominal CT Abdominal aorta is heavily calcified without aneurysm. There is no free air. There is no retroperitoneal adenopathy. Abdominal ultrasound-Cholelithiasis without sonographic evidence of acute cholecystitis. INSTRUCTIONS: Physician Discharge Instructions: -Follow-up with PCP in 1 to 2 weeks -Please call nursing station at [phone] if any nursing or medication questions -Return to the emergency room if symptoms worsen Diet: ADA, low sodium Activity: Fall precautions Vital Signs/Physical Exam: Temp Pulse Resp BP Pulse Ox 96.9 F 64 17 148/59 H 98 01/22/25 13:10 01/22/25 14:25 01/22/25 14:25 01/22/25 14:25 01/22/25 13:03 Laboratory Data at Discharge: WBC 11.20 thou/uL (4.3-10.9) H 01/21/25 06:56 Hgb 10.6 g/dL (12.0-15.0) L 01/21/25 06:56 Hct 31.5 % (36.0-45.0) L 01/21/25 06:56 Plt Count 212 thou/uL (152-406) 01/21/25 06:56 PT 14.9 SECONDS (10-13.0) H 01/20/25 22:08 INR 1.32 01/20/25 22:08 APTT 96.4 SECONDS (27.2-37.4) H 01/21/25 10:45 Sodium 144 mEq/L (136-145) 01/22/25 04:28 Potassium 3.6 mEq/L (3.5-5.1) D 01/22/25 04:28 BUN 21 mg/dL (7-18) H 01/22/25 04:28 Creatinine 0.86 mg/dL (0.55-1.02) 01/22/25 04:28 Glucose 110 mg/dL (74-106) H 01/22/25 04:28 Magnesium 1.8 mg/dL (1.6-2.4) 01/20/25 22:08 Total Bilirubin 0.3 mg/dL (0.2-1.0) 01/22/25 04:28 AST 18 U/L (15-37) 01/22/25 04:28 ALT 16 U/L (13-56) 01/22/25 04:28 Alkaline Phosphatase 137 U/L (45-117) H 01/22/25 04:28 Triglycerides 121 mg/dL (<150) 01/21/25 02:19 Cholesterol 144 mg/dL (<200) 01/21/25 02:19 HDL Cholesterol 47 mg/dL (40-60) 01/21/25 02:19 Cholesterol/HDL Ratio 3.06 01/21/25 02:19 Lipase 73 U/L (13-75) 01/20/25 22:08 Home Medications: Ascorbic Acid [Vitamin C] 1 tab PO DAILY 01/02/15 Cholecalciferol (Vitamin D3) [Vitamin D] 1 tab PO DAILY 01/02/15 Cyanocobalamin (Vitamin B-12) [Vitamin B-12] 1 tab PO DAILY 01/02/15 Linagliptin/Metformin HCl [Jentadueto 2.5 mg-1000 mg Tab] 2 tab PO DAILY 01/02/15 Lisinopril/Hydrochlorothiazide [Zestoretic 20-25 mg Tablet] 25 mg PO DAILY 01/02/15 Pantoprazole [Protonix Tab*] 1 tab PO DAILY 01/02/15 Rosuvastatin [Crestor*] 1 tab PO DAILY 01/02/15 Aspirin Enteric Coated [Ecotrin*] 325 mg PO DAILY tab 01/22/25 Clopidogrel Bisulfate [Plavix] 75 mg PO DAILY 30 Days #30 tab 01/22/25 New Medications: Clopidogrel Bisulfate [Plavix] 75 mg PO DAILY 30 Days #30 tab Physician Discharge Instructions: 74-year-old [place]-speaking female with a past medical history of hypertension, type 2 diabetes, hyperlipidemia presenting with abdominal pain that began yesterday. Associated symptoms include nausea and vomiting. She states the pain radiates to the back. She rates the discomfort as an 8 out of 10. She was noted to have elevated troponins, NSTEMI, was seen by cardiology. Status post cardiac cath, she needs to follow-up for outpatient CABG evaluation. Discharge medication Plavix 75 mg daily Crestor 20 mg daily Aspirin 81 mg daily Will need outpatient testing for CABG evaluation, if CABG is not a option will need PCI with LAD outpatient Assessment Abdominal pain/back pain, was evaluated for chest pain, NSTEMI, elevated troponin, status postcardiac cath, needs outpatient follow-up for CABG evaluation Diabetes type 2 resume home meds after discharge Hypertension, resume home meds, Hyperlipidemia started on Crestor CAD Cholelithiasis without cholecystitis HIDA scan Patient cystic duct and patent sphincter of Oddi. No delay in visualization of the gallbladder, biliary tree, or duodenum. Ejection fraction is 3% (normal greater than 35%). Abdominal CT Abdominal aorta is heavily calcified without aneurysm. There is no free air. There is no retroperitoneal adenopathy. Abdominal ultrasound-Cholelithiasis without sonographic evidence of acute cholecystitis. INSTRUCTIONS: Physician Discharge Instructions: -Follow-up with PCP in 1 to 2 weeks -Please call nursing station at [phone] if any nursing or medication questions -Return to the emergency room if symptoms worsen Diet: ADA, low sodium Activity: Fall precautions Diet: AHA Activity: Fall precautions Followup: NONE,NONE [Primary Care Provider] - Gato Ortiz MD [ACTIVE - CAN ADMIT] - Time spent managing pt's care (in minutes): 45
--- NOTE | 2025-01-22 15:00 | P.PN ---
This is an attestation to FLIGHT NURSE note. Subjective: No chest pain or shortness of breath. No nausea or vomiting. No abdominal pain. No obvious bleeding. Looks comfortable in the bed. Objective: General appearance: Alert and comfortable CVS: Normal S1 and S2 Lungs: Clear to auscultation bilaterally Abdomen: Soft, bowel sounds present, no tenderness Extremities: No lower extremity edema Echo showed 60 to 65% ejection fraction. Had a cardiac cath today, recommended outpatient evaluation for CABG, if not a candidate for CABG then they will consider PCI. DC Lovenox for now. HIDA scan showed low ejection fraction, ultrasound and CT showed cholelithiasis, will request surgical consult.
[2025-01-22 15:23] VITALS: O2SAT 96
[2025-01-22 16:45] VITALS: BP 132/55; TEMP 98
== END 2025-01-22 18:55 | disposition home or self-care (01) | DRG 282 ==
LOC: ER 21:31 → 2ND 01-21 00:35
PROVIDERS: ADMIT Family Medicine; ATTEND Hospitalist
PROC: 4A023N7 Measurement of Cardiac Sampling and Pressure, Left Heart, Percutaneous Approach (ICD-10-PCS; principal; 2025-01-22)
PROC: B2111ZZ Fluoroscopy of Multiple Coronary Arteries using Low Osmolar Contrast (ICD-10-PCS; 2025-01-22)
DX: I21.4 Non-ST elevation (NSTEMI) myocardial infarction (principal); I10 Essential (primary) hypertension; E78.5 Hyperlipidemia, unspecified; D64.9 Anemia, unspecified; E87.6 Hypokalemia; E11.9 Type 2 diabetes mellitus without complications; D72.829 Elevated white blood cell count, unspecified; I25.10 Atherosclerotic heart disease of native coronary artery without angina pectoris; K80.20 Calculus of gallbladder without cholecystitis without obstruction; Z88.2 Allergy status to sulfonamides; Z95.1 Presence of aortocoronary bypass graft; Z88.8 Allergy status to other drugs, medicaments and biological substances; Z79.899 Other long term (current) drug therapy
CPT/HCPCS: 36415; 74177; 76705; 76937; 78227; 80048; 80053; 80061; 80076; 82947; 82977; 83605; 83690; 83735; 84484; 85025; 85610; 85730; 93005; 93306; 93454; 96374; 96375; 99152; 99153; 99285; A9537; C1893; J0360; J0461; J1644; J1650; J2003; J2250; J2405; J2805; J3010; J3480; J7030; Q9966; Q9967

== ENCOUNTER 2025-02-06 19:44 | Emergency (ER) | payer OTHER ==
[2025-02-06] MEDS ORDERED: MORPHINE 2 MG/ML SYR ONE (21:45)
[2025-02-06] MEDS ORDERED: ONDANSETRON 4 MG/2 ML VIAL ONE (21:46)
[2025-02-06] MEDS ORDERED: MAGNES/ALUMIN/SIMET 30ML UCUP ONE (21:46)
[2025-02-06 21:49] LABS: Absolute Basophils 0.1 K/uL (0-0.5); Absolute Lymphocytes (CBC) 1.8 K/uL (0.7-4.9); Absolute Monocytes 0.6 K/uL (0.1-1.3); Basophils % 0.5 % (0-1.3); Eosinophils % 0.3 % (0-4.4); Hematocrit 34.7 % (36.0-45.0); Hemoglobin 11.8 g/dL (12.0-15.0); Lymphocytes % 16.9 % (15.3-44.8); MCH 31.3 pg (27.0-35.0); MCHC 34.1 g/dL (32.0-36.0); MCV 91.8 fL (80-100); MPV 8.3 fL (7.6-11.3); Monocytes % 5.9 % (3.3-12.3); Neutrophils % 76.4 % (41.7-73.7); Nucleated Red Blood Cells % 0.1 % (0-0); Platelets 229 thou/uL (152-406); RBC Red Blood Cell Count 3.78 M/uL (3.86-4.86); Red Cell Distribution Width 13.8 % (12.1-15.2)
[2025-02-06 21:51] LABS: PT Prothrombin Time 15.5 SECONDS (10-13.0); Protime INR 1.38
[2025-02-06 22:01] LABS: Albumin 3.4 g/dL (3.4-5.0); Albumin/Globulin Ratio 0.8 (1.1-1.8); Anion Gap 9.5 mEq/L (5.0-15.0); Bilirubin Total 0.4 mg/dL (0.2-1.0); Globulin 4.1 g/dL (2.3-3.5); Potassium 3.5 mEq/L (3.5-5.1); Protein, Total 7.5 g/dL (6.4-8.2)
[2025-02-06 22:05] LABS: Troponin High Sensitivity 30.5 pg/mL (<58.9)
--- NOTE | 2025-02-06 22:42 | RAD REPORT ---
EXAM: Chest Abdomen Pelvis W Cont CLINICAL INDICATION: Female, 74 years CHEST PAIN TECHNIQUE: CT chest, abdomen and pelvis was performed, with IV contrast, as per department protocol. Axial, sagittal and coronal reconstructions were obtained. One or more of the following dose reduction techniques were used: Automated exposure control, adjustment of the mA and/or kV according to the patient size, and/or iterative reconstruction. Unless otherwise specified, incidental findings do not require dedicated imaging follow-up. [id number]. COMPARISON: No prior exam. FINDINGS: ---THORAX--- LOWER NECK AND CHEST WALL: Visualized thyroid gland and soft tissues are normal. LUNGS AND AIRWAYS: Airways are clear. No evidence of airspace or interstitial process.No dominant or clearly suspicious nodule identified. PLEURA: No pleural effusion. No pneumothorax. MEDIASTINUM AND LYMPH NODES: No mediastinal mass or fluid collection. Normal size mediastinal, hilar, and axillary lymph nodes. THORACIC AORTA: No thoracic aortic aneurysm. Atherosclerotic changes are present. PULMONARY ARTERIES: Caliber is within normal limits. Nondiagnostic for purposes of detecting a clinic ally significant pulmonary embolus due to motion/poor contrast opacification. HEART: Moderate cardiomegaly. Severe coronary artery calcifications.No significant pericardial effusi on. ---ABDOMEN/PELVIS--- UPPER GI: No significant abnormality. LIVER: Hepatic steatosis, but otherwise unremarkable. GALLBLADDER/BILE DUCTS: Cholelithiasis with distended gallbladder. Pericholecystic edema is present.? PANCREAS: No mass, ductal dilation, or farhan-pancreatic fluid. SPLEEN: Unremarkable. ADRENALS: No adrenal masses. KIDNEYS AND URETERS: No hydronephrosis.Low density and/or too small to characterize renal lesions whi ch are statistically benign.This includes the cyst at the lower pole the right kidney measuring over 9.1 cm.No ureteral calculi. ABDOMINAL AORTA AND OTHER VESSELS: Moderate atherosclerotic changes without aortic aneurysm. PERITONEUM: No abnormal free fluid. No free air. LYMPH NODES: No pathologic lymphadenopathy. ABDOMINAL WALL: Unremarkable SMALL BOWEL/COLON: Small bowel has normal course and caliber. No colonic wall thickening or pericolon ic inflammatory changes.Normal appendix. URINARY BLADDER: Underdistended but grossly unremarkable. REPRODUCTIVE ORGANS: Probable exophytic uterine fibroid with calcifications on the right. ---COMBINED--- MUSCULOSKELETAL: Right hip ORIF. No acute fracture. ADDITIONAL FINDINGS: None. IMPRESSION: Persistent gallbladder distention with mild pericholecystic edema and cholelithiasis which could refl ect acute on chronic cholecystitis. No acute findings in the chest.
--- NOTE | 2025-02-06 23:49 | EDPHYS ---
Physician Documentation [facility] Name: Kelly Cai Age: 74 yrs Sex: Female : 1950 Arrival Date: 02/06/2025 Time: 19:44 Bed 19 Private MD: ED Physician Kevin Villegas HPI: 02/06 20:17 This 74 yrs old Female presents to ER via Ambulatory with complaints of sp4 Abdominal Pain, Back Pain. 23:49 74-year-old female with history of moderate coronary artery disease of LAD, diagonal, sp4 RCA with recent heart cath on 01/22/2025. Patient was recently admitted for cardiac workup and a left heart cath on 01/22/2025. Patient's additional past medical history includes diabetes type 2, hypertension, hyperlipidemia, and cholelithiasis. Patient recently had HIDA scan that has revealed patent cystic and patent sphincter of Oddi. Ejection fraction 3%. Patient's home medications include vitamin C, cholecalciferol, cyanocobalamin, linagliptin metformin, Jentadueto, Zestoretic, pantoprazole, rosuvastatin, Ecotrin, clopidogrel 75 mg p.o. daily.. Patient reports worsening epigastric pain associated with nausea. Denied any chest pain.. Historical: - Allergies: 20:04 Metformin HCl; me1 20:04 sitagliptin phosphate; me1 20:04 Sulfa (Sulfonamide Antibiotics); me1 20:04 sulfamethoxazole-trimethoprim; me1 20:04 TRIMETHOPRIM; me1 - PMHx: 20:04 Diabetes - NIDDM; Hypertension; Hyperlipidemia; breast cancer (Right hip); me1 - PSHx: 20:04 Right hip; heart cath (Unknown); lumpectomy (Unknown); me1 - Immunization history:: Adult Immunizations up to date. - Infectious Disease History:: Denies. - Social history:: Smoking status: Patient denies any tobacco usage or history of. - Family history:: not pertinent. ROS: 02/07 00:00 Constitutional: Negative for fever, chills, and weight loss, positive epigastric pain sp4 positive nausea Eyes: Negative for injury, pain, redness, and discharge, All other systems are negative, Exam: 00:00 Constitutional: This is a well developed, well nourished patient who is awake, alert, sp4 and in no acute distress. Head/Face: Normocephalic, atraumatic. Eyes: Pupils equal round and reactive to light, extra-ocular motions intact. Lids and lashes normal. Conjunctiva and sclera are not injected. Cornea within normal limits. Periorbital areas with no swelling, redness, or edema. ENT: Nares patent. No nasal discharge, no septal abnormalities noted. Tympanic membranes are normal and external auditory canals are clear. Oropharynx with no redness, swelling, or masses, exudates, or evidence of obstruction, uvula midline. Mucous membranes moist. Neck: Trachea midline, no thyromegaly or masses palpated, and no cervical lymphadenopathy. Supple, full range of motion without nuchal rigidity, or vertebral point tenderness. Chest/axilla: Normal chest wall appearance and motion. Nontender with no deformity. No lesions are appreciated. Cardiovascular: Regular rate and rhythm with a normal S1 and S2. No gallops, murmurs, or rubs. Normal PMI, no JVD. No pulse deficits. Respiratory: Lungs have equal breath sounds bilaterally, clear to auscultation and percussion. No rales, rhonchi or wheezes noted. No increased work of breathing, no retractions or nasal flaring. Abdomen/GI: Soft, with normal bowel sounds. No distension or tympany. No guarding or rebound. No evidence of tenderness throughout. Back: No spinal tenderness. No costovertebral tenderness. Skin: Warm, dry with normal turgor. Normal color with no rashes, no lesions, and no evidence of cellulitis. MS/ Extremity: Pulses equal, no cyanosis. Neurovascular intact. Full, normal range of motion. Neuro: Awake and alert, GCS 15, oriented to person, place, time, and situation. Cranial nerves II-XII grossly intact. Motor strength 5/5 in all extremities. Sensory grossly intact. Psych: Awake, alert, with orientation to person, place and time. Behavior, mood, and affect are within normal limits 00:00 ECG was reviewed by the Attending Physician. EKG reveals sinus bradycardia with infrequent PVCs, no ST elevation or depression, no otherwise signs of acute ischemia Vital Signs: 02/06 20:02 BP 187 / 65; Pulse 61; Resp 18; Temp 98.1; Pulse Ox 99% ; Weight 100.24 kg; Height 5 me1 ft. 4 in. ; Pain 8/10; 22:19 BP 172 / 50; Pulse 57; Resp 18; Pulse Ox 96% on R/A; Pain 10/10; kd4 02/07 01:15 BP 135 / 58; Pulse 55; Resp 19; Pulse Ox 95% on R/A; Pain 7/10; kd4 02:44 BP 133 / 52; Pulse 53; Resp 17; Temp 98.6; Pulse Ox 96% on R/A; kd4 02:51 Temp 98.2; Pain 0/10; kd4 03:58 BP 128 / 59; Pulse 67; Resp 18; Temp 98.4(O); Pulse Ox 96% ; Pain 3/10; kd4 02/06 20:02 Body Mass Index 37.93 (100.24 kg, 162.56 cm) hi1 02/06 20:02 Pain Scale: Adult me1 22:19 Pain Scale: Adult kd4 02/07 01:15 Pain Scale: Adult kd4 02:51 Pain Scale: Adult kd4 03:58 Pain Scale: Adult kd4 Hilaria Coma Score: 02/06 22:15 Eye Response: spontaneous(4). Motor Response: obeys commands(6). Verbal Response: kd4 oriented(5). Total: 15. 02/07 00:00 Eye Response: spontaneous(4). Motor Response: obeys commands(6). Verbal Response: sp4 oriented(5). Total: 15. MDM: 02/06 20:06 Medical Screening Exam initiated sp4 23:33 ED course: COMPARISON: No prior exam. FINDINGS: ---THORAX--- LOWER NECK AND CHEST WALL: sp4 Visualized thyroid gland and soft tissues are normal. LUNGS AND AIRWAYS: Airways are clear. No evidence of airspace or interstitial process.No dominant or clearly suspicious nodule identified. PLEURA: No pleural effusion. No pneumothorax. MEDIASTINUM AND LYMPH NODES: No mediastinal mass or fluid collection. Normal size mediastinal, hilar, and axillary lymph nodes. THORACIC AORTA: No thoracic aortic aneurysm. Atherosclerotic changes are present. PULMONARY ARTERIES: Caliber is within normal limits. Nondiagnostic for purposes of detecting a clinically significant pulmonary embolus due to motion/poor contrast opacification. HEART: Moderate cardiomegaly. Severe coronary artery calcifications.No significant pericardial effusion. ---ABDOMEN/PELVIS--- UPPER GI: No significant abnormality. LIVER: Hepatic steatosis, but otherwise unremarkable. GALLBLADDER/BILE DUCTS: Cholelithiasis with distended gallbladder. Pericholecystic edema is present.? PANCREAS: No mass, ductal dilation, or farhan-pancreatic fluid. SPLEEN: Unremarkable. ADRENALS: No adrenal masses. KIDNEYS AND URETERS: No hydronephrosis.Low density and/or too small to characterize renal lesions which are statistically benign.This includes the cyst at the lower pole the right kidney measuring over 9.1 cm.No ureteral calculi. RADIOLOGY SERVICES REPORT ABDOMINAL AORTA AND OTHER VESSELS: Moderate atherosclerotic changes without aortic aneurysm. PERITONEUM: No abnormal free fluid. No free air. LYMPH NODES: No pathologic lymphadenopathy. ABDOMINAL WALL: Unremarkable SMALL BOWEL/COLON: Small bowel has normal course and caliber. No colonic wall thickening or pericolonic inflammatory changes.Normal appendix. URINARY BLADDER: Underdistended but grossly unremarkable. REPRODUCTIVE ORGANS: Probable exophytic uterine fibroid with calcifications on the right. ---COMBINED--- MUSCULOSKELETAL: Right hip ORIF. No acute fracture. ADDITIONAL FINDINGS: None. IMPRESSION: Persistent gallbladder distention with mild pericholecystic edema and cholelithiasis which could reflect acute on chronic cholecystitis. No acute findings in the chest.. 23:43 Differential diagnosis: Inflammatory Bowel Disease Neoplasm Obesity Osteoarthritis sp4 Osteomalacia. Data reviewed: vital signs, nurses notes, lab test result(s), electrolytes, hepatic panel, urinalysis, EKG, radiologic studies. Consideration of Admission/Observation Patient was admitted/placed on observation. Escalation of care including admission/observation considered. Management of patient was discussed with the following: Hospitalist: Dr. Fan James MD . Center Director: Dr. Shahram Ivey, Dr. Ortiz . ED course: Patient presents with acute onset of epigastric pain associated with nausea. CT reveals acute on chronic cholecystitis. There is gallbladder distention and mild pericholecystic edema. Patient will be started on IV Zosyn and further request n.p.o. after midnight. General surgery consulted. Cardiology consulted for cardiac clearance. Patient is stable for [facility]. . 02/07 00:05 ED course: Patient was discussed with Dr. James who states that patient has moderate to sp4 severe coronary artery disease and is not an ideal surgery candidate.. 00:51 ED course: Patient was discussed with Dr. Silva with hospital medicine and Dr. Diana lloyd with cardiology who will request patient should be transferred secondary to moderate to severe coronary artery disease associated with acute cholecystitis. Patient will be requested to see cardiovascular surgeon in conjunction with general surgeon. At this time patient will be transferred for higher level of care to [facility]. 02:34 ED course: EXAM DESCRIPTION: Abdomen Exam Limited RadLex: US ABDOMEN LIMITED CLINICAL sp4 HISTORY: 74 years Female, ABD PAIN COMPARISON: None. FINDINGS: Limited grayscale and color Doppler images obtained of the abdomen, centered along the gallbladder. Gallbladder is distended. Shadowing gallstones are noted. Gallbladder wall measures up to 0.3 cm in thickness. No pericholecystic fluid collection. Negative sonographic Lion sign. Common duct is partially visualized, measuring up to 0.5 cm. IMPRESSION: Cholelithiasis with gallbladder distention and borderline wall thickening. No pericholecystic fluid collection. Negative sonographic Lion sign. Findings are equivocal for acute cholecystitis. If there is persistent clinical concern, HIDA scan could be performed.. ED course: Patient was discussed with [facility]. Patient has moderate to severe coronary artery disease that requires eventually CABG. Also findings consistent with acute on chronic cholecystitis. Patient at this time too high risk for this hospital. Patient warrants evaluation by cardiothoracic surgery for CABG also for interventional radiology for possibly percutaneous cholecystostomy. Patient at this time hemodynamically stable for transfer. She was accepted for transfer.. 02/06 20:06 Order name: CBC with Diff; Complete Time: 23: sp4 02/06 20:06 Order name: CMP; Complete Time: 23: sp4 02/06 20:06 Order name: Lipase; Complete Time: 23:32 sp4 02/06 20:06 Order name: Urinalysis w/ reflexes; Complete Time: 02: sp4 02/06 20:25 Order name: NT PRO-BNP; Complete Time: 23: sp4 02/06 20:25 Order name: PT-INR; Complete Time: 23: sp4 02/06 20:25 Order name: Troponin HS; Complete Time: 23: sp4 02/06 23:32 Order name: Troponin High Sensitivity; Complete Time: : sp4 02/07 00:12 Order name: Urine Culture [facility] 02/06 20:25 Order name: CT Chest, Abdomen, Pelvis - W/Contrast; Complete Time: 23:32 [facility] 02/06 23:52 Order name: US Abdomen Limited [facility] 02/06 20:06 Order name: IV Saline Lock; Complete Time: 22:07 [facility] 02/06 20:06 Order name: Labs collected and sent; Complete Time: 22:07 [facility] 02/06 20:25 Order name: EKG - Nurse/Tech; Complete Time: 22:06 4 02/06 20:25 Order name: O2 Per Protocol; Complete Time: 22:06 4 02/06 20:25 Order name: O2 Sat Monitoring; Complete Time: 22:06 sp4 EC/29 21:59 Rate is 55 beats/min. Rhythm is irregular, Sinus bradycardia. QRS Haw[place] is Normal. AR sp4 interval is normal. QRS interval is normal. QT interval is normal. T waves are Normal. No ST changes noted. Clinical impression: No evidence of ischemia. Interpreted by me. Reviewed by me. Administered Medications: 22:12 Drug: Ondansetron IVP 4 mg IVP once; over 2 minutes Route: IVP; Site: right antecubital;4 02/07 01:09 Follow up: Response: No adverse reaction [facility] 02/06 22:13 Drug: morphine IVP or IV 2 mg IVP once over 4 mins Route: IVP; Infused Over: 4 mins; kd4 Site: right antecubital; 02/07 01:09 Follow up: Response: No adverse reaction [facility] 02/06 22:13 Drug: Alum-Mag Hydroxide-Simeth PO Suspension (200 mg-200 mg-20 mg/5 mL) 30 ml PO once kd4 Route: PO; 02/07 00:28 Follow up: Response: No adverse reaction 4 00:20 Drug: morphine IVP or IV 2 mg IVP once over 4 mins Route: IVP; Infused Over: 4 mins; kd4 Site: right antecubital; 01:08 Follow up: Response: No adverse reaction 4 00:22 Drug: metoCLOPramide IVP 10 mg IVP once; over 1 to 2 minutes Route: IVP; Site: right 4 antecubital; 01:08 Follow up: Response: No adverse reaction 4 00:27 Drug: Piperacillin-Tazobactam IVPB 3.375 grams IVPB once over 60 mins; (mix in NS 100 kd4 mL) Route: IVPB; Infused Over: 60 mins; Site: right antecubital; 01:09 Follow up: IV Status: Completed infusion kd4 01:09 Drug: D5-1/2 NS IV 1000 ml IV at 100 ml/hr continuous Route: IV; Rate: 100 ml/hr; Site: kd4 right antecubital; 02:46 Follow up: IV Status: Infusion continued kd4 03:56 Drug: morphine IVP or IV 2 mg IVP once over 4 mins Route: IVP; Infused Over: 4 mins; kd4 Site: right antecubital; 03:57 Follow up: Response: No adverse reaction kd4 Disposition Summary: 02/07/25 00:54 Transfer Ordered Notes: Transfer Location: [facility] sp4 Reason: Higher level of care sp4 Condition: Stable(02/07/25 00:54) sp4 Problem: new(02/07/25 00:54) sp4 Symptoms: have improved(02/07/25 00:54) sp4 Accepting Physician: [facility] attending hospitalist(02/07/25 04:01) kd4 Diagnosis - Moderate to severe coronary artery disease, Acute on chronic cholecystitis, Acute sp4 calculus cholecystitis Forms: - Medication Reconciliation Form sp4 - SBAR form sp4 Signatures: Dispatcher [employer] Kevin Mejia MD MD sp4 Ashlyn Trevizo RN RN me1 Francisca Nielsen RN RN kd4 Corrections: (The following items were deleted from the chart) 02/06 20:06 20:06 CBC+H.LAB.BRZ ordered. EDMS EDMS 20:06 20:06 COMPREHENSIVE METABOLIC PANEL+C.LAB.BRZ ordered. EDMS EDMS 20:06 20:06 LIPASE+C.LAB.BRZ ordered. EDMS EDMS 20:06 20:06 Urinalysis+U.LAB.BRZ ordered. EDMS EDMS 20:26 20:26 Chest Abdomen Pelvis W Con+CT.RAD.BRZ ordered. EDMS EDMS 02/07 00:53 02/06 23:48 Inpatient Admission sp4 sp4 02/07 00:53 02/06 23:48 Jarrod James sp4 sp4 02/07 00:53 02/06 23:48 Telemetry/MedSurg (Inpatient) sp4 sp4 02/07 00:53 02/06 23:48 Stable sp4 sp4 02/07 00:53 02/06 23:48 new sp4 sp4 02/07 00:53 02/06 23:48 have improved sp4 sp4 02/07 00:53 02/06 23:48 Standard sp4 sp4 02/07 00:53 02/06 23:48 sp4 sp4 02/07 00:53 02/06 23:48 Acute cholecystitis sp4 sp4 02/07 00:53 02/06 23:48 Acute on chronic calculus cholecystitis. sp4 sp4 02/07 04:01 00:54 [facility] attending hospitalist sp4 kd4
--- NOTE | 2025-02-06 23:49 | ER ---
Nurse's Notes [facility] Name: Kelly Cai Age: 74 yrs Sex: Female : 1950 Arrival Date: 02/06/2025 Time: 19:44 Bed 19 Private MD: Diagnosis: Moderate to severe coronary artery disease, Acute on chronic cholecystitis, Acute calculus cholecystitis Presentation: 02/06 20:02 Chief complaint: Patient's son or daughter states: epigastric abdominal pain that me1 radiates to her back, started at about 6pm. 8/10, "pounding". Coronavirus screen: Vaccine status: Patient reports receiving the 2nd dose of the covid vaccine. Ebola Screen: No symptoms or risks identified at this time. Initial Sepsis Screen: Does the patient meet any 2 criteria? No. Patient's initial sepsis screen is negative. Does the patient have a suspected source of infection? No. Patient's initial sepsis screen is negative. Risk Assessment: Do you want to hurt yourself or someone else? Patient reports no desire to harm self or others. Onset of symptoms was February 06, 2025 at 18:00. 20:02 Method Of Arrival: Ambulatory nj1 20:02 Acuity: BALA 3 me1 Triage Assessment: 20:06 General: Appears in no apparent distress. well groomed, well developed, well nourished, me1 Behavior is calm, cooperative, appropriate for age, Reports. Pain: Complains of pain in epigastric area Pain radiates to back Pain currently is 8 out of 10 on a pain scale. Quality of pain is described as pounding Pain began 2 hours ago. Is intermittent. EENT: No signs and/or symptoms were reported regarding the EENT system. Neuro: Level of Consciousness is awake, alert, obeys commands, Oriented to person, place, time, situation, Appropriate for age. Cardiovascular: Patient's skin is warm and dry. Respiratory: Airway is patent Respiratory effort is even, unlabored, Respiratory pattern is regular, symmetrical. GI: Abdomen is non-distended, Reports upper abdominal pain. : No signs and/or symptoms were reported regarding the genitourinary system. Derm: Skin is intact, is healthy with good turgor, Skin is pink, warm \\T\\ dry. Musculoskeletal: No signs and/or symptoms reported regarding the musculoskeletal system. Historical: - Allergies: 20:04 Metformin HCl; me1 20:04 sitagliptin phosphate; me1 20:04 Sulfa (Sulfonamide Antibiotics); me1 20:04 sulfamethoxazole-trimethoprim; me1 20:04 TRIMETHOPRIM; me1 - PMHx: 20:04 Diabetes - NIDDM; Hypertension; Hyperlipidemia; breast cancer (Right hip); me1 - PSHx: 20:04 Right hip; heart cath (Unknown); lumpectomy (Unknown); me1 - Immunization history:: Adult Immunizations up to date. - Infectious Disease History:: Denies. - Social history:: Smoking status: Patient denies any tobacco usage or history of. - Family history:: not pertinent. Screenin:15 [facility] ED Fall Risk Assessment (Adult) History of falling in the last 3 months, kd4 including since admission Yes- single mechanical fall (1 pt) Confusion or Disorientation No (0 pts) Intoxicated or Sedated No (0 pts) Impaired Gait Yes (1 pt) Mobility Assist Device Used Yes (1 pt) Altered Elimination No (0 pt) Score/Fall Risk Level 3 or more points = High Risk. Abuse screen: Denies threats or abuse. Nutritional screening: No deficits noted. Tuberculosis screening: No symptoms or risk factors identified. Assessment: 21:22 General: Just received patient from triage. kd4 22:15 General: Appears in no apparent distress. Behavior is calm, cooperative. Pain: kd4 Complains of pain in abdomen and epigastric area Pain currently is 10 out of 10 on a pain scale. Neuro: No deficits noted. Respiratory: No deficits noted. GI: Abd is soft and non tender X 4 quads. Reports upper abdominal pain. 02/07 03:07 General: Report given to MANUEL Campos at [facility] room 961.. kd4 Vital Signs: 02/06 20:02 BP 187 / 65; Pulse 61; Resp 18; Temp 98.1; Pulse Ox 99% ; Weight 100.24 kg; Height 5 me1 ft. 4 in. ; Pain 8/10; 22:19 BP 172 / 50; Pulse 57; Resp 18; Pulse Ox 96% on R/A; Pain 10/10; kd4 02/07 01:15 BP 135 / 58; Pulse 55; Resp 19; Pulse Ox 95% on R/A; Pain 7/10; kd4 02:44 BP 133 / 52; Pulse 53; Resp 17; Temp 98.6; Pulse Ox 96% on R/A; kd4 02:51 Temp 98.2; Pain 0/10; kd4 03:58 BP 128 / 59; Pulse 67; Resp 18; Temp 98.4(O); Pulse Ox 96% ; Pain 3/10; kd4 02/06 20:02 Body Mass Index 37.93 (100.24 kg, 162.56 cm) me1 02/06 20:02 Pain Scale: Adult me1 22:19 Pain Scale: Adult kd4 02/07 01:15 Pain Scale: Adult kd4 02:51 Pain Scale: Adult kd4 03:58 Pain Scale: Adult kd4 Hilaria Coma Score: 02/06 22:15 Eye Response: spontaneous(4). Motor Response: obeys commands(6). Verbal Response: kd4 oriented(5). Total: 15. 02/07 00:00 Eye Response: spontaneous(4). Motor Response: obeys commands(6). Verbal Response: sp4 oriented(5). Total: 15. ED Course: 02/06 19:47 Patient arrived in ED. im 20:04 Triage completed. me1 20:04 Arm band placed on Patient placed in waiting room. me1 20:05 Kevin Villegas MD is Attending Physician. sp4 20:27 Radiology exam delayed due to lab results not completed at this time. (BUN/Creatinine) jc4 IV insertion attempt and/or patient not having appropriate IV at this time. 21:22 Francisca Nielsen, RN is Primary Nurse. kd4 22:06 EKG done, by technician support engineer. reviewed by Kevin Villegas MD. af3 22:15 Patient has correct armband on for positive identification. Bed in low position. Call kd4 light in reach. Side rails up X2. Client placed on continuous cardiac and pulse oximetry monitoring. NIBP monitoring applied. manager lean on. Pulse ox on. NIBP on. 22:15 Inserted saline lock: 20 gauge in right antecubital area, using aseptic technique. kd4 22:33 CT Chest, Abdomen, Pelvis - W/Contrast In Process Unspecified. EDMS 23:47 Jarrod James MD is Hospitalizing Provider. sp4 02/07 01:01 US Abdomen Limited In Process Unspecified. EDMS 02:45 No provider procedures requiring assistance completed. kd4 03:58 Provided Education on: transfer. kd4 03:58 Patient transferred, IV remains in place. kd4 Administered Medications: 02/06 22:12 Drug: Ondansetron IVP 4 mg IVP once; over 2 minutes Route: IVP; Site: right antecubital;kd4 02/07 01:09 Follow up: Response: No adverse reaction kd4 02/06 22:13 Drug: morphine IVP or IV 2 mg IVP once over 4 mins Route: IVP; Infused Over: 4 mins; kd4 Site: right antecubital; 02/07 01:09 Follow up: Response: No adverse reaction kd4 02/06 22:13 Drug: Alum-Mag Hydroxide-Simeth PO Suspension (200 mg-200 mg-20 mg/5 mL) 30 ml PO once kd4 Route: PO; 02/07 00:28 Follow up: Response: No adverse reaction kd4 00:20 Drug: morphine IVP or IV 2 mg IVP once over 4 mins Route: IVP; Infused Over: 4 mins; kd4 Site: right antecubital; 01:08 Follow up: Response: No adverse reaction kd4 00:22 Drug: metoCLOPramide IVP 10 mg IVP once; over 1 to 2 minutes Route: IVP; Site: right 4 antecubital; 01:08 Follow up: Response: No adverse reaction kd4 00:27 Drug: Piperacillin-Tazobactam IVPB 3.375 grams IVPB once over 60 mins; (mix in NS 100 kd4 mL) Route: IVPB; Infused Over: 60 mins; Site: right antecubital; 01:09 Follow up: IV Status: Completed infusion kd4 01:09 Drug: D5-1/2 NS IV 1000 ml IV at 100 ml/hr continuous Route: IV; Rate: 100 ml/hr; Site: kd4 right antecubital; 02:46 Follow up: IV Status: Infusion continued kd4 03:56 Drug: morphine IVP or IV 2 mg IVP once over 4 mins Route: IVP; Infused Over: 4 mins; kd4 Site: right antecubital; 03:57 Follow up: Response: No adverse reaction kd4 Medication: 02/06 22:15 VIS not applicable for this client. kd4 Output: 02/07 03:58 Other: 4; Total: 0ml. kd4 Outcome: 02/06 23:48 Decision to Hospitalize by Provider. sp4 02/07 00:54 ER care complete, transfer ordered by . sp4 02:45 Condition: stable kd4 03:57 Transferred by ground EMS to [facility], Note: [facility] kd4 03:57 Discharge instructions given to EMS, MANUEL Campos 04:01 Patient left the ED. kd4 Signatures: Dispatcher [employer] EDKevin Carter MD MD sp4 Liz Dhillon Michelle RN RN me1 Francisca Nielsen RN RN kd4 Beka Lucas Ashley [facility]
[2025-02-07 00:06] LABS: Renal Epithelial <5 /HPF (None Seen); Specific Gravity 1.023 (1.005-1.030); Sqamous Epithelial <5 /HPF (None Seen); Urine Bacteria None Seen /HPF (<20); Urine Bilirubin NEGATIVE (Negative); Urine Blood Negative (Negative); Urine Clarity Clear (Clear); Urine Color Colorless (Yellow); Urine Culture Reflex Order REFLEXED; Urine Glucose 4+ (Over) (Negative); Urine Ketones TRACE (Negative); Urine Microscopic Reflex YN ORDER UMIC; Urine Nitrite NEGATIVE (Negative); Urine Protein NEGATIVE (Negative); Urine RBC <5 /HPF (None Seen); Urine Urobilinogen Normal (Normal); Urine WBC 20-50 /HPF (<5); Urine WBC Clump Rare /HPF (None Seen)
[2025-02-07] MEDS ORDERED: METOCLOPRAMIDE 10 MG/2mL INJ ONE (00:10)
[2025-02-07] MEDS ORDERED: MORPHINE 4 MG/ML SYR ONE (00:11)
[2025-02-07] MEDS ORDERED: D5 0.45 NS 1,000 ML IV ONE (00:11)
[2025-02-07] MEDS ORDERED: PIPERACIL/TAZO 3.375 GM VIAL IV ONE (00:11)
[2025-02-07] MEDS ORDERED: NA CHLORIDE 0.9% 100 ML ONE (00:12)
--- NOTE | 2025-02-07 00:40 | P.CNS ---
Date of Consult: 02/07/25 Reason for Consult: Epigastric pain Requesting Physician: Kevin Villegas Primary Care Provider: Dr. Valdez Chief Complaint: Epigastric pain History of Present Illness: Patient is a 74-year-old female who presents to the hospital with epigastric pain. Patient presented with similar complaints about 2-1/2 weeks ago. At that time she was evaluated by general surgery and cardiology. Her GI workup reveal ed biliary dyskinesia. Her troponins were also elevated and her cardiac workup included an echocardiogram and a cardiac catheterization. The echocardiogram revealed diastolic dysfunction with no wall motion abnormalities. However, her cardiac catheterization revealed atherosclerosis in multiple coronary arteries as mentioned below: 1. Left main; ostial 20% to 30% disease and mild luminal irregularities. 2. LAD; diffuse heavily calcified artery with proximal 50% disease followed by heavy calcified mid 80% disease segment, then mid to distal large mild luminal irregularities. 3. Diagonal 1 small. 4. Diagonal 2 with proximal 80% disease and mild luminal irregularities. 5. Left circ; heavily calcified with mid 30% to 40% disease, with mild luminal irregularities. 6. RCA; large dominant with proximal to mid 60% disease, then mild luminal irregularities. Cardiology recommended to get cardiothoracic surgery evaluation and for possible evaluation for coronary artery bypass grafting. If at the time of the evaluation by CT surgery, CABG was not an option and then they would proceed with PCI of the LAD with fractional flow reserve of the right coronary artery to see if it requires stenting as well. Patient's workup by general surgery revealed biliary dyskinesia, with the recommendation of follow-up for nonemergent elective surgery whenever cardiac issues were resolved and patient was given cardiac clearance. As patient presents today with similar issues as 2-1/2 weeks ago, decision needs to be made as far as how to proceed with patient's current workup. Patient unfortunately did not make her follow-up cardiothoracic surgery appointment because the patient states that a referral from the PCP was not sent to her cardiothoracic surgeon. They were supposed to see her yesterday on February 06 but that appointment was canceled because patient states that they did not receive a referral as mentioned above. Currently, as patient continues to have abdominal pain in the setting of severe coronary artery disease and cholecystitis the plan would be to do a percutaneous cholecystostomy tube with further evaluation by cardiology for coronary artery bypass grafting. At this time, recommendation will be to transfer patient to a tertiary care facility for further evaluation as we do not have the capabilities of a percutaneous cholecystostomy tube nor do we have cardiothoracic surgery available for consultation at our facility. Allergies sitagliptin phosphate [From Janumet] Allergy (Verified 03/29/23 15:11) Itching Sulfa (Sulfonamide Antibiotics) Allergy (Verified 03/29/23 15:11) Itching sulfamethoxazole [From Bactrim] Allergy (Verified 03/29/23 15:11) Itching trimethoprim [From Bactrim] Allergy (Verified 03/29/23 15:11) Itching metformin HCl [From Janumet] Adverse Reaction (Verified 03/29/23 15:11) Diarrhea Home Medications: Ascorbic Acid [Vitamin C] 1 tab PO DAILY 01/02/15 Cholecalciferol (Vitamin D3) [Vitamin D] 1 tab PO DAILY 01/02/15 Cyanocobalamin (Vitamin B-12) [Vitamin B-12] 1 tab PO DAILY 01/02/15 Linagliptin/Metformin HCl [Jentadueto 2.5 mg-1000 mg Tab] 2 tab PO DAILY 01/02/15 Lisinopril/Hydrochlorothiazide [Zestoretic 20-25 mg Tablet] 25 mg PO DAILY 01/02/15 Pantoprazole [Protonix Tab*] 1 tab PO DAILY 01/02/15 Rosuvastatin [Crestor*] 1 tab PO DAILY 01/02/15 Apixaban [Eliquis] 5 mg PO BID 30 Days #60 tablet 01/22/25 Clopidogrel Bisulfate [Plavix] 75 mg PO DAILY 30 Days #30 tab 01/22/25 - Past Medical/Surgical History Diabetic: Yes -: HTN -: HLD -: Diabetes -: fall -: Coronary artery disease-LAD lesion -: Biliary dyskinesia -: right hip surgery-2 months ago -: Cardiac catheterization - Family History Father Family History: Reviewed- Non-Contributory - Social History Smoking Status: Former smoker, Unknown if ever smoked Alcohol use: No CD- Drugs: No Caffeine use: No Review of Systems 10-point ROS is otherwise unremarkable Physical Examination Reviewed General: Alert, In no apparent distress, Oriented x3 HEENT: Atraumatic, PERRLA, Mucous membr. moist/pink, EOMI, Sclerae nonicteric Neck: Supple, 2+ carotid pulse no bruit, No LAD, Without JVD or thyroid abnormality Respiratory: Clear to auscultation bilaterally, Normal air movement Cardiovascular: Regular rate/rhythm, Normal S1 S2, No murmurs Gastrointestinal: Normal bowel sounds, Soft and benign, No rebound, No guarding, Tenderness (On deep palpation but no rebound or guarding) Musculoskeletal: No clubbing, No swelling, No tenderness Integumentary: No rashes Neurological: Normal gait, Normal speech, Normal strength at 5/5 x4 extr, Normal tone, Sensation intact, Cranial nerves 3-12 intact, Normal affect Lymphatics: No axilla or inguinal lymphadenopathy Laboratory Data (last 24 hrs) 02/06/25 02/06/25 02/06/25 21:30 21:30 21:30 WBC 10.40 Hgb 11.8 L Hct 34.7 L Plt Count 229 PT 15.5 H INR 1.38 Sodium 141 Potassium 3.5 BUN 16 Creatinine 0.87 Glucose 163 H Total Bilirubin 0.4 AST 16 ALT 18 Alkaline Phosphatase 171 H Lipase 66 - Problems (1) Chronic cholecystitis Current Visit: Yes Status: Acute (2) CAD, multiple vessel Current Visit: Yes Status: Acute (3) Unstable angina Current Visit: Yes Status: Acute (4) History of metabolic syndrome Current Visit: Yes Status: Acute Conclusions/ Impression: Plan: 1. Patient with epigastric pain; patient appears to have biliary colic which has been recurrent over the last month. As patient has severe unstable CAD and is scheduled for evaluation with cardiothoracic surgery for possible coronary artery bypass grafting, plan would be to continue with evaluation by cardiothoracic surgery for bypass surgery. If patient's chronic cholecystitis is persistent then we may first need to proceed with percutaneous cholecystostomy tube to stabilize patient's gallbladder disease and then further evaluation by cardiothoracic surgery for coronary artery bypass grafting. Continue with antiplatelet therapy and statin therapy at this time. Continue with strict blood pressure control and I would also continue with IV fluids and IV antibiotics and continue with patient being n.p.o. until we get this further worked up. As we do not have the capabilities of doing a percutaneous cholecystostomy tube at her hospital nor do we have cardiothoracic surgery to give us recommendation for possible bypass graft surgery, patient's best chance for a good outcome would be to do go to a tertiary care facility where she can have the capabilities of having 1 of these interventions done and her cardiac disease stabilized prior to having the laparoscopic cholecystectomy. I have spoken to the ER physician regarding the consultation and I appreciate the opportunity to participate in patient's complicated medical decision making. 2. Metabolic syndrome; continue to treat patient's diabetes and hypertension aggressively to optimize medical status prior to surgery 3. GI and DVT prophylaxis Critical Care: No Time Spent Managing Pts care (In Minutes): 45
[2025-02-07] MEDS ORDERED: MORPHINE 2 MG/ML SYR ONE (03:55)
--- NOTE | 2025-02-07 07:02 | RAD REPORT ---
EXAM DESCRIPTION: Abdomen Exam Limited RadLex: US ABDOMEN LIMITED CLINICAL HISTORY: 74 years Female, ABD PAIN COMPARISON: None. FINDINGS: Limited grayscale and color Doppler images obtained of the abdomen, centered along the gallbladder. G allbladder is distended. Shadowing gallstones are noted. Gallbladder wall measures up to 0.3 cm in thickness. No pericholecystic fluid collection. Negative sonographic Lion sign. Common duct is part ially visualized, measuring up to 0.5 cm. IMPRESSION: Cholelithiasis with gallbladder distention and borderline wall thickening. No pericholecystic fluid c ollection. Negative sonographic Lion sign. Findings are equivocal for acute cholecystitis. If there is persistent clinical concern, HIDA scan could be performed. Electronically signed by: Makenzie Crenshaw MD 02/07/2025 02:17 AM CDT RP Due to temporary technical issues with the PACS/[employer] reporting system, reports are being leonela d by the in-house radiologist without review as a courtesy to ensure prompt reporting the interpreting radiologist is fully responsible for the content of the report. Transcribed Date/Time: 02/07/2025 7:02 AM
[2025-02-07 10:49] VITALS: O2SAT 96
[2025-02-07 10:51] VITALS: BP 128/59; TEMP 98.4
--- NOTE | 2025-02-08 11:57 | EKG ---
Test Date: 2025-02-06 Test Time: 21:59:29 Hairpiece Stylist: AF MEASUREMENT RESULTS: Intervals: Rate: 55 TX: 218 QRSD: 98 QT: 478 QTc: 457 [place]: P: 32 TX: 218 QRS: -7 T: -52 INTERPRETIVE STATEMENTS: Sinus tachycardia with 2nd degree AV block with 3:1 AV conduction with premature ventricular complexes or fusion complexes Minimal voltage criteria for LVH, may be normal variant T wave abnormality, consider anterolateral ischemia Abnormal ECG Compared to ECG 01/20/2025 22:11:30 Fusion complex(es) now present Ventricular premature complex(es) now present T-wave abnormality now present Possible ischemia now present Sinus bradycardia no longer present Myocardial infarct finding no longer present Electronically Signed On 02-08-25 11:54:44 CDT by Gato Ortiz
== END 2025-02-07 04:01 | disposition short-term general hospital (02) ==
LOC: ER 19:44
DX: K81.1 Chronic cholecystitis (principal); K81.0 Acute cholecystitis; I25.10 Atherosclerotic heart disease of native coronary artery without angina pectoris; I10 Essential (primary) hypertension; E11.9 Type 2 diabetes mellitus without complications; Z98.61 Coronary angioplasty status; Z86.39 Personal history of other endocrine, nutritional and metabolic disease
CPT/HCPCS: 85025; 36415; 85610; 84484 ×2; 83690; 80053; 83880; 71260; 74177; Q9967; J2270; J2405; 76705; 81001; 87086; 87088; 93005; J2543; J2765; J7799

== ENCOUNTER 2025-06-02 21:19 | Inpatient (IN) | payer OTHER ==
[2025-06-02 22:21] LABS: Absolute Lymphocytes (CBC) 2.1 K/uL (0.7-4.9); Hematocrit 33.2 % (36.0-45.0); Hemoglobin 10.9 g/dL (12.0-15.0); MCH 30.5 pg (27.0-35.0); MCHC 32.8 g/dL (32.0-36.0); MCV 92.8 fL (80-100); MPV 8.2 fL (7.6-11.3); Nucleated RBC Absolute Count 0.0 (0-0); Nucleated Red Blood Cells % 0.0 % (0-0); RBC Red Blood Cell Count 3.58 M/uL (3.86-4.86); White Blood Count 8.00 thou/uL (4.3-10.9)
[2025-06-02] MEDS ORDERED: ASPIRIN 81 MG CHEWABLE TABLET ONE (22:22)
[2025-06-02 22:41] LABS: Anion Gap 8.9 mEq/L (5.0-15.0); BUN Blood Urea Nitrogen 26.0 mg/dL (7-18); Glucose Level 170.0 mg/dL (74-106); Magnesium 2.0 mg/dL (1.6-2.4); NT PRO-BNP 505.0 pg/mL (<450); PT Prothrombin Time 16.5 SECONDS (10-13.0); Potassium 3.9 mEq/L (3.5-5.1); Protime INR 1.48; Troponin High Sensitivity 9.3 pg/mL (<58.9)
--- NOTE | 2025-06-02 23:27 | P.HP ---
Certification for Inpatient Patient admitted to: Observation With expected LOS: <2 Midnights Practitioner: I am a practitioner with admitting privileges, knowledge of patient current condition, hospital course, and medical plan of care. Services: Services provided to patient in accordance with Admission requirements found in Title 42 Section 412.3 of the Code of Federal Regulations Patient History Date of Service: 06/03/25 Reason for admission: Chest Pain History of Present Illness: 74-year-old female with a past medical history of hypertension, type 2 diabetes, hyperlipidemia, breast cancer status post lumpectomy, CAD status post PCI brought to ER with chest discomfort and shortness of breath. Chest pain is retrosternal with radiation to the back and left arm. Pain is pressure-like. 4 out of 10 in severity. No fever or chills. Denies any nausea/vomiting. Patient was assessed in the ER and was admitted for further management of chest pain to rule out ACS Allergies sitagliptin phosphate [From Janumet] Allergy (Verified 03/29/23 15:11) Itching Sulfa (Sulfonamide Antibiotics) Allergy (Verified 03/29/23 15:11) Itching sulfamethoxazole [From Bactrim] Allergy (Verified 03/29/23 15:11) Itching trimethoprim [From Bactrim] Allergy (Verified 03/29/23 15:11) Itching metformin HCl [From Janumet] Adverse Reaction (Verified 03/29/23 15:11) Diarrhea Home medications list reviewed: Yes Home Medications: Rosuvastatin [Crestor*] 40 mg PO DAILY 01/02/15 Apixaban [Eliquis] 5 mg PO BID 30 Days #60 tablet 01/22/25 Clopidogrel Bisulfate [Plavix] 75 mg PO DAILY 30 Days #30 tab 01/22/25 Empagliflozin [Jardiance] 25 mg PO DAILY 06/03/25 Furosemide [Lasix] 20 mg PO DAILY 06/03/25 Metoprolol Tartrate 100 mg PO BID 06/03/25 Pioglitazone HCl 30 mg PO DAILY 06/03/25 Ramipril [Altace] 10 mg PO DAILY 06/03/25 Spironolactone 50 mg PO DAILY 06/03/25 - Past Medical/Surgical History Diabetic: Yes Past Medical History: Reviewed- Non-Contributory -: HTN -: HLD -: Diabetes -: fall -: Coronary artery disease-LAD lesion -: Biliary dyskinesia Past Surgical History: Reviewed- Non-Contributory -: right hip surgery-2 months ago -: Cardiac catheterization - Family History Family History: Reviewed- Non-Contributory - Social History Smoking Status: Never smoker Alcohol use: No CD- Drugs: No Caffeine use: No Review of Systems 10-point ROS is otherwise unremarkable Physical Examination - Vital Signs Temperature: 98.4 F Blood Pressure: 137/55 Pulse: 48 Respirations: 18 Pulse Ox (%): 94 - Physical Exam General: Alert, In no apparent distress HEENT: Atraumatic, Normocephalic Neck: Supple Respiratory: Clear to auscultation bilaterally, Normal air movement Cardiovascular: Regular rate/rhythm, Normal S1 S2 Capillary refill: <2 Seconds Gastrointestinal: Soft and benign, W/out hepatosplenomegaly Musculoskeletal: No clubbing, No swelling Integumentary: No rashes Neurological: Other (Alert awake nonfocal) Lymphatics: No axilla or inguinal lymphadenopathy - Studies Laboratory Data (last 24 hrs) 06/02/25 06/02/25 06/02/25 22:10 22:10 22:10 WBC 8.00 Hgb 10.9 L Hct 33.2 L Plt Count 197 PT 16.5 H INR 1.48 Sodium 139 Potassium 3.9 BUN 26 H Creatinine 1.14 H Glucose 170 H Magnesium 2.0 Assessment and Plan - Plan Unstable angina History of CAD Status post PCI Will monitor telemetry Started on aspirin and statin Patient denies any chest pain Will get an echocardiogram Cardiology consult Hypertension Antihypertensives titrated Continue home medications and titrate as needed Hyperlipidemia Continue statin CKD stage II Monitor renal parameters Electrolytes monitor and replace accordingly Diabetes Insulin sliding scale Accu-Chek before every meal and at bedtime Anemia of chronic disease Monitor H&H closely No overt bleeding at this time GI/DVT prophylaxis Advanced directive full code Discharge Plan: Home Plan to discharge in: 48 Hours - Advance Directives Does patient have a Living Will: No Does patient have a Durable POA for Healthcare: No - Code Status/Comfort Care Code Status: Full Code Time Spent Managing Pts Care (In Minutes): 48
[2025-06-02] MEDS ORDERED: ONDANSETRON 4 MG/2 ML VIAL IV PRN (23:29)
--- NOTE | 2025-06-02 23:37 | EDPHYS ---
Physician Documentation [facility] Name: Kelly Cai Age: 74 yrs Sex: Female : 1950 Arrival Date: 06/02/2025 Time: 21:19 Bed 14 Private MD: ED Physician Valerio Momin HPI: 06/02 23:05 This 74 yrs old Female presents to ER via Unassigned with complaints of kb Shortness Of Breath. 23:05 Patient is a 74-year-old female who presents for headache and chest pain that started 3 kb days ago. Reports shortness of breath intermittently at rest. Denies cough, congestion, fever.. Historical: - Allergies: 22:26 Metformin HCl; kd4 22:26 sitagliptin phosphate; kd4 22:26 Sulfa (Sulfonamide Antibiotics); kd4 22:26 sulfamethoxazole-trimethoprim; kd4 22:26 TRIMETHOPRIM; kd4 - PMHx: 22:26 breast cancer (Right hip); Diabetes - NIDDM; Hyperlipidemia; Hypertension; kd4 - PSHx: 22:26 heart cath; lumpectomy; Right hip; kd4 - Immunization history:: Adult Immunizations unknown. - Infectious Disease History:: Denies. - Social history:: Smoking status: Patient/guardian denies using alcohol, street drugs, IV drugs, tobacco products. ROS: 23:04 Constitutional: As per HPI kb Exam: 22:13 ECG was reviewed by the Attending Physician. kb 23:04 Constitutional: This is a well developed, well nourished patient who is awake, alert, kb and in no acute distress. Head/Face: Normocephalic, atraumatic. ENT: Moist Mucous membranes Cardiovascular: Regular rate Respiratory: Respirations even and unlabored. No increased work of breathing. Talking in full sentences Skin: Warm, dry with normal turgor. Normal color. MS/ Extremity: Pulses equal, no cyanosis. Neurovascular intact. Full, normal range of motion. Neuro: Awake and alert, GCS 15, oriented to person, place, time, and situation. Vital Signs: 22:26 BP 137 / 45; Pulse 48; Resp 19; Pulse Ox 100% on R/A; Pain 7/10; kd4 23:35 Pulse 55; Resp 16; Temp 98.4; kd4 06/03 01:26 BP 111 / 46; Pulse 60; Resp 18; Pulse Ox 99% ; Pain 7/10; kd4 06/02 22:26 Pain Scale: Adult kd4 06/03 01:26 Pain Scale: Adult kd4 [place] Coma Score: 06/02 22:26 Eye Response: spontaneous(4). Motor Response: obeys commands(6). Verbal Response: kd4 oriented(5). Total: 15. MDM: 21:53 Medical Screening Exam initiated kb 23:04 Differential diagnosis: Acute AL, arrhythmia, PE, pneumothorax, viral illness. Data kb reviewed: vital signs, nurses notes. Consideration of Admission/Observation Patient was admitted/placed on observation. Escalation of care including admission/observation considered. 23:36 Management of patient was discussed with the following: Hospitalist: Dr Moses accepts kb pt for admission. Historians other than the Patient: Family Member: family. Counseling: I had a detailed discussion with the patient and/or guardian regarding the historical points, exam findings, and any diagnostic results supporting the discharge/admit diagnosis, lab results, radiology results, the need for further work-up and treatment in the hospital. 23:37 ED course: Heart score 5. kb 06/02 21:59 Order name: Basic Metabolic Panel; Complete Time: 22:49 kb 06/02 21:59 Order name: CBC with Diff; Complete Time: 22:39 kb 06/02 21:59 Order name: Magnesium; Complete Time: 22:49 kb 06/02 21:59 Order name: NT PRO-BNP; Complete Time: 22:49 kb 06/02 21:59 Order name: PT-INR; Complete Time: 22:49 kb 06/02 21:59 Order name: Troponin HS; Complete Time: 22:49 kb 06/02 23:34 Order name: CBC with Automated Diff EDMS 06/02 23:34 Order name: CBC with Automated Diff EDMS 06/02 23:34 Order name: Comprehensive Metabolic Panel EDMS 06/02 23:34 Order name: Comprehensive Metabolic Panel EDMS 06/02 23:34 Order name: Troponin High Sensitivity EDMS 06/02 23:34 Order name: Troponin High Sensitivity EDMS 06/02 21:59 Order name: XRAY Chest (1 view) kb 06/02 21:59 Order name: EKG; Complete Time: 22:00 kb 06/02 21:59 Order name: Cardiac monitoring; Complete Time: 23:02 kb 06/02 21:59 Order name: EKG - Nurse/Tech; Complete Time: 23:02 kb 06/02 21:59 Order name: IV Saline Lock; Complete Time: 23:02 kb 06/02 21:59 Order name: Labs collected and sent; Complete Time: 23:02 kb 06/02 21:59 Order name: O2 Per Protocol; Complete Time: 23:02 kb 06/02 21:59 Order name: O2 Sat Monitoring; Complete Time: 23:02 kb EC:13 Rate is 60 beats/min. QRS interval is normal at 96 msec. QT interval is normal at 422 kb msec. Administered Medications: 22:25 Drug: Aspirin PO Chewable Tablet 324 mg PO once; 81 mg tablets x 4 Route: PO; kd4 06/03 00:10 Follow up: Response: No adverse reaction kd4 Disposition Summary: 06/02/25 23:36 Hospitalization Ordered Notes: Hospitalization Status: Observation kb Provider: Sid Moses Location: Telemetry/MedSurg (observation) kb Condition: Stable kb Problem: new kb Symptoms: are unchanged kb Bed/Room Type: Standard Room Assignment: 402(06/02/25 23:47) vk Diagnosis - Chest pain, unspecified kb Forms: - Medication Reconciliation Form kb - SBAR form kb - Leadership Thank You Letter kb Addendum: 06/05/2025 13:37 Co-signature as Attending Physician, Valerio Momin MD I agree with the assessment and c vaughan plan of care. Signatures: Dispatcher [employer] Lelo Colbert, DEAF INTERPRETER-C DEAF INTERPRETER-Valerio German MD MD cha Kruse, Vivian vk Dahissa, Karim, RN RN kd4 Corrections: (The following items were deleted from the chart) 06/02 23:47 23:36 kb anabell
--- NOTE | 2025-06-02 23:37 | ER ---
Nurse's Notes [facility] Name: Kelly Cai Age: 74 yrs Sex: Female : 1950 Arrival Date: 06/02/2025 Time: 21:19 Bed 14 Private MD: Diagnosis: Chest pain, unspecified Presentation: 06/02 23:32 Chief complaint: Patient states: SOB. Coronavirus screen: Client denies travel out of [facility] the [place] in the last 14 days. Ebola Screen: No symptoms or risks identified at this time. Initial Sepsis Screen: Does the patient meet any 2 criteria? No. Patient's initial sepsis screen is negative. Does the patient have a suspected source of infection? No. Patient's initial sepsis screen is negative. Risk Assessment: Do you want to hurt yourself or someone else? Patient reports no desire to harm self or others. Onset of symptoms was May 30, 2025. 23:32 Method Of Arrival: Wheelchair kd4 23:32 Acuity: BALA 3 kd4 Triage Assessment: 23:34 General: Appears in no apparent distress. Behavior is calm, cooperative. Respiratory: kd4 Onset: The symptoms/episode began/occurred yesterday, the patient has mild shortness of breath. Historical: - Allergies: 22:26 Metformin HCl; kd4 22:26 sitagliptin phosphate; kd4 22:26 Sulfa (Sulfonamide Antibiotics); kd4 22:26 sulfamethoxazole-trimethoprim; kd4 22:26 TRIMETHOPRIM; kd4 - PMHx: 22:26 breast cancer (Right hip); Diabetes - NIDDM; Hyperlipidemia; Hypertension; kd4 - PSHx: 22:26 heart cath; lumpectomy; Right hip; kd4 - Immunization history:: Adult Immunizations unknown. - Infectious Disease History:: Denies. - Social history:: Smoking status: Patient/guardian denies using alcohol, street drugs, IV drugs, tobacco products. Screenin:26 [facility] ED Fall Risk Assessment (Adult) History of falling in the last 3 months, kd4 including since admission No falls in past 3 months (0 pts) Confusion or Disorientation No (0 pts) Intoxicated or Sedated No (0 pts) Impaired Gait Yes (1 pt) Mobility Assist Device Used Yes (1 pt) Altered Elimination No (0 pt) Score/Fall Risk Level 0 - 2 = Low Risk. Abuse screen: Denies threats or abuse. Nutritional screening: No deficits noted. Tuberculosis screening: No symptoms or risk factors identified. Assessment: 22:25 Pain: Complains of pain in chest pain Pain currently is 7 out of 10 on a pain scale. kd4 Neuro: Denies blurred vision dizziness. Respiratory: Reports shortness of breath Airway is patent Respiratory effort is even. 06/03 01:27 Cardiovascular: Rhythm is sinus bradycardia with second degree. Respiratory: kd4 01:31 : No deficits noted. kd4 Vital Signs: 06/02 22:26 BP 137 / 45; Pulse 48; Resp 19; Pulse Ox 100% on R/A; Pain 7/10; kd4 23:35 Pulse 55; Resp 16; Temp 98.4; kd4 06/03 01:26 BP 111 / 46; Pulse 60; Resp 18; Pulse Ox 99% ; Pain 7/10; kd4 06/02 22:26 Pain Scale: Adult kd4 06/03 01:26 Pain Scale: Adult kd4 [place] Coma Score: 06/02 22:26 Eye Response: spontaneous(4). Motor Response: obeys commands(6). Verbal Response: kd4 oriented(5). Total: 15. ED Course: 21:52 Patient arrived in ED. gm2 21:53 Lelo Tse FNP-C is [facility]. kb 21:53 Valerio Momin MD is Attending Physician. kb 22:04 Francisca Nielsen, MANUEL is Primary Nurse. kd4 22:09 EKG done, by ED staff, reviewed by Lelo GLOVER. oe 22:26 Inserted saline lock: 20 gauge in left antecubital area, using aseptic technique. kd4 22:26 Patient has correct armband on for positive identification. Bed in low position. Call kd4 light in reach. Side rails up X2. Client placed on continuous cardiac and pulse oximetry monitoring. NIBP monitoring applied. conveyor monitor on. Pulse ox on. NIBP on. 23:15 XRAY Chest (1 view) In Process Unspecified. EDMS 23:34 Triage completed. kd4 23:36 Sid Moses MD is Hospitalizing Provider. kb 06/03 01:27 No provider procedures requiring assistance completed. Patient admitted, IV remains in kd4 place. 01:30 Provided Education on: need for admission. kd4 01:31 Arm band placed on. EKG completed in triage. Results shown to . kd4 Administered Medications: 06/02 22:25 Drug: Aspirin PO Chewable Tablet 324 mg PO once; 81 mg tablets x 4 Route: PO; kd4 06/03 00:10 Follow up: Response: No adverse reaction kd4 Medication: 06/02 22:26 VIS not applicable for this client. kd4 Outcome: 23:36 Decision to Hospitalize by Provider. kb 06/03 01:28 Admitted to Tele kd4 Condition: stable Instructed on the need for admit, 01:32 Patient left the ED. kd4 Signatures: Dispatcher [employer] EDMS Lelo Tse, BELEN CAROUSEL OPERATOR-Hesham Crowley Ginger gm2 Francisca Nielsen, RN RN kd4
--- NOTE | 2025-06-03 00:04 | RAD REPORT ---
EXAM: XR Chest, 1 View CLINICAL HISTORY: The patient is 74 years old and is Female; CHEST PAIN TECHNIQUE: Frontal view of the chest. COMPARISON: No relevant prior studies available. FINDINGS: LUNGS: Unremarkable. No consolidation. PLEURAL SPACE: Unremarkable. No pneumothorax. HEART: Unremarkable. No cardiomegaly. MEDIASTINUM: Unremarkable. Normal mediastinal contour. BONES/JOINTS: Unremarkable. No acute fracture. SOFT TISSUES: Surgical clips are present within the right axilla. VASCULATURE: Atherosclerosis of the aorta is present. UPPER ABDOMEN: Unremarkable as visualized. IMPRESSION: No acute cardiopulmonary process. Electronically signed by: Alicia Mendoza MD 06/02/2025 11:49 PM CDT RP Due to temporary technical issues with the PACS/[employer] reporting system, reports are being leonela d by the in-house radiologist without review as a courtesy to ensure prompt reporting the interpreting radiologist is fully responsible for the content of the report. Transcribed Date/Time: 06/03/2025 12:04 AM
[2025-06-03 02:11] VITALS: BMI 37.2
[2025-06-03] MEDS: HEPARIN 5000 UNIT/ML 1 ML VIAL SQ SCH (02:35)
[2025-06-03] MEDS: FAMOTIDINE 20 MG TAB PO SCH (04:17)
[2025-06-03 05:49] LABS: Absolute Lymphocytes (CBC) 2.0 K/uL (0.7-4.9); Hematocrit 30.6 % (36.0-45.0); Hemoglobin 10.5 g/dL (12.0-15.0); MCH 31.2 pg (27.0-35.0); MCHC 34.4 g/dL (32.0-36.0); MCV 90.9 fL (80-100); MPV 8.0 fL (7.6-11.3); Nucleated RBC Absolute Count 0.0 (0-0); Nucleated Red Blood Cells % 0.1 % (0-0); RBC Red Blood Cell Count 3.36 M/uL (3.86-4.86); White Blood Count 7.00 thou/uL (4.3-10.9)
[2025-06-03 06:09] LABS: ALT/SGPT 20.0 U/L (13-56); AST/SGOT 11.0 U/L (15-37); Albumin 3.0 g/dL (3.4-5.0); Albumin/Globulin Ratio 1.0 (1.1-1.8); Alkaline Phosphatase 91.0 U/L (45-117); Anion Gap 6.2 mEq/L (5.0-15.0); BUN Blood Urea Nitrogen 23.0 mg/dL (7-18); Globulin 3.0 g/dL (2.3-3.5); Glucose Level 99.0 mg/dL (74-106); Potassium 4.2 mEq/L (3.5-5.1)
[2025-06-03] MEDS: APIXABAN 5 MG TABLET PO SCH (08:32)
[2025-06-03] MEDS: CLOPIDOGREL 75 MG TABLET PO SCH (08:32)
[2025-06-03] MEDS: ROSUVASTATIN 10 MG TAB PO SCH (08:32)
[2025-06-03] MEDS: PIOGLITAZONE 15 MG TAB PO SCH (08:32)
[2025-06-03] MEDS: METOPROLOL TAR 50 MG TAB PO SCH (08:33)
[2025-06-03] MEDS: SPIRONOLACTONE 25 MG TABLET PO SCH (08:33)
--- NOTE | 2025-06-03 13:54 | P.PN ---
Date of Service: 06/03/25 Subjective: Resting in bed. States the chest pain is gone away currently. She denies fevers and chills. Denies any recent exposure to sick contacts. Denies cough Review of Systems 10-point ROS is otherwise unremarkable Physical Examination - Vital Signs Temperature: 98.4 F Blood Pressure: 137/55 Pulse: 48 Respirations: 18 Pulse Ox (%): 94 - Physical Exam General: Alert, In no apparent distress HEENT: Atraumatic, Normocephalic Neck: Supple Respiratory: Clear to auscultation bilaterally, Normal air movement Cardiovascular: Regular rate/rhythm, Normal S1 S2 Capillary refill: <2 Seconds Gastrointestinal: Soft and benign, W/out hepatosplenomegaly Musculoskeletal: No clubbing, No swelling Integumentary: No rashes Neurological: Other (Alert awake nonfocal) Lymphatics: No axilla or inguinal lymphadenopathy - Studies Laboratory Data (last 24 hrs) 06/02/25 06/02/25 06/02/25 22:10 22:10 22:10 WBC 8.00 Hgb 10.9 L Hct 33.2 L Plt Count 197 PT 16.5 H INR 1.48 Sodium 139 Potassium 3.9 BUN 26 H Creatinine 1.14 H Glucose 170 H Magnesium 2.0 Assessment and Plan - Plan Unstable angina History of CAD Status post PCI Will monitor telemetry Started on aspirin and statin Patient denies any chest pain Will get an echocardiogram Cardiology consult Hypertension Antihypertensives titrated Continue home medications and titrate as needed Hyperlipidemia Continue statin CKD stage II Monitor renal parameters Electrolytes monitor and replace accordingly Diabetes Insulin sliding scale Accu-Chek before every meal and at bedtime Anemia of chronic disease Monitor H&H closely No overt bleeding at this time GI/DVT prophylaxis Advanced directive full code Discharge Plan: Home Plan to discharge in: 48 Hours - Advance Directives Does patient have a Living Will: No Does patient have a Durable POA for Healthcare: No
[2025-06-03] MEDS: ACETAMINOPHEN 325 MG TABLET PO PRN (20:28)
[2025-06-04 08:52] VITALS: BP 140/63; TEMP 97.6
[2025-06-04 09:42] VITALS: O2SAT 99
--- NOTE | 2025-06-04 10:41 | P.CNS ---
Date of Consult: 06/04/25 Chief Complaint: Chest Pain History of Present Illness: Patient with PMH of CAD s/p PCI, AF, Heart failure preserved EF, presented with one episode of chest pain 2 nights ago, denies any more cardiac symptoms. Allergies sitagliptin phosphate [From Janumet] Allergy (Verified 03/29/23 15:11) Itching Sulfa (Sulfonamide Antibiotics) Allergy (Verified 03/29/23 15:11) Itching sulfamethoxazole [From Bactrim] Allergy (Verified 03/29/23 15:11) Itching trimethoprim [From Bactrim] Allergy (Verified 03/29/23 15:11) Itching metformin HCl [From Janumet] Adverse Reaction (Verified 03/29/23 15:11) Diarrhea Home medications list reviewed: Yes Home Medications: Rosuvastatin [Crestor*] 40 mg PO DAILY 01/02/15 Apixaban [Eliquis] 5 mg PO BID 30 Days #60 tablet 01/22/25 Clopidogrel Bisulfate [Plavix] 75 mg PO DAILY 30 Days #30 tab 01/22/25 Empagliflozin [Jardiance] 25 mg PO DAILY 06/03/25 Furosemide [Lasix] 20 mg PO DAILY 06/03/25 Metoprolol Tartrate 100 mg PO BID 06/03/25 Pioglitazone HCl 30 mg PO DAILY 06/03/25 Ramipril [Altace] 10 mg PO DAILY 06/03/25 Spironolactone 50 mg PO DAILY 06/03/25 - Past Medical/Surgical History Diabetic: Yes -: HTN -: HLD -: Diabetes -: fall -: Coronary artery disease-LAD lesion -: Biliary dyskinesia -: right hip surgery-2 months ago -: Cardiac catheterization - Social History Smoking Status: Former smoker, Unknown if ever smoked Alcohol use: No CD- Drugs: No Caffeine use: No Place of Residence: Home Review of Systems 10-point ROS is otherwise unremarkable Physical Examination Temp Pulse Resp BP Pulse Ox 97.6 F 56 16 140/63 100 06/04/25 08:00 06/04/25 08:00 06/04/25 08:00 06/04/25 08:00 06/04/25 08:00 General: Alert, In no apparent distress HEENT: Atraumatic, PERRLA, Mucous membr. moist/pink, EOMI, Sclerae nonicteric Neck: Supple, 2+ carotid pulse no bruit, No LAD, Without JVD or thyroid abnormality Respiratory: Clear to auscultation bilaterally, Normal air movement Cardiovascular: Regular rate/rhythm, Normal S1 S2 Gastrointestinal: Normal bowel sounds, No tenderness Musculoskeletal: No tenderness Integumentary: No rashes Neurological: Normal gait, Normal speech, Normal tone, Normal affect Lymphatics: No axilla or inguinal lymphadenopathy - Problems (1) Chest pain Current Visit: Yes Status: Acute Plan: atypical, patient troponin negative x3 continue Plavix 75 mg daily continue lipitor home dose outpatient follow up with cardiology. No more inpatient cardiac work up needed. (2) HLD (hyperlipidemia) Current Visit: No Status: Acute Plan: continue lipitor lipid panel in 6 weeks (3) HTN (hypertension) Current Visit: No Status: Acute Plan: reconcile and resume patient home medications
--- NOTE | 2025-06-04 10:55 | P.DS ---
Admission Date: 06/02/25 Discharge Date: 06/04/25 Disposition: ROUTINE DISCHARGE Discharge Condition: GOOD Reason for Admission: Chest Pain Brief History of Present Illness: 74-year-old female with a past medical history of hypertension, type 2 diabetes, hyperlipidemia, breast cancer status post lumpectomy, CAD status post PCI brought to ER with chest discomfort and shortness of breath. Chest pain is retrosternal with radiation to the back and left arm. Pain is pressure-like. 4 out of 10 in severity. No fever or chills. Denies any nausea/vomiting. Patient was assessed in the ER and was admitted for further management of chest pain to rule out ACS. Upon admission cardiology was consulted. Troponin levels were flat. Echocardiogram did not reveal any significant abnormality. She will continue her aspirin and statin. She has been recommended to follow-up with a amalgamator as outpatient. She is medically optimized for discharge Hospital Course: - Vital Signs Temperature: 98.4 F Blood Pressure: 137/55 Pulse: 48 Respirations: 18 Pulse Ox (%): 94 - Physical Exam General: Alert, In no apparent distress HEENT: Atraumatic, Normocephalic Neck: Supple Respiratory: Clear to auscultation bilaterally, Normal air movement Cardiovascular: Regular rate/rhythm, Normal S1 S2 Capillary refill: <2 Seconds Gastrointestinal: Soft and benign, W/out hepatosplenomegaly Musculoskeletal: No clubbing, No swelling Integumentary: No rashes Neurological: Other (Alert awake nonfocal) Lymphatics: No axilla or inguinal lymphadenopathy - Studies Laboratory Data (last 24 hrs) 06/02/25 06/02/25 06/02/25 22:10 22:10 22:10 WBC 8.00 Hgb 10.9 L Hct 33.2 L Plt Count 197 PT 16.5 H INR 1.48 Sodium 139 Potassium 3.9 BUN 26 H Creatinine 1.14 H Glucose 170 H Magnesium 2.0 Assessment and Plan - Plan Unstable angina History of CAD Status post PCI Will monitor telemetry Started on aspirin and statin Patient denies any chest pain Will get an echocardiogram Cardiology consult Hypertension Antihypertensives titrated Continue home medications and titrate as needed Hyperlipidemia Continue statin CKD stage II Monitor renal parameters Electrolytes monitor and replace accordingly Diabetes Insulin sliding scale Accu-Chek before every meal and at bedtime Anemia of chronic disease Monitor H&H closely No overt bleeding at this time GI/DVT prophylaxis Advanced directive full code Discharge Plan: Home Plan to discharge in: 48 Hours - Advance Directives Does patient have a Living Will: No Does patient have a Durable POA for Healthcare: No Vital Signs/Physical Exam: Temp Pulse Resp BP Pulse Ox 97.6 F 56 16 140/63 100 06/04/25 08:00 06/04/25 08:00 06/04/25 08:00 06/04/25 08:00 06/04/25 08:00 Laboratory Data at Discharge: WBC 7.00 thou/uL (4.3-10.9) 06/03/25 05:20 Hgb 10.5 g/dL (12.0-15.0) L 06/03/25 05:20 Hct 30.6 % (36.0-45.0) L 06/03/25 05:20 Plt Count 170 thou/uL (152-406) 06/03/25 05:20 PT 16.5 SECONDS (10-13.0) H 06/02/25 22:10 INR 1.48 06/02/25 22:10 Sodium 142 mEq/L (136-145) 06/03/25 05:20 Potassium 4.2 mEq/L (3.5-5.1) 06/03/25 05:20 BUN 23 mg/dL (7-18) H 06/03/25 05:20 Creatinine 0.92 mg/dL (0.55-1.02) 06/03/25 05:20 Glucose 99 mg/dL (74-106) 06/03/25 05:20 Magnesium 2.0 mg/dL (1.6-2.4) 06/02/25 22:10 Total Bilirubin 0.3 mg/dL (0.2-1.0) 06/03/25 05:20 AST 11 U/L (15-37) L 06/03/25 05:20 ALT 20 U/L (13-56) 06/03/25 05:20 Alkaline Phosphatase 91 U/L (45-117) 06/03/25 05:20 Home Medications: Rosuvastatin [Crestor*] 40 mg PO DAILY 01/02/15 Apixaban [Eliquis *] 5 mg PO BID 30 Days #60 tablet 01/22/25 Clopidogrel Bisulfate [Plavix*] 75 mg PO DAILY 30 Days #30 tab 01/22/25 Empagliflozin [Jardiance] 25 mg PO DAILY 06/03/25 Furosemide [Lasix*] 20 mg PO DAILY 06/03/25 Metoprolol Tartrate 100 mg PO BID 06/03/25 Pioglitazone HCl 30 mg PO DAILY 06/03/25 Ramipril [Altace] 10 mg PO DAILY 06/03/25 Spironolactone 50 mg PO DAILY 06/03/25 Followup: ALEXIS SCANLON [Primary Care Provider] -
--- NOTE | 2025-06-04 12:40 | ECHO ---
HEIGHT: 5 ft 3 in WEIGHT: 210 lb 0 oz DATE OF STUDY: 06/04/[address]: Ayaan Mcgarry MD 2-DIMENSIONAL: YES M.MODE: YES DOPPLER: YES COLOR FLOW: YES TDS: PORTABLE: YES DEFINITY: BUBBLE STUDY: DIAGNOSIS: UNSTABLE ANGINA CARDIAC HISTORY: CATHERIZATION: NO SURGERY: NO PROSTHETIC VALVE: NO PACEMAKER: NO MEASUREMENTS (cm) DIASTOLIC (NORMALS) SYSTOLIC (NORMALS) IVSd 1.1 (0.6-1.2) LA Diam 3.3 (1.9-4.0) LVEF 63% LVIDd 4.2 (3.5-5.7) LVIDs 2.8 (2.0-3.5) %FS 34% LVPWd 1.1 (0.6-1.2) Ao Diam 2.8 (2.0-3.7) 2 DIMENSIONAL ASSESSMENT: RIGHT ATRIUM: NORMAL LEFT ATRIUM: MILDLY DILATED RIGHT VENTRICLE: NORMAL LEFT VENTRICLE: NORMAL TRICUSPID VALVE: INSUFFICIENT TRICUSPID REGURGITATION MITRAL VALVE: TRACE MITRAL REGURGITATION PULMONIC VALVE: NORMAL AORTIC VALVE: TRACE AORTIC REGURGITATION PERICARDIAL EFFUSION: NONE AORTIC ROOT: NORMAL LEFT VENTRICULAR WALL MOTION: NORMAL DOPPLER/COLOR FLOW: DIASTOLIC DYSFUNCTION COMMENTS: 1. NORMAL LEFT VENTRICULAR SYSTOLIC FUNCTION, EJECTION FRACTION 55-60%, NORMAL WALL MOTION 2. DIASTOLIC DYSFUNCTION 3. NORMAL FILLING PRESSURE (RIGHT ATRIAL PRESSURE 0-5 mmHg) TECHNOLOGIST: RICARDO MONTERO
== END 2025-06-04 12:00 | disposition home or self-care (01) | DRG 303 ==
LOC: ER 21:19 → ERHOLD 23:29 → 4TH 23:56
PROVIDERS: ADMIT Family Medicine; ATTEND Family Medicine
DX: I25.110 Atherosclerotic heart disease of native coronary artery with unstable angina pectoris (principal); Z95.5 Presence of coronary angioplasty implant and graft; E78.5 Hyperlipidemia, unspecified; I12.9 Hypertensive chronic kidney disease with stage 1 through stage 4 chronic kidney disease, or unspecified chronic kidney disease; E11.22 Type 2 diabetes mellitus with diabetic chronic kidney disease; N18.2 Chronic kidney disease, stage 2 (mild); D63.1 Anemia in chronic kidney disease; Z98.890 Other specified postprocedural states; Z88.2 Allergy status to sulfonamides; Z88.8 Allergy status to other drugs, medicaments and biological substances; Z88.1 Allergy status to other antibiotic agents; Z79.01 Long term (current) use of anticoagulants; Z79.02 Long term (current) use of antithrombotics/antiplatelets; Z79.84 Long term (current) use of oral hypoglycemic drugs; Z85.3 Personal history of malignant neoplasm of breast
CPT/HCPCS: 36415; 71045; 80048; 80053; 82947; 83735; 83880; 84484; 85025; 85610; 93005; 93306; 94760; 99285; J1644

== ENCOUNTER 2025-06-08 10:25 | Emergency (ER) | payer OTHER ==
--- NOTE | 2025-06-08 11:08 | RAD REPORT ---
EXAMINATION: ONE VIEW CHEST XR CLINICAL INDICATION: CHEST PAIN TECHNIQUE: Frontal chest projection is submitted. Examination is limited by patient positioning and t echnique. COMPARISON: 06/02/2025 FINDINGS: The lungs are well inflated and clear. The heart is mildly enlarged. No displaced fractures identifie d. IMPRESSION: No acute intrathoracic abnormalities.
[2025-06-08 11:11] LABS: Absolute Lymphocytes (CBC) 1.3 K/uL (0.7-4.9); Hematocrit 31.1 % (36.0-45.0); Hemoglobin 10.6 g/dL (12.0-15.0); MCH 30.9 pg (27.0-35.0); MCHC 34.0 g/dL (32.0-36.0); MCV 91.1 fL (80-100); MPV 8.5 fL (7.6-11.3); Nucleated RBC Absolute Count 0.0 (0-0); Nucleated Red Blood Cells % 0.0 % (0-0); RBC Red Blood Cell Count 3.42 M/uL (3.86-4.86); White Blood Count 6.00 thou/uL (4.3-10.9)
[2025-06-08 11:15] LABS: PT Prothrombin Time 17.4 SECONDS (10-13.0); Protime INR 1.56
[2025-06-08 11:25] LABS: Anion Gap 9.5 mEq/L (5.0-15.0); BUN Blood Urea Nitrogen 22.0 mg/dL (7-18); Glucose Level 140.0 mg/dL (74-106); NT PRO-BNP 499.0 pg/mL (<450); Potassium 3.5 mEq/L (3.5-5.1); Troponin High Sensitivity 9.5 pg/mL (<58.9)
--- NOTE | 2025-06-08 13:57 | ER ---
Nurse's Notes [facility] Name: Kelly Cai Age: 74 yrs Sex: Female : 1950 Arrival Date: 06/08/2025 Time: 10:25 Bed 2 Private MD: Diagnosis: Chest pain, unspecified Presentation: 06/08 10:34 Chief complaint: Patient states: was admitted here for chest pain but today pain was aa5 worse. Nasal congestion x 3 months that is not relieved by allergy medicine. Coronavirus screen: At this time, the client does not indicate any symptoms associated with coronavirus-19. Ebola Screen: Patient denies travel to an Ebola-affected area in the 21 days before illness onset. Initial Sepsis Screen: Does the patient meet any 2 criteria? No. Patient's initial sepsis screen is negative. Does the patient have a suspected source of infection? No. Patient's initial sepsis screen is negative. Risk Assessment: Do you want to hurt yourself or someone else? Patient reports no desire to harm self or others. 10:34 Method Of Arrival: Ambulatory aa5 10:34 Acuity: BALA 3 aa5 Historical: - Allergies: 10:36 Metformin HCl; aa5 10:36 sitagliptin phosphate; aa5 10:36 Sulfa (Sulfonamide Antibiotics); aa5 10:36 sulfamethoxazole-trimethoprim; aa5 10:36 TRIMETHOPRIM; aa5 - PMHx: 10:36 breast cancer (Unknown); Diabetes - NIDDM; Hyperlipidemia; Hypertension; aa5 - PSHx: 10:36 heart cath; lumpectomy; Right; Right hip; aa5 - Immunization history:: Adult Immunizations unknown. - Infectious Disease History:: Denies. - Social history:: Smoking status: Patient denies any tobacco usage or history of. - Family history:: not pertinent. - Hospitalizations: : No recent hospitalization is reported. Screenin:32 [facility] ED Fall Risk Assessment (Adult) History of falling in the last 3 months, hb including since admission No falls in past 3 months (0 pts) Confusion or Disorientation No (0 pts) Intoxicated or Sedated No (0 pts) Impaired Gait No (0 pts) Mobility Assist Device Used No (0 pt) Altered Elimination No (0 pt) Score/Fall Risk Level 0 - 2 = Low Risk Oriented to surroundings, Maintained a safe environment, Educated pt \T\ family on fall prevention, incl call for assistance when getting out of bed. Abuse screen: Denies threats or abuse. Denies injuries from another. Nutritional screening: No deficits noted. Tuberculosis screening: No symptoms or risk factors identified. Assessment: 11:31 General: Appears in no apparent distress. Behavior is calm, cooperative. Pain: Pain hb currently is 3 out of 10 on a pain scale. Neuro: Level of Consciousness is awake, alert, obeys commands, Oriented to person, place, time, situation. Cardiovascular: Reports chest pain, Patient's skin is warm and dry. Rhythm is sinus bradycardia. Respiratory: Respiratory effort is even, unlabored, Respiratory pattern is regular, symmetrical. GI: No signs and/or symptoms were reported involving the gastrointestinal system. : No signs and/or symptoms were reported regarding the genitourinary system. EENT: Reports nasal congestion nasal discharge. Derm: Skin is pink, warm \T\ dry. Musculoskeletal: No signs and/or symptoms reported regarding the musculoskeletal system. 13:28 Reassessment: Patient appears in no apparent distress at this time. Patient and/or hb family updated on plan of care and expected duration. Pain level reassessed. Patient is alert, oriented x 3, equal unlabored respirations, skin warm/dry/pink. Vital Signs: 10:34 BP 139 / 60; Pulse 59; Resp 18 S; Temp 98.1(O); Pulse Ox 99% on R/A; Weight 95.25 kg aa5 (R); Height 5 ft. 3 in. (R); 11:15 BP 113 / 60; Pulse 39; Resp 15; Pulse Ox 98% on R/A; hb 12:00 BP 133 / 58; Pulse 52; Resp 16; Pulse Ox 100% on R/A; dd2 13:28 BP 150 / 66; Pulse 53; Resp 14; Pulse Ox 99% on R/A; hb 10:34 Body Mass Index 37.20 (95.25 kg, 160.02 cm) aa5 ED Course: 10:28 Patient arrived in ED. im 10:30 Arvin Cruz MD is Attending Physician. rn 10:34 Arm band placed on. aa5 10:36 Triage completed. aa5 10:42 EKG completed in triage. Results shown to MD. aa5 10:52 XRAY Chest (1 view) In Process Unspecified. EDMS 10:57 Inserted saline lock: 20 gauge in left antecubital area, using aseptic technique. pm7 11:32 Patient has correct armband on for positive identification. Bed in low position. hb Provided Education on: call light, tests, result times. Client placed on continuous cardiac and pulse oximetry monitoring. NIBP monitoring applied. quality assurance monitor body on. Pulse ox on. NIBP on. 13:28 Nandini Jamison, RN is Primary Nurse. 14:15 No provider procedures requiring assistance completed. IV discontinued, intact, dd2 bleeding controlled, No redness/swelling at site. Pressure dressing applied. Patient maintains SpO2 saturation greater than 95% on room air. Administered Medications: No medications were administered Medication: 11:52 VIS not applicable for this client. dd2 Outcome: 13:56 Discharge ordered by . rn 14:15 Discharged to home ambulatory, with family, dd2 14:15 Condition: stable 14:15 Discharge instructions given to patient, family, Instructed on discharge instructions, follow up and referral plans. Demonstrated understanding of instructions, follow-up care, 14:16 Patient left the ED. dd2 Signatures: Dispatcher [employer] EDMS Arvin Cruz MD MD rn Calderon, Audri RN RN aa5 Nandini Jamison, RN RN Liz Dhillon DIANA, RN RN dd2 Claudia Barone pm7 Corrections: (The following items were deleted from the chart) 10:42 10:34 Chief complaint: Patient states: was admitted here for chest pain but today pain aa5 was worse. aa5
--- NOTE | 2025-06-08 13:57 | EDPHYS ---
Physician Documentation [facility] Name: Kelly Cai Age: 74 yrs Sex: Female : 1950 Arrival Date: 06/08/2025 Time: 10:25 Bed 2 Private MD: ED Physician Arvin Crzu HPI: 06/08 13:53 This 74 yrs old Female presents to ER via Ambulatory with complaints of Chest rn Pain. 13:53 Patient reports chest pain, headache, congestion. Patient reports congestion for rn months. Has been told to follow-up with ENT but has not. Recent admission for chest pain few days ago with negative workup and cardiology did not believe was cardiac in origin. Patient reports not really concerned about the chest pain but had more chest pain today so came to be reevaluated. No fever or chills. No cough. No trauma. No history of DVT or PE.. Historical: - Allergies: 10:36 Metformin HCl; aa5 10:36 sitagliptin phosphate; aa5 10:36 Sulfa (Sulfonamide Antibiotics); aa5 10:36 sulfamethoxazole-trimethoprim; aa5 10:36 TRIMETHOPRIM; aa5 - PMHx: 10:36 breast cancer (Unknown); Diabetes - NIDDM; Hyperlipidemia; Hypertension; aa5 - PSHx: 10:36 heart cath; lumpectomy; Right; Right hip; aa5 - Immunization history:: Adult Immunizations unknown. - Infectious Disease History:: Denies. - Social history:: Smoking status: Patient denies any tobacco usage or history of. - Family history:: not pertinent. - Hospitalizations: : No recent hospitalization is reported. ROS: 13:54 Constitutional: Negative for fever, chills, and weight loss, Cardiovascular: Positive rn for chest pain Respiratory: Negative for shortness of breath, cough, wheezing, and pleuritic chest pain, Abdomen/GI: Negative for abdominal pain, nausea, vomiting, diarrhea, and constipation, MS/Extremity: Negative for injury and deformity, Skin: Negative for injury, rash, and discoloration, Neuro: Negative for headache, weakness, numbness, tingling, and seizure, Exam: 13:54 Constitutional: This is a well developed, well nourished patient who is awake, alert, rn and in no acute distress. ENT: No stridor. No nasal mass noted Cardiovascular: Regular rate and rhythm 16. No pulse deficits. Respiratory: No increased work of breathing, no retractions or nasal flaring. Abdomen/GI: Soft, non-tender MS/ Extremity: Pulses equal, no cyanosis. Neuro: Awake and alert, GCS 15 14:10 ECG was reviewed by the Attending Physician. rn Vital Signs: 10:34 BP 139 / 60; Pulse 59; Resp 18 S; Temp 98.1(O); Pulse Ox 99% on R/A; Weight 95.25 kg aa5 (R); Height 5 ft. 3 in. (R); 11:15 BP 113 / 60; Pulse 39; Resp 15; Pulse Ox 98% on R/A; hb 12:00 BP 133 / 58; Pulse 52; Resp 16; Pulse Ox 100% on R/A; dd2 13:28 BP 150 / 66; Pulse 53; Resp 14; Pulse Ox 99% on R/A; hb 10:34 Body Mass Index 37.20 (95.25 kg, 160.02 cm) aa5 MDM: 10:30 Medical Screening Exam initiated rn 13:54 Differential diagnosis: chest wall pain, costochondritis, esophagitis, gastritis, rn pleurisy, pneumothorax. HEART Score: History: Slightly Suspicious (0), ECG: Normal (0), Age: > or = 65 years (2), Risk Factors: 1 or 2 risk factors (1), Troponin: < or = 1 x Normal Limit (0), Total Score = 3. Data reviewed: vital signs, nurses notes, lab test result(s), EKG, radiologic studies, plain films, and as a result, I will discharge patient. Counseling: I had a detailed discussion with the patient and/or guardian regarding the historical points, exam findings, and any diagnostic results supporting the discharge/admit diagnosis, lab results, radiology results, the need for outpatient follow up, to return to the emergency department if symptoms worsen or persist or if there are any questions or concerns that arise at home. Response to treatment: the patient's symptoms have markedly improved after treatment, and as a result, I will discharge patient. Special discussion: Based on the patient's history, exam, and Dx evaluation, there is no indication for emergent intervention or inpatient Tx. It is understood by the patient/guardian that if the Sx's persist or worsen they need to return immediately for re-evaluation. I discussed with the patient/guardian in detail that at this point there is no indication for admission to the hospital. It is understood, however, that if the symptoms persist or worsen the patient needs to return immediately for re-evaluation. Based on the history and exam findings, there is no indication for further emergent testing or inpatient evaluation. I discussed with the patient/guardian the need to see the ENT specialist for further evaluation of the symptoms. I discussed with the patient/guardian the need to see the primary care provider for further evaluation of the symptoms. 13:54 ED course: I have personally reviewed all of the results, including but not limited to rn blood tests and imaging deemed necessary to safely discharge this patient at this time. All results given to and printed out for patient. I personally went over all the results with the patient and answered all questions. Patient will follow-up with PCP and or specialist as discussed. Return precautions given and understood.. 06/08 10:31 Order name: Basic Metabolic Panel; Complete Time: 11:06/08 10:31 Order name: CBC with Diff; Complete Time: 11:06/08 10:31 Order name: NT PRO-BNP; Complete Time: :06/08 10:31 Order name: PT-INR; Complete Time: :06/08 10:31 Order name: Troponin HS; Complete Time: :06/08 10:31 Order name: XRAY Chest (1 view); Complete Time: 11:06/08 10:31 Order name: Cardiac monitoring; Complete Time: 11:06/08 10:31 Order name: EKG - Nurse/Tech; Complete Time: 10:42 06/08 10:31 Order name: IV Saline Lock; Complete Time: 10:06/08 10:31 Order name: Labs collected and sent; Complete Time: :06/08 10:31 Order name: O2 Per Protocol; Complete Time: 11:06/08 10:31 Order name: O2 Sat Monitoring; Complete Time: 11: rn EC:10 Rate is 63 beats/min. Rhythm is regular. QRS [place] is Normal. ID interval is prolonged. rn QRS interval is normal. QT interval is normal. No Q waves. T waves are Normal. No ST changes noted. Clinical impression: NSR w/ Non-specific ST/T Changes and 1st degree heart block. Interpreted by me. Reviewed by me. Administered Medications: No medications were administered Disposition Summary: 06/08/25 13:56 Discharge Ordered Notes: Location: Home rn Problem: new rn Symptoms: have improved rn Condition: Stable rn Diagnosis - Chest pain, unspecified rn Followup: rn - With: Private Physician - When: As needed - Reason: Recheck today's complaints, Re-evaluation by your physician Discharge Instructions: - Discharge Summary Sheet rn - Nonspecific Chest Pain, Adult rn Forms: - Medication Reconciliation Form rn - Antibiotic journeyman molder - Prescription Opioid Use rn - Patient Portal Instructions rn - Leadership Thank You Letter rn Signatures: Dispatcher [employer] EDDE Arvin Cruz MD MD rn Calderon, Audri, RN RN aa5 Corrections: (The following items were deleted from the chart) 10:32 10:32 Chest Single View+RAD.[email or web address].BRZ ordered. [facility] EDDE 13:55 13:54 Constitutional: This is a well developed, well nourished patient who is awake, rn alert, and in no acute distress. Cardiovascular: Regular rate and rhythm 16. No pulse deficits. Respiratory: No increased work of breathing, no retractions or nasal flaring. Abdomen/GI: Soft, non-tender MS/ Extremity: Pulses equal, no cyanosis. Neuro: Awake and alert, GCS 15 rn
[2025-06-08 14:27] VITALS: TEMP 98.1
[2025-06-08 14:32] VITALS: BP 150/66; O2SAT 99
== END 2025-06-08 14:16 | disposition home or self-care (01) ==
LOC: ER 10:25
DX: R07.9 Chest pain, unspecified (principal); R51.9 Headache, unspecified; I10 Essential (primary) hypertension
CPT/HCPCS: 36415; 71045; 80048; 83880; 84484; 85025; 85610; 93005; 99284

== ENCOUNTER 2025-07-15 14:02 | Emergency (ER) | payer OTHER ==
[2025-07-15 14:40] LABS: Absolute Lymphocytes (CBC) 2.0 K/uL (0.7-4.9); Hematocrit 35.0 % (36.0-45.0); Hemoglobin 11.7 g/dL (12.0-15.0); MCH 30.3 pg (27.0-35.0); MCHC 33.3 g/dL (32.0-36.0); MCV 91.0 fL (80-100); MPV 8.4 fL (7.6-11.3); Nucleated RBC Absolute Count 0.0 (0-0); Nucleated Red Blood Cells % 0.0 % (0-0); RBC Red Blood Cell Count 3.85 M/uL (3.86-4.86); White Blood Count 8.90 thou/uL (4.3-10.9)
[2025-07-15] MEDS ORDERED: MORPHINE 4 MG/ML SYR ONE (14:48)
[2025-07-15] MEDS ORDERED: ONDANSETRON 4 MG/2 ML VIAL ONE (14:48)
[2025-07-15 14:50] LABS: PT Prothrombin Time 11.8 SECONDS (10-13.0); Protime INR 1.05
[2025-07-15 15:03] LABS: ALT/SGPT 24 U/L (13-56); AST/SGOT 18 U/L (15-37); Albumin 3.5 g/dL (3.4-5.0); Albumin/Globulin Ratio 0.9 (1.1-1.8); Alkaline Phosphatase 90 U/L (45-117); Anion Gap 15.8 mEq/L (5.0-15.0); BUN Blood Urea Nitrogen 41 mg/dL (7-18); Globulin 3.8 g/dL (2.3-3.5); Glucose Level 193 mg/dL (74-106); Lipase 137 U/L (13-75); Magnesium 2.1 mg/dL (1.6-2.4); NT PRO-BNP 417 pg/mL (<450); Potassium 4.8 mEq/L (3.5-5.1); Troponin High Sensitivity 6.3 pg/mL (<58.9)
[2025-07-15 15:05] LABS: Bilirubin Indirect, Calculated 0.2 mg/dL (0.2-0.8)
--- NOTE | 2025-07-15 15:19 | RAD REPORT ---
EXAM: Chest Single View HISTORY: 74 years Female CHEST PAIN COMPARISON: 05/30/2025 FINDINGS: LUNGS/PLEURA: The lungs are clear. No pleural effusions or pneumothorax. No pulmonary edema. CARDIAC/MEDIASTINUM: The cardiac silhouette is within normal limits. UPPER ABDOMEN: No significant abnormality. BONES: No acute abnormality. LINES/TUBES/OTHER: N/A IMPRESSION: No evidence of acute cardiopulmonary disease.
[2025-07-15] MEDS ORDERED: PANTOPRAZOLE 40 MG INJ ONE (15:38)
[2025-07-15] MEDS ORDERED: NA CHLORIDE 0.9% 500 ML ONE (15:38)
[2025-07-15] MEDS ORDERED: ACETAMINOPHEN 500 MG TAB ONE (15:49)
--- NOTE | 2025-07-15 16:10 | RAD REPORT ---
EXAMINATION: Abdomen Pelvis Wo Contrast CLINICAL INDICATION: Female, 74 years old.EPIGASTRIC PAIN TECHNIQUE: CT abdomen and pelvis was performed, without IV contrast, as per department protocol. Axia l, sagittal and coronal reconstructions were obtained. One or more of the following dose reduction techniques were used: Automated exposure control, adjustment of the mA and/or kV according to the pat ient size, and/or iterative reconstruction. Unless otherwise specified, incidental findings do not require dedicated imaging follow-up. [id number]. IV CONTRAST: Not administered. COMPARISON: 01/20/2025 FINDINGS: The lack of intravenous contrast limits the sensitivity of this exam for evaluation of solid visceral organs, vascular structures, and retroperitoneum. LOWER CHEST: No acute process identified. No significant pericardial effusion. Severe coronary artery calcifcations. Aortic valve calcifications. UPPER GI: No significant abnormality. LIVER: Distended gallbladder with stone present in the region of the cystic duct. Mild pericholecysti c edema. GALLBLADDER/BILE DUCTS: No biliary ductal dilatation.? PANCREAS: No mass, ductal dilation, or farhan-pancreatic fluid. SPLEEN: Unremarkable. ADRENALS: No adrenal masses. KIDNEYS AND URETERS: No hydronephrosis. Low density and/or too small to characterize renal lesions wh ich are statistically benign. No renal calculi. No ureteral calculi. ABDOMINAL AORTA AND OTHER VESSELS: Moderate atherosclerotic changes without aortic aneurysm. PERITONEUM: No abnormal free fluid. No free air. LYMPH NODES: No pathologic lymphadenopathy. ABDOMINAL WALL: Unremarkable SMALL BOWEL/COLON: Small bowel has normal course and caliber. No colonic wall thickening or pericolon ic inflammatory changes. Normal appendix. Mild diverticulosis without diverticulitis. URINARY BLADDER: Underdistended but grossly unremarkable. REPRODUCTIVE ORGANS: Uterine fibroids. MUSCULOSKELETAL: Right hip ORIF. ADDITIONAL FINDINGS: None. IMPRESSION: Distended gallbladder with trace pericholecystic edema and stone now in the region of the cystic duct . This could reflect early or mild acute cholecystitis.
[2025-07-15 16:14] LABS: Urine Microscopic Reflex YN NO UMIC
--- NOTE | 2025-07-15 16:27 | EDPHYS ---
Physician Documentation [facility] Name: Kelly Cai Age: 74 yrs Sex: Female : 1950 Arrival Date: 07/15/2025 Time: 14:02 Bed 7 Private MD: Valerio Blanco HPI: 07/15 14:20 This 74 yrs old Female presents to ER via Wheelchair with complaints of Chest cp Pain, Back Pain. 14:20 The patient or guardian reports chest pain that is located primarily in the substernal cp area, epigastric area. 14:20 Onset: today, about 1100. The patient presents with abdominal pain in the epigastric cp area, nausea. The pain radiates to back. Historical: - Allergies: 14:16 Metformin HCl; iw 14:16 Sulfa (Sulfonamide Antibiotics); iw - PMHx: 14:16 Diabetes - NIDDM; Hypertension; breast cancer (Unknown); Hyperlipidemia; iw - PSHx: 14:16 lumpectomy; Right; heart cath; Right hip; pacemaker; iw - Immunization history:: Adult Immunizations unknown. - Infectious Disease History:: Denies. - Social history:: Smoking status: unknown. ROS: 14:25 Constitutional: Negative for body aches, chills, fever, cp 14:25 Cardiovascular: Positive for chest pain, of the lower sternal area, Negative for edema, cp palpitations, 14:25 Eyes: Negative for injury, pain, redness, and discharge, cp 14:25 ENT: Negative for drainage from ear(s), ear pain, sore throat, difficulty swallowing, difficulty handling secretions, 14:25 Respiratory: Negative for cough, shortness of breath, wheezing, 14:25 Abdomen/GI: Positive for abdominal pain, nausea, of the epigastric area, 14:25 Back: Positive for radiated pain, 14:25 All other systems are negative, Exam: 14:25 Head/Face: Normocephalic, atraumatic. cp 14:25 Constitutional: The patient appears in no acute distress, alert, awake, non-diaphoretic, non-toxic, well developed, well nourished, uncomfortable, 14:25 Eyes: Periorbital structures: appear normal, Conjunctiva: normal, no exudate, no injection, Sclera: no appreciated abnormality, Lids and lashes: appear normal, bilaterally, 14:25 ENT: External ear(s): are unremarkable, Nose: is normal, Mouth: Lips: moist, Oral mucosa: moist, Posterior pharynx: Airway: no evidence of obstruction, patent, 14:25 Chest/axilla: Inspection: normal, 14:25 Cardiovascular: Rate: normal, Rhythm: regular, Edema: is not appreciated, JVD: is not appreciated, 14:25 Respiratory: the patient does not display signs of respiratory distress, Respirations: normal, no use of accessory muscles, no retractions, labored breathing, is not present, Breath sounds: are clear throughout, no decreased breath sounds, no stridor, no wheezing, 14:25 Abdomen/GI: Inspection: abdomen appears normal, Bowel sounds: active, all quadrants, Palpation: soft, in all quadrants, severe abdominal tenderness, in the epigastric area, 14:25 Back: CVA tenderness, is absent, 14:25 Neuro: Orientation: to person, place \T\ time. Mentation: is normal, 14:28 ECG was reviewed by the Attending Physician. Vital Signs: 14:14 BP 177 / 68; Pulse 71; Resp 22; Temp 97(O); Pulse Ox 100% on R/A; Weight 95.25 kg; iw Height 5 ft. 3 in. ; Pain 10/10; 15:30 BP 179 / 74; Pulse 53; Resp 17; Pulse Ox 97% on R/A; cm10 16:15 BP 183 / 66; Pulse 55; Resp 17; Pulse Ox 99% on R/A; cm10 17:07 BP 160 / 67; Pulse 93; Resp 18; Pulse Ox 94% ; cm10 17:30 BP 167 / 63; Pulse 55; Resp 17; Pulse Ox 92% on R/A; cm10 14:14 Body Mass Index 37.20 (95.25 kg, 160.02 cm) iw 14:14 Pain Scale: Adult iw MDM: 14:14 Medical Screening Exam initiated cp 15:00 Differential diagnosis: acute myocardial infarction, cholecystitis, Cholelithiasis cp pancreatitis, pneumonia, pneumothorax, pulmonary embolus, stable angina, unstable angina, bowel obstruction. 16:30 Data reviewed: vital signs, nurses notes, lab test result(s), EKG, radiologic studies, cp CT scan, plain films, ultrasound, I have discussed the patient's presentation/case with the attending Emergency Department Physician; and as a result, I will transfer patient. 16:30 I considered the following discharge prescriptions or medication management in the emergency department Medications were administered in the Emergency Department. See MAR. Independent interpretation of the following test(s) in the Emergency Department EKG: See my EKG interpretation above. Care significantly affected by the following chronic conditions: Diabetes, Hypertension. Counseling: I had a detailed discussion with the patient and/or guardian regarding the historical points, exam findings, and any diagnostic results supporting the discharge/admit diagnosis, lab results, radiology results, the need to transfer to another facility, [facility] does not immediately have the required specialist. 17:10 ED course: consult with DR King, hospitalist at [facility], will accept patient cp as transfer after discussion. 17:10 Test considered but Not performed: MRI: abdomen/pelvis to r/o choledocholithiasis. cp Response to treatment: the patient's symptoms have mildly improved after treatment. 07/15 14:18 Order name: Basic Metabolic Panel; Complete Time: 15:22 07/15 15:22 Interpretation: Normal except: ANION GAP 15.8; GLUC 193; BUN 41; CRE 1.24; GFR 45. 07/15 14:18 Order name: CBC with Diff; Complete Time: 14:57 07/15 14:57 Interpretation: Normal except: RBC 3.85; HGB 11.7; HCT 35.0. 07/15 14:18 Order name: LFT's; Complete Time: 15:22 07/15 15:23 Interpretation: Normal except: GLOB 3.8; A/G 0.9. 07/15 14:18 Order name: Magnesium; Complete Time: 15:22 07/15 14:18 Order name: NT PRO-BNP; Complete Time: 15:22 07/15 14:18 Order name: PT-INR; Complete Time: 14:57 07/15 14:18 Order name: Troponin HS; Complete Time: 15:22 cp 07/15 14:18 Order name: Lipase; Complete Time: 15:22 07/15 16:15 Interpretation: Reviewed. 07/15 15:25 Order name: UA Rfx Wally Cult if indicated; Complete Time: 16:14 07/15 16:15 Order name: Lactate w/ 2H reflex if indic. cp 07/15 16:15 Order name: Blood Culture Adult (2) cp 07/15 14:18 Order name: XRAY Chest (1 view); Complete Time: 15:22 cp 07/15 15:25 Order name: CT Abd/Pelvis - Without Contrast; Complete Time: 16:14 cp 07/15 16:14 Interpretation: Report reviewed. 07/15 14:18 Order name: Cardiac monitoring; Complete Time: 14:36 07/15 14:18 Order name: EKG - Nurse/Tech; Complete Time: 14:26 cp 07/15 14:18 Order name: IV Saline Lock; Complete Time: 14:36 07/15 14:18 Order name: Labs collected and sent; Complete Time: 14:36 07/15 14:18 Order name: O2 Per Protocol; Complete Time: 14:36 cp 07/15 14:18 Order name: O2 Sat Monitoring; Complete Time: 14:36 07/15 16:28 Order name: NPO; Complete Time: 17:04 cp EC:28 Rate is 67 beats/min. Rhythm is regular. MA interval is normal. QRS interval is normal. cp QT interval is normal. T waves are Inverted in lead aVR. Interpreted by me. Reviewed by me. Administered Medications: 14:55 Drug: morphine IVP or IV 4 mg IVP once over 4 mins Route: IVP; Infused Over: 4 mins; nh2 Site: right antecubital; 15:49 Follow up: Response: No adverse reaction; Pain is unchanged, physician notified cm10 14:55 Drug: Ondansetron IVP 4 mg IVP once; over 2 minutes Route: IVP; Site: right antecubital;nh2 15:50 Follow up: Response: No adverse reaction; Pain is unchanged, physician notified cm10 15:49 Drug: NS 0.9% IV 500 ml 500 ml IV at 1 bolus once; to be given as a bolus over 60 cm10 minutes Volume: 500 ml; Route: IV; Rate: 1 bolus; Site: right antecubital; 16:49 Follow up: Response: No adverse reaction; IV Status: Completed infusion; IV Intake: cm10 500ml 15:49 Drug: Pantoprazole IVP 40 mg IVP once Route: IVP; Site: right antecubital; cm10 16:20 Follow up: Response: No adverse reaction cm10 16:05 Drug: Acetaminophen PO 1000 mg PO once Route: PO; cm10 16:35 Follow up: Response: No adverse reaction cm10 17:06 Drug: Piperacillin-Tazobactam IVPB 3.375 grams IVPB once over 60 mins; (mix in NS 100 cm10 mL) Route: IVPB; Infused Over: 60 mins; Site: right antecubital; 17:36 Follow up: Response: No adverse reaction; IV Status: Completed infusion; IV Intake: cm10 100ml 17:07 Not Given (Physician Discretion): [id number] mg IVP once cm10 Disposition Summary: 07/15/25 16:27 Transfer Ordered Notes: Transfer Location: [facility] cp Reason: Higher level of care cp Condition: Stable cp Problem: new cp Symptoms: have improved cp Accepting Physician: DR King(07/15/25 18:07) eb Diagnosis - Disorders of gallbladder, biliary tract and pancreas in diseases classified cp elsewhere - Chest pain, unspecified cp Forms: - Medication Reconciliation Form cp - SBAR form cp Signatures: Dispatcher [employer] EDCitlalli Mancilla RN RN iw Valerio Marquez PA-C PA-C Sara Cadena Clarissa, RN RN cm10 Lopez Nicholas Jr, RN RN nh2 Corrections: (The following items were deleted from the chart) 14:16 14:16 Allergies: TRIMETHOPRIM; iw iw 14:19 14:19 BASIC METABOLIC PANEL+C.LAB.BRZ ordered. EDMS EDMS 14:19 14:19 CBC+H.LAB.BRZ ordered. EDMS EDMS 14:19 14:19 HEPATIC FUNCTION+C.LAB.BRZ ordered. EDMS EDMS 14:19 14:19 MAGNESIUM+C.LAB.BRZ ordered. EDMS EDMS 14:19 14:19 PROBNP+C.LAB.BRZ ordered. EDMS EDMS 14:19 14:19 PROTIME (+INR)+COAG.LAB.BRZ ordered. EDMS EDMS 14:19 14:19 Troponin High Sensitivity+C.LAB.BRZ ordered. EDMS EDMS 14:19 14:19 LIPASE+C.LAB.BRZ ordered. EDMS EDMS 15:25 15:25 Abdomen Pelvis Wo Con+CT.RAD.BRZ ordered. EDMS EDMS 16:15 16:15 LACTATE+C.LAB.BRZ ordered. EDMS EDMS 16:15 16:15 BLOOD CULTURE*+BA.LAB.BRZ ordered. EDMS EDMS 16:47 16:27 doctor cp cp 18:07 16:47 DR Christine joshi eb
--- NOTE | 2025-07-15 16:27 | ER ---
Nurse's Notes [facility] Name: Kelly Cai Age: 74 yrs Sex: Female : 1950 Arrival Date: 07/15/2025 Time: 14:02 Bed 7 Private MD: Diagnosis: Disorders of gallbladder, biliary tract and pancreas in diseases classified elsewhere;Chest pain, unspecified Presentation: 07/15 14:14 Chief complaint: Patient states: mid sternal chest pain since 11 am, radiates to her iw back and her upper abdomen. Coronavirus screen: At this time, the client does not indicate any symptoms associated with coronavirus-19. Ebola Screen: No symptoms or risks identified at this time. Initial Sepsis Screen: Does the patient meet any 2 criteria? No. Patient's initial sepsis screen is negative. Does the patient have a suspected source of infection? No. Patient's initial sepsis screen is negative. Risk Assessment: Do you want to hurt yourself or someone else? Patient reports no desire to harm self or others. Onset of symptoms was July 15, 2025. 14:14 Method Of Arrival: Wheelchair iw 14:14 Acuity: BALA 2 iw Historical: - Allergies: 14:16 Metformin HCl; iw 14:16 Sulfa (Sulfonamide Antibiotics); iw - PMHx: 14:16 Diabetes - NIDDM; Hypertension; breast cancer (Unknown); Hyperlipidemia; iw - PSHx: 14:16 lumpectomy; Right; heart cath; Right hip; pacemaker; iw - Immunization history:: Adult Immunizations unknown. - Infectious Disease History:: Denies. - Social history:: Smoking status: unknown. Screenin:00 [facility] ED Fall Risk Assessment (Adult) History of falling in the last 3 months, nh2 including since admission No falls in past 3 months (0 pts) Confusion or Disorientation No (0 pts) Intoxicated or Sedated No (0 pts) Impaired Gait No (0 pts) Mobility Assist Device Used No (0 pt) Altered Elimination No (0 pt) Score/Fall Risk Level 0 - 2 = Low Risk Oriented to surroundings, Maintained a safe environment, Educated pt \T\ family on fall prevention, incl call for assistance when getting out of bed, Assessed \T\ reinforced patient's understanding of fall precautions. Abuse screen: Denies threats or abuse. Denies injuries from another. Nutritional screening: No deficits noted. Tuberculosis screening: No symptoms or risk factors identified. Assessment: 14:20 General: Appears uncomfortable, Behavior is calm, cooperative, appropriate for age, nh2 Denies fever, chills. Pain: Complains of pain in right low back and chest Pain does not radiate. Pain currently is 10 out of 10 on a pain scale. Quality of pain is described as aching, Pain began this morning at 1100. Neuro: Level of Consciousness is awake, alert, obeys commands, Oriented to person, place, time, situation, Appropriate for age Reports headache. Cardiovascular: Heart tones S1 S2 present Patient's skin is warm and dry. Rhythm is sinus rhythm. Respiratory: Airway is patent Trachea midline Respiratory effort is even, unlabored, Respiratory pattern is regular, symmetrical, Denies cough, shortness of breath. GI: Bowel sounds present X 4 quads. Abd is soft and non tender Reports nausea. : Reports burning with urination, since 1100 this morning. EENT: No signs and/or symptoms were reported regarding the EENT system. Derm: Skin is intact, Skin is pink, warm \T\ dry. Musculoskeletal: Circulation, motion, and sensation intact. Range of motion: intact in all extremities. 15:45 Reassessment: Patient appears in no apparent distress at this time. Patient and/or cm10 family updated on plan of care and expected duration. Pain level reassessed. Patient is alert, oriented x 3, equal unlabored respirations, skin warm/dry/pink. Pt requesting tylenol for headache. provider made aware. Patient states symptoms have not improved. Vital Signs: 14:14 BP 177 / 68; Pulse 71; Resp 22; Temp 97(O); Pulse Ox 100% on R/A; Weight 95.25 kg; iw Height 5 ft. 3 in. ; Pain 10/10; 15:30 BP 179 / 74; Pulse 53; Resp 17; Pulse Ox 97% on R/A; cm10 16:15 BP 183 / 66; Pulse 55; Resp 17; Pulse Ox 99% on R/A; cm10 17:07 BP 160 / 67; Pulse 93; Resp 18; Pulse Ox 94% ; cm10 17:30 BP 167 / 63; Pulse 55; Resp 17; Pulse Ox 92% on R/A; cm10 14:14 Body Mass Index 37.20 (95.25 kg, 160.02 cm) iw 14:14 Pain Scale: Adult iw ED Course: 14:07 Patient arrived in ED. cj3 14:11 Valerio Marquez [facility]-C [facility]. cp 14:11 Valerio Momin MD is Attending Physician. cp 14:15 Triage completed. iw 14:26 EKG done, by ED staff, reviewed by Valerio Marquez PA-C. ts3 14:27 Sapphire Becerra, RN is Primary Nurse. cm10 14:30 Arm band placed on right wrist. nh2 14:36 Initial lab(s) drawn, by laboratory technical specialist, sent to lab. Inserted saline lock: 20 gauge in right ts3 antecubital area, using aseptic technique. Blood collected. Flushed with 10 mL NS. 15:00 Patient maintains SpO2 saturation greater than 95% on room air. nh2 15:00 Patient has correct armband on for positive identification. Bed in low position. Call nh2 light in reach. Side rails up X 1. Provided Education on: using call light for assistance. Client placed on continuous cardiac and pulse oximetry monitoring. NIBP monitoring applied. calender machine operator on. Pulse ox on. NIBP on. 15:01 XRAY Chest (1 view) In Process Unspecified. EDMS 15:50 UA Rfx Wally Cult if indicated Sent. cm10 15:57 CT Abd/Pelvis - Without Contrast In Process Unspecified. EDMS 16:21 initiated a transfer with Madhavi from the [facility]. eb 16:46 connected the hospitalist cushion mat maker for [facility] with Valerio TRIPLETT for patient transfer eb consultation. 17:04 administrative approval given by Madhavi Morris Rn/ patient has been accepted to [facility] 18 tower bed 1811/ Dr. Elliott King has accepted the patient in transfer/ report to be called to [phone]. 17:33 Report given to MANUEL Germain at [facility]. cm10 18:12 No provider procedures requiring assistance completed. Patient transferred, IV remains cm10 in place. Administered Medications: 14:55 Drug: morphine IVP or IV 4 mg IVP once over 4 mins Route: IVP; Infused Over: 4 mins; nh2 Site: right antecubital; 15:49 Follow up: Response: No adverse reaction; Pain is unchanged, physician notified cm10 14:55 Drug: Ondansetron IVP 4 mg IVP once; over 2 minutes Route: IVP; Site: right antecubital;nh2 15:50 Follow up: Response: No adverse reaction; Pain is unchanged, physician notified cm10 15:49 Drug: NS 0.9% IV 500 ml 500 ml IV at 1 bolus once; to be given as a bolus over 60 cm10 minutes Volume: 500 ml; Route: IV; Rate: 1 bolus; Site: right antecubital; 16:49 Follow up: Response: No adverse reaction; IV Status: Completed infusion; IV Intake: cm10 500ml 15:49 Drug: Pantoprazole IVP 40 mg IVP once Route: IVP; Site: right antecubital; cm10 16:20 Follow up: Response: No adverse reaction cm10 16:05 Drug: Acetaminophen PO 1000 mg PO once Route: PO; cm10 16:35 Follow up: Response: No adverse reaction cm10 17:06 Drug: Piperacillin-Tazobactam IVPB 3.375 grams IVPB once over 60 mins; (mix in NS 100 cm10 mL) Route: IVPB; Infused Over: 60 mins; Site: right antecubital; 17:36 Follow up: Response: No adverse reaction; IV Status: Completed infusion; IV Intake: cm10 100ml 17:07 Not Given (Physician Discretion): [id number] mg IVP once cm10 Medication: 15:00 VIS not applicable for this client. nh2 Intake: 16:49 IV: 500ml; Total: 500ml. cm10 17:36 IV: 100ml; Total: 600ml. cm10 Outcome: 16:27 ER care complete, transfer ordered by . adi 18:07 Patient left the ED. eb 18:11 Transferred by [facility] [place]. to [facility] 18:11 Condition: stable 18:11 Instructed on the need for transfer, Signatures: Dispatcher [employer] EDCitlalli Mancilla RN RN iw Page, Corey, PA-C PA-C Sara Cadena Clarissa, RN RN cm10 Lopez Nicholas Jr, RN RN [facility] Ernestina Rodriguez 3 Pauly Morrison ts3 Corrections: (The following items were deleted from the chart) 14:16 14:16 Allergies: TRIMETHOPRIM; iw iw 14:33 14:14 BP 177 / 68; Pulse 71bpm; Resp 22bpm; Pulse Ox 100% RA; 95.25 kg; Height 5 ft. 3 iw in.; BMI: 37.2; Pain 10, Adult; iw 14:36 14:26 EKG done, by ED staff, reviewed by Valerio Momin MD ts3 ts3
[2025-07-15] MEDS ORDERED: NA CHLORIDE 0.9% 100 ML ONE (16:44)
[2025-07-15] MEDS ORDERED: PIPERACIL/TAZO 3.375 GM VIAL IV ONE (16:45)
[2025-07-15 19:04] VITALS: TEMP 97
[2025-07-15 19:08] VITALS: BP 167/63; O2SAT 92
== END 2025-07-15 18:07 | disposition short-term general hospital (02) ==
LOC: ER 14:02
DX: K82.8 Other specified diseases of gallbladder (principal); K83.9 Disease of biliary tract, unspecified; K86.89 Other specified diseases of pancreas; Z95.0 Presence of cardiac pacemaker
CPT/HCPCS: 96365; 96361; 93005; 87040; 85025; 80048; 36415; 83735; 85610; 80076; 83605; 81003; 84484; 83690; 83880; 74176; 71045; 96375; 99285; J2543; J2470; J2405; J7040